=== PATIENT | female | born 1990 | race Caucasian/White ===

== ENCOUNTER 2022-09-22 13:06 | Outpatient (OUT) | payer BC, SELFPAY ==
--- NOTE | 2022-09-22 13:11 | US_ITS ---
[address] [address] Patient Name: EDISON DEWITT MRN: [id number] date: 1990 Sex: F Assigned Patient Location: US Current Patient Location: US Accession/Order Number: [id number] Exam Date: 09/22/2022 13:11 Report Date: 09/22/2022 16:04 At the request of: RENU LUCAS Procedure: US OB transvaginal EXAMINATION: US OB transvaginal HISTORY: MISSED MENSES COMPARISON: No relevant comparison available. FINDINGS: GESTATIONAL SAC: Present and normal appearing. YOLK SAC: Present and normal appearing. POLE: Present and normal appearing. CARDIAC: Present. UTERUS: Normal size and appearance. OVARIES: Right: Not seen. Left: Not seen. CERVIX: 5.2 cm in length and closed. CUL-DE-SAC: Normal. OTHER: None. AGE BY LMP: 10 weeks 5 days [facility] BY LMP: 04/15/2023 AGE BY US CRL: 8 weeks 3 days [facility] BY US CRL: 05/01/2023 US/US OB transvaginal IMPRESSION: 1. Single live intrauterine . Electronically authenticated by: RAVI BURRELL Date: 09/22/2022 16:04
== END 2022-09-22 13:07 | disposition home or self-care (01) ==
LOC: US 13:08
PROVIDERS: Visit Provider Obstetrics & Gynecology
DX: Z34.91 Encounter for supervision of normal pregnancy, unspecified, first trimester (principal)
CPT/HCPCS: 76817

== ENCOUNTER 2022-12-15 08:36 | Outpatient (OUT) | payer BC, SELFPAY ==
--- NOTE | 2022-12-15 08:38 | US_ITS ---
[address] [address] Patient Name: EDISON DEWITT MRN: [id number] date: 1990 Sex: F Assigned Patient Location: US Current Patient Location: US Accession/Order Number: [id number] Exam Date: 12/15/2022 08:39 Report Date: 12/15/2022 17:40 At the request of: RENU LUCAS Procedure: US OB anatomy EXAMINATION: US OB anatomy, US OB cervical length HISTORY: ANATOMY COMPARISON: No relevant comparison available. TECHNIQUE: Transabdominal sonographic examination was performed for obstetrical and evaluation. FINDINGS: Number: 1 Heart Rate: 142.0 bpm H.B. /min Amniotic Fluid Volume: Subjectively normal position: Cephalic presentation, longitudinal lie Placental Location: Anterior, placental edge 7.2 cm from the internal os Cervix Length: 3.8 cm , closed Normal anatomy: Lateral ventricles, cerebellum, posterior fossa, nose, lips, orbits, four-chamber heart, RVOT, LVOT, diaphragm, stomach, kidneys, abdominal cord insertion, bladder, umbilical arteries, three-vessel cord, spine, extremities BIOMETRY: BPD: 5.1 cm 21 weeks 3 days , 85% HC: 18.4 cm 20 weeks 5 days, 57% AC: 16.8 cm 21 weeks 6 days, 85% FL: 3.4 cm 20 weeks 6 days , 56% EFW:413.8 grams; 15 ounces, 89% FL/AC: 20.5 FL/BPD: 67.7 HC/AC: 1.1 GESTATIONAL AGE: Age by EDC: 20 weeks 3 days Age by current US: 21 weeks 2 days [facility] by current US: 04/25/2023 [facility] by EDC: 05/01/2023 US/US OB anatomy IMPRESSION: Normal anatomy scan *Reference: [facility] Practice Guideline for the performance of Obstetric Ultrasound Examinations, November 13, 2006. Electronically authenticated by: LUCIANA MENDOZA Date: 12/15/2022 17:40
--- NOTE | 2022-12-15 08:38 | US_ITS ---
[address] [address] Patient Name: EDISON DEWITT MRN: [id number] date: 1990 Sex: F Assigned Patient Location: US Current Patient Location: Accession/Order Number: [id number] Exam Date: 12/15/2022 08:39 Report Date: 12/15/2022 17:40 At the request of: RENU LUCAS Procedure: US OB cervical length EXAMINATION: US OB anatomy, US OB cervical length HISTORY: ANATOMY COMPARISON: No relevant comparison available. TECHNIQUE: Transabdominal sonographic examination was performed for obstetrical and evaluation. FINDINGS: Number: 1 Heart Rate: 142.0 bpm H.B. /min Amniotic Fluid Volume: Subjectively normal position: Cephalic presentation, longitudinal lie Placental Location: Anterior, placental edge 7.2 cm from the internal os Cervix Length: 3.8 cm , closed Normal anatomy: Lateral ventricles, cerebellum, posterior fossa, nose, lips, orbits, four-chamber heart, RVOT, LVOT, diaphragm, stomach, kidneys, abdominal cord insertion, bladder, umbilical arteries, three-vessel cord, spine, extremities BIOMETRY: BPD: 5.1 cm 21 weeks 3 days , 85% HC: 18.4 cm 20 weeks 5 days, 57% AC: 16.8 cm 21 weeks 6 days, 85% FL: 3.4 cm 20 weeks 6 days , 56% EFW:413.8 grams; 15 ounces, 89% FL/AC: 20.5 FL/BPD: 67.7 HC/AC: 1.1 GESTATIONAL AGE: Age by EDC: 20 weeks 3 days Age by current US: 21 weeks 2 days [facility] by current US: 04/25/2023 [facility] by EDC: 05/01/2023 US/US OB cervical length IMPRESSION: Normal anatomy scan *Reference: [facility] Practice Guideline for the performance of Obstetric Ultrasound Examinations, November 13, 2006. Electronically authenticated by: LUCIANA MENDOZA Date: 12/15/2022 17:40
== END 2022-12-15 08:37 | disposition home or self-care (01) ==
LOC: US 08:36
PROVIDERS: Visit Provider Obstetrics & Gynecology
DX: Z36.89 Encounter for other specified antenatal screening (principal); Z3A.20 20 weeks gestation of pregnancy
CPT/HCPCS: 76805; 76817

== ENCOUNTER 2023-02-08 08:43 | Outpatient (OUT) | payer BC, SELFPAY ==
[2023-02-08 09:57] LABS: Basophils Percent Auto 0.3 % (0.2-2.0); Eosinophils Absolute Auto 0.1 10^3/uL (0.0-0.7); Eosinophils Percent Auto 1.5 % (0.9-7.0); Hematocrit 34.8 % (36.0-48.0); Hemoglobin 11.5 g/dL (12.0-16.0); Immature Granulocytes Abs Auto 0.03 10^3/uL (0.00-0.03); Immature Granulocytes Pct Auto 0.4 % (0.0-0.5); Lymphocytes Absolute Auto 1.2 10^3/uL (1.2-3.8); Lymphocytes Percent Auto 16.2 % (20.5-60.0); Mean Corpuscular Volume 93.8 fL (81.0-99.0); Mean Platelet Volume 9.3 fL (9.5-13.5); Monocytes Absolute Auto 0.5 10^3/uL (0.3-0.8); Monocytes Percent Auto 6.6 % (1.7-12.0); Neutrophils Absolute Auto 5.7 10^3/uL (1.4-6.5); Platelet Count 226 10^3/uL (150-450); Red Blood Count 3.71 10^6/uL (4.20-5.40); Red Cell Distribution Width 13.5 % (11.0-15.0); White Blood Count 7.6 10^3/uL (4.0-11.0)
[2023-02-08 10:06] LABS: Glucose 1 Hour 111 mg/dL
== END 2023-02-08 08:44 | disposition home or self-care (01) ==
LOC: LAB 08:43
PROVIDERS: Visit Provider Obstetrics & Gynecology
DX: Z13.1 Encounter for screening for diabetes mellitus (principal)
CPT/HCPCS: 36415; 82950; 85025

== ENCOUNTER 2023-03-29 14:59 | Observation (INO) | payer BC, SELFPAY ==
--- OUTSIDE RECORDS SUMMARY | 2023-03-29 12:41 | XMS_ITS | CCD ---
Author Name Unknown Address [address] [place] [address] Organization [facility] Care Team Providers Care Individualized Education Plan Aide Name Role Phone Rosette Mendoza Primary Care Provider REQUEST, DR EB LISTED Primary Care Unavaila chase MENDOZA, DR LUCIANA Pedro Consulting Unavailable SHAYY ., DR SEARS Attending Unavailable SHAYY ., DR SEARS Admitting Unavailable SHAYY ., DR SEARS Consulting Unavailable Rosalind Jeter Unavailable RINA CURRY Attending Unavailable RENU LUCAS Attending Unavailable RENU LUCAS Attending Unavailable RENU LUCAS Attending Unavailable Rosette Mendoza Primary Care Provider PEMA REBOLLEDO Admitting Unavailable PEMA REBOLLEDO Attending Unavailable ROSETTE MENDOZA Primary Care Unavailable ROSETTE MENDOZA Primary Care Unavailable ROSETTE MENDOZA Primary Care Unavailable BRITTANI VALENCIA Referring Unavailab le Medications Current Medications Medication Drug Class(es) Dates Sig (Normalized) Sig (Original) aluminum hydroxide 40 mg/ml / magnesium hydroxide 40 mg/ml / simethicone 4 mg/ml oral suspension (1 source) Start: 03-26-2023 aluminum & magnesium hydroxide-simethi cone (MAALOX) 200-200-20 MG/5ML suspension 30 mL amoxicillin 500 mg oral capsule (1 source) Penicillin-class Antibacterial Start: 02-15-2023 take 1 capsule by mouth every eight hours Amoxicillin 500 MG 1 capsule Orally three times a day for 10 day(s) Feb, Active famotidine (PEPCID) 20 mg in sodium chloride (PF) 0.9 % 10 mL injection (1 source) Start: 03-26-2023 famotidine (PEPCID) 20 mg in sodium chloride (PF) 0.9 % 10 mL injection magnesium oxide 400 mg oral tablet (2 sources) Start: 12-15-2022 magnesium oxide (MAG-OX) 400 (240 Mg) MG tablet Magnesium Oxide -Mg Supplement 400 (240 Mg) MG Oral for 30 Days Not-Taking/PRN ondansetron (ZOFRAN-ODT) disintegrating tablet 4 mg (1 source) Start: 03-26-2023 ondansetron (ZOFRAN-ODT) disintegrating tablet 4 mg microencapsulated potassium chloride 20 meq extended release oral tablet (2 sources) Start: 03-27-2023 End: 03-30-2023 take 1 tablet by mouth once daily potassium chloride (KLOR-CON M) 20 MEQ extended release tablet Take 1 tablet by mouth daily for 3 days 3 tablet 0 03/27/2023 03/30/2023 Active Start: 03-27-2023 potassium chlo ride (KLOR-CON M) extended release tablet 40 mEq potassium chloride 40 mEq in sodium chloride 0.9 % 1,000 mL infusion (1 source) Start: 03-27-2023 potassium chlo ride 40 mEq in sodium chloride 0.9 % 1,000 mL infusion Vit-Fe Fumarate-FA ( VITAMINS) 28-0.8 MG TABS (2 sources) Start: 03-30-2022 take 1 tablet by mouth once daily Vit-Fe Fumarate-FA ( VITAMINS) 28-0.8 MG TABS Indications: Well woman exam Take 1 tablet by mouth daily 30 tablet 12 03/30/2022 Active Vitamins 28-0.8 MG (1 source) take 1 tablet by mouth in the morning Vitamins 28-0.8 MG TAKE 1 TABLET BY MOUTH IN THE MORNING Oral for 30 Days Active Completed/Discontinued Medications Medication Drug Class(es) Dates Sig (Normalized) Sig (Original) acetaminophen 500 mg oral tablet (1 source) Start: 03-26-2023 1,000 mg, Oral, EVERY 8 HOURS SCHEDULED (3 times per day), First dose on 03/26/23 at 1400, Until Discontinued Maximum dose of acetaminophen is 4000mg from all sources in 24 hours. Alternate ibuprofen and acetaminophen every 4 hours. calcium chloride 0.0014 meq/ml / potassium chloride 0.004 meq/ml / sodium chloride 0.103 meq/ml / sodium lactate 0.028 meq/ml injectable solution (1 source) Start: 03-26-2023 End: 03-26-2023 lactated ringers bolus bolus 1,000 mL fluconazole 150 mg oral tablet (1 source) Azole Antifungal Fluconazole 150 MG TAKE 1 TABLET BY MOUTH 1 TIME FOR 1 DAY Oral for 1 Days Not-Taking/PRN letrozole 2.5 mg oral tablet (1 source) Aromatase Inhibitor Letrozole 2. 5 MG Oral for 5 Days Not-Taking/PRN 50 ml magnesium sulfate 40 mg/ml injection (2 sources) Start: 03-26-2023 End: 03-27-2023 magnesium sulfate 2000 mg in 50 mL IVPB premix 24 hr metFORMIN hydrochloride 500 mg extended release oral tablet (1 source) Biguanide take 1 tablet by mouth once daily metFORMIN HCl ER 500 MG TAKE 1 TABLET BY MOUTH EVERY DAY WITH THE EVENING MEAL Oral for 30 Days Not-Taking/PRN metroNIDAZOLE 500 mg oral tablet (1 source) Nitroimidazole Antimicrobial metroNIDAZOLE 500 MG TAKE 1 TABLET BY MOUTH TWICE DAILY FOR 7 DAYS Oral for 7 Days Not-Taking/PRN 1000 ml sodium chloride 9 mg/ml injection (1 source) Start: 03-26-2023 End: 03-27-2023 0.9 % sodium chloride infusion sulfamethoxazole 800 mg / trimethoprim 160 mg oral tablet (1 source) Dihydrofolate Reductase Inhibitor Antibacterial, Sulfonamide Antimicrobial Sulfamethoxazole-T rimethoprim 800-160 MG TAKE 1 TABLET BY MOUTH TWICE DAILY FOR 10 DAYS Oral for 10 Days Not-Taking/PRN Problems Active Problems Problem Classification Problem Date Documented Date Episodic/Chronic Abdominal pain (4 sources) Pelvic and perineal pain; Translations: [PELVIC AND PERINEAL PAIN] Onset: 04-11-2022 Episodic Fluid and electrolyte disorders (4 sources) Hypokalemia; Translations: [Hypokalemia] Onset: 03-27-2023 03-27-2023 Episodic Noninfectious gastroenteritis (2 sources) Acute gastroenteritis; Translations: [Noninfective gastroenteritis and colitis, unspecified] Onset: 03-27-2023 03-27-2023 Episodic Other female genital disorders (1 source) Vaginal discharge; Translations: [Other specified noninflammatory disorders of vagina] Episodic Other nutritional; endocrine; and metabolic disorders (2 sources) Hypomagnesemia; Translations: [Hypomagnesemia] Onset: 03-27-2023 03-27-2023 Chronic Otitis media and related conditions (1 source) Otitis media, unspecified, right ear Episodic Residual codes; unclassified (2 sources) Gestation period, 34 weeks; Translations: [34 weeks gestation of ] Onset: 03-26-2023 03-26-2023 Episodic Unclassified (1 source) vomiting, dehydrated, 8 momths preg Onset: 03-26-2023 Past or Other Problems Problem Classification Problem Date Documented Date Episodic/Chronic Genitourinary symptoms and ill-defined conditions (2 sources) Malodorous urine; Translations: [Unspecified abnormal findings in urine] Onset: 03-30-2022 Episodic Other female genital disorders (1 source) Other specified noninflammatory disorders of vagina; Translations: [Other specified noninflammatory disorders of vagina] Onset: 03-30-2022 Episodic Results Test Name Value Interpretation Reference Range Facility BLOOD GAS, VENOUSon 03-27-19 Carboxyhemoglobin (Bld) [Mass fraction] 1.0 % 0 - 5 % [facility] Comment on above: Reference Range: Non-Smokers 0-2% Average Smoker 2-4% Heavy Smoker <10% HCO3 (Bld) [Moles/Vol] 24.8 mmol/L 24 - 30 mmol /L [facility] Interpretation and review of laboratory results Abnormal [facility] Negative Base Excess, Pieter 0.3 mmol/L 0.0 - 2.0 mmol/L [facility] Oxygen saturation in Blood 35.8 % Low 60.0 - 85.0 % [facility] Oxygen/Inspired gas Respiratory system --on ventilator INFORMATION NOT PROVIDED [facility] pCO2, Pieetr 45.1 [facility] pH, Pieter 7.359 7.320 - 7.420 [facility] pO2, Pieter 26.4 Low [facility] Comp Metabolic Profon 2023 Potassium [Moles/Vol] 2.9 mmol/L Critically low 3.7-5.3 [facility] Comment on above: Performed By: #### O IKM MG, CP #### [facility] [place] [id number] [employer]: Jurgen Hernandez MD Albumin [Mass/Vol] 2.9 g/dL Low 3.5-5.2 [facility] Comment on above: Performed By: #### O SMO, MG, CP #### [address] [address] [employer]: Jurgen Hernandez MD Albumin/Glob Ratio 1.1 Normal 1.0-2.5 [facility] Comment on above: Performed By: #### O SMO, MG, CP #### [facility] [address] [place] [address] [employer]: Jurgen Hernandez MD Alkaline Phos 73 U/L Normal 35-104 [facility] Comment on above: Performed By: #### O SMO, MG, CP #### [facility] [address] [place] [address] [employer]: Jurgen Hernandez MD ALT [Catalytic activity/Vol] 7 U/L Normal 5-33 [facility] Comment on above: Performed By: #### O SMO, MG, CP #### [address] [address] [employer]: Jurgen Hernandez MD Anion gap [Moles/Vol] 9 mmol/L Normal 9-17 [facility] Comment on above: Performed By: #### O SMO, MG, CP #### [address] [address] [employer]: Jurgen Hernandez MD AST [Catalytic activity/Vol] 26 U/L Normal <32 [facility] Comment on above: Performed By: #### O SMO, MG, CP #### [address] [address] [employer]: Jurgen Hernandez MD Bilirubin [Mass/Vol] 1.3 mg/dL High 0.3-1.2 [facility] Comment on above: Performed By: #### O SMO, MG, CP #### [employer] [address] [place] [address] [employer]: Jurgen Hernandez MD Calcium [Mass/Vol] 7.8 mg/dL Low 8.6-10.4 [facility] Comment on above: Performed By: #### O SMO, MG, CP #### [facility] [address] [place] [address] [employer]: Jurgen Hernandez MD Chloride [Moles/Vol] 104 mmol/L Normal 98-107 [facility] Comment on above: Performed By: #### O SMO, MG, CP #### [facility] [address] [place] [address] [employer]: Jurgen Hernandez MD CO2 [Moles/Vol] 21 mmol/L Normal 20-31 [facility] Comment on above: Performed By: #### O SMO, MG, CP #### [facility] [address] [place] [address] [employer]: Jurgen Hernandez MD Creatinine [Mass/Vol] 0.4 mg/dL Low 0.5-0.9 [facility] Comment on above: Performed By: #### O SMO, MG, CP #### [facility] [address] [place] [address] [employer]: Jurgen Hernandez MD GFR/1.73 sq M.predicted among non-blacks MDRD (S/P/Bld) [Vol rate/Area] mL/min/{1.73_m2} Normal >60 [facility] Comment on above: Result Comment: These results are not intended for use in patients <18 years of age. eGFR results are calculated without a race factor using the 2020 CKD-EPI equation. Careful clinical correlation is recommended, particularly when comparing to results calculated using previous equations. The CKD-EPI equation is less accurate in patients with extremes of muscle mass, extra-renal metabolism of creatine, excessive creatine ingestion, or following therapy that affects renal tubular secretion. Performed By: #### O SMO, MG, CP #### [facility] [place] [address] [employer]: Jurgen Hernandez MD Glucose [Mass/Vol] 108 mg/dL High 70-99 [facility] Comment on above: Performed By: #### O SMO, MG, CP #### [facility] [place] [address] [employer]: Jurgen Hernandez MD Protein [Mass/Vol] 5.6 g/dL Low 6.4-8.3 [facility] Comment on above: Performed By: #### O SMO, MG, CP #### [facility] [address] [place] [address] [employer]: Jurgen Hernandez MD Sodium [Moles/Vol] 134 mmol/L Low 135-144 [facility] Comment on above: Performed By: #### O SMO MG, CP #### [facility] [address] [place] [address] [employer]: Jurgen Hernandez MD Urea nitrogen [Mass/Vol] 2 mg/dL Low 6-20 [facility] Comment on above: Performed By: #### O SMO, MG, CP #### [facility] [address] [place] [address] [employer]: Jurgen Hernandez MD Comprehensive Metabolic Pane [facility] 03-27-2023 Albumin [Mass/Vol] 2.9 g/dL Low 3.5 - 5.2 g/dL [facility] Albumin/Globulin [Mass ratio] 1.1 {ratio} 1.0 - 2.5 [facility] ALP [Catalytic activity/Vol] 73 U/L 35 - 104 U/L [facility] ALT [Catalytic activity/Vol] 7 U/L 5 - 33 U/L [facility] Anion gap [Moles/Vol] 9 mmol/L 9 - 17 mmol/L [facility] AST [Catalytic activity/Vol] 26 U/L NINF - 32 U/L [facility] Bilirubin [Mass/Vol] 1.3 mg/dL High 0.3 - 1 .2 mg/dL [facility] Calcium [Mass/Vol] 7.8 mg/dL Low 8.6 - 10. 4 mg/dL [facility] Chloride [Moles/Vol] 104 mmol/L 98 - 10 7 mmol/L [facility] CO2 [Moles/Vol] 21 mmol/L 20 - 31 mmol/L [facility] Creatinine [Mass/Vol] 0.4 mg/dL Low 0.5 - 0.9 mg/dL [facility] GFR/1.73 sq M.predicted MDRD (S/P/Bld) [Vol rate/Area] - PINF [facility] Comment on above: These results are not intended for use in patients <18 years of age. eGFR results are calculated without a race factor using the 2020 CKD-EPI equation. Careful clinical correlation is recommended, particularly when comparing to results calculated using previous equations. The CKD-EPI equation is less accurate in patients with extremes of muscle mass, extra-renal metabolism of creatine, excessive creatine ingestion, or following therapy that affects renal tubular secretion. Glucose [Mass/Vol] 108 mg/dL High 70 - 99 mg/dL [facility] Interpretation and review of laboratory results Abnormal [facility] Potassium [Moles/Vol] 2.9 mmol/L Critically low 3.7 - 5.3 mmol/L [facility] Protein [Mass/Vol] 5.6 g/dL Low 6.4 - 8.3 g/dL [facility] Sodium [Moles/Vol] 134 mmol/L Low 135 - 144 mmol/L [facility] Urea nitrogen [Mass/Vol] 2 mg/dL Low 6 - 20 mg/dL [facility] EKG 12 LeadOrdered By: Lillian Pruitt on 03-27-2023 Atrial Rate 101 BPM [facility] [employer] Work Phone: P [place] 54 degrees [facility] [employer] Work Phone: P-R Interval 178 ms [facility] [employer] Work Phone: Q-T Interval 364 ms [facility] Work Phone: QRS Duration 102 ms [facility] Work Phone: QTc Calculation (Bazett) 471 ms [facility] Work Phone: R [place] 35 degrees [facility] Work Phone: T [place] 38 degrees [facility] Work Phone: Ventricular Rate 101 BPM [facility] Work Phone: [facility] Work Phone: EKG 12 Leadon 03-27-2023 Sinus tachycardia Incomplete right bundle branch block Septal infarct , age undetermined Abnormal ECG No previous ECGs available [facility] STLillian Truong MD - 03/27/2023 Sinus tachycardia Incomplete right bundle branch block Septal infarct , age undetermined Abnormal ECG No previous ECGs available [facility] Atrial Rate 101 BPM [facility] P [place] 56 degrees [facility] P-R Interval 170 ms [facility] Q-T Interval 364 ms [facility] QRS Duration 96 ms [facility] QTc Calculation (Bazett) 471 ms [facility] R [place] 31 degrees [facility] T Melrose 37 degrees [facility] Ventricular Rate 101 BPM [facility] Sinus tachycardia Nonspecific ST and T wave abnormality Abnormal ECG When compared with ECG of 26-MAR-2023 11:35, Incomplete right bundle branch block is no longer Present [facility] STLillian Truong MD - 03/27/[address] and T wave abnormality Abnormal ECG When compared with ECG of 26-MAR-2023 11:35, Incomplete right bundle branch block is no longer Present [facility] Electrolyte Panelon 03-27-19 24 Anion gap [Moles/Vol] 9 mmol/L 9 - 17 mmol/L [facility] Chloride [Moles/Vol] 103 mmol/L 98 - 10 7 mmol/L [facility] CO2 [Moles/Vol] 23 mmol/L 20 - 31 mmol/L [facility] Interpretation and review of laboratory results Abnormal [facility] Potassium [Moles/Vol] 3.1 mmol/L Low 3.7 - 5.3 mmol/L [facility] Sodium [Moles/Vol] 135 mmol/L 135 - 144 mmol/L [facility] Electrolyteson 03-27-2023 Anion gap [Moles/Vol] 9 mmol/L Normal 9-17 [facility] Comment on above: Performed By: #### U RC #### [employer] [address] [place] [address] [employer]: Jurgen Hernandez MD Chloride [Moles/Vol] 103 mmol/L Normal 98-107 [facility] Comment on above: Performed By: #### U RC #### [facility] [address] [place] [address] [employer]: Jurgen Hernandez MD CO2 [Moles/Vol] 23 mmol/L Normal 20-31 [facility] Comment on above: Performed By: #### U RC #### [employer] [address] [place] [address] [employer]: Jurgen Hernandez MD Potassium [Moles/Vol] 3.1 mmol/L Low 3.7-5.3 [facility] Comment on above: Performed By: #### U RC #### [employer] [address] [place] [address] [employer]: Jurgen Hernandez MD Sodium [Moles/Vol] 135 mmol/L Normal 135-144 [facility] Comment on above: Performed By: #### U RC #### [facility] [address] [place] [address] [employer]: Jurgen Hernandez MD K (Potassium)on 03-27-2023 Potassium [Moles/Vol] 2.7 mmol/L Critically low 3.7-5.3 [facility] Comment on above: Performed By: #### K #### [facility] [address] [place] [address] [employer]: Jurgen Hernandez MD Potassium [Moles/Vol] 2.5 mmol/L Critically low 3.7-5.3 [facility] Comment on above: Performed By: #### K #### [facility] [address] [place] [address] [employer]: Jurgen Hernandez MD Magnesiumon 03-27-2023 Magnesium [Mass/Vol] 1.9 mg/dL Normal 1.6-2.6 [facility] Comment on above: Performed By: #### O KIM MG, CP #### [facility] [address] [place] [address] [employer]: Jurgen Hernandez MD Magnesium [Mass/Vol] 1.9 mg/dL 1.6 - 2 .6 mg/dL [facility] OSMOLALITY, URINEon 03-27-19 24 Osmolality (U) [Osmolality] 365 mosm/kg [facility] Osmolalityon 03-27-2023 Osmolality [Osmolality] 285 mosm/kg Normal 275-295 [facility] Comment on above: Performed By: #### O KIM MG, CP #### [facility] [address] [place] [address] [employer]: Jurgen Hernandez MD Osmolality [Osmolality] 285 mosm/kg [facility] Osmolality, Urineon 03-27-19 24 Osmolality - Urine 365 mOsm/kg Normal 80-1300 [facility] Comment on above: Performed By: #### U RC #### [facility] [address] [place] [address] [employer]: Jurgen Hernandez MD POTASSIUM, URINE, RANDOMon 0 03-27-2023 Potassium, Ur 29.1 mmol/L [facility] Comment on above: No normal range esta blished. [facility] Potassiumon 03-27-2023 Interpretation and review of laboratory results Abnormal [facility] Potassium [Moles/Vol] 2.7 mmol/L Critically low 3.7 - 5.3 mmol/L [facility] Potassium,Random Uron 2023 Potassium [Moles/Vol] 29.1 mmol/L Normal [facility] Comment on above: Result Comment: No n ormal range established. Performed By: #### U RC #### [address] [address] [employer]: Jurgen Hernandez MD Venous Blood Gaseson 024 Body Temp. 37.0 Normal [facility] Comment on above: Performed By: #### U RC #### [address] [address] [employer]: Jurgen Hernandez MD Carboxy Hgb 1.0 % Normal 0-5 [facility] Comment on above: Result Comment: Reference Range: Non-Smokers 0-2% Average Smoker 2-4% Heavy Smoker <10% Performed By: #### U RC #### [address] [address] [employer]: Jurgen Hernandez MD FIO2 INFORMATION NOT PROVIDED Normal [facility] Comment on above: Performed By: #### U RC #### [address] [address] [employer]: Jurgen Hernandez MD HCO3 (Bld) [Moles/Vol] 24.8 mmol/L Normal 24-30 [facility] Comment on above: Performed By: #### U RC #### [address] [address] [employer]: Jurgen Hernandez MD Negative Base Excess 0.3 mmol/L Normal 0.0-2.0 [facility] Comment on above: Performed By: #### U RC #### [address] [address] [employer]: Jurgen Hernandez MD Oxygen saturation in Blood 35.8 % Low 60.0-85.0 [facility] Comment on above: Performed By: #### U RC #### [address] [address] [employer]: Jurgen Hernandez MD pCO2 45.1 mm Hg Normal 39-55 [facility] Comment on above: Performed By: #### U RC #### [address] [address] [employer]: Jurgen Hernandez MD pH (Bld) 7.359 [pH] Normal 7.320-7.420 [facility] Comment on above: Performed By: #### U RC #### [address] [address] [employer]: Jurgen Hernandez MD pO2 26.4 mm Hg Low 30-50 [facility] Comment on above: Performed By: #### U RC #### [address] [address] [employer]: Jurgen Hernandez MD Beta Hydroxybutyrateon 03-26 Beta Hydroxybutyrate 1.24 mmol/L High 0.02-0.27 [facility] Comment on above: Performed By: #### C P, CDP, MG, BH #### [address] [address] [employer]: Jurgen Heranndez MD Beta-Hydroxybutyrateon 03-26 Beta hydroxybutyrate [Mass/Vol] 1.24 mmol/L High 0.02 - 0.27 mmol/L [facility] Interpretation and review of laboratory results Abnormal [facility] CBC with Auto Differentialon 03-26-2023 Basophils (Bld) [#/Vol] 0.00 10*3/uL [facility] Basophils/100 WBC (Bld) 0 % 0 - 2 % B ON [facility] Eosinophils (Bld) [#/Vol] 0.00 10*3/uL [facility] Eosinophils/100 WBC (Bld) 0 % Low 1 - 4 % [facility] Erythrocyte distribution width (RBC) [Ratio] 14.5 % High 11.8 - 14.4 % [facility] Hematocrit (Bld) [Volume fraction] 35.7 % Low 36.3 - 47.1 % [facility] Hemoglobin (Bld) [Mass/Vol] 12.1 g/dL 11.9 - 15.1 g/dL [facility] Immature granulocytes (Bld) [#/Vol] 0.00 10*3/uL [facility] Immature granulocytes/100 WBC (Bld) 0 % 0 [facility] Interpretation and review of laboratory results Abnormal [facility] Lymphocytes/100 WBC (Bld) 5 % Low 24 - 44 % [facility] Lymphocytes/100 WBC (Bld) 0.48 % Low [facility] MCH (RBC) [Entitic mass] 30.0 pg 25.2 - 33.5 pg [facility] MCHC (RBC) [Mass/Vol] 33.9 g/dL 28.4 - 34.8 g/dL [facility] MCV (RBC) [Entitic vol] 88.4 fL 82.6 - 102.9 fL [facility] Monocytes/100 WBC (Bld) 4 % 1 - 7 % B ON [facility] Monocytes/100 WBC (Bld) 0.38 % B ON [facility] Morphology Moises (Bld) [Interp] ANISOCYTOSIS PRESENT [facility] Neutrophils/100 WBC (Bld) 91 % High 36 - 66 % [facility] Nucleated RBC/100 WBC (Bld) [Ratio] 0.0 % 0.0 per 100 WBC [facility] Platelet mean volume (Bld) [Entitic vol] 9.4 fL 8.1 - 13.5 fL [facility] Platelets (Bld) [#/Vol] 231 10*3/uL [facility] RBC (Bld) [#/Vol] 4.04 10*6/uL 3.95 - 5.1 1 m/uL [facility] Segmented neutrophils/100 WBC (Bld) 8.64 % High [facility] WBC other (Bld) [#/Vol] 9.5 B ON [facility] CBC with Diffon 03-26-2023 Abs. Basophil 0.00 k/uL Normal 0.0-0.2 [facility] Comment on above: Performed By: #### C P, CDP, MG, #### [employer] [address] [place] [address] [employer]: Jurgen Hernandez MD Abs.Imm.Granulocyte 0.00 k/uL Normal 0.00-0.30 [facility] Comment on above: Performed By: #### C P, CDP, MG, #### [employer] [address] [place] [address] [employer]: Jurgen Hernandez MD Abs.Neutrophil (Seg) 8.64 k/uL High 1.8-7.7 [facility] Comment on above: Performed By: #### C P, CDP, MG, #### [employer] [address] [place] [address] [employer]: Jurgen Hernandez MD Basophils/100 WBC (Bld) 0 % Normal 0-2 [facility] Comment on above: Performed By: #### C P, CDP, MG, #### [employer] [address] [place] [address] [employer]: Jurgen Hernandez MD Eosinophils (Bld) [#/Vol] 0.00 10*3/uL Normal 0.0-0.4 [facility] Comment on above: Performed By: #### C P, CDP, MG, #### [address] [address] [employer]: Jurgen Hernandez MD Eosinophils/100 WBC (Bld) 0 % Low 1-4 [facility] Comment on above: Performed By: #### C P, CDP, MG, #### [address] [address] [employer]: Jurgen Hernandez MD Immature granulocytes/100 WBC (Bld) 0 % Normal 0 [facility] Comment on above: Performed By: #### C P, CDP, MG, #### [address] [address] [employer]: Jurgen Hernandez MD Lymphocytes (Bld) [#/Vol] 0.48 10*3/uL Low 1.0-4.8 [facility] Comment on above: Performed By: #### C P, CDP, MG, #### [address] [address] [employer]: Jurgen Hernandez MD Lymphocytes/100 WBC (Bld) 5 % Low 24-44 [facility] Comment on above: Performed By: #### C P, CDP, MG, #### [address] [address] [employer]: Jurgen Hernandez MD Monocytes (Bld) [#/Vol] 0.38 10*3/uL Normal 0.1-0.8 [facility] Comment on above: Performed By: #### C P, CDP, MG, #### [address] [address] [employer]: Jurgen Hernandez MD Monocytes/100 WBC (Bld) 4 % Normal 1-7 [facility] Comment on above: Performed By: #### C P, CDP, MG, #### [address] [address] [employer]: Jurgen Hernandez MD Morphology Moises (Bld) [Interp] ANISOCYTOSIS PRESENT Normal [facility] Comment on above: Performed By: #### C P, CDP, MG, #### [facility] [address] [place] [address] [employer]: Jurgen Hernandez MD Neutrophil (Seg) 91 % High 36-[address] [facility] Comment on above: Performed By: #### C P, CDP, MG, #### [address] [address] [employer]: Jurgen Hernandez MD Erythrocyte distribution width (RBC) [Ratio] 14.5 % High 11.8-14.4 [facility] Comment on above: Performed By: #### C P, CDP, MG, #### [address] [address] [employer]: Jurgen Hernandez MD Hematocrit (Bld) [Volume fraction] 35.7 % Low 36.3-47.1 [facility] Comment on above: Performed By: #### C P, CDP, MG, #### [address] [address] [employer]: Jurgen Hernandez MD Hemoglobin (Bld) [Mass/Vol] 12.1 g/dL Normal 11.9-15.1 [facility] Comment on above: Performed By: #### C P, CDP, MG, #### [facility] [address] [place] [address] [employer]: Jurgen Hernandez MD MCH (RBC) [Entitic mass] 30.0 pg Normal 25.2-33.5 [facility] Comment on above: Performed By: #### C P, CDP, MG, #### [facility] [address] [place] [address] [employer]: Jurgen Hernandez MD MCHC (RBC) [Mass/Vol] 33.9 g/dL Normal 28.4-34.8 [facility] Comment on above: Performed By: #### C P, CDP, MG, #### [address] [address] [employer]: uJrgen Hernandez MD MCV (RBC) [Entitic vol] 88.4 fL Normal 82.6-102.9 [facility] Comment on above: Performed By: #### C P, CDP, MG, #### [address] [address] [employer]: Jurgen Hernandez MD NRBC Automated 0.0 per 100 WBC Normal 0.0 [facility] Comment on above: Performed By: #### C P, CDP, MG, #### [address] [address] [employer]: Jurgen Hernandez MD Platelet mean volume (Bld) [Entitic vol] 9.4 fL Normal 8.1-13.5 [facility] Comment on above: Performed By: #### C P, CDP, MG, #### [address] [address] [employer]: Jurgen Hernandez MD Platelets (Bld) [#/Vol] 231 10*3/uL Normal 138-453 [facility] Comment on above: Performed By: #### C P, CDP, MG, #### [address] [address] [employer]: Jurgen Hernandez MD RBC (Bld) [#/Vol] 4.04 10*6/uL Normal 3.95-5.11 [facility] Comment on above: Performed By: #### C P, CDP, MG, #### [address] [address] [employer]: Jurgen Hernandez MD WBC (Bld) [#/Vol] 9.5 10*3/uL Normal 3.5-11.3 [facility] Comment on above: Performed By: #### C P, CDP, MG, BH #### [address] [address] [employer]: Jurgen Hernandez MD Comp Metabolic Profon 2023 Potassium [Moles/Vol] 2.7 mmol/L Critically low 3.7-5.3 [facility] Comment on above: Performed By: #### U RC #### [address] [address] [employer]: Jurgen Hernandez MD Albumin [Mass/Vol] 2.9 g/dL Low 3.5-5.2 [facility] Comment on above: Performed By: #### U RC #### [address] [address] [employer]: Jurgen Hernandez MD Albumin/Glob Ratio 1.1 Normal 1.0-2.5 [facility] Comment on above: Performed By: #### U RC #### [address] [address] [employer]: Jurgen Hernandez MD Alkaline Phos 73 U/L Normal 35-104 [facility] Comment on above: Performed By: #### U RC #### [address] [address] [employer]: Jurgen Hernandez MD ALT [Catalytic activity/Vol] 8 U/L Normal 5-33 [facility] Comment on above: Performed By: #### U RC #### [address] [address] [employer]: Jurgen Hernandez MD Anion gap [Moles/Vol] 12 mmol/L Normal 9-17 [facility] Comment on above: Performed By: #### U RC #### [address] [address] [employer]: Jurgen Hernandez MD AST [Catalytic activity/Vol] 14 U/L Normal <32 [facility] Comment on above: Performed By: #### U RC #### [address] [address] [employer]: Jurgen Hernandez MD Bilirubin [Mass/Vol] 1.3 mg/dL High 0.3-1.2 [facility] Comment on above: Performed By: #### U RC #### [address] [address] [employer]: Jurgen Hernandez MD Calcium [Mass/Vol] 7.9 mg/dL Low 8.6-10.4 [facility] Comment on above: Performed By: #### U RC #### [address] [address] [employer]: Jurgen Hernandez MD Chloride [Moles/Vol] 105 mmol/L Normal 98-107 [facility] Comment on above: Performed By: #### U RC #### [address] [address] [employer]: Jurgen Hernandez MD CO2 [Moles/Vol] 21 mmol/L Normal 20-31 [facility] Comment on above: Performed By: #### U RC #### [address] [address] [employer]: Jurgen Hernandez MD Creatinine [Mass/Vol] 0.4 mg/dL Low 0.5-0.9 [facility] Comment on above: Performed By: #### U RC #### [address] [address] [employer]: Jurgen Hernandez MD GFR/1.73 sq M.predicted among non-blacks MDRD (S/P/Bld) [Vol rate/Area] mL/min/{1.73_m2} Normal >60 [facility] Comment on above: Result Comment: These results are not intended for use in patients <18 years of age. eGFR results are calculated without a race factor using the 2020 CKD-EPI equation. Careful clinical correlation is recommended, particularly when comparing to results calculated using previous equations. The CKD-EPI equation is less accurate in patients with extremes of muscle mass, extra-renal metabolism of creatine, excessive creatine ingestion, or following therapy that affects renal tubular secretion. Performed By: #### U RC #### [address] [address] [employer]: Jurgen Hernandez MD Glucose [Mass/Vol] 115 mg/dL High 70-99 [facility] Comment on above: Performed By: #### U RC #### [address] [address] [employer]: Jurgen Hernandez MD Protein [Mass/Vol] 5.5 g/dL Low 6.4-8.3 [facility] Comment on above: Performed By: #### U RC #### [address] [address] [employer]: Jurgen Hernandez MD Sodium [Moles/Vol] 138 mmol/L Normal 135-144 [facility] Comment on above: Performed By: #### U RC #### [facility] [address] [place] [address] [employer]: Jurgen Hernandez MD Urea nitrogen [Mass/Vol] 3 mg/dL Low 6-20 [facility] Comment on above: Performed By: #### U RC #### [address] [address] [employer]: Jurgen Hernandez MD Potassium [Moles/Vol] 2.6 mmol/L Critically low 3.7-5.3 [facility] Comment on above: Performed By: #### C P, CDP, MG, #### [address] [address] [employer]: Jurgen Hernandez MD Albumin [Mass/Vol] 3.4 g/dL Low 3.5-5.2 [facility] Comment on above: Performed By: #### C P, CDP, MG, #### [address] [address] [employer]: Jurgen Hernandez MD Albumin/Glob Ratio 1.0 Normal 1.0-2.5 [facility] Comment on above: Performed By: #### C P, CDP, MG, #### [address] [address] [employer]: Jurgen Hernandez MD Alkaline Phos 80 U/L Normal 35-104 [facility] Comment on above: Performed By: #### C P, CDP, MG, #### [address] [address] [employer]: Jurgen Hernandez MD ALT [Catalytic activity/Vol] 9 U/L Normal 5-33 [facility] Comment on above: Performed By: #### C P, CDP, MG, #### [address] [address] [employer]: Jurgen Hernandez MD Anion gap [Moles/Vol] 15 mmol/L Normal 9-17 [facility] Comment on above: Performed By: #### C P, CDP, MG, #### [facility] [address] [place] [address] [employer]: Jurgen Hernandez MD AST [Catalytic activity/Vol] 20 U/L Normal <32 [facility] Comment on above: Performed By: #### C P, CDP, MG, #### [facility] [place] [address] [employer]: Jurgen Hernandez MD Bilirubin [Mass/Vol] 1.6 mg/dL High 0.3-1.2 [facility] Comment on above: Performed By: #### C P, CDP, MG, #### [facility] [address] [place] [address] [employer]: Jurgen Hernandez MD Calcium [Mass/Vol] 8.2 mg/dL Low 8.6-10.4 [facility] Comment on above: Performed By: #### C P, CDP, MG, #### [facility] [address] [place] [address] [employer]: Jurgen Hernandez MD Chloride [Moles/Vol] 108 mmol/L High 98-107 [facility] Comment on above: Performed By: #### C P, CDP, MG, #### [facility] [address] [place] [address] [employer]: Jurgen Hernandez MD CO2 [Moles/Vol] 19 mmol/L Low 20-31 [facility] Comment on above: Performed By: #### C P, CDP, MG, #### [facility] [address] [place] [address] [employer]: Jurgen Hernandez MD Creatinine [Mass/Vol] 0.4 mg/dL Low 0.5-0.9 [facility] Comment on above: Performed By: #### C P, CDP, MG, #### [facility] [address] [place] [address] [employer]: Jurgen Hernandez MD GFR/1.73 sq M.predicted among non-blacks MDRD (S/P/Bld) [Vol rate/Area] mL/min/{1.73_m2} Normal >60 [facility] Comment on above: Result Comment: These results are not intended for use in patients <18 years of age. eGFR results are calculated without a race factor using the 2020 CKD-EPI equation. Careful clinical correlation is recommended, particularly when comparing to results calculated using previous equations. The CKD-EPI equation is less accurate in patients with extremes of muscle mass, extra-renal metabolism of creatine, excessive creatine ingestion, or following therapy that affects renal tubular secretion. Performed By: #### C P, CDP, MG, BH #### [facility] [address] [place] [address] [employer]: Jurgen Hernandez MD Glucose [Mass/Vol] 122 mg/dL High 70-99 [facility] Comment on above: Performed By: #### C P, CDP, MG, BH #### [facility] [address] [place] [address] [employer]: Jurgen Hernandez MD Protein [Mass/Vol] 6.7 g/dL Normal 6.4-8.3 [facility] Comment on above: Performed By: #### C P, CDP, MG, #### [employer] [address] [place] [address] [employer]: Jurgen Hernandez MD Sodium [Moles/Vol] 142 mmol/L Normal 135-144 [facility] Comment on above: Performed By: #### C P, CDP, MG, #### [facility] [address] [place] [address] [employer]: Jurgen Hernandez MD Urea nitrogen [Mass/Vol] 6 mg/dL Normal 6-20 [facility] Comment on above: Performed By: #### C P, CDP, MG, #### [facility] [address] [place] [address] [employer]: Jurgen Hernandez MD Comprehensive Metabolic Pane [facility] 03-26-2023 Albumin [Mass/Vol] 2.9 g/dL Low 3.5 - 5.2 g/dL [facility] Albumin/Globulin [Mass ratio] 1.1 {ratio} 1.0 - 2.5 [facility] ALP [Catalytic activity/Vol] 73 U/L 35 - 104 U/L [facility] ALT [Catalytic activity/Vol] 8 U/L 5 - 33 U/L [facility] Anion gap [Moles/Vol] 12 mmol/L 9 - 17 mmol/L [facility] AST [Catalytic activity/Vol] 14 U/L NINF - 32 U/L [facility] Bilirubin [Mass/Vol] 1.3 mg/dL High 0.3 - 1 .2 mg/dL [facility] Calcium [Mass/Vol] 7.9 mg/dL Low 8.6 - 10. 4 mg/dL [facility] Chloride [Moles/Vol] 105 mmol/L 98 - 10 7 mmol/L [facility] CO2 [Moles/Vol] 21 mmol/L 20 - 31 mmol/L [facility] Creatinine [Mass/Vol] 0.4 mg/dL Low 0.5 - 0.9 mg/dL [facility] GFR/1.73 sq M.predicted MDRD (S/P/Bld) [Vol rate/Area] - PINF [facility] Comment on above: These results are not intended for use in patients <18 years of age. eGFR results are calculated without a race factor using the 2020 CKD-EPI equation. Careful clinical correlation is recommended, particularly when comparing to results calculated using previous equations. The CKD-EPI equation is less accurate in patients with extremes of muscle mass, extra-renal metabolism of creatine, excessive creatine ingestion, or following therapy that affects renal tubular secretion. Glucose [Mass/Vol] 115 mg/dL High 70 - 99 mg/dL [facility] Interpretation and review of laboratory results Abnormal [facility] Potassium [Moles/Vol] 2.7 mmol/L Critically low 3.7 - 5.3 mmol/L [facility] Protein [Mass/Vol] 5.5 g/dL Low 6.4 - 8.3 g/dL [facility] Sodium [Moles/Vol] 138 mmol/L 135 - 144 mmol/L [facility] Urea nitrogen [Mass/Vol] 3 mg/dL Low 6 - 20 mg/dL [facility] Albumin [Mass/Vol] 3.4 g/dL Low 3.5 - 5.2 g/dL [facility] Albumin/Globulin [Mass ratio] 1.0 {ratio} 1.0 - 2.5 [facility] ALP [Catalytic activity/Vol] 80 U/L 35 - 104 U/L [facility] ALT [Catalytic activity/Vol] 9 U/L 5 - 33 U/L [facility] Anion gap [Moles/Vol] 15 mmol/L 9 - 17 mmol/L [facility] AST [Catalytic activity/Vol] 20 U/L NINF - 32 U/L [facility] Bilirubin [Mass/Vol] 1.6 mg/dL High 0.3 - 1 .2 mg/dL [facility] Calcium [Mass/Vol] 8.2 mg/dL Low 8.6 - 10. 4 mg/dL [facility] Chloride [Moles/Vol] 108 mmol/L High 98 - 10 7 mmol/L [facility] CO2 [Moles/Vol] 19 mmol/L Low 20 - 31 mmol/L [facility] Creatinine [Mass/Vol] 0.4 mg/dL Low 0.5 - 0.9 mg/dL [facility] GFR/1.73 sq M.predicted MDRD (S/P/Bld) [Vol rate/Area] - PINF [facility] Comment on above: These results are not intended for use in patients <18 years of age. eGFR results are calculated without a race factor using the 2020 CKD-EPI equation. Careful clinical correlation is recommended, particularly when comparing to results calculated using previous equations. The CKD-EPI equation is less accurate in patients with extremes of muscle mass, extra-renal metabolism of creatine, excessive creatine ingestion, or following therapy that affects renal tubular secretion. Glucose [Mass/Vol] 122 mg/dL High 70 - 99 mg/dL [facility] Interpretation and review of laboratory results Abnormal [facility] Potassium [Moles/Vol] 2.6 mmol/L Critically low 3.7 - 5.3 mmol/L [facility] Protein [Mass/Vol] 6.7 g/dL 6.4 - 8.3 g/dL [facility] Sodium [Moles/Vol] 142 mmol/L 135 - 144 mmol/L [facility] Urea nitrogen [Mass/Vol] 6 mg/dL 6 - 20 mg/dL [facility] Magnesiumon 03-26-2023 Magnesium [Mass/Vol] 1.6 mg/dL Normal 1.6-2.6 [facility] Comment on above: Performed By: #### C P, CDP, MG, #### [employer] [address] [place] [id number] [employer]: Jurgen Hernandez MD Magnesium [Mass/Vol] 1.6 mg/dL 1.6 - 2 .6 mg/dL [facility] Potassiumon 03-26-2023 Interpretation and review of laboratory results Abnormal [facility] Potassium [Moles/Vol] 2.5 mmol/L Critically low 3.7 - 5.3 mmol/L [facility] Protein / Creatinine Ratio, Urineon 03-26-2023 Creatinine (U) [Mass/Vol] 185.0 mg/dL 28.0 - 217.0 mg/dL [facility] Protein (U) [Mass/Vol] 44 mg/dL [facility] Comment on above: No normal range esta blished. Urine Total Protein Creatinine Ratio 0.24 [facility] Protein,Tot,[place] 2023 Creatinine [Mass/Vol] 185.0 mg/dL Normal 28.0-217.0 [facility] Comment on above: Performed By: #### U RC #### [employer] [address] [place] [id number] [employer]: Jurgen Hernandez MD Tot Prot. Conc. 44 mg/dL Normal [facility] Comment on above: Result Comment: No n ormal range established. Performed By: #### U RC #### [employer] [address] [place] [id number] [employer]: Jurgen Hernandez MD TP/Cre Ratio 0.24 Normal [facility] Comment on above: Performed By: #### U RC #### [facility] [address] [place], [place] [id number] [employer]: Jurgen Hernandez MD US PELVIS TRANSVAGon 023 US PELVIS TRANSVAG EXAMINATION: US PELVIS TRANSVAG HISTORY: Pelvic and perineal pain COMPARISON: No relevant comparison available. FINDINGS: The uterus is normal in size, contour and echotexture measuring 8.5 x 5.2 x 4.8 cm. No focal myometrial mass. The endometrium measures 6.6 mm, normal. The right ovary is normal in appearance measuring 3.9 x 2.7 x 1.8 cm. Normal color and Doppler flow. Normal follicles The left ovary is normal in appearance measuring 2.6 x 2.8 x 2.3 cm. Normal color and Doppler flow. Normal follicles No free fluid IMPRESSION: No acute abnormality Electronically authenticated by: LUCIANA MENDOZA Date: 2022-04-12 16:28 Normal [facility] Chlamydia/GC DNA, TPon 04-01 Chlamydia Probe, TP Negative Normal NEG [facility] Comment on above: Result Comment: CHLA MYDIA TRACHOMATIS DNA not detected by nucleic acid amplification. This test is intended for medical purposes only and is not valid for the evaluation of suspected sexual abuse or for other forensic purposes. In certain contexts, culture may be required to meet applicable laws and regulations for diagnosis of C. trachomatis and N. gonorrhoeae infections. Per 2014 CDC recommendations, this test does not include confirmation of positive results by an alternative nucleic acid target. Performed By: #### U RC #### [facility] [address] [place], [place] [id number] [employer]: Jurgen Hernandez MD Gonorrhea Probe, TP Negative Normal NEG [facility] Comment on above: Result Comment: NEIS SERIA GONORRHOEAE DNA not detected by nucleic acid amplification. This test is intended for medical purposes only and is not valid for the evaluation of suspected sexual abuse or for other forensic purposes. In certain contexts, culture may be required to meet applicable laws and regulations for diagnosis of C. trachomatis and N. gonorrhoeae infections. Per 2014 CDC recommendations, this test does not include confirmation of positive results by an alternative nucleic acid target. Performed By: #### U #### [facility] [address] [place] [phone] [employer]: Jurgen Hernandez MD Cult,Urineon 04-01-2022 Cult,Urine Specimen Description .CLEAN CATCH URINE Culture ESCHERICHIA COLI >[id number] CFU/ML Report Status FINAL 04/01/2022 SUSCEPTIBILITY Organism ESCHERICHIA COLI Method CHETAN Ampicillin <=2 SUSCEPTIBLE Cefazolin <=4 SUSCEPTIBLE Cefazolin sensitivity results can be used to predict the effectiveness of oral cephalosporins (eg. Cephalexin) in uncomplicated Urinary Tract Infections due to E. coli, K. pneumoniae, and P. mirabilis Ceftriaxone <=0.25 SUSCEPTIBLE ESBL NEGATIVE Gentamicin <=1 SUSCEPTIBLE Levofloxacin <=0.12 SUSCEPTIBLE Nitrofurantoin <=16 SUSCEPTIBLE Piperacillin/Tazobac alvares <=4 SUSCEPTIBLE Tobramycin <=1 SUSCEPTIBLE Trimethoprim/Sulfa <=20 SUSCEPTIBLE Susceptible [facility] Comment on above: Performed By: #### U RC #### [address] [address] [employer]: Jurgen Hernandez MD HPV DNA High Riskon 04-01-19 23 HPV Interp Normal [facility] Comment on above: Result Comment: This test amplifies and detects DNA of 14 high-risk HPV types associated with cervical cancer and its precursor lesions (HPV types 16,18, 31, 33, 35, 39, 45, 51, 52, 56, 58, 59, 66, and 68). Sensitivity may be affected by specimen collection methods, stage of infection, and the presence of interfering substances. Results should be interpreted in conjunction with other available laboratory and clinical data. A negative high-risk HPV result does not exclude the possibility of future cytologic HSIL or underlying CIN2-3 or cancer. This test is intended for medical purposes only and is not valid for the evaluation of suspected sexual abuse or for other forensic purposes. Performed By: #### U RC #### [facility] [address] [id number] Assembler Corncob Pipes: Jurgen Hernandez MD HPV Type 16 Not detected Normal [facility] Comment on above: Performed By: #### U RC #### [address] [address] Assembler Corncob Pipes: Jurgen Hernandez MD HPV Type 18 Not detected Normal [facility] Comment on above: Performed By: #### U RC #### [address] [address] Assembler Corncob Pipes: Jurgen Hernandez MD Other High Risk HPV Not detected Normal [facility] Comment on above: Performed By: #### U RC #### [address] [address] Assembler Corncob Pipes: Jurgen Hernandez MD HPV DNA High Riskon 03-31-19 HPV Sample .THIN PREP Normal [facility] Comment on above: Performed By: #### U RC #### [address] [address] Assembler Corncob Pipes: Jurgen Hernandez MD Source CERVICAL MATERIAL Normal [facility] Comment on above: Performed By: #### U RC #### [address] [address] Assembler Corncob Pipes: Jurgen Hernandez MD Vaginitis DNA Probeon 2022 Hiral Negative Normal NEG [facility] Comment on above: Result Comment: for Hiral sp. Method of testing is a DNA probe intended for detection and identification of Hiral species, Gardnerella vaginalis, and Trichomonas vaginalis nucleic acid in vaginal fluid specimens from patients with symptoms of vaginitis/vaginosis. Performed By: #### U RC #### [address] [address] Assembler Corncob Pipes: Jurgen Hernandez MD Gardnerella Positive Abnormal NEG [facility] Comment on above: Result Comment: for Gardnerella vaginalis Performed By: #### U RC #### [facility] [address] [place] [address] Assembler Corncob Pipes: Jurgen Hernandez MD Trichomonas Negative Normal NEG [facility] Comment on above: Result Comment: for Trichomonas Vaginalis Performed By: #### U RC #### [facility] [address] [place], [place] [id number] Assembler Corncob Pipes: Jurgen Hernandez MD Cytologyon 03-30-2022 Cytology (NOTE) INTERPRETATION Cervical material, (ThinPrep vial, Imaging-assisted review): Specimen Adequacy: Satisfactory for evaluation. -Endocervical/transf ormation zone component is absent. Descriptive Diagnosis: Negative for intraepithelial lesion or malignancy. Boat Driver: MIKE PUGH(ASCP) Electronically Signed Out ey/04/11/2022 Procedure/Addendum HPV Procedure Report Date Ordered: 03/31/2022 Status: Signed Out Date Complete: 04/01/2022 By: System Interface Date Reported: 04/01/2022 Sample: HPV Type 16 Result: Not Detected Ref Range: (Not Detected) Sample: HPV Type 18 Result: Not Detected Ref Range: (Not Detected) Sample: Other High Risk HPV Result: Not Detected Ref Range: (Not Detected) Sample: HPV Interp Result: Ref Range: (Not Detected) This test amplifies and detects DNA of 14 high-risk HPV types associated with cervical cancer and its precursor lesions (HPV types 16,18, 31, 33, 35, 39, 45, 51, 52, 56, 58, 59, 66, and 68). Sensitivity may be affected by specimen collection methods, stage of infection, and the presence of interfering substances. Results should be interpreted in conjunction with other available laboratory and clinical data. A negative high-risk HPV result does not exclude the possibility of future cytologic HSIL or underlying CIN2-3 or cancer. This test is intended for medical purposes only and is not valid for the evaluation of suspected sexual abuse or for other forensic purposes. Source: A: Cervical material, (ThinPrep vial, Imaging-assisted review) Clinical History Z01.419 Routine rn licensed practical exam without abnormal findings Co-Test: ThinPrep Pap with high risk HPV testing GYNECOLOGIC CYTOLOGY REPORT Patient Name: NIESHA FISHER [facility] Rec: [id number] Path Number: [id number] [facility] PATHOLOG[facility] [address] [place] [id number] [facility] Comment on above: Performed By: #### U #### [employer] [address] [place] [address] [phone] Assembler Corncob Pipes: Jurgen Hernandez MD Vaginitis DNA Probeon 2022 Hiral Species, DNA Probe Negative NEGATIVE [facility] Comment on above: for Hiral sp. Method of testing is a DNA probe intended for detection and identification of Hiral species, Gardnerella vaginalis, and Trichomonas vaginalis nucleic acid in vaginal fluid specimens from patients with symptoms of vaginitis/vaginosis. Gardnerella Vaginalis, DNA Probe Positive Abnormal NEGATIVE [facility] Comment on above: for Gardnerella vagi nalis Interpretation and review of laboratory results Abnormal [facility] Source .VAGINAL SWAB [facility] Trichomonas Vaginalis DNA Negative NEGATIVE [facility] Comment on above: for Trichomonas Vagi nalis [facility] Source .VAGINAL SWAB Normal [facility] Comment on above: Performed By: #### U RC #### [employer] [address] [place] [address] [id number] Assembler Corncob Pipes: Jurgen Hernandez MD Vital Signs Date Time Vital Sign Value Performing Clinician Facility 03-27-2023 14:27-0500 Body temperature 37.0 Pema Rebolledo DO Work Phone: [facility] [place] 03-27-2023 11:51-0500 Body temperature 98.2 [degF] Pema Rebolledo DO Work Phone: [facility] 03-27-2023 11:51-0500 Diastolic blood pressure 78 mm[Hg] Pema Rebolledo DO Work Phone: [employer] 03-27-2023 11:51-0500 Heart rate 91 /min Pema Rebolledo DO Work Phone: [employer] 03-27-2023 11:51-0500 Respiratory rate 16 /min Pema Rebolledo DO Work Phone: [employer] 03-27-2023 11:51-0500 SaO2% (BldA) [Mass fraction] 97 % Pema Rebolledo DO Work Phone: [employer] 03-27-2023 11:51-0500 Systolic blood pressure 123 mm[Hg] Pema Rebolledo DO Work Phone: [employer] 02-15-2023 17:00-0500 Body height 157.48 cm Rosalind Steffany Other [email or web address] Other 02-15-2023 17:00-0500 Body mass index (BMI) [Ratio] 37.45 kg/m2 Rosalind Steffany Other [email or web address] Other 02-15-2023 17:00-0500 Body temperature 98 [degF] Rosalind Steffany Other [email or web address] Other 02-15-2023 17:00-0500 Body weight 92.9 kg Rosalind Steffany Other [email or web address] Other 02-15-2023 17:00-0500 Diastolic blood pressure 71 mm[Hg] Rosalind Steffany Other [email or web address] Other 02-15-2023 17:00-0500 Respiratory rate 18 /min Rosalind Steffany Other [email or web address] Other 02-15-2023 17:00-0500 SaO2% (BldA) [Mass fraction] 99 % Rosalindpaula Jeter Other [email or web address] Other 02-15-2023 17:00-0500 Systolic blood pressure 111 mm[Hg] Rosalind Steffany Other [email or web address] Other Encounters Encounter Date Encounter Type Care Provider Facility Start: 03-26-2023 End: 03-27-2023 ambulatory PEMA REBOLLEDO [facility] Start: 03-26-2023 End: 03-26-2023 Emergency department patient visit ROSETTE MENDOZA [facility] Start: 03-26-2023 End: 03-27-2023 Subsequent hospital visit by physician Pema Rebolledo DO Work Phone: [facility] Comment on above: Hypokalemia (Primary Dx) Start: 2023 End: 2023 ambulatory RENU SHAYY Not Available Start: 02-22-2023 End: 02-22-2023 ambulatory RENU SHAYY Not Available Start: 02-15-2023 End: 02-15-2023 ambulatory Rosalind Jeter Other [email or web address] Other Start: 02-15-2023 Office outpatient ne w 10 minutes Rosalind Jeter [facility] Start: 02-08-2023 End: 02-08-2023 ambulatory RINA CURRY Not Available Start: 01-16-2023 End: 01-16-2023 ambulatory RENU SHAYY Not Available Start: 04-11-2022 End: 04-12-[address] NONE LISTED REQUEST Facility: Start: 03-30-2022 End: 03-31-2022 ambulatory ROSETTE MENDOZA [facility] Start: 03-30-2022 Encounter for gynecological examination (general) (routine) without abnormal findings PEMA REBOLLEDO [facility] Start: 03-30-2022 End: 03-30-2022 Patient encounter procedure Rosette Mendoza Other Phone: [facility] Start: 03-30-2022 End: 03-30-2022 Subsequent hospital visit by physician Rosette Mendoza Other Phone: [facility] Comment on above: Vaginal discharge; Malodorous urine; Well woman exam Procedures Date Procedure Procedure Detail Performing Clinician Start: 03-27-2023 Blood gases any comb ination ph pco2 po2 co2 hco3 Elham Ge MD Work Phone: Start: 03-27-2023 End: 03-27-2023 Electrolyte panel Elham Ge MD Work Phone: Start: 03-27-2023 Comprehensive metabo lic panel Neena Khan Juan Manuel DO Work Phone: Start: 03-27-2023 Potassium serum plasma/whole blood Joanna N Gervas DO Work Phone: Start: 03-26-2023 Potassium serum plasma/whole blood Joanna N Gervas DO Work Phone: Start: 03-26-2023 Ecg routine ecg w/le ast 12 lds w/i&r Joanna N Juventinofrancia DO Work Phone: Start: 03-26-2023 Comprehensive metabo lic panel Amalia Ruffin MD Work Phone: Start: 03-26-2023 Ecg routine ecg w/le ast 12 lds w/i&r Vashti Cruz DO Work Phone: Start: 03-26-2023 End: 03-26-2023 Comprehensive metabolic panel Vashti Cruz DO Work Phone: Start: 03-30-2022 Iadna hiral specie s direct probe Brittani Valencia A CLASS LINEMAN - CNM Work Phone: Start: 03-30-2022 Microscopic observat ion [Identifier] in Cervix by Cyto stain Pema Rebolledo DO Work Phone: Plan of Treatment Date Care Activity Detail Author Start: 03-30-2027 Screening for malign ant neoplasm of cervix [facility] Start: 03-30-2025 Screening for malign ant neoplasm of cervix Pap smear [facility] Start: 04-11-2023 End: 04-11-2023 Patient encounter procedure 04/11/2023 10:30 AM EST Routine [facility] [address] [facility] [address] [place] [address] Return in about 6 weeks (around 04/11/2023) for Repeat Anatomy, Growth/BPP. [facility] Comment on above: Return in about 6 we eks (around 04/11/2023) for Repeat Anatomy, Growth/BPP. Start: 03-31-2023 End: 03-27-2024 Potassium [Moles/volume] in Serum or Plasma Potassium Lab Routine Hypokalemia Expected: 03/31/2023, Expires: 03/27/2024 [facility] Comment on above: Expected: 03/31/2023 , Expires: 03/27/2024 Start: 03-30-2023 Depression Screen Depression Screen [facility] Start: 2023 Diabetes screen Diabetes screen [facility] Start: 09-13-2022 Influenza vaccination Flu vaccine (# 1) [facility] Start: 09-13-2021 Influenza vaccination Flu vaccine (# 1) [facility] Start: 2018 Screening for malign ant neoplasm of cervix [facility] Start: 2009 Screening for malign ant neoplasm of cervix Pap smear [facility] Start: 2007 DTaP/Tdap/Td vaccine (1 - Tdap) DTaP/Tdap/Td vaccine (1 - Tdap) [facility] Start: 2006 Hepatitis C screening Hepatitis C sc reen [facility] Start: 2003 HIV screening HIV screen [facility] Start: 1989 Varicella vaccine (1 of 2 - 2-dose childhood series) Varicella vaccine (1 of 2 - 2-dose childhood series) [facility] Start: 1988 COVID-19 Vaccine (#1) COVID-19 Vacci ne (#1) [facility] Start: 1988 Hepatitis B vaccine (1 of 3 - 3-dose series) Hepatitis B vaccine (1 of 3 - 3-dose series) [facility] End: 03-30-2022 C.trachomatis N.gonorrhoeae DNA, Thin Prep [facility] Work Phone: Comment on above: 1 Occurrences starti ng 03/30/2022 until 03/30/2022 End: 03-27-2023 Culture, Strep B Screen, Vaginal/Rectal [employer] Work Phone: Comment on above: One Time for 1 Occur rences starting 03/27/2023 until 03/27/2023 End: 03-30-2022 Culture, Urine [facility] Work Phone: Comment on above: 1 Occurrences starti ng 03/30/2022 until 03/30/2022 End: 03-27-2023 Electrolyte Panel w/ Reflex to MG Electrolyte Panel w/ Reflex to MG Lab Routine One Time for 1 Occurrences starting 03/27/2023 until 03/27/2023 [employer] Work Phone: Comment on above: One Time for 1 Occur rences starting 03/27/2023 until 03/27/2023 Nonrebreather mask oxygen Nonrebreather mask oxygen Respiratory Care Routine As Needed until discontinued starting 03/26/2023 [employer] Comment on above: As Needed until disc ontinued starting 03/26/2023 Payers Date Payer Category Payer Unknown [id number] [id number] [id number] 1990 Unknown [id number] [id number] [id number] 1990 Unknown [id number] 2.16.84 [id number] 1990 Unknown [id number] 1988 Unknown [id number] 1988 Unknown [id number] 2.16. [id number] 1988 Unknown [id number] 2.16. [id number] 1990 Unknown [id number] 2.16. [id number] 1959 Unknown [id number]. [id number] Social History Date Type Detail Facility Start: 03-30-2022 Tobacco smoking status NHIS Never smoked tobacco [facility] Start: 03-30-2022 Tobacco use and exposure Smokeless tobacco non-user [facility]: Start: 03-30-2022 Alcohol intake Lifetime non-drinker (finding) [facility]: Start: 1990 Sex Assigned At Not on file [facility] Start: 03-30-2022 End: 03-26-2023 Sex Assigned At [email or web address] Other Start: 03-26-2023 Alcohol intake Ex-drinker (finding) [facility] Start: 03-30-2022 End: 03-26-2023 History of Social function [facility] Patient Health Questionnaire 9 item (PHQ-9) total score [Reported] 0 [facility] Start: 08-08-2022 [facility] Discharge instructions 03-27-2023 Discharge Instructions Note Date & Type Note Facility 03-27-2023 Hospital Discharg e instructions Lou George RN - 03/27/2023 5:49 PM EST Notify physician if you experience: Dizziness or severe headache Spots before eyes or blurred vision Chills and or fever Vaginal pressure Epigastric pain Uterine contractions are regular and 5 minutes apart if 1st baby or 10 minutes apart if not 1st baby Bag or eisenberg leaking or gush of fluid from vagina Any vaginal bleeding that is heavier than a menstrual period Intermittent low backache Vomiting or diarrhea for several hours Decrease or absence of baby movement movement card instructions given Right sided abdominal pain Increase or change in vaginal discharge Abdominal or menstrual like cramping that is constant or heavier, comes and goes Swelling of face, hands, legs or feet not decreased with rest on left side. documented in this encounter [facility] History of Present illness Narrative 03-27-2023 Keiko Sullivan - 03/27/2023 5:17 PM Shayla Lyn MD - 03/27/2023 6:31 AM Joanna Hurd DO - 03/26/2023 8:12 PM EST Note Date & Type Note Facility 03-27-2023 History of Present illness Narrative CLINICAL PHARMACY NOTE: MEDS TO BEDS Total # of Prescriptions Filled: 1 The following medications were delivered to the patient: POTASSIUM ER 20MG Additional Documentation: CONDITIONING COACH PROGRESS NOTE Niesha Fisher is a 33 y.o. female at 34w6d, Hospital Day: 2 Subjective: Patient has been seen and examined. Patient is resting comfortably, complaining of nothing at this time. Denies further nausea, vomiting or diarhea. Patient denies any vaginal discharge and any urinary complaints. The patient reports movement is present, denies contractions, denies loss of fluid, denies vaginal bleeding. Patient denies headache, vision changes, nausea, vomiting, fever, chills, shortness of breath, chest pain, RUQ pain, abdominal pain, diarrhea, change in color/amount/odor of vaginal discharge, dysuria or, hematuria. Objective: Vitals: Vitals: 03/26/23 0912 03/26/23 1318 03/26/23 1553 03/26/232019 BP: (!) 146/83 131/87 136/79 Pulse: (!) 110 98 (!) 107 (!) 110 Resp: 18 16 Temp: 98.4 F (36.9 C) 98.1 F (36.7 C) 98.7 F (37.1 C) TempSrc: Oral Oral SpO2: 99% 98% FHT: 140, moderate variability, accelerations present, decelerations absent Contractions: none Physical Exam: General appearance: no apparent distress, alert, and cooperative HEENT: head atraumatic, normocephalic, moist mucous membranes, trachea midline Neurologic: alert, oriented, normal speech, no focal findings or movement disorder noted Lungs: No increased work of breathing, good air exchange, clear to auscultation bilaterally, no crackles or wheezing Heart: regular rate and rhythm and no murmur Abdomen: soft and gravid Extremities: no calf tenderness, non edematous Musculoskeletal: Gross strength equal and intact throughout, no gross abnormalities, range of motion normal in hips, knees, shoulders and spine, CVA tenderness: none Psychiatric: Mood appropriate, normal affect Rectal Exam: not indicated Pelvic Exam: Deferred; no complaints DATA: Labs: All lab results for the last 24 hours reviewed. BMP/CMP: Recent Labs 03/26/23 0935 03/26/23 1841 03/26/23 2327 03/27/23 0211 NA 142 138 -- -- K 2.6* 2.7* 2.5* 2.7* CL 108* 105 -- -- CO2 19* 21 -- -- BUN 6 3* -- -- MG 1.6 -- -- -- BILITOT 1.6* 1.3* -- -- ALKPHOS 80 73 -- -- AGRATIO 1.0 1.1 -- -- AST 20 14 -- -- ALT 9 8 -- -- Assessment/Plan: Niesha Fisher is a 33 y.o. female at 34w6d IUP - Rh +/ Rubella immune/ GBS unknown - no indication for GBS prophylaxis at this time - Rhogam: not indicated - Influenza vaccination: declined - Continue PNV, SCDs daily - VSS - Cat 1 FHT, TOCO none; patient declined further monitoring overnigh Hypokalemia - 2.6 on admission > 2.7 - repeat K this am pending - Will need to continue K replacement until level stable - s/p magnesium bolus as well - EKG with sinus tachy and currently asymptomatic N/V/D - Zofran/reglan/pepcid - Maalox PRN - Patient able to tolerate PO for dinner yesterday evening and now resolving Patient Active Problem List Diagnosis Date Noted 34 weeks gestation of 03/26/[address] Gonzalez. Joanna Pablo DO Business System Consultant Resident 03/27/2023, 6:31 AM Attending Physician Statement I have personally seen, evaluated and discussed the care of Niesha Fisher, including pertinent history and exam findings with the resident. I have reviewed and edited their note in the electronic medical record. The last elements of all parts of the encounter have been performed/reviewed by me. I agree with the assessment, plan and orders as documented by the resident. The level of care submitted represents to the best of my ability the care documented in the medical record today. GC Modifier. This service has been performed in part by a resident under the direction of a teaching physician. Attending's Name: Shayla Gonzalez MD Date: 03/27/2023 Time: 11:48 AM CONDITIONING COACH RESIDENT INTERVAL NOTE Repeat CMP reviewed K increased only 2.7. Will re-order potassium replacement and she received 60 mEq previously. Will repeat K level after next dose of potassium. Patient is asymptomatic at this time. Vitals: 03/26/23 0912 03/26/23 1318 03/26/23 1553 BP: (!) 146/83 131/87 Pulse: (!) 110 98 (!) 107 Resp: 18 Temp: 98.4 F (36.9 C) 98.1 F (36.7 C) 98.7 F (37.1 C) TempSrc: Oral Oral SpO2: 99% 98% Recent Results (from the past 12 hour(s)) CBC with Auto Differential Collection Time: 03/26/23 9:35 AM Result Value Ref Range WBC 9.5 3.5 - 11.3 k/uL RBC 4.04 3.95 - 5.11 m/uL Hemoglobin 12.1 11.9 - 15.1 g/dL Hematocrit 35.7 (L) 36.3 - 47.1 % MCV 88.4 82.6 - 102.9 fL MCH 30.0 25.2 - 33.5 pg MCHC 33.9 28.4 - 34.8 g/dL RDW 14.5 (H) 11.8 - 14.4 % Platelets 231 138 - 453 k/uL MPV 9.4 8.1 - 13.5 fL NRBC Automated 0.0 0.0 per 100 WBC Immature Granulocytes 0 0 % Neutrophils % 91 (H) 36 - 66 % Lymphocytes % 5 (L) 24 - 44 % Monocytes % 4 1 - 7 % Eosinophils % 0 (L) 1 - 4 % Basophils % 0 0 - 2 % Absolute Immature Granulocyte 0.00 0.00 - 0.30 k/uL Neutrophils Absolute 8.64 (H) 1.8 - 7.7 k/uL Lymphocytes Absolute 0.48 (L) 1.0 - 4.8 k/uL Monocytes Absolute 0.38 0.1 - 0.8 k/uL Eosinophils Absolute 0.00 0.0 - 0.4 k/uL Basophils Absolute 0.00 0.0 - 0.2 k/uL Morphology ANISOCYTOSIS PRESENT Comprehensive Metabolic Panel Collection Time: 03/26/23 9:35 AM Result Value Ref Range Sodium 142 135 - 144 mmol/L Potassium 2.6 (LL) 3.7 - 5.3 mmol/L Chloride 108 (H) 98 - 107 mmol/L CO2 19 (L) 20 - 31 mmol/L Anion Gap 15 9 - 17 mmol/L Glucose 122 (H) 70 - 99 mg/dL BUN 6 6 - 20 mg/dL Creatinine 0.4 (L) 0.5 - 0.9 mg/dL Est, Glom Filt Rate >60 >60 mL/min/1.73m2 Calcium 8.2 (L) 8.6 - 10.4 mg/dL Total Protein 6.7 6.4 - 8.3 g/dL Albumin 3.4 (L) 3.5 - 5.2 g/dL Albumin/Globulin Ratio 1.0 1.0 - 2.5 Total Bilirubin 1.6 (H) 0.3 - 1.2 mg/dL Alkaline Phosphatase 80 35 - 104 U/L ALT 9 5 - 33 U/L AST 20 <32 U/L Beta-Hydroxybutyrate Collection Time: 03/26/23 9:35 AM Result Value Ref Range Beta-Hydroxybutyrate 1.24 (H) 0.02 - 0.27 mmol/L Magnesium Collection Time: 03/26/23 9:35 AM Result Value Ref Range Magnesium 1.6 1.6 - 2.6 mg/dL Protein / Creatinine Ratio, Urine Collection Time: 03/26/23 9:36 AM Result Value Ref Range Total Protein, Urine 44 mg/dL Creatinine, Ur 185.0 28.0 - 217.0 mg/dL Urine Total Protein Creatinine Ratio 0.24 EKG 12 Lead Collection Time: 03/26/23 11:33 AM Result Value Ref Range Ventricular Rate 101 BPM Atrial Rate 101 BPM P-R Interval 178 ms QRS Duration 102 ms Q-T Interval 364 ms QTc Calculation (Bazett) 471 ms P Melrose 54 degrees R Melrose 35 degrees T Melrose 38 degrees Comprehensive Metabolic Panel Collection Time: 03/26/23 6:41 PM Result Value Ref Range Sodium 138 135 - 144 mmol/L Potassium 2.7 (LL) 3.7 - 5.3 mmol/L Chloride 105 98 - 107 mmol/L CO2 21 20 - 31 mmol/L Anion Gap 12 9 - 17 mmol/L Glucose 115 (H) 70 - 99 mg/dL BUN 3 (L) 6 - 20 mg/dL Creatinine 0.4 (L) 0.5 - 0.9 mg/dL Est, Glom Filt Rate >60 >60 mL/min/1.73m2 Calcium 7.9 (L) 8.6 - 10.4 mg/dL Total Protein 5.5 (L) 6.4 - 8.3 g/dL Albumin 2.9 (L) 3.5 - 5.2 g/dL Albumin/Globulin Ratio 1.1 1.0 - 2.5 Total Bilirubin 1.3 (H) 0.3 - 1.2 mg/dL Alkaline Phosphatase 73 35 - 104 U/L ALT 8 5 - 33 U/L AST 14 <32 U/L Joanna Pablo DO CONDITIONING COACH Resident [facility] 03/26/2023 8:12 PM documented in this encounter [facility] Hospital course Narrative 03-27-2023 Sun Gillis MD - 03/27/2023 3:37 PM EST Note Date & Type Note Facility 03-27-2023 Hospital course Narrative Obstetric Discharge Summary [facility] Patient Name: Niesha Fisher Patient : 1990 Primary Care Physician: Rosette Mendoza Admit Date: 03/26/2023 Principal Diagnosis: IUP at 34w6d, admitted for Nausea, vomiting and hypokalemia Her has been complicated by: Patient Active Problem List Diagnosis 34 weeks gestation of Acute gastroenteritis Hypokalemia Hypomagnesemia Infection Present?: No Hospital Acquired: No Consultations: Internal medicine Pertinent Findings & Procedures: Niesha Fisher is a 33 y.o. female at 34w6d admitted for Nausea, vomiting, and diarrhea; received IV fluids, zofran, pepcid, and maalox. On admission she was noted to have hypokalemia with a K of 2.6. She received IV replacement and follow up K was 2.7. More potassium replacement ordered. Course of patient: HD#1: Patient had an elevated blood pressure, PreE labs wnl, P/C 0.24. EKG showed sinus tachy with RBBB. HD#2: repeat K 2.9; repeat EKG showed normal sinus tachycardia. Given patient's continued critical potassium level despite multiple attempts at replacement, decision made to consult internal medicine. Afternoon labs, K 3.1. Patient feels comfortable being d/c home with oral K+ supplement. Discharge to: Home Readmission planned: no Recommendations on Discharge: Medications: Medication List START taking these medications potassium chloride 20 MEQ extended release tablet Commonly known as: KLOR-CON M Take 1 tablet by mouth daily for 3 days CONTINUE taking these medications Vitamins 28-0.8 MG Tabs Take 1 tablet by mouth daily ASK your doctor about these medications magnesium oxide 400 (240 Mg) MG tablet Commonly known as: MAG-OX Where to Get Your Medications These medications were sent to [facility], [place] - [address] [place] [address] - P [phone] - F [phone] [facility] [address] potassium chloride 20 MEQ extended release tablet Diet: regular Follow up: With primary Ob provider on 03/29/23 Condition on discharge: good Discharge date: 03/27/23 Sun Gillis MD Business System Consultant Resident documented in this encounter [facility] Evaluation note 02-15-2023 Note Date & Type Note Facility 02-15-2023 Evaluation note Encounter Date Diagnosis Assessment Notes Feb, Right otitis media, unspecified otitis media type (ICD-10 - H66.91) Drink plenty fluids, get plenty of rest. Take the amoxicillin as prescribed until gone. Take Tylenol as needed for pain or fevers. Follow-up with your family physician or CONDITIONING COACH if no improvement in 2 to 3 days. [email or web address] Other Evaluation note Note Date & Type Note Facility Evaluation note Diagnosis Vaginal discharge Leukorrhea, not specified as infective Malodorous urine Other nonspecific finding on examination of urine Well woman exam Routine general medical examination at a health care facility documented in this encounter [facility] [place] Work Phone: Evaluation note Note Date & Type Note Facility Evaluation note Diagnosis 34 weeks gestation of - Primary state, incidental Hypokalemia Hypopotassemia Acute gastroenteritis Other and unspecified noninfectious gastroenteritis and colitis Hypokalemia Hypopotassemia Hypomagnesemia Disorders of magnesium metabolism documented in this encounter [facility] History general Narrative - Reported Note Date & Type Note Facility History general Narrative - Reported Type Surgical History C section 2020 [email or web address] Other Summary Purpose Family History No Family History Records FoundNo Family History Records FoundNo Family History Records Found Advance Directives No Advanced Directives Records FoundLatest Code Status on File Code Status Date Activated Date Inactivated Comments Full Code 03/26/2023 9:19 AM Additional Source Comments Care Teams (unrecognized sec tion and content) Individualized Education Plan Aide Relationship Specialty Start Date End Date Rosette Mendoza [address] [phone] PCP - General Internal Medicine 03/30/22 Individualized Education Plan Aide Relationship Specialty Start Date End Date Rosette Mendoza [address] [phone] PCP - General Internal Medicine 03/30/22 INFORMATION SOURCE (unrecogn ized section and content) DATE CREATED AUTHOR 04/17/2022 [facility] DATE CREATED AUTHOR AUTHOR'S ORGANIZ ATION 03/10/2023 [facility] EPIC DATE CREATED AUTHOR AUTHOR'S ORGANIZ ATION 03/28/2023 [facility] REASON FOR VISIT (unrecogniz ed section and content) Reason Comments Nausea & Vomiting Diarrhea Specialty Diagnoses / Procedures Referred By Angela forte Referred To Contact Diagnoses 34 weeks gestation of Pema Rebolledo DO [address] [place] [address] [facility] [address] [place] [address] Referral ID Status Reason Start Date Expiration Date Visits Re quested Visits Authorized [id number] 1 1 Ordered Prescriptions (unrec ognized section and content) Prescription Sig Dispensed Refills Start Date End Da te potassium chloride (KLOR-CON M) 20 MEQ extended release tablet Take 1 tablet by mouth daily for 3 days 3 tablet 0 03/27/2023 03/30/2023 Scheduled Active and Recently Administ ered Medications (unrecognized section and content) Medication Order 03/25/2023 03/26/2023 03/27/2023 acetaminophen (TYLENOL) tablet 1,000 mg 1,000 mg, Oral, EVERY 8 HOURS SCHEDULED (3 times per day), First dose on 03/26/23 at 1400, Until Discontinued, Maximum dose of acetaminophen is 4000mg from all sources in 24 hours. Alternate ibuprofen and acetaminophen every 4 hours. 1621 (Not Given - Provider: Jess Lee RN - Reason: Contraindicated)2053 (Held - Provider: Sanjana Raines RN - Reason: Patient/family refused) 0600 (Due)1400 (Not Given - Provider: Lou George RN - Reason: Patient/family refused)2200 (Due) famotidine (PEPCID) 20 mg in sodium chloride (PF) 0.9 % 10 mL injection 20 mg, IntraVENous, 2 TIMES DAILY, First dose on 03/26/23 at 0945, Until Discontinued, IV Push over minimum of 2 minutes - Dilute with 10 mL NS 0936 (Held - Provider: Suellen Beavers RN - Reason: Patient/family refused)2053 (Not Given - Provider: Sanjana Raines RN - Reason: Patient/family refused) 0851 (Not Given - Provider: Lou George RN - Reason: Patient/family refused - Comment: patient refused, states that she does not need or want)2100 (Due) lactated ringers bolus bolus 1,000 mL (COMPLETED) 1,000 mL, IntraVENous, at 495.9 mL/hr, Administer over 121 Minutes, ONCE, On Mon03/26/23 at 0945, For 1 dose 0931 (New Bag - Provider: Suellen Beavers RN)1028 (Rate/Dose Change - Provider: Jess Lee RN)1028 (Rate/Dose Change - Provider: Jess Lee RN)1030 (Rate/Dose Change - Provider: Jess Lee RN)1030 (Rate/Dose Change - Provider: Jess Lee RN)1040 (Rate/Dose Change - Provider: Jess Lee RN)1040 (Rate/Dose Change - Provider: Jess Lee RN)1045 (Rate/Dose Change - Provider: Jess Lee RN)1046 (Rate/Dose Change - Provider: Jess Lee RN)1050 (Paused - Provider: Jess Lee RN)1051 (Paused - Provider: Jess Lee RN)1113 (Rate/Dose Change - Provider: Jess Lee RN)1113 (Rate/Dose Change - Provider: Jess Lee RN)1115 (Rate/Dose Change - Provider: Jess Lee RN)1132 (Stopped - Provider: Suellen Beavers RN) magnesium sulfate 2000 mg in 50 mL IVPB premix (COMPLETED) 2,000 mg, IntraVENous, at 25 mL/hr, Administer over 2 Hours, ONCE, On Mon03/26/23 at 2030, For 1 dose 2053 (New Bag - Provider: Sanjana Raines RN)230 (Stopped - Provider: Sanjana Raines RN) magnesium sulfate 2000 mg in 50 mL IVPB premix (COMPLETED) 2,000 mg, IntraVENous, at 25 mL/hr, Administer over 2 Hours, ONCE, On Mon03/27/23 at 0945, For 1 dose, Recommended infusion rate not to exceed 1,000 mg (milligrams) per hour. 1057 (New Bag - Provider: Lou George RN)1300 (Stopped - Provider: Lou George RN) Continuous Medication Order 03/25/2023 03/26/2023 03/27/2023 0.9 % sodium chloride infusion (CANCELED) IntraVENous, at 125 mL/hr, CONTINUOUS, Starting on 03/26/23 at 1630 1716 (New Bag - Provider: Jess Lee RN) 0906 (Stopped - Provider: Lou George RN) potassium chloride 40 mEq in sodium chloride 0.9 % 1,000 mL infusion IntraVENous, at 125 mL/hr, CONTINUOUS, Starting on 03/27/23 at 0930 1011 (New Bag - Provider: Lou George RN)1752 (Stopped - Provider: Lou George RN) PRN Medication Order 03/25/2023 03/26/2023 03/27/2023 aluminum & magnesium hydroxide-simethicone (MAALOX) 200-200-20 MG/5ML suspension 30 mL 30 mL, Oral, EVERY 6 HOURS PRN, Starting on 03/26/23 at 0928, Until Discontinued, Indigestion ondansetron (ZOFRAN) injection 4 mg(Linked Group 1) 4 mg, IntraVENous, EVERY 6 HOURS PRN, Starting on 03/26/23 at 0918, Until Discontinued, Nausea, Vomiting, Administer if oral route cannot be used. 0935 (Given - Provider: Suellen Beavers RN) ondansetron (ZOFRAN-ODT) disintegrating tablet 4 mg(Linked Group 1) 4 mg, Oral, EVERY 8 HOURS PRN, Starting on 03/26/23 at 0918, Until Discontinued, Nausea, Vomiting 0935 (See Alternative - Provider: Suellen Beavers RN) potassium bicarb-citric acid (EFFER-K) effervescent tablet 40 mEq(Linked Group 2) 40 mEq, Oral, PRN, Starting on 03/27/23 at 0003, Until Discontinued, Per Potassium Replacement Protocol, Administer as alternative if patient unable to tolerate oral tablet. K Lab Replacement Action 3.1 to 3.5 40 mEq ORAL x 1 Under 3.1 Refer to IV replacement protocol Recheck K level in AM. Protocol not for use in patients with CrCl less than 30 mL/min. Do not chew or crush. Dissolve flavored tablets completely in 3 to 4 ounces of cold water; unflavored tablets may be dissolved in 3 to 4 ounces of cold juice. Patient to sip slowly over a 5 to 10 minute period. May further dilute if GI adverse effects occur. 0043 (See Alternativ e - Provider: Sanjana Raines RN)0341 (See Alternative - Provider: Sanjana Raines RN) potassium chloride (KLOR-CON M) extended release tablet 40 mEq(Linked Group 2) 40 mEq, Oral, PRN, Starting on 03/27/23 at 0003, Until Discontinued, Per Potassium Replacement Protocol, May give alternative linked oral order (ordered as effervescent, packet, or liquid solution) if patient unable to tolerate tablet. K Lab Replacement Action 3.1 to 3.5 40 mEq ORAL x 1 Under 3.1 Refer to IV replacement protocol Recheck K level in AM. Protocol not for use in patients with CrCl less than 30 mL/min. Do not crush, chew, or suck on tablet. Tablet may also be broken in half and each half swallowed separately. 0043 (Given - Provid er: Sanjana Raines RN)0341 (Given - Provider: Sanjana Raines RN) potassium chloride 10 mEq/100 mL IVPB (Peripheral Line) (CANCELED)(Linked Group 3) 10 mEq, IntraVENous, PRN, Starting on 03/26/23 at 1024, Until 03/26/23 at 2006, at 100 mL/hr, Per Potassium Replacement Protocol, K Lab Replacement Action 2.7 to 3.0 10 mEq IVPB x 6 doses (60 mEq Total) Under 2.7 CALL PROVIDER and administer 10 mEq IVPB x 6 doses (60 mEq Total) Infuse at 10 mEq/hr. Repeat Potassium lab 1 hour after final administration. Protocol not for use in patients with CrCl less than 30 mL/min. 1048 (New Bag - Provider: Suellen Beavers RN)1051 (Rate/Dose Change - Provider: Jess Lee RN)1051 (Rate/Dose Change - Provider: Jess Lee RN)1108 (Rate/Dose Verify - Provider: Jess Lee RN)1108 (Stopped - Provider: Jess Lee RN)1113 (Stopped - Provider: Jess Lee RN)1158 (New Bag - Provider: Suellen eBavers RN)1258 (Rate/Dose Change - Provider: Jess Lee RN)1303 (Paused - Provider: Jess Lee RN)1303 (Paused - Provider: Jess Lee RN)1316 (Rate/Dose Change - Provider: Jess Lee RN)1317 (New Bag - Provider: Suellen Beavers RN)1417 (Rate/Dose Change - Provider: Jess Lee RN)1421 (Stopped - Provider: Jess Lee RN)1424 (New Bag - Provider: Suellen Beavers RN)1524 (Rate/Dose Change - Provider: Jess Lee RN)1541 (Stopped - Provider: Jess Lee RN)1548 (Stopped - Provider: Jess Lee RN)1548 (New Bag - Provider: Jess Lee RN)1552 (Rate/Dose Change - Provider: Jess Lee RN)1716 (Rate/Dose Verify - Provider: Jess Lee RN)1745 (Rate/Dose Change - Provider: Jess Lee RN)1811 (Rate/Dose Change - Provider: Jess Lee RN)1812 (Stopped - Provider: Jess Lee RN)1812 (New Bag - Provider: Jess Lee RN)1813 (Rate/Dose Change - Provider: Jess Lee RN)1837 (Stopped - Provider: Jess Lee RN) potassium chloride 10 mEq/100 mL IVPB (Peripheral Line)(Linked Group 2) 10 mEq, IntraVENous, PRN, Starting on Mon03/27/23 at 0003, Until Discontinued, at 100 mL/hr, Per Potassium Replacement Protocol, K Lab Replacement Action 2.7 to 3.0 10 mEq IVPB x 6 doses (60 mEq Total) Under 2.7 CALL PROVIDER and administer 10 mEq IVPB x 6 doses (60 mEq Total) Infuse at 10 mEq/hr. Repeat Potassium lab 1 hour after final administration. Protocol not for use in patients with CrCl less than 30 mL/min. 0043 (See Alternativ e - Provider: Sanjana Raines, MACARENA)0341 (See Alternative - Provider: Sanjana Raines, MACARENA) Linked Groups Order Group 1: ondansetron (ZOFRAN-ODT) disintegrating tablet 4 mgJump to med 4 mg, Oral, EVERY 8 HOURS PRN, Starting on 03/26/23 at 0918, Until Discontinued, Nausea, Vomiting Or ondansetron (ZOFRAN) injection 4 mgJump to med 4 mg, IntraVENous, EVERY 6 HOURS PRN, Starting on 03/26/23 at 0918, Until Discontinued, Nausea, Vomiting
Administer if oral route cannot be used.
Group 2: potassium chloride (KLOR-CON M) extended release tablet 40 mEqJump to med 40 mEq, Oral, PRN, Starting on 03/27/23 at 0003, Until Discontinued, Per Potassium Replacement Protocol
May give alternative linked oral order (ordered as effervescent, packet, or liquid solution) if patient unable to tolerate tablet. K Lab Repla cemen t Action 3.1 to 3.5 40 mEq ORAL x 1 Under 3.1 Refer to IV replacement protocol Recheck K level in AM. Protocol not for use in patients with CrCl less than 30 mL/min. Do not crush, chew, or suck on tablet. Tablet may also be broken in half and each half swallowed separately.
Or potassium bicarb-citric acid (EFFER-K) effervescent tablet 40 mEqJump to med 40 mEq, Oral, PRN, Starting on 03/27/23 at 0003, Until Discontinued, Per Potassium Replacement Protocol
Administer as alternative if patient unable to tolerate oral tablet. K Lab Repla cemen t Action 3.1 to 3.5 40 mEq ORAL x 1 Under 3.1 Refer to IV replacement protocol Recheck K level in AM. Protocol not for use in patients with CrCl less than 30 mL/min. Do not chew or crush. Dissolve flavored tablets completely in 3 to 4 ounces of cold water; unflavored tablets may be dissolved in 3 to 4 ounces of cold juice. Patient to sip slowly over a 5 to 10 minute period. May further dilute if GI adverse effects occur.
Or potassium chloride 10 mEq/100 mL IVPB (Peripheral Line)Jump to med 10 mEq, IntraVENous, PRN, Starting on Mon03/27/23 at 0003, Until Discontinued, at 100 mL/hr, Per Potassium Replacement Protocol
K Lab Replacement Action 2.7 to 3.0 10 mEq IVPB x 6 doses (60 mEq Total) Under 2.7 CALL PROVIDER and administer 10 mEq IVPB x 6 doses (60 mEq Total) Infuse at 10 mEq/hr. Repeat Potassium lab 1 hour after final administration. Protocol not for use in patients with CrCl less than 30 mL/min.
Group 3: potassium chloride (KLOR-CON M) extended release tablet 40 mEq (CANCELED) 40 mEq, Oral, PRN, Starting on 03/26/23 at 1024, Until 03/26/23 at 2005, Per Potassium Replacement Protocol
May give alternative linked oral order (ordered as effervescent, packet, or liquid solution) if patient unable to tolerate tablet. K Lab Repla cemen t Action 3.1 to 3.5 40 mEq ORAL x 1 Under 3.1 Refer to IV replacement protocol Recheck K level in AM. Protocol not for use in patients with CrCl less than 30 mL/min. Do not crush, chew, or suck on tablet. Tablet may also be broken in half and each half swallowed separately.
Or potassium bicarb-citric acid (EFFER-K) effervescent tablet 40 mEq (CANCELED) 40 mEq, Oral, PRN, Starting on 03/26/23 at 1024, Until 03/26/23 at 2005, Per Potassium Replacement Protocol
Administer as alternative if patient unable to tolerate oral tablet. K Lab Repla cemen t Action 3.1 to 3.5 40 mEq ORAL x 1 Under 3.1 Refer to IV replacement protocol Recheck K level in AM. Protocol not for use in patients with CrCl less than 30 mL/min. Do not chew or crush. Dissolve flavored tablets completely in 3 to 4 ounces of cold water; unflavored tablets may be dissolved in 3 to 4 ounces of cold juice. Patient to sip slowly over a 5 to 10 minute period. May further dilute if GI adverse effects occur.
Or potassium chloride 10 mEq/100 mL IVPB (Peripheral Line) (CANCELED)Jump to med 10 mEq, IntraVENous, PRN, Starting on 03/26/23 at 1024, Until 03/26/23 at 2006, at 100 mL/hr, Per Potassium Replacement Protocol
K Lab Replacement Action 2.7 to 3.0 10 mEq IVPB x 6 doses (60 mEq Total) Under 2.7 CALL PROVIDER and administer 10 mEq IVPB x 6 doses (60 mEq Total) Infuse at 10 mEq/hr. Repeat Potassium lab 1 hour after final administration. Protocol not for use in patients with CrCl less than 30 mL/min.
FOR RECORDS PERTAINING TO PATIENTS WHO ARE OR HAVE BEEN ENROLLED IN A CHEMICAL DEPENDENCY/SUBSTANCEABUSE PROGRAM, SOME INFORMATION MAY BE OMITTED. This clinical summary was aggregated from multiple sources. Caution should be exercised in using it in the provision of clinical care. This summary normalizes information from multiple sources, and as a consequence, information in this document may materially change the coding, format and clinical context of patient data. In addition, data may be omitted in some cases. CLINICAL DECISIONS SHOULD BE BASED ON THE PRIMARY CLINICAL RECORDS. [facility] provides no warranty or guarantee of the accuracy or completeness of information in this document.
[2023-03-29 12:49] VITALS: BP 126/72; PULSE 80
--- NOTE | 2023-03-29 12:54 | US_ITS ---
[address] [address] Patient Name: EDISON DEWITT MRN: [id number] date: 1990 Sex: F Assigned Patient Location: [facility] Current Patient Location: [facility] Accession/Order Number: [id number] Exam Date: 03/29/2023 13:30 Report Date: 03/29/2023 13:59 At the request of: RENU LUCAS Procedure: US OB BPP w non-stress EXAMINATION: US OB BPP w non-stress HISTORY: hypokalemia COMPARISON: Ultrasound OB anatomy 12/15/2022 TECHNIQUE: Ultrasound biophysical profile was performed in the radiology department. BREATHING MOVEMENTS: 2.0 GROSS BODY MOVEMENTS: 2.0 TONE: 2.0 QUALITATIVE AMNIOTIC FLUID VOLUME: 2.0 PRESENTATION: CEPHALIC HEART RATE: 149.2 bpm bpm. AMNIOTIC FLUID VOLUME: 13.4 cm GESTATIONAL AGE: 35 weeks 2 days CONCLUSION: 1. Total biophysical profile score 8.0. 2. Possible nuchal cord. Follow-up recommended. Electronically authenticated by: RAVI BURRELL Date: 03/29/2023 13:59
[2023-03-29 14:01] LABS: Alanine Aminotransferase 16 U/L (14-59); Albumin Globulin Ratio 0.6; Albumin Level 2.2 g/dL (3.4-5.0); Alkaline Phosphatase 72 U/L (46-116); Anion Gap 11.4; Aspartate Amino Transferase 19 U/L (15-37); BUN Creatinine Ratio 7.5; Bilirubin Total 0.8 mg/dL (0.2-1.0); Calcium 8.1 mg/dL (8.5-10.1); Carbon Dioxide 26.5 mmol/L (21.0-32.0); Chloride 109 mmol/L (98-107); Estimated GFR (African America >60 (>=60); Estimated GFR (Non-African Ame >60 (>=60); Globulin 3.9 g/dL; Glucose 72 mg/dL (74-106); Magnesium 1.5 mg/dL (1.8-2.4); Sodium 144 mmol/L (136-145); Total Protein 6.1 g/dL (6.4-8.2)
[2023-03-29 14:05] LABS: Potassium 2.9 mmol/L (3.5-5.1)
[2023-03-29 15:52] LABS: Anion Gap 14.9; BUN Creatinine Ratio 8.2; Calcium 8.3 mg/dL (8.5-10.1); Carbon Dioxide 23.9 mmol/L (21.0-32.0); Chloride 105 mmol/L (98-107); Estimated GFR (African America >60 (>=60); Estimated GFR (Non-African Ame >60 (>=60); Glucose 78 mg/dL (74-106); Sodium 141 mmol/L (136-145)
[2023-03-29 15:54] LABS: Potassium 2.8 mmol/L (3.5-5.1)
[2023-03-29] MEDS: POTASSIUM CHLORIDE 10 MEQ ER TABLET 20 MEQ PO (16:22)
[2023-03-29] MEDS: POTASSIUM CHLORIDE 40 MEQ in 0.9 % SODIUM CHLORIDE 250 ML 67.5 MEQ IV ×2 (16:23→21:41)
[2023-03-29] MEDS: LACTATED RINGER'S SOLUTION 1,000 ML 100 ML IV (16:59)
--- NOTE | 2023-03-29 17:54 | PM.PN ---
Progress Note: Subjective Subjective Interval history: Asked to see patient for hypokalemia. She was seen in outside facility last week after having some pretty severe diarrhea after eating fast food, was hypokalemic there. Sounds like I did at least some workup. No other etiology besides the diarrhea was found. She is not having any further diarrhea but her potassium is still low today. Lower than previous. Will give potassium boluses check labs and if improved tomorrow possible discharge. 7 the labs will be send out testing may not come back until next week. Exam Constitutional Vital Signs, click to edit/add: Last Vital Signs Pulse 80 03/29/23 12:49 BP 126/72 03/29/23 12:49 Documenting provider has reviewed patient's vital signs: yes Common normals: no apparent distress Respiratory Common normals: normal respiratory effort Cardio Common normals: no JVD, regular rate and regular rhythm Progress Note: Objective Labs Labs: [facility] 03/29/23 03/29/23 13:20 15:15 Sodium 144 141 Potassium 2.9 L* 2.8 L* Chloride 109 H 105 Carbon Dioxide 26.5 23.9 BUN 4.0 L 4.0 L Creatinine 0.53 L 0.49 L Glucose 72 L 78 Calcium 8.1 L 8.3 L Liver Function 03/29/23 Range/Units 13:20 Total Bilirubin 0.8 (0.2-1.0) mg/dL AST 19 (15-37) U/L ALT 16 (14-59) U/L Alkaline Phosphatase 72 (46-116) U/L Albumin 2.2 L (3.4-5.0) g/dL Progress Note: A&P Assessment and Plan (1) Hypokalemia: Assessment and Plan: [facility] patient for hypokalemia. Possibly related to dehydration and is still not caught up enough from outside treatment at an outside facility. Will give potassium bolus this evening, check labs every 6 hours, can repeat bolus every 6 hours, check aldosterone renin ratio, folic acid, no other source of loss, she denies diuretics, no further diarrhea, no hyperemesis, also likely sent home tomorrow with increase oral dose
[2023-03-29 20:00] VITALS: BP 126/79; PULSE 89
[2023-03-29 21:12] LABS: Anion Gap 9.4; Calcium 8.5 mg/dL (8.5-10.1); Carbon Dioxide 27.7 mmol/L (21.0-32.0); Chloride 110 mmol/L (98-107); Estimated GFR (African America >60 (>=60); Estimated GFR (Non-African Ame >60 (>=60); Glucose 88 mg/dL (74-106); Potassium 3.1 mmol/L (3.5-5.1); Sodium 144 mmol/L (136-145)
[2023-03-30 00:11] VITALS: BP 118/69; PULSE 82
[2023-03-30 03:13] LABS: Anion Gap 12.7; BUN Creatinine Ratio 10.6; Carbon Dioxide 23.9 mmol/L (21.0-32.0); Chloride 110 mmol/L (98-107); Estimated GFR (African America >60 (>=60); Estimated GFR (Non-African Ame >60 (>=60); Glucose 87 mg/dL (74-106); Potassium 3.6 mmol/L (3.5-5.1); Sodium 143 mmol/L (136-145)
[2023-03-30 04:49] VITALS: BP 124/77; PULSE 84
--- NOTE | 2023-03-30 08:17 | PM.PN ---
Progress Note: Subjective Subjective Interval history: No complaints overnight, no diarrhea, no emesis Exam Constitutional Vital Signs, click to edit/add: Last Vital Signs Pulse 84 03/30/23 04:49 BP 124/77 03/30/23 04:49 Documenting provider has reviewed patient's vital signs: yes Common normals: no apparent distress Respiratory Common normals: normal respiratory effort Cardio Common normals: no JVD, regular rate and regular rhythm Progress Note: Objective Labs Labs: BMP 03/29/23 03/29/23 03/29/23 13:20 15:15 20:58 Sodium 144 141 144 Potassium 2.9 L* 2.8 L* 3.1 L Chloride 109 H 105 110 H Carbon Dioxide 26.5 23.9 27.7 BUN 4.0 L 4.0 L 4.0 L Creatinine 0.53 L 0.49 L 0.57 Glucose 72 L 78 88 Calcium 8.1 L 8.3 L 8.5 03/30/23 02:57 Sodium 143 Potassium 3.6 Chloride 110 H Carbon Dioxide 23.9 BUN 5.0 L Creatinine 0.47 L Glucose 87 Calcium 8.0 L Liver Function 03/29/23 Range/Units 13:20 Total Bilirubin 0.8 (0.2-1.0) mg/dL AST 19 (15-37) U/L ALT 16 (14-59) U/L Alkaline Phosphatase 72 (46-116) U/L Albumin 2.2 L (3.4-5.0) g/dL Progress Note: A&P Assessment and Plan (1) Hypokalemia: Assessment and Plan: Hypokalemia-testing is still pending. Likely send out. Potassium is improved today up to 3.6. Will repeat a level at 9:00, 3.6 or higher than she can be discharged home on 20 mill equivalents twice daily of potassium, if it is low I will repeat the bolus 1 more time
[2023-03-30 08:18] VITALS: BP 129/79; PULSE 84; RESP 16; TEMP 36.1
[2023-03-30 09:04] LABS: Anion Gap 11.9; BUN Creatinine Ratio 9.6; Calcium 8.1 mg/dL (8.5-10.1); Carbon Dioxide 25.4 mmol/L (21.0-32.0); Chloride 107 mmol/L (98-107); Estimated GFR (African America >60 (>=60); Estimated GFR (Non-African Ame >60 (>=60); Glucose 85 mg/dL (74-106); Potassium 3.3 mmol/L (3.5-5.1); Sodium 141 mmol/L (136-145)
[2023-03-30] MEDS: POTASSIUM CHLORIDE 10 MEQ ER TABLET 20 MEQ PO (09:23)
[2023-03-30] MEDS: LACTATED RINGER'S SOLUTION 1,000 ML 75 ML IV (10:17)
[2023-03-30] MEDS: POTASSIUM CHLORIDE 40 MEQ in 0.9 % SODIUM CHLORIDE 250 ML 67.5 MEQ IV (10:18)
[2023-03-30 15:41] LABS: Anion Gap 13.9; Calcium 8.7 mg/dL (8.5-10.1); Carbon Dioxide 22.8 mmol/L (21.0-32.0); Chloride 107 mmol/L (98-107); Estimated GFR (African America >60 (>=60); Estimated GFR (Non-African Ame >60 (>=60); Glucose 98 mg/dL (74-106); Potassium 3.7 mmol/L (3.5-5.1); Sodium 140 mmol/L (136-145)
== END 2023-03-30 16:30 | disposition home or self-care (01) ==
LOC: FBCO 03-30 10:06 → FBC 03-30 10:06
PROVIDERS: Admitting Provider Family Medicine; Visit Provider Obstetrics & Gynecology
DX: O99.283 Endocrine, nutritional and metabolic diseases complicating pregnancy, third trimester (principal); E87.6 Hypokalemia; Z3A.35 35 weeks gestation of pregnancy
CPT/HCPCS: 36415; 76818; 80048; 80053; 82088; 82746; 83735; 84244; 96365; 96366; G0378; G0379; J3480

== ENCOUNTER 2023-04-03 07:45 | Outpatient (OUT) | payer BC, SELFPAY ==
--- OUTSIDE RECORDS SUMMARY | 2023-04-03 07:49 | XMS_ITS | CCD ---
Author Name Unknown Address [address] [place] [address] Organization [facility] Care Team Providers Care Vp Compliance Name Role Phone Rosette Mendoza Primary Care Provider REQUEST, DR EB LISTED Primary Care Unavaila chase MENDOZA, DR LUCIANA Pedro Consulting Unavailable SUSIE ., DR SEARS Attending Unavailable SUSIE ., DR SEARS Admitting Unavailable SUSIE ., DR SEARS Consulting Unavailable Rosalind Jeter Unavailable Rosette Mendoza Primary Care Provider RINA CURRY Attending Unavailable SUSIE, RENU Attending Unavailable SUSIE, RENU Attending Unavailable RENU RICHARDS Attending Unavailable SUSIE, RENU Attending Unavailable Unavailable Primary Care Provider UnavailPEMA Plunkett Admitting Unavailable PEMA REBOLLEDO Attending Unavailable ROSETTE MENDOZA Primary Care Unavailable ROSETTE MENDOZA Primary Care Unavailable Medications Current Medications Medication Drug Class(es) Dates [...] chloride 20 meq extended release oral tablet (6 sources) Start: 03-27-2023 End: 04-28-2023 take 1 tablet by mouth in the morning potassium chloride CR (Klor-Con M20) 20 MEQ ER tablet Indications: Hypokalemia Take 1 tablet (20 mEq) by mouth in the morning. 30 tablet 0 03/29/2023 04/28/2023 Active Start: 03-27-2023 potassium chlo ride (KLOR-CON M) extended release tablet 40 mEq potassium chloride 40 mEq in sodium chloride 0.9 % 1,000 mL infusion (1 source) Start: 03-27-2023 potassium chlo ride 40 mEq in sodium chloride 0.9 % 1,000 mL infusion MV-Min-Fe Fum-FA-DHA ( 1 PO) (2 sources) MV-Min- Fe Fum-FA-DHA ( 1 PO) Take by mouth 0 Active Vit-Fe Fumarate-FA ( VITAMINS) 28-0.8 MG TABS [...] DAYS Oral for 10 Days Not-Taking/PRN Problems Problem Classification Problem Date Documented Date Episodic/Chronic Abdominal pain (4 sources) Pelvic and perineal pain; Translations: [PELVIC AND PERINEAL PAIN] Onset: 04-11-2022 Episodic Fluid and electrolyte disorders (6 sources) Hypokalemia; Translations: [Hypokalemia] Onset: 03-27-2023 03-27-2023 Episodic Genitourinary symptoms and ill-defined conditions (1 source) Malodorous urine; Translations: [Unspecified abnormal findings in urine] Episodic Menstrual disorders (2 sources) Disorder of menstruation; Translations: [Irregular menstruation, unspecified] Onset: 09-19-2022 09-19-2022 Chronic Noninfectious gastroenteritis (2 sources) Acute gastroenteritis; Translations: [Noninfective gastroenteritis and colitis, unspecified] Onset: 03-27-2023 03-27-2023 Episodic Other female genital disorders (1 source) Vaginal discharge; Translations: [Other specified noninflammatory disorders of vagina] Episodic Other nutritional; endocrine; and metabolic disorders (2 sources) Hypomagnesemia; Translations: [Hypomagnesemia] Onset: 03-27-2023 03-27-2023 Chronic Other and delivery including normal (2 sources) Third trimester ; Translations: [Encounter for supervision of normal , unspecified, third trimester] 03-24-2023 Episodic Otitis media and related conditions (1 source) Otitis media, unspecified, right ear Episodic Residual codes; unclassified (2 sources) Gestation period, 34 weeks; Translations: [34 weeks gestation of ] Onset: 03-26-2023 03-26-2023 Episodic Unclassified (1 source) vomiting, dehydrated, 8 momths preg Onset: 03-26-2023 Results Test Name Value Interpretation Reference Range Facility Rule Out Grp.B Strepon 03-31 Rule Out Grp.B Strep Specimen Description .VAGINA Culture NEGATIVE FOR GROUP B STREPTOCOCCI Report Status FINAL 03/31/2023 Normal [facility] Comment on above: Performed By: #### R OGBS #### [place] [address] [employer] Software Engineer: Jurgen Hernandez MD Urinalysis macro (dipstick) panel (U)on 03-29-2023 Bilirubin, UA Negative Negative - 4(70) +++ mg/dL [facility] Blood, UA Negative Negative - 50 Dwight/mcL [facility] Clarity, UA Clear [facility] Color, UA Yellow [facility] Glucose, UA Negative Negative - 1999(110) ++++ mg/dL [facility] Interpretation and review of laboratory results Normal [facility] Ketones, UA Negative Negative - 160(16) ++++ mg/dL [facility] Leukocytes, UA Negative Negative - 500+++ Karlene/mcL [facility] Nitrite, UA Negative Negative - Positive [facility] pH, UA 7.0 5 - 9 [facility] Protein, UA Negative Negative - 1999(20) ++++ mg/dL [facility] Spec Grav, UA 1.025 1 - 1.03 [facility] Urobilinogen, UA 0.2 0.2 - 12 mg/dL [facility] BLOOD GAS, VENOUSon 03-27-19 Carboxyhemoglobin (Bld) [Mass fraction] 1.0 % 0 - 5 % [facility] Comment on above: Reference Range: Non-Smokers 0-2% Average Smoker 2-4% Heavy Smoker <10% HCO3 (Bld) [Moles/Vol] 24.8 mmol/L 24 - 30 mmol /L [facility] Interpretation and review of laboratory results Abnormal [facility] Negative Base Excess, Pieter 0.3 mmol/L 0.0 - 2.0 mmol/L [facility] Oxygen saturation in Blood 35.8 % Low 60.0 - 85.0 % [facility] Oxygen/Inspired gas Respiratory system --on ventilator INFORMATION NOT PROVIDED [facility] pCO2, Pieter 45.1 [facility] pH, Pieter 7.359 7.320 - 7.420 [facility] pO2, Pieter 26.4 Low [facility] Comp Metabolic Profon 2023 Potassium [Moles/Vol] 2.9 mmol/L Critically low 3.7-5.3 [facility] Comment on above: Performed By: #### C P, OSMO, MG #### [email or web address] [facility] [place], [place] [id number] [employer] Software Engineer: Jurgen Hernandez MD Albumin [Mass/Vol] 2.9 g/dL Low 3.5-5.2 [facility] Comment on above: Performed By: #### C P, OSMO, MG #### [email or web address] [address] [place] [address] Core Java Software Engineer: Jrugen Hernandez MD Albumin/Glob Ratio 1.1 Normal 1.0-2.5 [facility] Comment on above: Performed By: #### C P, OSMO, MG #### [address] [address] [employer] Software Engineer: Jurgen Hernandez MD Alkaline Phos 73 U/L Normal 35-104 [facility] Comment on above: Performed By: #### C P, OSMO, MG #### [facility] [address] [place] [id number] [employer] Software Engineer: Jurgen Hernandez MD ALT [Catalytic activity/Vol] 7 U/L Normal 5-33 [facility] Comment on above: Performed By: #### C P, OSMO, MG #### [address] [address] [employer] Software Engineer: Jurgen Hernandez MD Anion gap [Moles/Vol] 9 mmol/L Normal 9-17 [facility] Comment on above: Performed By: #### C P, OSMO, MG #### [address] [address] [employer] Software Engineer: Jurgen Hernandez MD AST [Catalytic activity/Vol] 26 U/L Normal <32 [facility] Comment on above: Performed By: #### C P, OSMO, MG #### [facility] [employer] [address] [place] [phone] [employer] Software Engineer: Jurgen Hernandez MD Bilirubin [Mass/Vol] 1.3 mg/dL High 0.3-1.2 [facility] Comment on above: Performed By: #### C P, OSMO, MG #### [facility] [employer] [address] [place] [address] [employer] Software Engineer: Jurgen Hernandez MD Calcium [Mass/Vol] 7.8 mg/dL Low 8.6-10.4 [facility] Comment on above: Performed By: #### C P, OSMO, MG #### [facility] [employer] [address] [place] [address] [employer] Software Engineer: Jurgen Hernandez MD Chloride [Moles/Vol] 104 mmol/L Normal 98-107 [facility] Comment on above: Performed By: #### C P, OSMO, MG #### [facility] [place] [address] Core Java Software Engineer: Jurgen Hernandez MD CO2 [Moles/Vol] 21 mmol/L Normal 20-31 [facility] Comment on above: Performed By: #### C P, OSMO, MG #### [facility] [address] [place] [id number] [employer] Software Engineer: Jurgen Hernandez MD Creatinine [Mass/Vol] 0.4 mg/dL Low 0.5-0.9 [facility] Comment on above: Performed By: #### C P, OSMO, MG #### [address] [address] [employer] Software Engineer: Jurgen Hernandez MD GFR/1.73 sq M.predicted among non-blacks MDRD (S/P/Bld) [Vol rate/Area] mL/min/{1.73_m2} Normal >60 [facility] Comment on above: Result Comment: These results [...] tubular secretion. Performed By: #### C P, OSMO, MG #### [facility] [address] [place] [address] [employer] Software Engineer: Jurgen Hernandez MD Glucose [Mass/Vol] 108 mg/dL High 70-99 [facility] Comment on above: Performed By: #### C P, OSMO, MG #### [facility] [employer] [address] [place] [address] [employer] Software Engineer: Jurgen Hernandez MD Protein [Mass/Vol] 5.6 g/dL Low 6.4-8.3 [facility] Comment on above: Performed By: #### C P, OSMO, MG #### [facility] [address] [place] [address] Core Java Software Engineer: Jurgen Hernandez MD Sodium [Moles/Vol] 134 mmol/L Low 135-144 [facility] Comment on above: Performed By: #### C P, OSMO, MG #### [facility] [address] [place], [place] [phone] [employer] Software Engineer: Jurgen Hernandez MD Urea nitrogen [Mass/Vol] 2 mg/dL Low 6-20 [facility] Comment on above: Performed By: #### C P, OSMO, MG #### [facility] [address] [place], [place] [phone] [employer] Java Software Engineer: Jurgen Hernandez MD Comprehensive Metabolic Pane [facility] 03-27-2023 Albumin [Mass/Vol] 2.9 g/dL Low 3.5 - 5.2 g/dL [facility] Albumin/Globulin [Mass ratio] 1.1 {ratio} 1.0 - 2.5 [facility] ALP [Catalytic activity/Vol] 73 U/L 35 - 104 U/L [facility] ALT [Catalytic activity/Vol] 7 U/L 5 - 33 U/L [facility] Anion gap [Moles/Vol] 9 mmol/L 9 - 17 mmol/L [facility] AST [Catalytic activity/Vol] 26 U/L NINF - 32 U/L [facility] Bilirubin [Mass/Vol] 1.3 mg/dL High 0.3 - 1 .2 mg/dL [facility] Calcium [Mass/Vol] 7.8 mg/dL Low 8.6 - 10. 4 mg/dL [facility] Chloride [Moles/Vol] 104 mmol/L 98 - 10 7 mmol/L [facility] CO2 [Moles/Vol] 21 mmol/L 20 - 31 mmol/L [facility] [employer] Creatinine [Mass/Vol] 0.4 mg/dL Low 0.5 - 0.9 mg/dL [facility] [employer] GFR/1.73 sq M.predicted MDRD (S/P/Bld) [Vol rate/Area] - [facility] Comment on above: These results are not [...] 108 mg/dL High 70 - 99 mg/dL [facility] [employer] Interpretation and review of laboratory results Abnormal [facility] [employer] Potassium [Moles/Vol] 2.9 mmol/L Critically low 3.7 - 5.3 mmol/L [facility] [employer] Protein [Mass/Vol] 5.6 g/dL Low 6.4 - 8.3 g/dL [facility] [employer] Sodium [Moles/Vol] 134 mmol/L Low 135 - 144 mmol/L [facility] [employer] Urea nitrogen [Mass/Vol] 2 mg/dL Low 6 - 20 mg/dL [facility] [employer] [facility] [employer] EKG 12 LeadOrdered By: Lillian Pruitt on 03-27-2023 Atrial Rate 101 BPM [facility] [employer] Work Phone: P [place] 54 degrees [employer] Work Phone: P-R Interval 178 ms [employer] Work Phone: Q-T Interval 364 ms [employer] Work Phone: QRS Duration 102 ms [employer] Work Phone: QTc Calculation (Bazett) 471 ms [employer] Work Phone: R [place] 35 degrees [employer] Work Phone: T [place] 38 degrees [employer] Work Phone: Ventricular Rate 101 BPM [facility] [employer] [facility] Work Phone: [facility] Work Phone: EKG 12 Leadon 03-27-2023 Sinus tachycardia Incomplete right bundle branch block Septal infarct , age undetermined Abnormal ECG No previous ECGs available [facility] STLillian Truong MD - 03/27/2023 Sinus tachycardia Incomplete right bundle branch block Septal infarct , age undetermined Abnormal ECG No previous ECGs available [facility] [employer] [facility] Atrial Rate 101 BPM [facility] P [place] 56 degrees [facility] P-R Interval 170 ms [facility] Q-T Interval 364 ms [facility] [employer] QRS Duration 96 ms [facility] [employer] QTc Calculation (Bazett) 471 ms [facility] R [place] 31 degrees [facility] T [place] 37 degrees [facility] Ventricular Rate 101 BPM [facility] SECO URS [facility] [employer] Sinus tachycardia Nonspecific ST and T wave abnormality Abnormal ECG When compared with ECG of 26-MAR-2023 11:35, Incomplete right bundle branch block is no longer Present [facility] STLillian Truong MD - 03/27/[address] and T wave abnormality Abnormal ECG When compared with ECG of 26-MAR-2023 11:35, Incomplete right bundle branch block is no longer Present [facility] [employer] Panelon 03-27-19 24 Anion gap [Moles/Vol] 9 mmol/L 9 - 17 mmol/L [facility] Chloride [Moles/Vol] 103 mmol/L 98 - 10 7 mmol/L [facility] CO2 [Moles/Vol] 23 mmol/L 20 - 31 mmol/L [facility] Interpretation and review of laboratory results Abnormal [facility] Potassium [Moles/Vol] 3.1 mmol/L Low 3.7 - 5.3 mmol/L [facility] Sodium [Moles/Vol] 135 mmol/L 135 - 144 mmol/L [facility] Electrolyteson 03-27-2023 Anion gap [Moles/Vol] 9 mmol/L Normal 9-17 [facility] Comment on above: Performed By: #### K #### [facility] [employer] [address] [place] [phone] [employer] Java Software Engineer: Jurgen Hernandez MD Chloride [Moles/Vol] 103 mmol/L Normal 98-107 [facility] Comment on above: Performed By: #### K #### [facility] [employer] [address] [place] [phone] [employer] Software Engineer: Jurgen Hernandez MD CO2 [Moles/Vol] 23 mmol/L Normal 20-31 [facility] Comment on above: Performed By: #### K #### [address] [address] Core Java Software Engineer: Jurgen Hernandez MD Potassium [Moles/Vol] 3.1 mmol/L Low 3.7-5.3 [facility] Comment on above: Performed By: #### K #### [facility] [employer] [address] [place] [phone] Core Java Software Engineer: Jurgen Hernandez MD Sodium [Moles/Vol] 135 mmol/L Normal 135-144 [facility] Comment on above: Performed By: #### K #### [facility] [employer] [address] [place] [phone] Core Java Software Engineer: Jurgen Hernandez MD K (Potassium)on 03-27-2023 Potassium [Moles/Vol] 2.7 mmol/L Critically low 3.7-5.3 [facility] Comment on above: Performed By: #### K #### [facility] [employer] [address] [place] [phone] Core Java Software Engineer: Jurgen Hernandez MD Potassium [Moles/Vol] 2.5 mmol/L Critically low 3.7-5.3 [facility] Comment on above: Performed By: #### K #### [employer] [address] [place] [phone] Core Java Software Engineer: Jurgen Hernandez MD Magnesiumon 03-27-2023 Magnesium [Mass/Vol] 1.9 mg/dL Normal 1.6-2.6 [facility] Comment on above: Performed By: #### C P, OSMO, MG #### [facility] [employer] [address] [place] [phone] Core Java Software Engineer: Jurgen Hernandez MD Magnesium [Mass/Vol] 1.9 mg/dL 1.6 - 2 .6 mg/dL [facility] OSMOLALITY, URINEon 03-27-19 24 Osmolality (U) [Osmolality] 365 mosm/kg [facility] Osmolalityon 03-27-2023 Osmolality [Osmolality] 285 mosm/kg Normal 275-295 [facility] Comment on above: Performed By: #### C P, OSMO, MG #### [facility] [employer] [address] [place] [phone] [employer] Java Software Engineer: Jurgen Hernandez MD Osmolality [Osmolality] 285 mosm/kg [facility] Osmolality, Urineon 03-27-19 24 Osmolality - Urine 365 mOsm/kg Normal 80-1300 [facility] Comment on above: Performed By: #### K #### [facility] [address] [place] [phone] Core Java Software Engineer: Jurgen Hernandez MD POTASSIUM, URINE, RANDOMon 0 03-27-2023 Potassium, Ur 29.1 mmol/L [facility] Comment on above: No normal range esta blished. [facility] Potassiumon 03-27-2023 Interpretation and review of laboratory results Abnormal [facility] Potassium [Moles/Vol] 2.7 mmol/L Critically low 3.7 - 5.3 mmol/L [facility] Potassium,Random Uron 2023 Potassium [Moles/Vol] 29.1 mmol/L Normal [facility] Comment on above: Result Comment: No n ormal range established. Performed By: #### K #### [address] [address] [employer] Java Software Engineer: Jurgen Hernandez MD Venous Blood Gaseson 03-27-2 024 Body Temp. 37.0 Normal [facility] Comment on above: Performed By: #### K #### [address] [address] [employer] Java Software Engineer: Jurgen Hernandez MD Carboxy Hgb 1.0 % Normal 0-5 [facility] Comment on above: Result Comment: Reference Range: Non-Smokers 0-2% Average Smoker 2-4% Heavy Smoker <10% Performed By: #### K #### [address] [address] [employer] Java Software Engineer: Jurgen Hernandez MD FIO2 INFORMATION NOT PROVIDED Normal [facility] Comment on above: Performed By: #### K #### [address] [address] [employer] Java Software Engineer: Jurgen Hernandez MD HCO3 (Bld) [Moles/Vol] 24.8 mmol/L Normal 24-30 M [facility] Comment on above: Performed By: #### K #### [address] [address] [employer] Software Engineer: Jurgen Hernandez MD Negative Base Excess 0.3 mmol/L Normal 0.0-2.0 [facility] Comment on above: Performed By: #### K #### [address] [address] [employer] Software Engineer: Jurgen Hernandez MD Oxygen saturation in Blood 35.8 % Low 60.0-85.0 [facility] Comment on above: Performed By: #### K #### [address] [address] [employer] Java Software Engineer: Jurgen Hernandez MD pCO2 45.1 mm Hg Normal 39-55 [facility] Comment on above: Performed By: #### K #### [facility] [address] [place] [phone] Core Java Software Engineer: Jurgen Hernandez MD pH (Bld) 7.359 [pH] Normal 7.320-7.420 [facility] Comment on above: Performed By: #### K #### [facility] [address] [place] [phone] Core Java Software Engineer: Jurgen Hernandez MD pO2 26.4 mm Hg Low 30-50 [facility] Comment on above: Performed By: #### K #### [facility] [employer] [address] [place] [phone] [employer] Java Software Engineer: Jurgen Hernandez MD Beta Hydroxybutyrateon 03-26 Beta Hydroxybutyrate 1.24 mmol/L High 0.02-0.27 [facility] Comment on above: Performed By: #### C P, CDP, MG, BH #### [facility] [employer] [address] [place] [phone] Core Java Software Engineer: Jurgen Hernandez MD Beta-Hydroxybutyrateon 03-26 Beta hydroxybutyrate [Mass/Vol] 1.24 mmol/L High 0.02 - 0.27 mmol/L [facility] Interpretation and review of laboratory results Abnormal [facility] CBC with Auto Differentialon 03-26-2023 Basophils (Bld) [#/Vol] 0.00 10*3/uL [facility] Basophils/100 WBC (Bld) 0 % 0 - 2 % [facility] Eosinophils (Bld) [#/Vol] 0.00 10*3/uL [facility] Eosinophils/100 WBC (Bld) 0 % Low 1 - 4 % [facility] Erythrocyte distribution width (RBC) [Ratio] 14.5 % High 11.8 - 14.4 % [facility] Hematocrit (Bld) [Volume fraction] 35.7 % Low 36.3 - 47.1 % [facility] Hemoglobin (Bld) [Mass/Vol] 12.1 g/dL 11.9 - 15.1 g/dL [facility] Immature granulocytes (Bld) [#/Vol] 0.00 10*3/uL [facility] Immature granulocytes/100 WBC (Bld) 0 % 0 [facility] Interpretation and review of laboratory results Abnormal [facility] Lymphocytes/100 WBC (Bld) 5 % Low 24 - 44 % [facility] Lymphocytes/100 WBC (Bld) 0.48 % Low [facility] MCH (RBC) [Entitic mass] 30.0 pg 25.2 - 33.5 pg [facility] MCHC (RBC) [Mass/Vol] 33.9 g/dL 28.4 - 34.8 g/dL [facility] MCV (RBC) [Entitic vol] 88.4 fL 82.6 - 102.9 fL [facility] Monocytes/100 WBC (Bld) 4 % 1 - 7 % [facility] Monocytes/100 WBC (Bld) 0.38 % [facility] Morphology Moises (Bld) [Interp] ANISOCYTOSIS PRESENT [facility] Neutrophils/100 WBC (Bld) 91 % High 36 - 66 % [facility] Nucleated RBC/100 WBC (Bld) [Ratio] 0.0 % 0.0 per 100 WBC [facility] Platelet mean volume (Bld) [Entitic vol] 9.4 fL 8.1 - 13.5 fL [facility] Platelets (Bld) [#/Vol] 231 10*3/uL [facility] RBC (Bld) [#/Vol] 4.04 10*6/uL 3.95 - 5.1 1 m/uL [facility] Segmented neutrophils/100 WBC (Bld) 8.64 % High [facility] WBC other (Bld) [#/Vol] 9.5 [facility] CBC with Diffon 03-26-2023 Abs. Basophil 0.00 k/uL Normal 0.0-0.2 [facility] Comment on above: Performed By: #### C P, CDP, MG, #### [facility] [employer] [address] [place] [phone] Core Java Software Engineer: Jurgen Hernandez MD Abs.Imm.Granulocyte 0.00 k/uL Normal 0.00-0.30 [facility] Comment on above: Performed By: #### C P, CDP, MG, #### [facility] [employer] [address] [place] [phone] [employer] Java Software Engineer: Jurgen Hernandez MD Abs.Neutrophil (Seg) 8.64 k/uL High 1.8-7.7 [facility] Comment on above: Performed By: #### C P, CDP, MG, #### [address] [address] [employer] Software Engineer: Jurgen Hernandez MD Basophils/100 WBC (Bld) 0 % Normal 0-2 [facility] Comment on above: Performed By: #### C P, CDP, MG, #### [address] [address] [employer] Software Engineer: Jurgen Hernandez MD Eosinophils (Bld) [#/Vol] 0.00 10*3/uL Normal 0.0-0.4 [facility] Comment on above: Performed By: #### C P, CDP, MG, #### [facility] [employer] [address] [place] [phone] [employer] Software Engineer: Jurgen Hernandez MD Eosinophils/100 WBC (Bld) 0 % Low 1-4 [facility] Comment on above: Performed By: #### C P, CDP, MG, #### [facility] [employer] [address] [place] [phone] [employer] Software Engineer: Jurgen Hernandez MD Immature granulocytes/100 WBC (Bld) 0 % Normal 0 [facility] Comment on above: Performed By: #### C P, CDP, MG, #### [address] [address] [employer] Java Software Engineer: Jurgen Hernandez MD Lymphocytes (Bld) [#/Vol] 0.48 10*3/uL Low 1.0-4.8 [facility] Comment on above: Performed By: #### C P, CDP, MG, #### [address] [address] [employer] Software Engineer: Jurgen Hernandez MD Lymphocytes/100 WBC (Bld) 5 % Low 24-44 [facility] Comment on above: Performed By: #### C P, CDP, MG, #### [address] [address] [employer] Engineer: Jurgen Hernandez MD Monocytes (Bld) [#/Vol] 0.38 10*3/uL Normal 0.1-0.8 [facility] Comment on above: Performed By: #### C P, CDP, MG, #### [address] [address] [employer] Engineer: Jurgen Hernandez MD Monocytes/100 WBC (Bld) 4 % Normal 1-7 [facility] Comment on above: Performed By: #### C P, CDP, MG, #### [address] [address] [employer] Software Engineer: Jurgen Hernandez MD Morphology Moises (Bld) [Interp] ANISOCYTOSIS PRESENT Normal [facility] Comment on above: Performed By: #### C P, CDP, MG, #### [address] [address] [employer] Software Engineer: Jurgen Hernandez MD Neutrophil (Seg) 91 % High 36-66 [facility] Comment on above: Performed By: #### C P, CDP, MG, #### [address] [address] [employer] Software Engineer: Jurgen Hernandez MD Erythrocyte distribution width (RBC) [Ratio] 14.5 % High 11.8-14.4 [facility] Comment on above: Performed By: #### C P, CDP, MG, #### [place] [address] [employer] Software Engineer: Jurgen Hernandez MD Hematocrit (Bld) [Volume fraction] 35.7 % Low 36.3-47.1 [facility] Comment on above: Performed By: #### C P, CDP, MG, #### [place] [address] [employer] Engineer: Jurgen Hernandez MD Hemoglobin (Bld) [Mass/Vol] 12.1 g/dL Normal 11.9-15.1 [facility] Comment on above: Performed By: #### C P, CDP, MG, #### [place] [address] [employer] Engineer: Jurgen Hernandez MD MCH (RBC) [Entitic mass] 30.0 pg Normal 25.2-33.5 [facility] Comment on above: Performed By: #### C P, CDP, MG, #### [place] [address] [employer] Engineer: Jurgen Hernandez MD MCHC (RBC) [Mass/Vol] 33.9 g/dL Normal 28.4-34.8 [facility] Comment on above: Performed By: #### C P, CDP, MG, #### [address] [address] [employer] Software Engineer: Jurgen Hernandez MD MCV (RBC) [Entitic vol] 88.4 fL Normal 82.6-102.9 [facility] Comment on above: Performed By: #### C P, CDP, MG, #### [address] [address] [employer] Software Engineer: Jurgen Hernandez MD NRBC Automated 0.0 per 100 WBC Normal 0.0 [facility] Comment on above: Performed By: #### C P, CDP, MG, #### [address] [address] [employer] Software Engineer: Jurgen Hernandez MD Platelet mean volume (Bld) [Entitic vol] 9.4 fL Normal 8.1-13.5 [facility] Comment on above: Performed By: #### C P, CDP, MG, #### [address] [address] [employer] Software Engineer: Jurgen Hernandez MD Platelets (Bld) [#/Vol] 231 10*3/uL Normal 138-453 [facility] Comment on above: Performed By: #### C P, CDP, MG, #### [address] [address] [employer] Software Engineer: Jurgen Hernandez MD RBC (Bld) [#/Vol] 4.04 10*6/uL Normal 3.95-5.11 [facility] Comment on above: Performed By: #### C P, CDP, MG, #### [address] [address] [employer] Software Engineer: Jurgen Hernandez MD WBC (Bld) [#/Vol] 9.5 10*3/uL Normal 3.5-11.3 [facility] Comment on above: Performed By: #### C P, CDP, MG, #### [address] [address] [employer] Software Engineer: Jurgen Hernandez MD Comp Metabolic Profon 2023 Potassium [Moles/Vol] 2.7 mmol/L Critically low 3.7-5.3 [facility] Comment on above: Performed By: #### C P #### [address] [address] [employer] Software Engineer: Jurgen Hernandez MD Albumin [Mass/Vol] 2.9 g/dL Low 3.5-5.2 [facility] Comment on above: Performed By: #### C P #### [address] [address] [employer] Software Engineer: Jurgen Hernandez MD Albumin/Glob Ratio 1.1 Normal 1.0-2.5 [facility] Comment on above: Performed By: #### C P #### [address] [address] [employer] Software Engineer: Jurgen Hernandez MD Alkaline Phos 73 U/L Normal 35-104 [facility] Comment on above: Performed By: #### C P #### [address] [address] [employer] Software Engineer: Jurgen Hernandez MD ALT [Catalytic activity/Vol] 8 U/L Normal 5-33 [facility] Comment on above: Performed By: #### C P #### [address] [address] [employer] Software Engineer: Jurgen Hernandez MD Anion gap [Moles/Vol] 12 mmol/L Normal 9-17 [facility] Comment on above: Performed By: #### C P #### [address] [address] [employer] Java Software Engineer: Jurgen Hernandez MD AST [Catalytic activity/Vol] 14 U/L Normal <32 [facility] Comment on above: Performed By: #### C P #### [address] [address] [employer] Software Engineer: Jurgen Hernandez MD Bilirubin [Mass/Vol] 1.3 mg/dL High 0.3-1.2 [facility] Comment on above: Performed By: #### C P #### [address] [address] [employer] Software Engineer: Jurgen Hernandez MD Calcium [Mass/Vol] 7.9 mg/dL Low 8.6-10.4 [facility] Comment on above: Performed By: #### C P #### [address] [address] [employer] Software Engineer: Jurgen Hernandez MD Chloride [Moles/Vol] 105 mmol/L Normal 98-107 [facility] Comment on above: Performed By: #### C P #### [address] [address] [employer] Software Engineer: Jurgen Hernandez MD CO2 [Moles/Vol] 21 mmol/L Normal 20-31 [facility] Comment on above: Performed By: #### C P #### [address] [address] [employer] Software Engineer: Jurgen Hernandez MD Creatinine [Mass/Vol] 0.4 mg/dL Low 0.5-0.9 [facility] Comment on above: Performed By: #### C P #### [address] [address] [employer] Software Engineer: Jurgen Hernandez MD GFR/1.73 sq M.predicted among non-blacks MDRD (S/P/Bld) [Vol rate/Area] mL/min/{1.73_m2} Normal >60 [facility] Comment on above: Result Comment: These results [...] renal tubular secretion. Performed By: #### C P #### [address] [address] [employer] Java Software Engineer: Jurgen Hernandez MD Glucose [Mass/Vol] 115 mg/dL High 70-99 [facility] Comment on above: Performed By: #### C P #### [address] [address] [employer] Software Engineer: Jurgen Hernandez MD Protein [Mass/Vol] 5.5 g/dL Low 6.4-8.3 [facility] Comment on above: Performed By: #### C P #### [address] [address] [employer] Software Engineer: Jurgen Hernandez MD Sodium [Moles/Vol] 138 mmol/L Normal 135-144 [facility] Comment on above: Performed By: #### C P #### [address] [address] [employer] Java Software Engineer: Jurgen Hernandez MD Urea nitrogen [Mass/Vol] 3 mg/dL Low 6-20 [facility] Comment on above: Performed By: #### C P #### [address] [address] [employer] Software Engineer: Jurgen Hernandez MD Potassium [Moles/Vol] 2.6 mmol/L Critically low 3.7-5.3 [facility] Comment on above: Performed By: #### C P, CDP, MG, BH #### [address] [address] [employer] Software Engineer: Jurgen Hernandez MD Albumin [Mass/Vol] 3.4 g/dL Low 3.5-5.2 [facility] Comment on above: Performed By: #### C P, CDP, MG, BH #### [address] [address] Core Java Software Engineer: Jurgen Hernandez MD Albumin/Glob Ratio 1.0 Normal 1.0-2.5 [facility] Comment on above: Performed By: #### C P, CDP, MG, #### [address] [address] [employer] Java Software Engineer: Jurgen Hernandez MD Alkaline Phos 80 U/L Normal 35-104 [facility] Comment on above: Performed By: #### C P, CDP, MG, #### [address] [address] [employer] Java Software Engineer: Jurgen Hernandez MD ALT [Catalytic activity/Vol] 9 U/L Normal 5-33 [facility] Comment on above: Performed By: #### C P, CDP, MG, #### [address] [address] [employer] Software Engineer: Jurgen Hernandez MD Anion gap [Moles/Vol] 15 mmol/L Normal 9-17 [facility] Comment on above: Performed By: #### C P, CDP, MG, #### [address] [address] [employer] Java Software Engineer: Jurgen Hernandez MD AST [Catalytic activity/Vol] 20 U/L Normal <32 [facility] Comment on above: Performed By: #### C P, CDP, MG, #### [address] [address] [employer] Software Engineer: Jurgen Hernandez MD Bilirubin [Mass/Vol] 1.6 mg/dL High 0.3-1.2 [facility] Comment on above: Performed By: #### C P, CDP, MG, #### [address] [address] [employer] Java Software Engineer: Jurgen Hernandez MD Calcium [Mass/Vol] 8.2 mg/dL Low 8.6-10.4 [facility] Comment on above: Performed By: #### C P, CDP, MG, #### [address] [address] [employer] Java Software Engineer: Jurgen Hernandez MD Chloride [Moles/Vol] 108 mmol/L High 98-107 [facility] Comment on above: Performed By: #### C P, CDP, MG, #### [address] [address] [employer] Java Software Engineer: Jurgen Hernandez MD CO2 [Moles/Vol] 19 mmol/L Low 20-31 [facility] Comment on above: Performed By: #### C P, CDP, MG, #### [address] [address] [employer] Java Software Engineer: Jurgen Hernandez MD Creatinine [Mass/Vol] 0.4 mg/dL Low 0.5-0.9 [facility] Comment on above: Performed By: #### C P, CDP, MG, #### [address] [address] [employer] Java Software Engineer: Jurgen Hernandez MD GFR/1.73 sq M.predicted among non-blacks MDRD (S/P/Bld) [Vol rate/Area] mL/min/{1.73_m2} Normal >60 [facility] Comment on above: Result Comment: These results [...] By: #### C P, CDP, MG, #### [address] [address] [employer] Java Software Engineer: Jurgen Hernandez MD Glucose [Mass/Vol] 122 mg/dL High 70-99 [facility] Comment on above: Performed By: #### C P, CDP, MG, BH #### [facility] [place] [address] Core Java Software Engineer: Jurgen Hernandez MD Protein [Mass/Vol] 6.7 g/dL Normal 6.4-8.3 [facility] Comment on above: Performed By: #### C P, CDP, MG, BH #### [facility] [place] [address] [employer] Software Engineer: Jurgen Hernandez MD Sodium [Moles/Vol] 142 mmol/L Normal 135-144 [facility] Comment on above: Performed By: #### C P, CDP, MG, #### [facility] [address] [place] [address] Core Java Software Engineer: Jurgen Hernandez MD Urea nitrogen [Mass/Vol] 6 mg/dL Normal 6-20 [facility] Comment on above: Performed By: #### C P, CDP, MG, #### [facility] [place] [address] [employer] Java Software Engineer: Jurgen Hernandez MD Comprehensive Metabolic Pane [facility] 03-26-2023 Albumin [Mass/Vol] 2.9 g/dL Low 3.5 - 5.2 g/dL [facility] Albumin/Globulin [Mass ratio] 1.1 {ratio} 1.0 - 2.5 [facility] ALP [Catalytic activity/Vol] 73 U/L 35 - 104 U/L [facility] ALT [Catalytic activity/Vol] 8 U/L 5 - 33 U/L [facility] Anion gap [Moles/Vol] 12 mmol/L 9 - 17 mmol/L [facility] AST [Catalytic activity/Vol] 14 U/L NINF - 32 U/L [facility] Bilirubin [Mass/Vol] 1.3 mg/dL High 0.3 - 1 .2 mg/dL [facility] Calcium [Mass/Vol] 7.9 mg/dL Low 8.6 - 10. 4 mg/dL [facility] Chloride [Moles/Vol] 105 mmol/L 98 - 10 7 mmol/L [facility] CO2 [Moles/Vol] 21 mmol/L 20 - 31 mmol/L [facility] Creatinine [Mass/Vol] 0.4 mg/dL Low 0.5 - 0.9 mg/dL [facility] GFR/1.73 sq M.predicted MDRD (S/P/Bld) [Vol rate/Area] - PINF [facility] Comment on above: These results are not [...] 115 mg/dL High 70 - 99 mg/dL [facility] Interpretation and review of laboratory results Abnormal [facility] Potassium [Moles/Vol] 2.7 mmol/L Critically low 3.7 - 5.3 mmol/L [facility] Protein [Mass/Vol] 5.5 g/dL Low 6.4 - 8.3 g/dL [facility] Sodium [Moles/Vol] 138 mmol/L 135 - 144 mmol/L [facility] Urea nitrogen [Mass/Vol] 3 mg/dL Low 6 - 20 mg/dL [facility] Albumin [Mass/Vol] 3.4 g/dL Low 3.5 - 5.2 g/dL [facility] Albumin/Globulin [Mass ratio] 1.0 {ratio} 1.0 - 2.5 [facility] ALP [Catalytic activity/Vol] 80 U/L 35 - 104 U/L [facility] ALT [Catalytic activity/Vol] 9 U/L 5 - 33 U/L [facility] Anion gap [Moles/Vol] 15 mmol/L 9 - 17 mmol/L [facility] AST [Catalytic activity/Vol] 20 U/L NINF - 32 U/L [facility] Bilirubin [Mass/Vol] 1.6 mg/dL High 0.3 - 1 .2 mg/dL [facility] Calcium [Mass/Vol] 8.2 mg/dL Low 8.6 - 10. 4 mg/dL [facility] Chloride [Moles/Vol] 108 mmol/L High 98 - 10 7 mmol/L [facility] CO2 [Moles/Vol] 19 mmol/L Low 20 - 31 mmol/L [facility] Creatinine [Mass/Vol] 0.4 mg/dL Low 0.5 - 0.9 mg/dL [facility] GFR/1.73 sq M.predicted MDRD (S/P/Bld) [Vol rate/Area] - PINF [facility] Comment on above: These results are not [...] 122 mg/dL High 70 - 99 mg/dL [facility] Interpretation and review of laboratory results Abnormal [facility] Potassium [Moles/Vol] 2.6 mmol/L Critically low 3.7 - 5.3 mmol/L [facility] Protein [Mass/Vol] 6.7 g/dL 6.4 - 8.3 g/dL [facility] Sodium [Moles/Vol] 142 mmol/L 135 - 144 mmol/L [facility] Urea nitrogen [Mass/Vol] 6 mg/dL 6 - 20 mg/dL [facility] Magnesiumon 03-26-2023 Magnesium [Mass/Vol] 1.6 mg/dL Normal 1.6-2.6 [facility] Comment on above: Performed By: #### C P, CDP, MG, BH #### [facility] [place], [place] [id number] Core Java Software Engineer: Jurgen Hernandez MD Magnesium [Mass/Vol] 1.6 mg/dL 1.6 - 2 .6 mg/dL [facility] Potassiumon 03-26-2023 Interpretation and review of laboratory results Abnormal [facility] Potassium [Moles/Vol] 2.5 mmol/L Critically low 3.7 - 5.3 mmol/L [facility] Protein / Creatinine Ratio, Urineon 03-26-2023 Creatinine (U) [Mass/Vol] 185.0 mg/dL 28.0 - 217.0 mg/dL [facility] Protein (U) [Mass/Vol] 44 mg/dL [facility] Comment on above: No normal range esta blished. Urine Total Protein Creatinine Ratio 0.24 [facility] Protein,Tot,[place] Uron 2023 Creatinine [Mass/Vol] 185.0 mg/dL Normal 28.0-217.0 [facility] Comment on above: Performed By: #### K #### [facility] [address] [place] [id number] [employer] Java Software Engineer: Jurgen Hernandez MD Tot Prot. Conc. 44 mg/dL [facility] Comment on above: Result Comment: No n ormal range established. Performed By: #### K #### [facility] [address] [place] [id number] [employer] Java Software Engineer: Jurgen Hernandez MD TP/Cre Ratio 0.24 Normal [facility] Comment on above: Performed By: #### K #### [facility] [address] [place] [phone] [employer] Java Software Engineer: Jurgen Hernandez MD US PELVIS TRANSVAGon 023 [...] by: LUCIANA MENDOZA Date: 2022-04-12 16:28 Normal [facility] Vaginitis DNA Probeon 2022 Hiral Species, DNA Probe Negative NEGATIVE [facility] [employer] [facility] Comment on above: for Hiral sp. Method of testing is a DNA probe intended for detection and identification of Hiral species, Gardnerella vaginalis, and Trichomonas vaginalis nucleic acid in vaginal fluid specimens from patients with symptoms of vaginitis/vaginosis. Gardnerella Vaginalis, DNA Probe Positive Abnormal NEGATIVE [facility] [employer] [facility] Comment on above: for Gardnerella vagi nalis Interpretation and review of laboratory results Abnormal [facility] Source .VAGINAL SWAB [facility] [employer] [facility] Trichomonas Vaginalis DNA Negative NEGATIVE [facility] Comment on above: for Trichomonas Vagi nalis [facility] Vital Signs Date Time Vital Sign Value Performing Clinician Facility 03-29-2023 11:45-0500 Body mass index (BMI) [Ratio] 38.07 kg/m2 Zero Locus DO Work Phone: [facility] 03-29-2023 11:45-0500 Body weight 94.4 kg Renu Susie DO Work Phone: [facility] 03-29-2023 11:45-0500 Diastolic blood pressure 70 mm[Hg] Renu Susie DO Work Phone: [facility] 03-29-2023 11:45-0500 Systolic blood pressure 122 mm[Hg] Renu Susie DO Work Phone: [facility] 03-27-2023 14:27-0500 Body temperature 37.0 Pema [place] DO Work Phone: [facility] 03-27-2023 11:51-0500 Body temperature 98.2 [degF] Pema Amaury DO Work Phone: [facility] 03-27-2023 11:51-0500 Diastolic blood pressure 78 mm[Hg] Pema Rebolledo DO Work Phone: [facility] 03-27-2023 11:51-0500 Heart rate 91 /min Pema Amaury DO Work Phone: [facility] 03-27-2023 11:51-0500 Respiratory rate 16 /min Pema Rebolledo DO Work Phone: [facility] 03-27-2023 11:51-0500 SaO2% (BldA) [Mass fraction] 97 % Pema Rebolledo DO Work Phone: [facility] 03-27-2023 11:51-0500 Systolic blood pressure 123 mm[Hg] Pema Amaury DO Work Phone: [facility] 02-15-2023 17:00-0500 Body height 157.48 cm Rosalind Jeter Other [employer] Other 02-15-2023 17:00-0500 Body mass index (BMI) [Ratio] 37.45 kg/m2 Rosalind Jeter Other [employer] Other 02-15-2023 17:00-0500 Body temperature 98 [degF] Rosalind Jeter Other [employer] Other 02-15-2023 17:00-0500 Body weight 92.9 kg Rosalind Jeter Other [employer] Other 02-15-2023 17:00-0500 Diastolic blood pressure 71 mm[Hg] Rosalind Jeter Other [employer] Other 02-15-2023 17:00-0500 Respiratory rate 18 /min Rosalind Riveramond Other [employer] Other 02-15-2023 17:00-0500 SaO2% (BldA) [Mass fraction] 99 % Rosalind Jeter Other [employer] Other 02-15-2023 17:00-0500 Systolic blood pressure 111 mm[Hg] Rosalind Riveramond Other [employer] Other Encounters Encounter Date Encounter Type Care Provider Facility Start: 03-29-2023 End: 03-29-2023 ambulatory RENU SUSIE Not Available Start: 03-29-2023 End: 03-29-2023 flow sheet Renu Susie DO Work Phone: [facility] Comment on above: Third trimester preg mitchel; Hypokalemia Start: 03-26-2023 End: 03-27-2023 ambulatory PEMA REBOLLEDO [facility] Start: 03-26-2023 End: 03-26-2023 Emergency department patient visit ROSETTE MENDOZA [facility] Start: 03-26-2023 End: 03-27-2023 Subsequent hospital visit by physician Pema Rebolledo DO Work Phone: [id number] Comment on above: Hypokalemia (Primary Dx) Start: 2023 End: 2023 ambulatory RENU SUSIE Not Available Start: 02-22-2023 End: 02-22-2023 ambulatory RENU SUSIE Not Available Start: 02-15-2023 End: 02-15-2023 ambulatory Rosalind Jeter Other [employer] Other Start: 02-15-2023 Office outpatient ne w 10 minutes Rosalind Jeter [facility] Start: 02-08-2023 End: 02-08-2023 ambulatory RINA CURRY Not Available Start: 01-16-2023 End: 01-16-2023 ambulatory RENU SUSIE Not Available Start: 04-11-2022 End: 04-12-[address] NONE LISTED REQUEST Facility: Start: 03-30-2022 End: 03-30-2022 Patient encounter procedure Rosette Mendoza Other Phone: [employer] [place] [facility] Start: 03-30-2022 End: 03-30-2022 Subsequent hospital visit by physician Rosette Mendoza Other Phone: [employer] [place] [facility] Comment on above: Vaginal discharge; Malodorous urine; Well woman exam Procedures Date Procedure Procedure Detail Performing Clinician Start: 03-29-2023 Urnls dip stick/tabl et rgnt non-auto w/o micrscp Renu Susie DO Work Phone: Start: 03-27-2023 Blood gases any comb ination ph pco2 po2 co2 hco3 Elham Ge MD Work Phone: Start: 03-27-2023 End: 03-27-2023 Electrolyte panel Elham Ge MD Work Phone: Start: 03-27-2023 Comprehensive metabo lic panel Neena Zambrano DO Work Phone: Start: 03-27-2023 Potassium serum plasma/whole blood Joanna N Gervas DO Work Phone: Start: 03-26-2023 Potassium serum plasma/whole blood Joanna N Gervas DO Work Phone: Start: 03-26-2023 Ecg routine ecg w/le ast 12 lds w/i&r Joanna N Gervas DO Work Phone: Start: 03-26-2023 Comprehensive metabo lic panel Amalia Ruffin MD Work Phone: Start: 03-26-2023 Ecg routine ecg w/le ast 12 lds w/i&r Vashti Cruz DO Work Phone: Start: 03-26-2023 End: 03-26-2023 Comprehensive metabolic panel Vashti Margob DO Work Phone: Start: 03-30-2022 Iadna hiral specie s direct probe tq Brittani Aguilar [employer] - CNM Work Phone: Start: 03-30-2022 Microscopic observat ion [Identifier] in Cervix by Cyto stain Pema Amaury DO Work Phone: Plan of Treatment Date Care Activity Detail Author Start: 03-30-2027 Screening for malign ant neoplasm of cervix [facility] Start: 03-30-2025 Screening for malign ant neoplasm of cervix Pap smear [facility] Start: 04-11-2023 End: 04-11-2023 Patient encounter procedure 04/11/2023 10:30 AM EST Routine [facility] [address] [facility] [address] [place] [id number] Return in about 6 weeks (around 04/11/2023) for Repeat Anatomy, Growth/BPP. [facility] Comment on above: Return in about 6 we eks (around 04/11/2023) for Repeat Anatomy, Growth/BPP. Start: 04-05-2023 End: 04-05-2023 Patient encounter procedure 04/05/2023 11:30 AM EST Routine [facility] [address] [place] [id number] Renu Richards DO [address] [place] [address] [facility] Start: 03-31-2023 End: 03-27-2024 Potassium [Moles/volume] in Serum or Plasma Potassium Lab Routine Hypokalemia Expected: 03/31/2023, Expires: 03/27/2024 [facility] Comment on above: Expected: 03/31/2023 , Expires: 03/27/2024 Start: 03-30-2023 Depression Screen Depression Screen [facility] Start: 03-29-2023 End: 03-29-2024 US biophysical profile w non stress test US biophysical profile w non stress test Imaging Routine Hypokalemia Expected: 03/29/2023 (Approximate), Expires: 03/29/2024 [facility] Work Phone: Comment on above: Expected: 03/29/2023 (Approximate), Expires: 03/29/2024 Start: 2023 Diabetes screen Diabetes screen [facility] Start: 09-13-2022 Influenza vaccination Flu vaccine (# 1) [facility] Start: 09-13-2021 Influenza vaccination Flu vaccine (# 1) [facility] Start: 2018 Screening for malign ant neoplasm of cervix [facility] Start: 2009 Screening for malign ant neoplasm of cervix Pap smear [facility] Start: 2007 DTaP/Tdap/Td vaccine (1 - Tdap) DTaP/Tdap/Td vaccine (1 - Tdap) [facility] Start: 2006 Hepatitis C screening Hepatitis C sc reen [facility] [facility] Start: 2003 HIV screening HIV screen [facility] Start: 1989 Varicella vaccine (1 of 2 - 2-dose childhood series) Varicella vaccine (1 of 2 - 2-dose childhood series) [facility] Start: 1988 COVID-19 Vaccine (#1) COVID-19 Vacci ne (#1) [facility] Start: 1988 Hepatitis B vaccine (1 of 3 - 3-dose series) Hepatitis B vaccine (1 of 3 - 3-dose series) [facility] End: 03-30-2022 C.trachomatis N.gonorrhoeae DNA, Thin Prep [facility] Phone: Comment on above: 1 Occurrences starti ng 03/30/2022 until 03/30/2022 End: 03-27-2023 Culture, Strep B Screen, Vaginal/Rectal [facility] [employer] Phone: Comment on above: One Time for 1 Occur rences starting 03/27/2023 until 03/27/2023 End: 03-30-2022 Culture, Urine [facility] [employer] Phone: Comment on above: 1 Occurrences starti ng 03/30/2022 until 03/30/2022 End: 03-27-2023 Electrolyte Panel w/ Reflex to MG Electrolyte Panel w/ Reflex to MG Lab Routine One Time for 1 Occurrences starting 03/27/2023 until 03/27/2023 [employer] Work Phone: Comment on above: One Time for 1 Occur rences starting 03/27/2023 until 03/27/2023 Nonrebreather mask oxygen Nonrebreather mask oxygen Respiratory Care Routine As Needed until discontinued starting 03/26/2023 [employer] Comment on above: As Needed until disc ontinued starting 03/26/2023 Payers Date Payer Category Payer Unknown BCBS BCBS [id number] [id number] 2022-Present [phone] [address] [place] [address] [id number] 1988 Unknown [id number] 1988 Unknown [id number] 1988 Unknown [id number] 1988 Unknown [id number] 1988 Unknown [id number] 1988 Unknown [id number] 1988 Unknown [id number] 1988 Unknown [id number] 1959 Unknown [id number] Social History Date Type Detail Facility Start: 03-30-2022 End: 10-10-2022 Tobacco smoking status NHIS Never smoked tobacco [employer] Phone: Start: 03-30-2022 End: 10-10-2022 Tobacco use and exposure Smokeless tobacco non-user [employer] Phone: Start: 03-30-2022 Alcohol intake Lifetime non-drinker (finding) [employer] Phone: Start: 1990 Sex Assigned At Not on file [employer] Phone: Start: 11-21-2022 End: 03-26-2023 Sex Assigned At [employer] Other Start: 03-26-2023 End: 03-29-2023 Alcohol intake Ex-drinker (finding) [facility] Start: 11-21-2022 End: 03-26-2023 History of Social function [facility] Patient Health Questionnaire 9 item (PHQ-9) total score [Reported] 0 [facility] Start: 08-08-2022 [facility] Start: 1990 Sex Assigned At Female [facility] Start: 09-21-2022 Gender identity Identifies as female gender (finding) [facility] History of Present illness Narrative 03-29-2023 Mimi Skelton LPN - 03/29/2023 11:30 AM EST Note Date & Type Note Facility 03-29-2023 History of Presen t illness Narrative Reason for Appointment: Patient ID: Niesha Fisher is a 33 y.o. female who presents for Routine Visit Patient presents today for Return OB appointment. Current Medications: has a current medication list which includes the following prescription(s): potassium chloride cr and mv-min-fe fum-fa-dha. Medical History: Active Ambulatory Problems Diagnosis Date Noted Menstrual disorder 09/19/2022 Resolved Ambulatory Problems Diagnosis Date Noted No Resolved Ambulatory Problems Past Medical History: Diagnosis Date Abnormal Pap smear of cervix Bacterial vaginosis Migraine (CMS/HCC) Urinary tract infection Family History Problem Relation Name Age of Onset Hypertension Mother Oliva Thyroid disease Mother Oliva Cancer Maternal Grandfather Silas Cancer Maternal Grandmother Brooklynn Ovarian cancer Maternal Grandmother Brooklynn Diabetes Mother's Sister Aubrie Thyroid disease Sister Yovana Social History Tobacco Use Smoking status: Never Smokeless tobacco: Never Vaping Use Vaping Use: Never used Substance Use Topics Alcohol use: Not Currently Drug use: Never Past Surgical History: Procedure Laterality Date SECTION, LOW TRANSVERSE 03/13/20 PAP SMEAR 10/01/2019 WNL No Known Allergies Review of Systems: Review of Systems Constitutional: Negative. HENT: Negative. Eyes: Negative. Respiratory: Negative. Cardiovascular: Negative. Gastrointestinal: Negative. Genitourinary: Negative. Musculoskeletal: Negative. Skin: Negative. Neurological: Negative. All other systems reviewed and are negative. Hematological: Negative. Endocrine: Negative. Allergic/Immunologic: Negative. Objective Physical Exam Constitutional: Appearance: Normal appearance. She is well-developed. Cardiovascular: Rate and Rhythm: Normal rate and regular rhythm. Pulmonary: Effort: Pulmonary effort is normal. Breath sounds: Normal breath sounds. Abdominal: General: Bowel sounds are normal. There is no distension. Palpations: Abdomen is soft. Tenderness: There is no abdominal tenderness. There is no guarding or rebound. Musculoskeletal: General: No swelling. Normal range of motion. Right lower leg: No edema. Left lower leg: No edema. Neurological: Mental Status: She is alert and oriented to person, place, and time. Skin: General: Skin is warm and dry. Psychiatric: Mood and Affect: Mood normal. Behavior: Behavior normal. Vitals and nursing note reviewed. Exam conducted with a shop estimator present. Vitals: Estimated body mass index is 38.07 kg/m as calculated from the following: Height as of 05/10/22: 5' 2 . Weight as of this encounter: 208 lb 1.9 oz. BP: 122/70 Patient's last menstrual period was 07/09/2022. Assessment/Plan Encounter Diagnosis Name Primary? Third trimester Patient presents today for a routine obstetrics appointment. Patient is currently 35w2d . Patient states she is doing well but has complaints of being tired due to current . Patient has verbalizes frequent movement. labor precautions was discussed/given and patient was instructed to perform kick counts three times a day. Pt has hypokalemia- received 7.5 bags of potassium in recent hospital stay- being sent to [facility] for [facility]/bpp and labs. Pt given order for NST/BPP - rx for potassium faxed to pharmacy Follow Up: Patient is to return to office in 1 week for routine OB appointment. Documented by Mimi Skelton LPN on behalf of: Renu Richards DO documented in this encounter [facility] Discharge instructions 03-27-2023 Discharge Instructions Note Date [...] on left side. documented in this encounter [facility] History of Present illness Narrative 03-27-2023 Keiko [...] the patient: POTASSIUM ER 20MG Additional Documentation: RESERVATIONS AGENT PROGRESS NOTE Niesha Fisher is a 33 [...] Will update Dr. Gonzalez. Joanna Pablo DO Tower Hoist Operator Resident 03/27/2023, 6:31 AM Attending Physician Statement [...] Gonzalez MD Date: 03/27/2023 Time: 11:48 AM RESERVATIONS AGENT RESIDENT INTERVAL NOTE Repeat CMP reviewed K [...] ms QTc Calculation (Bazett) 471 ms P [place] 54 degrees R [place] 35 degrees T [place] 38 degrees Comprehensive Metabolic Panel Collection Time: [...] AST 14 <32 U/L Joanna Pablo DO RESERVATIONS AGENT Resident [facility] 03/26/2023 8:12 PM documented in this encounter [facility] course Narrative 03-27-2023 Sun Gillis MD - 03/27/2023 3:37 PM EST Note Date & Type Note Facility 03-27-2023 Hospital course Narrative Obstetric Discharge Summary [facility] Patient Name: Niesha Fisher Patient : 1990 [...] Your Medications These medications were sent to [address] - [phone] - F [phone] [address] [facility] [address] potassium chloride 20 MEQ extended release tablet Diet: regular Follow up: With primary Ob provider on 03/29/23 Condition on discharge: good Discharge date: 03/27/23 Sun Gillis MD Tower Hoist Operator Resident documented in this encounter [facility] note 02-15-2023 Note Date & Type Note Facility 02-15-2023 Evaluation note Encounter Date Diagnosis Assessment Notes Feb, Right otitis media, unspecified otitis media type (ICD-10 - H66.91) Drink plenty fluids, get plenty of rest. Take the amoxicillin as prescribed until gone. Take Tylenol as needed for pain or fevers. Follow-up with your family physician or RESERVATIONS AGENT if no improvement in 2 to 3 days. [employer] Other Evaluation note Note Date & Type Note Facility Evaluation note Diagnosis Vaginal discharge Leukorrhea, not specified as infective Malodorous urine Other nonspecific finding on examination of urine Well woman exam Routine general medical examination at a health care facility documented in this encounter [facility] [employer] [facility] Work Phone: Evaluation note Note Date & Type Note Facility Evaluation note Diagnosis 34 weeks gestation of - Primary state, incidental Hypokalemia Hypopotassemia Acute gastroenteritis Other and unspecified noninfectious gastroenteritis and colitis Hypokalemia Hypopotassemia Hypomagnesemia Disorders of magnesium metabolism documented in this encounter [facility] Evaluation note Note Date & Type Note Facility Evaluation note Diagnosis Third trimester state, incidental Hypokalemia Hypopotassemia documented in this encounter [facility] History general Narrative - Reported Note Date & Type Note Facility History general Narrative - Reported Type Surgical History C section 2020 [employer] Other Summary Purpose Family History No Family History Records FoundNo Family History Records FoundNo Family History Records Found Advance Directives No Advanced Directives Records FoundLatest Code Status on File Code Status Date Activated Date Inactivated Comments Full Code 03/26/2023 9:19 AM Additional Source Comments Care Teams (unrecognized sec tion and content) Vp Compliance Relationship Specialty Start Date End Date Rosette Mendoza [address] [facility] [address] [place] [address] PCP - General Internal Medicine 03/30/22 Vp Compliance Relationship Specialty Start Date End Date Rosette Mendoza [address] [phone] PCP - General Internal Medicine 03/30/22 INFORMATION SOURCE (unrecogn ized section and content) DATE CREATED AUTHOR 04/17/2022 [facility] DATE CREATED AUTHOR AUTHOR'S ORGANIZ ATION 03/31/2023 [facility] EPIC DATE CREATED AUTHOR AUTHOR'S ORGANIZ ATION 04/02/2023 [facility] REASON FOR VISIT (unrecogniz ed section and content) Reason Comments Nausea & Vomiting Diarrhea Specialty Diagnoses / Procedures Referred By Angela t Referred To Contact Diagnoses 34 weeks gestation of Pema Rebolledo DO [address] [place] [address] [facility] [address] [place] [address] Referral ID Status Reason Start Date Expiration Date Visits Re quested Visits Authorized [id number] 1 1 Reason Comments Routine Visit Ordered Prescriptions (unrec ognized section and content) [...] mL/hr, Administer over 121 Minutes, ONCE, On 03/26/23 at 0945, For 1 dose 0931 (New [...] On Mon03/26/23 at 2030, For 1 dose 2054 (New Bag - Provider: Sanjana Raines RN)2307 (Stopped - Provider: Sanjana Raines RN) magnesium [...] IntraVENous, at 125 mL/hr, CONTINUOUS, Starting on Mon03/26/23 at 1630 1716 (New Bag - Provider: Jess Lee RN) 0906 (Stopped - Provider: Lou George RN) potassium chloride 40 mEq in sodium chloride 0.9 % 1,000 mL infusion IntraVENous, at 125 mL/hr, CONTINUOUS, Starting on Mon03/27/23 at 0930 1011 (New Bag - Provider: Lou George, [employer])1752 (Stopped - Provider: Lou George RN) PRN [...] (See Alternative - Provider: Sanjana Raines, [employer]) potassium chloride (KLOR-CON M) extended release tablet [...] Sanjana Raines RN)0341 (Given - Provider: Sanjana Raines, [employer]) potassium chloride 10 mEq/100 mL IVPB (Peripheral [...] Lee RN)1158 (New Bag - Provider: Suellen Beavers RN)1258 (Rate/Dose Change - Provider: Jess Lee [...] (See Alternative - Provider: Sanjana Raines RN) Linked Groups Order Group 1: ondansetron ([id number]) [...] med 40 mEq, Oral, PRN, Starting on Mon03/27/23 at 0003, Until Discontinued, Per Potassium Replacement [...] med 40 mEq, Oral, PRN, Starting on Mon03/27/23 at 0003, Until Discontinued, Per Potassium Replacement [...] med 10 mEq, IntraVENous, PRN, Starting on 03/27/23 at 0003, Until Discontinued, at 100 mL/hr, [...] 03/26/23 at 1024, Until 03/26/23 at 2006, Per Potassium Replacement Protocol
May give alternative [...] 03/26/23 at 1024, Until 03/26/23 at 2006, Per Potassium Replacement Protocol
Administer as alternative [...] BE BASED ON THE PRIMARY CLINICAL RECORDS. [employer] provides no warranty or guarantee of the accuracy or completeness of information in this document.
[2023-04-03 19:27] VITALS: BP 120/73; PULSE 110
[2023-04-03 19:48] LABS: Potassium 4.1 mmol/L (3.5-5.1)
== END 2023-04-03 20:10 | disposition home or self-care (01) ==
LOC: FBCO 19:04 → FBC 19:12
PROVIDERS: Visit Provider Obstetrics & Gynecology
DX: O26.893 Other specified pregnancy related conditions, third trimester (principal); Z3A.00 Weeks of gestation of pregnancy not specified
CPT/HCPCS: 36415; 59025; 84132

== ENCOUNTER 2023-04-05 07:41 | Outpatient (OUT) | payer BC, SELFPAY ==
--- OUTSIDE RECORDS SUMMARY | 2023-04-05 07:44 | XMS_ITS | CCD ---
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 Name Role Phone Rosette Mendoza Primary Care Provider [phone] REQUEST, DR EB LISTED Primary Care Unavaila chase MENDOZA, DR LUCIANA Pedro Consulting Unavailable SUSIE ., DR SEARS Attending Unavailable SUSIE ., DR SEARS Admitting Unavailable SUSIE ., DR SEARS Consulting Unavailable Rosalind Jeter Unavailable Rosette Mendoza Primary Care Provider [phone] RINA CURRY Attending Unavailable SUSIE, RENU Attending [...] B STREPTOCOCCI Report Status FINAL 03/31/2023 Normal [facility] Comment on above: Performed By: #### R OGBS #### [place] [address] Pool Hand: Jurgen Hernandez MD Urinalysis macro (dipstick) panel (U)on 03-29-2023 Bilirubin, UA Negative Negative - 4(70) +++ mg/dL [facility] Blood, UA Negative Negative - 50 Dwight/mcL [facility] Clarity, UA Clear [facility] Color, UA Yellow [facility] Glucose, UA Negative Negative - 1999(110) ++++ mg/dL [facility] Interpretation and review of laboratory results Normal [facility] Ketones, UA Negative Negative - 160(16) ++++ mg/dL [facility] Leukocytes, UA Negative Negative - 500+++ Karlene/mcL [facility] Nitrite, UA Negative Negative - Positive [facility] pH, UA 7.0 5 - 9 [facility] Protein, UA Negative Negative - 1999(20) ++++ mg/dL [facility] Spec Grav, UA 1.025 1 - 1.03 [facility] Urobilinogen, UA 0.2 0.2 - 12 mg/dL [facility] Health[facility] e BLOOD GAS, VENOUSon 03-27-19 Carboxyhemoglobin (Bld) [Mass fraction] 1.0 % 0 - 5 % [facility] Comment on above: Reference Range: Non-Smokers 0-2% Average Smoker 2-4% Heavy Smoker <10% HCO3 (Bld) [Moles/Vol] 24.8 mmol/L 24 - 30 mmol /L [facility] Interpretation and review of laboratory results Abnormal [facility] Negative Base Excess, Pieter 0.3 mmol/L 0.0 - 2.0 mmol/L [facility] Oxygen saturation in Blood 35.8 % Low 60.0 - 85.0 % [facility] Oxygen/Inspired gas Respiratory system --on ventilator INFORMATION NOT PROVIDED [facility] pCO2, Pieter 45.[address] [facility] pH, Pieter 7.359 7.320 - 7.[address] [facility] pO2, Pieter 26.[address] [facility] Comp Metabolic Profon 2023 Potassium [Moles/Vol] 2.9 mmol/L Critically low 3.7-5.3 [facility] Comment on above: Performed By: #### C P, OSMO, MG #### [employer] [facility] [place], [place] [phone] Pool Hand: Jurgen Hernandez MD Albumin [Mass/Vol] 2.9 g/dL Low 3.5-5.2 [facility] Comment on above: Performed By: #### C P, OSMO, MG #### [employer] [address] [place] [address] Pool Hand: Jurgen Hernandez MD Albumin/Glob Ratio 1.1 Normal 1.0-2.5 [facility] Comment on above: Performed By: #### C P, OSMO, MG #### [address] [address] Pool Hand: Jurgen Hernandez MD Alkaline Phos 73 U/L Normal 35-104 [facility] Comment on above: Performed By: #### C P, OSMO, MG #### [facility] [address] [place] [address] Pool Hand: Jurgen Hernandez MD ALT [Catalytic activity/Vol] 7 U/L Normal 5-33 [facility] Comment on above: Performed By: #### C P, OSMO, MG #### [address] [address] Pool Hand: Jurgen Hernandez MD Anion gap [Moles/Vol] 9 mmol/L Normal 9-17 [facility] Comment on above: Performed By: #### C P, OSMO, MG #### [address] [address] Pool Hand: Jurgen Hernandez MD AST [Catalytic activity/Vol] 26 U/L Normal <32 [facility] Comment on above: Performed By: #### C P, OSMO, MG #### [facility] [employer] [address] [place] [address] Pool Hand: Jurgen Hernandez MD Bilirubin [Mass/Vol] 1.3 mg/dL High 0.3-1.2 [facility] Comment on above: Performed By: #### C P, OSMO, MG #### [facility] [employer] [address] [place] [address] Pool Hand: Jurgen Hernandez MD Calcium [Mass/Vol] 7.8 mg/dL Low 8.6-10.4 [facility] Comment on above: Performed By: #### C P, OSMO, MG #### [facility] [employer] [address] [place] [phone] Pool Hand: Jurgen Hernandez MD Chloride [Moles/Vol] 104 mmol/L Normal 98-107 [facility] Comment on above: Performed By: #### C P, OSMO, MG #### [facility] [place] [address] Pool Hand: Jurgen Hernandez MD CO2 [Moles/Vol] 21 mmol/L Normal 20-31 [facility] Comment on above: Performed By: #### C P, OSMO, MG #### [facility] [address] [place] [address] Pool Hand: Jurgen Hernandez MD Creatinine [Mass/Vol] 0.4 mg/dL Low 0.5-0.9 [facility] Comment on above: Performed By: #### C P, OSMO, MG #### [address] [address] Pool Hand: Jurgen Hernandez MD GFR/1.73 sq M.predicted among non-blacks MDRD (S/P/Bld) [Vol rate/Area] mL/min/{1.73_m2} Normal >60 [facility] Comment on above: Result Comment: These results [...] By: #### C P, OSMO, MG #### [facility] [address] [place] [address] Pool Hand: Jurgen Hernandez MD Glucose [Mass/Vol] 108 mg/dL High 70-99 [facility] Comment on above: Performed By: #### C P, OSMO, MG #### [facility] [employer] [address] [place] [address] Pool Hand: Jurgen Hernandez MD Protein [Mass/Vol] 5.6 g/dL Low 6.4-8.3 [facility] Comment on above: Performed By: #### C P, OSMO, MG #### [facility] [address] [place] [address] Pool Hand: Jurgen Hernandez MD Sodium [Moles/Vol] 134 mmol/L Low 135-144 [facility] Comment on above: Performed By: #### C P, OSMO, MG #### [facility] [address] [place], [place] [phone] Pool Hand: Jurgen Hernandez MD Urea nitrogen [Mass/Vol] 2 mg/dL Low 6-20 [facility] Comment on above: Performed By: #### C P, OSMO, MG #### [facility] [address] [place], [place] [phone] Pool Hand: Jurgen Hernandez MD Comprehensive Metabolic Pane [facility] 03-27-2023 Albumin [Mass/Vol] 2.9 g/dL Low 3.5 - 5.2 g/dL [facility] Albumin/Globulin [Mass ratio] 1.1 {ratio} 1.0 - 2.[address] [facility] ALP [Catalytic activity/Vol] 73 U/L 35 - 104 U/L [facility] ALT [Catalytic activity/Vol] 7 U/L 5 - 33 U/L [facility] Anion gap [Moles/Vol] 9 mmol/L 9 - 17 mmol/L [facility] AST [Catalytic activity/Vol] 26 U/L NINF - 32 U/L [facility] Bilirubin [Mass/Vol] 1.3 mg/dL High 0.3 - 1 .2 mg/dL [facility] Calcium [Mass/Vol] 7.8 mg/dL Low 8.6 - 10. 4 mg/dL [facility] Chloride [Moles/Vol] 104 mmol/L 98 - 10 7 mmol/L [facility] CO2 [Moles/Vol] 21 mmol/L 20 - 31 mmol/L [facility] [employer] Creatinine [Mass/Vol] 0.4 mg/dL Low 0.5 - 0.9 mg/dL [facility] [employer] GFR/1.73 sq M.predicted MDRD (S/P/Bld) [Vol rate/Area] - PINF [facility] Comment on above: These results are [...] 108 mg/dL High 70 - 99 mg/dL [facility] [employer] Interpretation and review of laboratory results Abnormal [facility] [employer] Potassium [Moles/Vol] 2.9 mmol/L Critically low 3.7 - 5.3 mmol/L [facility] [employer] Protein [Mass/Vol] 5.6 g/dL Low 6.4 - 8.3 g/dL [facility] [employer] Sodium [Moles/Vol] 134 mmol/L Low 135 - 144 mmol/L [facility] [employer] Urea nitrogen [Mass/Vol] 2 mg/dL Low 6 - 20 mg/dL [facility] [employer] [facility] [employer] EKG 12 LeadOrdered By: Lillian Pruitt on 03-27-2023 Atrial Rate 101 BPM [facility] [employer] Work Phone: P [place] 54 degrees [employer] Work Phone: P-R Interval 178 ms [employer] Work Phone: Q-T Interval 364 ms [employer] Work Phone: QRS Duration 102 ms [employer] Work Phone: QTc Calculation (Bazett) 471 ms [employer] Work Phone: R [place] 35 degrees [employer] Work Phone: T [place] 38 degrees [employer] Work Phone: Ventricular Rate 101 BPM [facility] [employer] [facility] Work Phone: [facility] Work Phone: EKG 12 Leadon 03-27-2023 Sinus tachycardia Incomplete right bundle branch block Septal infarct , age undetermined Abnormal ECG No previous ECGs available [facility] STLillian Truong MD - 03/27/2023 Sinus tachycardia Incomplete right bundle branch block Septal infarct , age undetermined Abnormal ECG No previous ECGs available [facility] [employer] [facility] Atrial Rate [address] [facility] P [place] 56 degrees [facility] P-R Interval 170 ms [facility] Q-T Interval 364 ms [facility] [employer] QRS Duration [address] [facility] [employer] QTc Calculation (Bazett) 471 ms [facility] R [place] 31 degrees [facility] T [place] 37 degrees [facility] Ventricular Rate 101 BPM [facility] [employer] Sinus tachycardia Nonspecific ST and T wave abnormality Abnormal ECG When compared with ECG of 26-MAR-2023 11:35, Incomplete right bundle branch block is no longer Present [facility] STLillian Truong MD - 03/27/[address] and T wave abnormality Abnormal ECG When compared with ECG of 26-MAR-2023 11:35, Incomplete right bundle branch block is no longer Present [facility] [employer] Panelon 03-27-19 24 Anion gap [Moles/Vol] 9 mmol/L 9 - 17 mmol/L [facility] Chloride [Moles/Vol] 103 mmol/L 98 - 10 7 mmol/L [facility] CO2 [Moles/Vol] 23 mmol/L 20 - 31 mmol/L [facility] Interpretation and review of laboratory results Abnormal [facility] Potassium [Moles/Vol] 3.1 mmol/L Low 3.7 - 5.3 mmol/L [facility] Sodium [Moles/Vol] 135 mmol/L 135 - 144 mmol/L [facility] Electrolyteson 03-27-2023 Anion gap [Moles/Vol] 9 mmol/L Normal 9-17 [facility] Comment on above: Performed By: #### K #### [facility] [employer] [address] [place] [phone] Pool Hand: Jurgen Hernandez MD Chloride [Moles/Vol] 103 mmol/L Normal 98-107 [facility] Comment on above: Performed By: #### K #### [facility] [employer] [address] [place] [phone] Pool Hand: Jurgen Hernandez MD CO2 [Moles/Vol] 23 mmol/L Normal 20-31 [facility] Comment on above: Performed By: #### K #### [address] [address] Pool Hand: Jurgen Hernandez MD Potassium [Moles/Vol] 3.1 mmol/L Low 3.7-5.3 [facility] Comment on above: Performed By: #### K #### [facility] [employer] [address] [place] [address] Pool Hand: Jurgen Hernandez MD Sodium [Moles/Vol] 135 mmol/L Normal 135-144 [facility] Comment on above: Performed By: #### K #### [facility] [employer] [address] [place] [address] Pool Hand: Jurgen Hernandez MD K (Potassium)on 03-27-2023 Potassium [Moles/Vol] 2.7 mmol/L Critically low 3.7-5.3 [facility] Comment on above: Performed By: #### K #### [facility] [employer] [address] [place] [address] Pool Hand: Jurgen Hernandez MD Potassium [Moles/Vol] 2.5 mmol/L Critically low 3.7-5.3 [facility] Comment on above: Performed By: #### K #### [employer] [address] [place] [phone] Pool Hand: Jurgen Hernandez MD Magnesiumon 03-27-2023 Magnesium [Mass/Vol] 1.9 mg/dL Normal 1.6-2.6 [facility] Comment on above: Performed By: #### C P, OSMO, MG #### [facility] [employer] [address] [place] [phone] Pool Hand: Jurgen Hernandez MD Magnesium [Mass/Vol] 1.9 mg/dL 1.6 - 2 .6 mg/dL [facility] OSMOLALITY, URINEon 03-27-19 24 Osmolality (U) [Osmolality] 365 mosm/kg [facility] Osmolalityon 03-27-2023 Osmolality [Osmolality] 285 mosm/kg Normal 275-295 [facility] Comment on above: Performed By: #### C P, OSMO, MG #### [facility] [employer] [address] [place] [address] [phone] Pool Hand: Jurgen Hernandez MD Osmolality [Osmolality] 285 mosm/kg [facility] Osmolality, Urineon 03-27-19 24 Osmolality - Urine 365 mOsm/kg Normal 80-1300 [facility] Comment on above: Performed By: #### K #### [facility] [address] [place] [phone] Pool Hand: Jurgen Hernandez MD POTASSIUM, URINE, RANDOMon 0 03-27-2023 Potassium, Ur 29.1 mmol/L [facility] Comment on above: No normal range esta blished. [facility] Potassiumon 03-27-2023 Interpretation and review of laboratory results Abnormal [facility] Potassium [Moles/Vol] 2.7 mmol/L Critically low 3.7 - 5.3 mmol/L [facility] Potassium,Random Uron 2023 Potassium [Moles/Vol] 29.1 mmol/L Normal [facility] Comment on above: Result Comment: No n ormal range established. Performed By: #### K #### [address] [address] Pool Hand: Jurgen Hernandez MD Venous Blood Gaseson 03-27-2 024 Body Temp. 37.0 Normal [facility] Comment on above: Performed By: #### K #### [address] [address] Pool Hand: Jurgen Hernandez MD Carboxy Hgb 1.0 % Normal 0-5 [facility] Comment on above: Result Comment: Reference Range: Non-Smokers 0-2% Average Smoker 2-4% Heavy Smoker <10% Performed By: #### K #### [address] [address] Pool Hand: Jurgen Hernandez MD FIO2 INFORMATION NOT PROVIDED Normal [facility] Comment on above: Performed By: #### K #### [address] [address] Pool Hand: Jurgen Hernandez MD HCO3 (Bld) [Moles/Vol] 24.8 mmol/L Normal 24-30 [facility] Comment on above: Performed By: #### K #### [address] [address] Pool Hand: Jurgen Hernandez MD Negative Base Excess 0.3 mmol/L Normal 0.0-2.0 [facility] Comment on above: Performed By: #### K #### [address] [address] Pool Hand: Jurgen Hernandez MD Oxygen saturation in Blood 35.8 % Low 60.0-85.0 [facility] Comment on above: Performed By: #### K #### [address] [address] Pool Hand: Jurgen Hernandez MD pCO2 45.1 mm Hg Normal 39-55 [facility] Comment on above: Performed By: #### K #### [facility] [address] [place] [address] Pool Hand: Jurgen Hernandez MD pH (Bld) 7.359 [pH] Normal 7.320-7.420 [facility] Comment on above: Performed By: #### K #### [facility] [address] [place] [phone] Pool Hand: Jurgen Hernandez MD pO2 26.4 mm Hg Low 30-50 [facility] Comment on above: Performed By: #### K #### [facility] [employer] [address] [place] [address] Pool Hand: Jurgen Hernandez MD Beta Hydroxybutyrateon 03-26 Beta Hydroxybutyrate 1.24 mmol/L High 0.02-0.27 [facility] Comment on above: Performed By: #### C P, CDP, MG, BH #### [facility] [employer] [address] [place] [address] Pool Hand: Jurgen Hernandez MD Beta-Hydroxybutyrateon 03-26 Beta hydroxybutyrate [Mass/Vol] 1.24 mmol/L High 0.02 - 0.27 mmol/L [facility] Interpretation and review of laboratory results Abnormal [facility] CBC with Auto Differentialon 03-26-2023 Basophils (Bld) [#/Vol] 0.00 10*3/uL [facility] Basophils/100 WBC (Bld) 0 % 0 - 2 % [facility] Eosinophils (Bld) [#/Vol] 0.00 10*3/uL [facility] Eosinophils/100 WBC (Bld) 0 % Low 1 - 4 % [facility] Erythrocyte distribution width (RBC) [Ratio] 14.5 % High 11.8 - 14.4 % [facility] Hematocrit (Bld) [Volume fraction] 35.7 % Low 36.3 - 47.1 % [facility] Hemoglobin (Bld) [Mass/Vol] 12.1 g/dL 11.9 - 15.1 g/dL [facility] Immature granulocytes (Bld) [#/Vol] 0.00 10*3/uL [facility] Immature granulocytes/100 WBC (Bld) 0 % [address] [facility] Interpretation and review of laboratory results Abnormal [facility] Lymphocytes/100 WBC (Bld) 5 % Low 24 - 44 % [facility] Lymphocytes/100 WBC (Bld) 0.48 % Low [facility] MCH (RBC) [Entitic mass] 30.0 pg 25.2 - 33.[address] [facility] MCHC (RBC) [Mass/Vol] 33.9 g/dL 28.4 - 34.8 g/dL [facility] MCV (RBC) [Entitic vol] 88.4 fL 82.6 - 102.[address] [facility] Monocytes/100 WBC (Bld) 4 % 1 - 7 % [facility] Monocytes/100 WBC (Bld) 0.38 % [facility] Morphology Moises (Bld) [Interp] ANISOCYTOSIS PRESENT [facility] Neutrophils/100 WBC (Bld) 91 % High 36 - 66 % [facility] Nucleated RBC/100 WBC (Bld) [Ratio] 0.0 % 0.0 per [address] [facility] Platelet mean volume (Bld) [Entitic vol] 9.4 fL 8.1 - 13.[address] [facility] Platelets (Bld) [#/Vol] 231 10*3/uL [facility] RBC (Bld) [#/Vol] 4.04 10*6/uL 3.95 - 5.1 1 m/uL [facility] Segmented neutrophils/100 WBC (Bld) 8.64 % High [facility] WBC other (Bld) [#/Vol] 9.[address] [facility] CBC with Diffon 03-26-2023 Abs. Basophil 0.00 k/uL Normal 0.0-0.2 [facility] Comment on above: Performed By: #### C P, CDP, MG, #### [facility] [employer] [address] [place] [phone] Pool Hand: Jurgen Hernandez MD Abs.Imm.Granulocyte 0.00 k/uL Normal 0.00-0.30 [facility] Comment on above: Performed By: #### C P, CDP, MG, #### [facility] [employer] [address] [place] [phone] Pool Hand: Jurgen Hernandez MD Abs.Neutrophil (Seg) 8.64 k/uL High 1.8-7.7 [facility] Comment on above: Performed By: #### C P, CDP, MG, #### [address] [address] Pool Hand: Jurgen Hernandez MD Basophils/100 WBC (Bld) 0 % Normal 0-2 [facility] Comment on above: Performed By: #### C P, CDP, MG, #### [address] [address] Pool Hand: Jurgen Hernandez MD Eosinophils (Bld) [#/Vol] 0.00 10*3/uL Normal 0.0-0.4 [facility] Comment on above: Performed By: #### C P, CDP, MG, #### [facility] [employer] [address] [place] [address] Pool Hand: Jurgen Hernandez MD Eosinophils/100 WBC (Bld) 0 % Low 1-4 [facility] Comment on above: Performed By: #### C P, CDP, MG, #### [facility] [employer] [address] [place] [address] Pool Hand: Jurgen Hernandez MD Immature granulocytes/100 WBC (Bld) 0 % Normal 0 [facility] Comment on above: Performed By: #### C P, CDP, MG, #### [address] [address] Pool Hand: Jurgen Hernandez MD Lymphocytes (Bld) [#/Vol] 0.48 10*3/uL Low 1.0-4.8 [facility] Comment on above: Performed By: #### C P, CDP, MG, #### [address] [address] Pool Hand: Jurgen Hernandez MD Lymphocytes/100 WBC (Bld) 5 % Low 24-44 [facility] Comment on above: Performed By: #### C P, CDP, MG, #### [address] [address] Pool Hand: Jurgen Hernandez MD Monocytes (Bld) [#/Vol] 0.38 10*3/uL Normal 0.1-0.8 [facility] Comment on above: Performed By: #### C P, CDP, MG, #### [address] [address] Pool Hand: Jurgen Hernandez MD Monocytes/100 WBC (Bld) 4 % Normal 1-7 [facility] Comment on above: Performed By: #### C P, CDP, MG, #### [address] [address] Pool Hand: Jurgen Hernandez MD Morphology Moises (Bld) [Interp] ANISOCYTOSIS PRESENT Normal [facility] Comment on above: Performed By: #### C P, CDP, MG, #### [address] [address] Pool Hand: Jurgen Hernandez MD Neutrophil (Seg) 91 % High 36-66 [facility] Comment on above: Performed By: #### C P, CDP, MG, #### [address] [address] Pool Hand: Jurgen Hernandez MD Erythrocyte distribution width (RBC) [Ratio] 14.5 % High 11.8-14.4 [facility] Comment on above: Performed By: #### C P, CDP, MG, #### [place] [address] Pool Hand: Jurgen Hernandez MD Hematocrit (Bld) [Volume fraction] 35.7 % Low 36.3-47.1 [facility] Comment on above: Performed By: #### C P, CDP, MG, #### [place] [address] Pool Hand: Jurgen Hernandez MD Hemoglobin (Bld) [Mass/Vol] 12.1 g/dL Normal 11.9-15.1 [facility] Comment on above: Performed By: #### C P, CDP, MG, #### [place] [address] Pool Hand: Jurgen Hernandez MD MCH (RBC) [Entitic mass] 30.0 pg Normal 25.2-33.5 [facility] Comment on above: Performed By: #### C P, CDP, MG, #### [place] [address] Pool Hand: Jurgen Hernandez MD MCHC (RBC) [Mass/Vol] 33.9 g/dL Normal 28.4-34.8 [facility] Comment on above: Performed By: #### C P, CDP, MG, #### [address] [address] Pool Hand: Jurgen Hernandez MD MCV (RBC) [Entitic vol] 88.4 fL Normal 82.6-102.9 [facility] Comment on above: Performed By: #### C P, CDP, MG, #### [address] [address] Pool Hand: Jurgen Hernandez MD NRBC Automated 0.0 per 100 WBC Normal 0.0 [facility] Comment on above: Performed By: #### C P, CDP, MG, #### [address] [address] Pool Hand: Jurgen Hernandez MD Platelet mean volume (Bld) [Entitic vol] 9.4 fL Normal 8.1-13.5 [facility] Comment on above: Performed By: #### C P, CDP, MG, #### [address] [address] Pool Hand: Jurgen Hernandez MD Platelets (Bld) [#/Vol] 231 10*3/uL Normal 138-453 [facility] Comment on above: Performed By: #### C P, CDP, MG, #### [address] [address] Pool Hand: Jurgen Hernandez MD RBC (Bld) [#/Vol] 4.04 10*6/uL Normal 3.95-5.11 [facility] Comment on above: Performed By: #### C P, CDP, MG, #### [address] [address] Pool Hand: Jurgen Hernandez MD WBC (Bld) [#/Vol] 9.5 10*3/uL Normal 3.5-11.3 [facility] Comment on above: Performed By: #### C P, CDP, MG, #### [address] [address] Pool Hand: Jurgen Hernandez MD Comp Metabolic Profon 2023 Potassium [Moles/Vol] 2.7 mmol/L Critically low 3.7-5.3 [facility] Comment on above: Performed By: #### C P #### [address] [address] Pool Hand: Jurgen Hernandez MD Albumin [Mass/Vol] 2.9 g/dL Low 3.5-5.2 [facility] Comment on above: Performed By: #### C P #### [address] [address] Pool Hand: Jurgen Hernandez MD Albumin/Glob Ratio 1.1 Normal 1.0-2.5 [facility] Comment on above: Performed By: #### C P #### [address] [address] Pool Hand: Jurgen Hernandez MD Alkaline Phos 73 U/L Normal 35-104 [facility] Comment on above: Performed By: #### C P #### [address] [address] Pool Hand: Jurgen Hernandez MD ALT [Catalytic activity/Vol] 8 U/L Normal 5-33 [facility] Comment on above: Performed By: #### C P #### [address] [address] Pool Hand: Jurgen Hernandez MD Anion gap [Moles/Vol] 12 mmol/L Normal 9-17 [facility] Comment on above: Performed By: #### C P #### [address] [address] Pool Hand: Jurgen Hernandez MD AST [Catalytic activity/Vol] 14 U/L Normal <32 [facility] Comment on above: Performed By: #### C P #### [address] [address] Pool Hand: Jurgen Hernandez MD Bilirubin [Mass/Vol] 1.3 mg/dL High 0.3-1.2 [facility] Comment on above: Performed By: #### C P #### [address] [address] Pool Hand: Jurgen Hernandez MD Calcium [Mass/Vol] 7.9 mg/dL Low 8.6-10.4 [facility] Comment on above: Performed By: #### C P #### [address] [address] Pool Hand: Jurgen Hernandez MD Chloride [Moles/Vol] 105 mmol/L Normal 98-107 [facility] Comment on above: Performed By: #### C P #### [address] [address] Pool Hand: Jurgen Hernandez MD CO2 [Moles/Vol] 21 mmol/L Normal 20-31 [facility] Comment on above: Performed By: #### C P #### [address] [address] Pool Hand: Jurgen Hernandez MD Creatinine [Mass/Vol] 0.4 mg/dL Low 0.5-0.9 [facility] Comment on above: Performed By: #### C P #### [address] [address] Pool Hand: Jurgen Hernandez MD GFR/1.73 sq M.predicted among non-blacks MDRD (S/P/Bld) [Vol rate/Area] mL/min/{1.73_m2} Normal >60 [facility] Comment on above: Result Comment: These results [...] secretion. Performed By: #### C P #### [address] [address] Pool Hand: Jurgen Hernandez MD Glucose [Mass/Vol] 115 mg/dL High 70-99 [facility] Comment on above: Performed By: #### C P #### [address] [address] Pool Hand: Jurgen Hernandez MD Protein [Mass/Vol] 5.5 g/dL Low 6.4-8.3 [facility] Comment on above: Performed By: #### C P #### [address] [address] Pool Hand: Jurgen Hernandez MD Sodium [Moles/Vol] 138 mmol/L Normal 135-144 [facility] Comment on above: Performed By: #### C P #### [address] [address] Pool Hand: Jurgen Hernandez MD Urea nitrogen [Mass/Vol] 3 mg/dL Low 6-20 [facility] Comment on above: Performed By: #### C P #### [address] [address] Pool Hand: Jurgen Hernandez MD Potassium [Moles/Vol] 2.6 mmol/L Critically low 3.7-5.3 [facility] Comment on above: Performed By: #### C P, CDP, MG, BH #### [address] [address] Pool Hand: Jurgen Hernandez MD Albumin [Mass/Vol] 3.4 g/dL Low 3.5-5.2 [facility] Comment on above: Performed By: #### C P, CDP, MG, BH #### [address] [address] Pool Hand: Jurgen Hernandez MD Albumin/Glob Ratio 1.0 Normal 1.0-2.5 [facility] Comment on above: Performed By: #### C P, CDP, MG, #### [address] [address] Pool Hand: Jurgen Hernandez MD Alkaline Phos 80 U/L Normal 35-104 [facility] Comment on above: Performed By: #### C P, CDP, MG, #### [address] [address] Pool Hand: Jurgen Hernandez MD ALT [Catalytic activity/Vol] 9 U/L Normal 5-33 [facility] Comment on above: Performed By: #### C P, CDP, MG, #### [address] [address] Pool Hand: Jurgen Hernandez MD Anion gap [Moles/Vol] 15 mmol/L Normal 9-17 [facility] Comment on above: Performed By: #### C P, CDP, MG, #### [address] [address] Pool Hand: Jurgen Hernandez MD AST [Catalytic activity/Vol] 20 U/L Normal <32 [facility] Comment on above: Performed By: #### C P, CDP, MG, #### [address] [address] Pool Hand: Jurgen Hernandez MD Bilirubin [Mass/Vol] 1.6 mg/dL High 0.3-1.2 [facility] Comment on above: Performed By: #### C P, CDP, MG, #### [address] [address] Pool Hand: Jurgen Hernandez MD Calcium [Mass/Vol] 8.2 mg/dL Low 8.6-10.4 [facility] Comment on above: Performed By: #### C P, CDP, MG, #### [address] [address] Pool Hand: Jurgen Hernandez MD Chloride [Moles/Vol] 108 mmol/L High 98-107 [facility] Comment on above: Performed By: #### C P, CDP, MG, #### [address] [address] Pool Hand: Jurgen Hernandez MD CO2 [Moles/Vol] 19 mmol/L Low 20-31 [facility] Comment on above: Performed By: #### C P, CDP, MG, #### [address] [address] Pool Hand: Jurgen Hernandez MD Creatinine [Mass/Vol] 0.4 mg/dL Low 0.5-0.9 [facility] Comment on above: Performed By: #### C P, CDP, MG, #### [address] [address] Pool Hand: Jurgen Hernandez MD GFR/1.73 sq M.predicted among non-blacks MDRD (S/P/Bld) [Vol rate/Area] mL/min/{1.73_m2} Normal >60 [facility] Comment on above: Result Comment: These results [...] By: #### C P, CDP, MG, #### [address] [address] Pool Hand: Jurgen Hernandez MD Glucose [Mass/Vol] 122 mg/dL High 70-99 [facility] Comment on above: Performed By: #### C P, CDP, MG, BH #### [facility] [place] [address] Pool Hand: Jurgen Hernandez MD Protein [Mass/Vol] 6.7 g/dL Normal 6.4-8.3 [facility] Comment on above: Performed By: #### C P, CDP, MG, BH #### [facility] [place] [address] Pool Hand: Jurgen Hernandez MD Sodium [Moles/Vol] 142 mmol/L Normal 135-144 [facility] Comment on above: Performed By: #### C P, CDP, MG, #### [facility] [address] [place] [address] Pool Hand: Jurgen Hernandez MD Urea nitrogen [Mass/Vol] 6 mg/dL Normal 6-20 [facility] Comment on above: Performed By: #### C P, CDP, MG, #### [facility] [place] [address] Pool Hand: Jurgen Hernandez MD Comprehensive Metabolic Pane [facility] 03-26-2023 Albumin [Mass/Vol] 2.9 g/dL Low 3.5 - 5.2 g/dL [facility] Albumin/Globulin [Mass ratio] 1.1 {ratio} 1.0 - 2.[address] [facility] ALP [Catalytic activity/Vol] 73 U/L 35 - 104 U/L [facility] ALT [Catalytic activity/Vol] 8 U/L 5 - 33 U/L [facility] Anion gap [Moles/Vol] 12 mmol/L 9 - 17 mmol/L [facility] AST [Catalytic activity/Vol] 14 U/L NINF - 32 U/L [facility] Bilirubin [Mass/Vol] 1.3 mg/dL High 0.3 - 1 .2 mg/dL [facility] Calcium [Mass/Vol] 7.9 mg/dL Low 8.6 - 10. 4 mg/dL [facility] Chloride [Moles/Vol] 105 mmol/L 98 - 10 7 mmol/L [facility] CO2 [Moles/Vol] 21 mmol/L 20 - 31 mmol/L [facility] Creatinine [Mass/Vol] 0.4 mg/dL Low 0.5 - 0.9 mg/dL [facility] GFR/1.73 sq M.predicted MDRD (S/P/Bld) [Vol rate/Area] - PINF [facility] Comment on above: These results are [...] 115 mg/dL High 70 - 99 mg/dL [facility] Interpretation and review of laboratory results Abnormal [facility] Potassium [Moles/Vol] 2.7 mmol/L Critically low 3.7 - 5.3 mmol/L [facility] Protein [Mass/Vol] 5.5 g/dL Low 6.4 - 8.3 g/dL [facility] Sodium [Moles/Vol] 138 mmol/L 135 - 144 mmol/L [facility] Urea nitrogen [Mass/Vol] 3 mg/dL Low 6 - 20 mg/dL [facility] Albumin [Mass/Vol] 3.4 g/dL Low 3.5 - 5.2 g/dL [facility] Albumin/Globulin [Mass ratio] 1.0 {ratio} 1.0 - 2.[address] [facility] ALP [Catalytic activity/Vol] 80 U/L 35 - 104 U/L [facility] ALT [Catalytic activity/Vol] 9 U/L 5 - 33 U/L [facility] Anion gap [Moles/Vol] 15 mmol/L 9 - 17 mmol/L [facility] AST [Catalytic activity/Vol] 20 U/L NINF - 32 U/L [facility] Bilirubin [Mass/Vol] 1.6 mg/dL High 0.3 - 1 .2 mg/dL [facility] Calcium [Mass/Vol] 8.2 mg/dL Low 8.6 - 10. 4 mg/dL [facility] Chloride [Moles/Vol] 108 mmol/L High 98 - 10 7 mmol/L [facility] CO2 [Moles/Vol] 19 mmol/L Low 20 - 31 mmol/L [facility] Creatinine [Mass/Vol] 0.4 mg/dL Low 0.5 - 0.9 mg/dL [facility] GFR/1.73 sq M.predicted MDRD (S/P/Bld) [Vol rate/Area] - PINF [facility] Comment on above: These results are [...] 122 mg/dL High 70 - 99 mg/dL [facility] Interpretation and review of laboratory results Abnormal [facility] Potassium [Moles/Vol] 2.6 mmol/L Critically low 3.7 - 5.3 mmol/L [facility] Protein [Mass/Vol] 6.7 g/dL 6.4 - 8.3 g/dL [facility] Sodium [Moles/Vol] 142 mmol/L 135 - 144 mmol/L [facility] Urea nitrogen [Mass/Vol] 6 mg/dL 6 - 20 mg/dL [facility] [employer] 03-26-2023 Magnesium [Mass/Vol] 1.6 mg/dL Normal 1.6-2.6 [facility] Comment on above: Performed By: #### C P, CDP, MG, BH #### [facility] [place], [place] [phone] Pool Hand: Jurgen Hernandez MD Magnesium [Mass/Vol] 1.6 mg/dL 1.6 - 2 .6 mg/dL [facility] Potassiumon 03-26-2023 Interpretation and review of laboratory results Abnormal [facility] Potassium [Moles/Vol] 2.5 mmol/L Critically low 3.7 - 5.3 mmol/L [facility] Protein / Creatinine Ratio, Urineon 03-26-2023 Creatinine (U) [Mass/Vol] 185.0 mg/dL 28.0 - 217.0 mg/dL [facility] Protein (U) [Mass/Vol] 44 mg/dL [facility] Comment on above: No normal range esta blished. Urine Total Protein Creatinine Ratio 0.[address] [facility] Protein,Tot,[place] 2023 Creatinine [Mass/Vol] 185.0 mg/dL Normal 28.0-217.0 [facility] Comment on above: Performed By: #### K #### [facility] [address] [place] [phone] Pool Hand: Jurgen Hernandez MD Tot Prot. Conc. 44 mg/dL [facility] Comment on above: Result Comment: No n ormal range established. Performed By: #### K #### [facility] [address] [place] [phone] Pool Hand: Jurgen Hernandez MD TP/Cre Ratio 0.24 Normal [facility] Comment on above: Performed By: #### K #### [facility] [address] [place] [phone] Pool Hand: Jurgen Hernandez MD US PELVIS TRANSVAGon 023 [...] LUCIANA MENDOZA Date: 2022-04-12 16:28 Normal [facility] Vaginitis DNA Probeon 2022 Hiral Species, DNA Probe Negative NEGATIVE [facility] [employer] [facility] Comment on above: for Hiral sp. Method of testing is a DNA probe intended for detection and identification of Hiral species, Gardnerella vaginalis, and Trichomonas vaginalis nucleic acid in vaginal fluid specimens from patients with symptoms of vaginitis/vaginosis. Gardnerella Vaginalis, DNA Probe Positive Abnormal NEGATIVE [facility] [employer] [facility] Comment on above: for Gardnerella vagi nalis Interpretation and review of laboratory results Abnormal [facility] Source .VAGINAL SWAB [facility] [employer] [facility] Trichomonas Vaginalis DNA Negative NEGATIVE [facility] [employer] [facility] Comment on above: for Trichomonas Vagi nalis [facility] Vital Signs Date Time Vital Sign Value Performing Clinician Facility 03-29-2023 11:45-0500 Body mass index (BMI) [Ratio] 38.07 kg/m2 Gallery AlSharq DO Work Phone: [facility] 03-29-2023 11:45-0500 Body weight 94.4 kg Renu Susie DO Work Phone: [facility] 03-29-2023 11:45-0500 Diastolic blood pressure 70 mm[Hg] Renu Susie DO Work Phone: [facility] 03-29-2023 11:45-0500 Systolic blood pressure 122 mm[Hg] Renu Susie DO Work Phone: [facility] 03-27-2023 14:27-0500 Body temperature 37.0 Pema Imler DO Work Phone: [facility] 03-27-2023 11:51-0500 Body temperature 98.2 [degF] Pema Amaury DO Work Phone: [facility] 03-27-2023 11:51-0500 Diastolic blood pressure 78 mm[Hg] Pema Rebolledo DO Work Phone: [facility] 03-27-2023 11:51-0500 Heart rate 91 /min Pema Amaury DO Work Phone: [facility] 03-27-2023 11:51-0500 Respiratory rate 16 /min Pema Rebolledo DO Work Phone: [facility] 03-27-2023 11:51-0500 SaO2% (BldA) [Mass fraction] 97 % Pema Rebolledo DO Work Phone: [facility] 03-27-2023 11:51-0500 Systolic blood pressure 123 mm[Hg] Pema Amaury DO Work Phone: [facility] 02-15-2023 17:00-0500 Body height 157.48 cm Rosalind Jeter Other [employer] Other 02-15-2023 17:00-0500 Body mass index (BMI) [Ratio] 37.45 kg/m2 Rosalind Jeter Other [employer] Other 02-15-2023 17:00-0500 Body temperature 98 [degF] Rosalind Jeter Other [employer] Other 02-15-2023 17:00-0500 Body weight 92.9 kg Rosalind Jeter Other [employer] Other 02-15-2023 17:00-0500 Diastolic blood pressure 71 mm[Hg] Rosalind Jeter Other [employer] Other 02-15-2023 17:00-0500 Respiratory rate 18 /min Rosalind Riveramond Other [employer] Other 02-15-2023 17:00-0500 SaO2% (BldA) [Mass fraction] 99 % Rosalind Jeter Other [employer] Other 02-15-2023 17:00-0500 Systolic blood pressure 111 mm[Hg] Rosalind Riveramond Other [employer] Other Encounters Encounter Date Encounter Type Care Provider Facility Start: 03-29-2023 End: 03-29-2023 ambulatory RENU SUSIE Not Available Start: 03-29-2023 End: 03-29-2023 flow sheet Renu Susie DO Work Phone: [facility] Comment on above: Third trimester preg mitchel; Hypokalemia Start: 03-26-2023 End: 03-27-2023 ambulatory PEMA REBOLLEDO [facility] Start: 03-26-2023 End: 03-26-2023 Emergency department patient visit ROSETTE MENDOZA [facility] Start: 03-26-2023 End: 03-27-2023 Subsequent hospital visit by physician Pema Rebolledo DO Work Phone: [id number] Comment on above: Hypokalemia (Primary Dx) Start: 2023 End: 2023 ambulatory RENU SUSIE Not Available Start: 02-22-2023 End: 02-22-2023 ambulatory RENU SUSIE Not Available Start: 02-15-2023 End: 02-15-2023 ambulatory Rosalind Jeter Other [employer] Other Start: 02-15-2023 Office outpatient ne w 10 minutes Rosalind Jeter [facility] Start: 02-08-2023 End: 02-08-2023 ambulatory RINA CURRY Not Available Start: 01-16-2023 End: 01-16-2023 ambulatory RENU SUSIE Not Available Start: 04-11-2022 End: 04-12-[address] NONE LISTED REQUEST Facility: Start: 03-30-2022 End: 03-30-2022 Patient encounter procedure Rosette Mendoza Other Phone: [facility] [place] [facility] Start: 03-30-2022 End: 03-30-2022 Subsequent hospital visit by physician Rosette Mendoza Other Phone: [facility] [place] [facility] Comment on above: Vaginal discharge; [...] specie s direct probe tq Brittani Aguilar [employer] - CNM Work Phone: Start: 03-30-2022 Microscopic observat ion [Identifier] in Cervix by Cyto stain Pema Amaury DO Work Phone: Plan of Treatment Date Care Activity Detail Author Start: 03-30-2027 Screening for malign ant neoplasm of cervix [facility] [employer] [facility] Start: 03-30-2025 Screening for malign ant neoplasm of cervix Pap smear [facility] Start: 04-11-2023 End: 04-11-2023 Patient encounter procedure 04/11/2023 10:30 AM EST Routine [facility] [address] [place] [id number] Return in about 6 weeks (around 04/11/2023) for Repeat Anatomy, Growth/BPP. [facility] Comment on above: Return in about 6 we eks (around 04/11/2023) for Repeat Anatomy, Growth/BPP. Start: 04-05-2023 End: 04-05-2023 Patient encounter procedure 04/05/2023 11:30 AM EST Routine [facility] [address] [id number] Renu Richards DO [address] [place] [address] [facility] Start: 03-31-2023 End: 03-27-2024 Potassium [Moles/volume] in Serum or Plasma Potassium Lab Routine Hypokalemia Expected: 03/31/2023, Expires: 03/27/2024 [facility] [employer] [facility] Comment on above: Expected: 03/31/2023 , Expires: 03/27/2024 Start: 03-30-2023 Depression Screen Depression Screen [facility] [employer] [facility] Start: 03-29-2023 End: 03-29-2024 US biophysical profile w non stress test US biophysical profile w non stress test Imaging Routine Hypokalemia Expected: 03/29/2023 (Approximate), Expires: 03/29/2024 [facility] Work Phone: Comment on above: Expected: 03/29/2023 (Approximate), Expires: 03/29/2024 Start: 2023 Diabetes screen Diabetes screen [facility] [employer] Start: 09-13-2022 Influenza vaccination Flu vaccine (# 1) [facility] [employer] Start: 09-13-2021 Influenza vaccination Flu vaccine (# 1) [facility] [employer] Start: 2018 Screening for malign ant neoplasm of cervix [facility] [employer] Start: 2009 Screening for malign ant neoplasm of cervix Pap smear [facility] Start: 2007 DTaP/Tdap/Td vaccine (1 - Tdap) DTaP/Tdap/Td vaccine (1 - Tdap) [facility] [employer] Start: 2006 Hepatitis C screening Hepatitis C sc reen [facility] [employer] Start: 2003 HIV screening HIV screen [facility] [employer] Start: 1989 Varicella vaccine (1 of 2 - 2-dose childhood series) Varicella vaccine (1 of 2 - 2-dose childhood series) [facility] Start: 1988 COVID-19 Vaccine (#1) COVID-19 Vacci ne (#1) [facility] Start: 1988 Hepatitis B vaccine (1 of 3 - 3-dose series) Hepatitis B vaccine (1 of 3 - 3-dose series) [facility] End: 03-30-2022 C.trachomatis N.gonorrhoeae DNA, Thin Prep [facility] [employer] Phone: Comment on above: 1 Occurrences starti ng 03/30/2022 until 03/30/2022 End: 03-27-2023 Culture, Strep B Screen, Vaginal/Rectal [facility] Phone: Comment on above: One Time for 1 Occur rences starting 03/27/2023 until 03/27/2023 End: 03-30-2022 Culture, Urine [facility] Phone: Comment on above: 1 Occurrences starti ng 03/30/2022 until 03/30/2022 End: 03-27-2023 Electrolyte Panel w/ Reflex to MG Electrolyte Panel w/ Reflex to MG Lab Routine One Time for 1 Occurrences starting 03/27/2023 until 03/27/2023 [facility] Work Phone: Comment on above: One Time for 1 Occur rences starting 03/27/2023 until 03/27/2023 Nonrebreather mask oxygen Nonrebreather mask oxygen Respiratory Care Routine As Needed until discontinued starting 03/26/2023 [facility] [facility] Comment on above: As Needed until disc ontinued starting 03/26/2023 Payers Date Payer Category Payer Unknown BCBS BCBS xxxxxx [id number] 2022-Present [phone] [address] [place] [address] [id number] 1988 Unknown [id number] 1988 Unknown [id number] 1988 Unknown [id number] 1988 Unknown [id number] 1988 Unknown [id number] 1988 Unknown [id number] 1988 Unknown [id number] 1988 Unknown [id number] 1959 Unknown [id number] Social History Date Type Detail Facility Start: 03-30-2022 End: 10-10-2022 Tobacco smoking status NHIS Never smoked tobacco [employer] Phone: Start: 03-30-2022 End: 10-10-2022 Tobacco use and exposure Smokeless tobacco non-user [employer] Phone: Start: 03-30-2022 Alcohol intake Lifetime non-drinker (finding) [facility] Phone: Start: 1990 Sex Assigned At Not on file [employer] Phone: Start: 11-21-2022 End: 03-26-2023 Sex Assigned At [employer] Other Start: 03-26-2023 End: 03-29-2023 Alcohol intake Ex-drinker (finding) [facility] Start: 11-21-2022 End: 03-26-2023 History of Social function [facility] Patient Health Questionnaire 9 item (PHQ-9) total score [Reported] 0 [facility] Start: 08-08-2022 [facility] Start: 1990 Sex Assigned At Female [facility] Start: 09-21-2022 Gender identity Identifies as female gender (finding) [facility] History of Present illness Narrative 03-29-2023 Mimi [...] nursing note reviewed. Exam conducted with a auto service station attendant present. Vitals: Estimated body mass index is [...] Renu Richards DO documented in this encounter [facility] Hospital Discharge instructions 03-27-2023 Discharge Instructions Note [...] on left side. documented in this encounter [facility] History of Present illness Narrative 03-27-2023 [...] the patient: POTASSIUM ER 20MG Additional Documentation: HOME DESIGNER PROGRESS NOTE Niesha Fisher is a 33 [...] Will update Dr. Gonzalez. Joanna Pablo DO Hydramatic Mechanic Resident 03/27/2023, 6:31 AM Attending Physician Statement [...] Gonzalez MD Date: 03/27/2023 Time: 11:48 AM HOME DESIGNER RESIDENT INTERVAL NOTE Repeat CMP reviewed K [...] ms QTc Calculation (Bazett) 471 ms P [place] 54 degrees R [place] 35 degrees T [place] 38 degrees Comprehensive Metabolic Panel Collection Time: [...] AST 14 <32 U/L Joanna Pablo DO HOME DESIGNER Resident [facility] 03/26/2023 8:12 PM documented in this encounter [facility] course Narrative 03-27-2023 Sun Gillis MD - 03/27/2023 3:37 PM EST Note Date & Type Note Facility 03-27-2023 Hospital course Narrative Obstetric Discharge Summary [facility] Patient Name: Niesha Fisher Patient : 1990 [...] Your Medications These medications were sent to [address] - [phone] - F [phone] [address] [facility] [address] potassium chloride 20 MEQ extended release tablet Diet: regular Follow up: With primary Ob provider on 03/29/23 Condition on discharge: good Discharge date: 03/27/23 Sun Gillis MD Hydramatic Mechanic Resident documented in this encounter [facility] Evaluation note 02-15-2023 Note Date & Type Note Facility 02-15-2023 Evaluation note Encounter Date Diagnosis Assessment Notes Feb, Right otitis media, unspecified otitis media type (ICD-10 - H66.91) Drink plenty fluids, get plenty of rest. Take the amoxicillin as prescribed until gone. Take Tylenol as needed for pain or fevers. Follow-up with your family physician or HOME DESIGNER if no improvement in 2 to 3 days. [employer] Other Evaluation note Note Date & Type Note Facility Evaluation note Diagnosis Vaginal discharge Leukorrhea, not specified as infective Malodorous urine Other nonspecific finding on examination of urine Well woman exam Routine general medical examination at a health care facility documented in this encounter [facility] [employer] Work Phone: Evaluation note Note Date & Type Note Facility Evaluation note Diagnosis 34 weeks gestation of - Primary state, incidental Hypokalemia Hypopotassemia Acute gastroenteritis Other and unspecified noninfectious gastroenteritis and colitis Hypokalemia Hypopotassemia Hypomagnesemia Disorders of magnesium metabolism documented in this encounter [facility] Evaluation note Note Date & Type Note Facility Evaluation note Diagnosis Third trimester state, incidental Hypokalemia Hypopotassemia documented in this encounter [facility] History general Narrative - Reported Note Date & Type Note Facility History general Narrative - Reported Type Surgical History C section 2020 [facility] Other Summary Purpose Family History No Family History Records FoundNo Family History Records FoundNo Family History Records Found Advance Directives No Advanced Directives Records FoundLatest Code Status on File Code Status Date Activated Date Inactivated Comments Full Code 03/26/2023 9:19 AM Additional Source Comments Care Teams (unrecognized sec tion and content) Engine Maintenance Mechanic Relationship Specialty Start Date End Date Rosette Mendoza [address] [facility] [place] [address] PCP - General Internal Medicine 03/30/22 Engine Maintenance Mechanic Relationship Specialty Start Date End Date Rosette Mendoza [address] [phone] PCP - General Internal Medicine 03/30/22 INFORMATION SOURCE (unrecogn ized section and content) DATE CREATED AUTHOR 04/17/2022 [facility] DATE CREATED AUTHOR AUTHOR'S ORGANIZ ATION 03/31/2023 [facility] EPIC DATE CREATED AUTHOR AUTHOR'S ORGANIZ ATION 04/02/2023 [facility] REASON FOR VISIT (unrecogniz ed section and content) Reason Comments Nausea & Vomiting Diarrhea Specialty Diagnoses / Procedures Referred By Angela t Referred To Contact Diagnoses 34 weeks gestation of Pema Rebolledo DO [address] [place] [address] [facility] [address] [place] [address] Referral ID Status Reason Start Date Expiration Date Visits Re quested Visits Authorized [id number] 1 Reason Comments Routine Visit Ordered [...] BE BASED ON THE PRIMARY CLINICAL RECORDS. [employer] provides no warranty or guarantee of the accuracy or completeness of information in this document.
--- NOTE | 2023-04-05 10:24 | US_ITS ---
[address] [address] Patient Name: EDISON DEWITT MRN: [id number] date: 1990 Sex: F Assigned Patient Location: US Current Patient Location: Accession/Order Number: [id number] Exam Date: 04/05/2023 10:28 Report Date: 04/05/2023 11:29 At the request of: RENU LUCAS Procedure: US OB BPP w non-stress EXAMINATION: US OB BPP w non-stress HISTORY: HYPOKALEMIA E87.6 COMPARISON: Ultrasound OB biophysical 03/29/2023 TECHNIQUE: Ultrasound biophysical profile was performed in the radiology department. BREATHING MOVEMENTS: 2.0 GROSS BODY MOVEMENTS: 2.0 TONE: 2.0 QUALITATIVE AMNIOTIC FLUID VOLUME: 2.0 PRESENTATION: CEPHALIC HEART RATE: 126.8 bpm bpm. AMNIOTIC FLUID VOLUME: 15.1 cm GESTATIONAL AGE: 37 weeks 5 days CONCLUSION: 1. Total biophysical profile score 8.0. 2. No evidence of nuchal cord on today's study. Electronically authenticated by: RAVI BURRELL Date: 04/05/2023 11:29
[2023-04-05 10:47] VITALS: BP 113/69; PULSE 105; TEMP 36.2
== END 2023-04-05 11:12 | disposition home or self-care (01) ==
LOC: US 07:41 → FBC 10:45
PROVIDERS: Visit Provider Obstetrics & Gynecology
DX: E87.6 Hypokalemia (principal); Z3A.37 37 weeks gestation of pregnancy
CPT/HCPCS: 59025; 76818

== ENCOUNTER 2023-04-08 10:09 | Outpatient (OUT) | payer BC, SELFPAY ==
--- OUTSIDE RECORDS SUMMARY | 2023-04-08 10:13 | XMS_ITS | CCD ---
Author Name Unknown Address [address] [place] [address] Organization [facility] Care Team Providers Care Wire Splicer Name Role Phone Rosette Mendoza Primary Care Provider [phone] REQUEST, DR EB LISTED Primary Care Unavaila chase MENDOZA, DR LUCIANA Pedro Consulting Unavailable SUSIE ., DR SEARS Attending Unavailable SUSIE ., DR SEARS Admitting Unavailable SUSIE ., DR SEARS Consulting Unavailable Rosalind Jeter Unavailable Rosette Mendoza Primary Care Provider RINA CURRY Attending Unavailable RENU RICHARDS Attending Unavailable RENU RICHARDS Attending Unavailable RENU RICHARDS Attending Unavailable RENU RICHARDS Attending Unavailable Unavailable Primary Care Provider UnavailPEMA [...] B STREPTOCOCCI Report Status FINAL 03/31/[address] [facility] Comment on above: Performed By: #### R OGBS #### [facility] [employer] [address] [phone] [employer] Set Up Operator: Jurgen Hernandez MD Urinalysis macro (dipstick) panel (U)on 03-29-2023 Bilirubin, UA Negative Negative - 4(70) +++ mg/dL [facility] Blood, UA Negative Negative - 50 Dwight/mcL [facility] Clarity, UA Clear [facility] Color, UA Yellow [facility] Glucose, UA Negative Negative - 1999(110) ++++ mg/dL [facility] Interpretation and review of laboratory results Normal [facility] Ketones, UA Negative Negative - 160(16) ++++ mg/dL [facility] Leukocytes, UA Negative Negative - 500+++ Karlene/mcL [facility] Nitrite, UA Negative Negative - Positive [facility] pH, UA 7.0 5 - 9 [facility] Protein, UA Negative Negative - 1999(20) ++++ mg/dL [facility] Spec Grav, UA 1.025 1 - 1.03 [facility] Urobilinogen, UA 0.2 0.2 - 12 mg/dL [facility] BLOOD GAS, VENOUSon 03-27-19 Carboxyhemoglobin (Bld) [Mass fraction] 1.0 % 0 - 5 % [facility] Comment on above: Reference Range: Non-Smokers 0-2% Average Smoker 2-4% Heavy Smoker <10% HCO3 (Bld) [Moles/Vol] 24.8 mmol/L 24 - 30 mmol /L [facility] Interpretation and review of laboratory results Abnormal [facility] Negative Base Excess, Pieter 0.3 mmol/L 0.0 - 2.0 mmol/L [facility] Oxygen saturation in Blood 35.8 % Low 60.0 - 85.0 % [facility] Oxygen/Inspired gas Respiratory system --on ventilator INFORMATION NOT PROVIDED [facility] pCO2, Pieter 45.1 [facility] pH, Pieter 7.359 7.320 - 7.420 [facility] pO2, Pieter 26.4 Low [facility] Comp Metabolic Profon 2023 Potassium [Moles/Vol] 2.9 mmol/L Critically low 3.7-5.[address] [facility] Comment on above: Performed By: #### C P, OSMO, MG #### [employer] [address] [place] [address] [phone] [employer] Set Up Operator: Jurgen Hernandez MD Albumin [Mass/Vol] 2.9 g/dL Low 3.5-5.[address] [facility] Comment on above: Performed By: #### C P, OSMO, MG #### [employer] [facility] [place] [address] [employer] Set Up Operator: Jurgen Hernandez MD Albumin/Glob Ratio 1.1 Normal 1.0-2.[address] [facility] Comment on above: Performed By: #### C P, OSMO, MG #### [employer] [address] [place] [phone] [employer] Set Up Operator: Jurgen Hernandez MD Alkaline Phos 73 U/L Normal 35-[address] [facility] Comment on above: Performed By: #### C P, OSMO, MG #### [facility] [address] [place] [phone] [employer] Set Up Operator: Jurgen Hernandez MD ALT [Catalytic activity/Vol] 7 U/L Normal 5-[address] [facility] Comment on above: Performed By: #### C P, OSMO, MG #### [facility] [address] [place] [phone] [employer] Set Up Operator: Jurgen Hernandez MD Anion gap [Moles/Vol] 9 mmol/L Normal 9-17 [facility] Comment on above: Performed By: #### C P, OSMO, MG #### [address] [address] [employer] Set Up Operator: Jurgen Hernandez MD AST [Catalytic activity/Vol] 26 U/L Normal <[address] [facility] Comment on above: Performed By: #### C P, OSMO, MG #### [facility] [employer] [address] [place] [phone] [employer] Set Up Operator: Jurgen Hernandez MD Bilirubin [Mass/Vol] 1.3 mg/dL High 0.3-1.2 [facility] Comment on above: Performed By: #### C P, OSMO, MG #### [facility] [address] [place] [phone] [employer] Set Up Operator: Jurgen Hernandez MD Calcium [Mass/Vol] 7.8 mg/dL Low 8.6-10.[address] [facility] Comment on above: Performed By: #### C P, OSMO, MG #### [facility] [address] [place] [phone] [employer] Set Up Operator: Jurgen Hernandez MD Chloride [Moles/Vol] 104 mmol/L Normal 98-107 [facility] Comment on above: Performed By: #### C P, OSMO, MG #### [facility] [address] [place] [phone] [employer] Set Up Operator: Jurgen Hernandez MD CO2 [Moles/Vol] 21 mmol/L Normal 20-[address] [facility] Comment on above: Performed By: #### C P, OSMO, MG #### [facility] [address] [place] [phone] [employer] Set Up Operator: Jurgen Hernandez MD Creatinine [Mass/Vol] 0.4 mg/dL Low 0.5-0.9 [facility] Comment on above: Performed By: #### C P, OSMO, MG #### [address] [address] [employer] Set Up Operator: Jurgne Hernandez MD GFR/1.73 sq M.predicted among non-blacks MDRD (S/P/Bld) [Vol rate/Area] mL/min/{1.73_m2} Normal >[address] [facility] Comment on above: Result Comment: These results [...] By: #### C P, OSMO, MG #### [address] [address] [employer] Set Up Operator: Jurgen Hernandez MD Glucose [Mass/Vol] 108 mg/dL High 70-[address] [facility] Comment on above: Performed By: #### C P, OSMO, MG #### [facility] [address] [place] [phone] [employer] Set Up Operator: Jurgen Hernandez MD Protein [Mass/Vol] 5.6 g/dL Low 6.4-8.[address] [facility] Comment on above: Performed By: #### C P, OSMO, MG #### [facility] [address] [place], [place] [phone] [employer] Set Up Operator: Jurgen Hernandez MD Sodium [Moles/Vol] 134 mmol/L Low 135-[address] [facility] Comment on above: Performed By: #### C P, OSMO, MG #### [facility] [address] [place], [place] [phone] [employer] Set Up Operator: Jurgen Hernandez MD Urea nitrogen [Mass/Vol] 2 mg/dL Low 6-[address] [facility] Comment on above: Performed By: #### C P, OSMO, MG #### [facility] [place], [place] [phone] [employer] Set Up Operator: Jurgen Hernandez MD Comprehensive Metabolic Pane [facility] 03-27-2023 Albumin [Mass/Vol] 2.9 g/dL Low 3.5 - 5.2 g/dL [facility] Albumin/Globulin [Mass ratio] 1.1 {ratio} 1.0 - 2.5 [facility] ALP [Catalytic activity/Vol] 73 U/L 35 - 104 U/L [facility] ALT [Catalytic activity/Vol] 7 U/L 5 - 33 U/L [facility] Anion gap [Moles/Vol] 9 mmol/L 9 - 17 mmol/L [facility] AST [Catalytic activity/Vol] 26 U/L NINF - 32 U/L [facility] Bilirubin [Mass/Vol] 1.3 mg/dL High 0.3 - 1 .2 mg/dL [facility] Calcium [Mass/Vol] 7.8 mg/dL Low 8.6 - 10. 4 mg/dL [facility] Chloride [Moles/Vol] 104 mmol/L 98 - 10 7 mmol/L [facility] CO2 [Moles/Vol] 21 mmol/L 20 - 31 mmol/L [facility] Creatinine [Mass/Vol] 0.4 mg/dL Low 0.5 - 0.9 mg/dL [facility] GFR/1.73 sq M.predicted MDRD (S/P/Bld) [Vol rate/Area] - PINF [facility] Comment on above: These results are not [...] 108 mg/dL High 70 - 99 mg/dL [facility] [email or web address] Interpretation and review of laboratory results Abnormal [facility] [employer] Potassium [Moles/Vol] 2.9 mmol/L Critically low 3.7 - 5.3 mmol/L [facility] Protein [Mass/Vol] 5.6 g/dL Low 6.4 - 8.3 g/dL [facility] [email or web address] Sodium [Moles/Vol] 134 mmol/L Low 135 - 144 mmol/L [facility] Urea nitrogen [Mass/Vol] 2 mg/dL Low 6 - 20 mg/dL [facility] [email or web address] [facility] [employer] EKG 12 LeadOrdered By: Lillian Pruitt on 03-27-2023 Atrial Rate 101 BPM [employer] Work Phone: P Lyford 54 degrees [employer] Work Phone: P-R Interval 178 ms [employer] Work Phone: Q-T Interval 364 ms [employer] Work Phone: QRS Duration 102 ms [employer] Work Phone: QTc Calculation (Bazett) 471 ms [employer] Work Phone: R Lyford 35 degrees [employer] Work Phone: T Lyford 38 degrees [employer] Work Phone: Ventricular Rate 101 BPM [facility] [employer] Work Phone: [facility] Work Phone: EKG 12 Leadon 03-27-2023 Sinus tachycardia Incomplete right bundle branch block Septal infarct , age undetermined Abnormal ECG No previous ECGs available [facility] Lillian Stark MD - 03/27/2023 Sinus tachycardia Incomplete right bundle branch block Septal infarct , age undetermined Abnormal ECG No previous ECGs available [facility] [email or web address] Atrial Rate 101 BPM [facility] [email or web address] P Lyford 56 degrees [facility] P-R Interval 170 ms [facility] Q-T Interval 364 ms [facility] [email or web address] QRS Duration 96 ms [facility] QTc Calculation (Bazett) 471 ms [facility] R Lyford 31 degrees [facility] T Lyford 37 degrees [facility] Ventricular Rate 101 BPM [facility] Sinus tachycardia Nonspecific ST and T wave abnormality Abnormal ECG When compared with ECG of 26-MAR-2023 11:35, Incomplete right bundle branch block is no longer Present [facility] Tru[facility] MD - 03/27/[address] and T wave abnormality Abnormal ECG When compared with ECG of 26-MAR-2023 11:35, Incomplete right bundle branch block is no longer Present [facility] Electrolyte Panelon 03-27-19 Anion gap [Moles/Vol] 9 mmol/L 9 - 17 mmol/L [facility] Chloride [Moles/Vol] 103 mmol/L 98 - 10 7 mmol/L [facility] CO2 [Moles/Vol] 23 mmol/L 20 - 31 mmol/L [facility] Interpretation and review of laboratory results Abnormal [facility] Potassium [Moles/Vol] 3.1 mmol/L Low 3.7 - 5.3 mmol/L [facility] Sodium [Moles/Vol] 135 mmol/L 135 - 144 mmol/L [facility] Electrolyteson 03-27-2023 Anion gap [Moles/Vol] 9 mmol/L Normal 9-17 [facility] Comment on above: Performed By: #### K #### [address] [address] [employer] Set Up Operator: Jurgen Hernandez MD Chloride [Moles/Vol] 103 mmol/L Normal 98-107 [facility] Comment on above: Performed By: #### K #### [address] [address] [employer] Set Up Operator: Jurgen Hernandez MD CO2 [Moles/Vol] 23 mmol/L Normal 20-[address] [facility] Comment on above: Performed By: #### K #### [address] [address] [employer] Set Up Operator: Jurgen Hernandez MD Potassium [Moles/Vol] 3.1 mmol/L Low 3.7-5.3 [facility] Comment on above: Performed By: #### K #### [address] [address] [employer] Set Up Operator: Jurgen Hernandez MD Sodium [Moles/Vol] 135 mmol/L Normal 135-[address] [facility] Comment on above: Performed By: #### K #### [address] [address] [employer] Set Up Operator: Jurgen Hernandez MD K (Potassium)on 03-27-2023 Potassium [Moles/Vol] 2.7 mmol/L Critically low 3.7-5.[address] [facility] Comment on above: Performed By: #### K #### [address] [address] [employer] Set Up Operator: Jurgen Hernandez MD Potassium [Moles/Vol] 2.5 mmol/L Critically low 3.7-5.[address] [facility] Comment on above: Performed By: #### K #### [address] [place] [phone] [employer] Set Up Operator: Jurgen Hernandez MD Magnesiumon 03-27-2023 Magnesium [Mass/Vol] 1.9 mg/dL Normal 1.6-2.6 [facility] Comment on above: Performed By: #### C P, OSMO, MG #### [facility] [address] [place] [address] [phone] [employer] Set Up Operator: Jurgen Hernandez MD Magnesium [Mass/Vol] 1.9 mg/dL 1.6 - 2 .6 mg/dL [facility] OSMOLALITY, URINEon 03-27-19 24 Osmolality (U) [Osmolality] 365 mosm/kg [facility] Osmolalityon 03-27-2023 Osmolality [Osmolality] 285 mosm/kg Normal 275-[address] [facility] Comment on above: Performed By: #### C P, OSMO, MG #### [facility] [address] [place] [address] [phone] [employer] Set Up Operator: Jurgen Hernandez MD Osmolality [Osmolality] 285 mosm/kg [facility] Osmolality, Urineon 03-27-19 24 Osmolality - Urine 365 mOsm/kg Normal 80-[address] [facility] Comment on above: Performed By: #### K #### [facility] [address] [place] [address] [phone] [employer] Set Up Operator: Jurgen Hernandez MD POTASSIUM, URINE, RANDOMon 0 03-27-2023 Potassium, Ur 29.1 mmol/L [facility] Comment on above: No normal range esta blished. [facility] Potassiumon 03-27-2023 Interpretation and review of laboratory results Abnormal [facility] Potassium [Moles/Vol] 2.7 mmol/L Critically low 3.7 - 5.3 mmol/L [facility] Potassium,Random Uron 2023 Potassium [Moles/Vol] 29.1 mmol/L Normal [facility] Comment on above: Result Comment: No n ormal range established. Performed By: #### K #### [address] [address] [employer] Up Operator: Jurgen Hernandez MD Venous Blood Gaseson 024 Body Temp. 37.[address] [facility] Comment on above: Performed By: #### K #### [address] [address] [employer] Set Up Operator: Jurgen Hernandez MD Carboxy Hgb 1.0 % Normal 0-[address] [facility] Comment on above: Result Comment: Reference Range: Non-Smokers 0-2% Average Smoker 2-4% Heavy Smoker <10% Performed By: #### K #### [address] [address] [employer] Set Up Operator: Jurgen Hernandez MD FIO2 INFORMATION NOT PROVIDED Normal [facility] Comment on above: Performed By: #### K #### [address] [address] [employer] Set Up Operator: Jurgen Hernandez MD HCO3 (Bld) [Moles/Vol] 24.8 mmol/L Normal 24-30 [facility] Comment on above: Performed By: #### K #### [address] [address] [employer] Set Up Operator: Jurgen Hernandez MD Negative Base Excess 0.3 mmol/L Normal 0.0-2.0 [facility] Comment on above: Performed By: #### K #### [address] [address] [employer] Set Up Operator: Jurgen Hernandez MD Oxygen saturation in Blood 35.8 % Low 60.0-85.[address] [facility] Comment on above: Performed By: #### K #### [address] [address] [employer] Set Up Operator: Jurgen Hernandez MD pCO2 45.1 mm Hg Normal 39-[address] [facility] Comment on above: Performed By: #### K #### [address] [address] [employer] Set Up Operator: Jurgen Hernandez MD pH (Bld) 7.359 [pH] Normal 7.320-7.[address] [facility] Comment on above: Performed By: #### K #### [address] [address] [employer] Up Operator: Jurgen Hernandez MD pO2 26.4 mm Hg Low 30-[address] [facility] Comment on above: Performed By: #### K #### [address] [address] [employer] Set Up Operator: Jurgen Hernandez MD Beta Hydroxybutyrateon 03-26 Beta Hydroxybutyrate 1.24 mmol/L High 0.02-0.27 [facility] Comment on above: Performed By: #### C P, CDP, MG, BH #### [address] [address] [employer] Set Up Operator: Jurgen Hernandez MD Beta-Hydroxybutyrateon 03-26 Beta hydroxybutyrate [Mass/Vol] 1.24 mmol/L High 0.02 - 0.27 mmol/L [facility] Interpretation and review of laboratory results Abnormal [facility] CBC with Auto Differentialon 03-26-2023 Basophils (Bld) [#/Vol] 0.00 10*3/uL [facility] Basophils/100 WBC (Bld) 0 % 0 - 2 % [facility] Eosinophils (Bld) [#/Vol] 0.00 10*3/uL [facility] Eosinophils/100 WBC (Bld) 0 % Low 1 - 4 % [facility] Erythrocyte distribution width (RBC) [Ratio] 14.5 % High 11.8 - 14.4 % [facility] Hematocrit (Bld) [Volume fraction] 35.7 % Low 36.3 - 47.1 % [facility] Hemoglobin (Bld) [Mass/Vol] 12.1 g/dL 11.9 - 15.1 g/dL [facility] Immature granulocytes (Bld) [#/Vol] 0.00 10*3/uL [facility] Immature granulocytes/100 WBC (Bld) 0 % 0 [facility] Interpretation and review of laboratory results Abnormal [facility] Lymphocytes/100 WBC (Bld) 5 % Low 24 - 44 % [facility] Lymphocytes/100 WBC (Bld) 0.48 % Low [facility] MCH (RBC) [Entitic mass] 30.0 pg 25.2 - 33.5 pg [facility] MCHC (RBC) [Mass/Vol] 33.9 g/dL 28.4 - 34.8 g/dL [facility] MCV (RBC) [Entitic vol] 88.4 fL 82.6 - 102.9 fL [facility] Monocytes/100 WBC (Bld) 4 % 1 - 7 % [facility] Monocytes/100 WBC (Bld) 0.38 % [facility] Morphology Moises (Bld) [Interp] ANISOCYTOSIS PRESENT [facility] Neutrophils/100 WBC (Bld) 91 % High 36 - 66 % [facility] Nucleated RBC/100 WBC (Bld) [Ratio] 0.0 % 0.0 per 100 WBC [facility] Platelet mean volume (Bld) [Entitic vol] 9.4 fL 8.1 - 13.5 fL [facility] Platelets (Bld) [#/Vol] 231 10*3/uL [facility] RBC (Bld) [#/Vol] 4.04 10*6/uL 3.95 - 5.1 1 m/uL [facility] Segmented neutrophils/100 WBC (Bld) 8.64 % High [facility] WBC other (Bld) [#/Vol] 9.5 [facility] CBC with Diffon 03-26-2023 Abs. Basophil 0.00 k/uL Normal 0.0-0.[address] [facility] Comment on above: Performed By: #### C P, CDP, MG, #### [address] [address] [employer] Up Operator: Jurgen Hernandez MD Abs.Imm.Granulocyte 0.00 k/uL Normal 0.00-0.[address] [facility] Comment on above: Performed By: #### C P, CDP, MG, #### [place] [address] [employer] Up Operator: Jurgen Hernandez MD Abs.Neutrophil (Seg) 8.64 k/uL High 1.8-7.7 [facility] Comment on above: Performed By: #### C P, CDP, MG, #### [address] [address] [employer] Up Operator: Jurgen Hernandez MD Basophils/100 WBC (Bld) 0 % Normal 0-[address] [facility] Comment on above: Performed By: #### C P, CDP, MG, #### [address] [address] [employer] Up Operator: Jurgen Hernandez MD Eosinophils (Bld) [#/Vol] 0.00 10*3/uL Normal 0.0-0.[address] [facility] Comment on above: Performed By: #### C P, CDP, MG, #### [address] [address] [employer] Up Operator: Jurgen Hernandez MD Eosinophils/100 WBC (Bld) 0 % Low 1-[address] [facility] Comment on above: Performed By: #### C P, CDP, MG, #### [facility] [employer] [address] [place] [address] [employer] Up Operator: Jurgen Hernandez MD Immature granulocytes/100 WBC (Bld) 0 % Normal [address] [facility] Comment on above: Performed By: #### C P, CDP, MG, #### [address] [address] [employer] Up Operator: Jurgen Hernandez MD Lymphocytes (Bld) [#/Vol] 0.48 10*3/uL Low 1.0-4.[address] [facility] Comment on above: Performed By: #### C P, CDP, MG, #### [address] [address] [employer] Up Operator: Jurgen Hernandez MD Lymphocytes/100 WBC (Bld) 5 % Low 24-[address] [facility] Comment on above: Performed By: #### C P, CDP, MG, #### [address] [address] [employer] Up Operator: Jurgen Hernandez MD Monocytes (Bld) [#/Vol] 0.38 10*3/uL Normal 0.1-0.[address] [facility] Comment on above: Performed By: #### C P, CDP, MG, #### [place] [address] [employer] Up Operator: Jurgen Hernandez MD Monocytes/100 WBC (Bld) 4 % Normal 1-[address] [facility] Comment on above: Performed By: #### C P, CDP, MG, #### [address] [address] [employer] Up Operator: Jurgen Hernandez MD Morphology Moises (Bld) [Interp] ANISOCYTOSIS PRESENT Normal [facility] Comment on above: Performed By: #### C P, CDP, MG, #### [address] [address] [employer] Up Operator: Jurgen Hernandez MD Neutrophil (Seg) 91 % High 36-66 [facility] Comment on above: Performed By: #### C P, CDP, MG, #### [address] [address] [employer] Up Operator: Jurgen Hernandez MD Erythrocyte distribution width (RBC) [Ratio] 14.5 % High 11.8-14.[address] [facility] Comment on above: Performed By: #### C P, CDP, MG, #### [address] [address] [employer] Up Operator: Jurgen Hernandez MD Hematocrit (Bld) [Volume fraction] 35.7 % Low 36.3-47.[address] [facility] Comment on above: Performed By: #### C P, CDP, MG, #### [place] [address] [employer] Up Operator: Jurgen Hernandez MD Hemoglobin (Bld) [Mass/Vol] 12.1 g/dL Normal 11.9-15.[address] [facility] Comment on above: Performed By: #### C P, CDP, MG, #### [place] [address] [employer] Up Operator: Jurgen Hernandez MD MCH (RBC) [Entitic mass] 30.0 pg Normal 25.2-33.[address] [facility] Comment on above: Performed By: #### C P, CDP, MG, #### [place] [address] [employer] Up Operator: Jurgen Hernandez MD MCHC (RBC) [Mass/Vol] 33.9 g/dL Normal 28.4-34.8 [facility] Comment on above: Performed By: #### C P, CDP, MG, #### [address] [address] [employer] Up Operator: Jurgen Hernandez MD MCV (RBC) [Entitic vol] 88.4 fL Normal 82.6-102.[address] [facility] Comment on above: Performed By: #### C P, CDP, MG, #### [address] [address] [employer] Up Operator: Jurgen Hernandez MD NRBC Automated 0.0 per 100 WBC Normal 0.[address] [facility] Comment on above: Performed By: #### C P, CDP, MG, #### [address] [address] [employer] Up Operator: Jurgen Hernandez MD Platelet mean volume (Bld) [Entitic vol] 9.4 fL Normal 8.1-13.[address] [facility] Comment on above: Performed By: #### C P, CDP, MG, #### [address] [address] [employer] Up Operator: Jurgen Hernandez MD Platelets (Bld) [#/Vol] 231 10*3/uL Normal 138-[address] [facility] Comment on above: Performed By: #### C P, CDP, MG, #### [address] [address] [employer] Up Operator: Jurgen Hernandez MD RBC (Bld) [#/Vol] 4.04 10*6/uL Normal 3.95-5.[address] [facility] Comment on above: Performed By: #### C P, CDP, MG, #### [address] [address] [employer] Set Up Operator: Jurgen Hernandez MD WBC (Bld) [#/Vol] 9.5 10*3/uL Normal 3.5-11.[address] [facility] Comment on above: Performed By: #### C P, CDP, MG, #### [address] [address] [employer] Operator: Jurgen Hernandez MD Comp Metabolic Profon 2023 Potassium [Moles/Vol] 2.7 mmol/L Critically low 3.7-5.[address] [facility] Comment on above: Performed By: #### C P #### [address] [address] [employer] Up Operator: Jurgen Hernandez MD Albumin [Mass/Vol] 2.9 g/dL Low 3.5-5.[address] [facility] Comment on above: Performed By: #### C P #### [address] [address] [employer] Up Operator: Jurgen Hernandez MD Albumin/Glob Ratio 1.1 Normal 1.0-2.[address] [facility] Comment on above: Performed By: #### C P #### [address] [address] [employer] Up Operator: Jurgen Hernandez MD Alkaline Phos 73 U/L Normal 35-[address] [facility] Comment on above: Performed By: #### C P #### [address] [address] [employer] Set Up Operator: Jurgen Hernandez MD ALT [Catalytic activity/Vol] 8 U/L Normal 5-[address] [facility] Comment on above: Performed By: #### C P #### [address] [address] [employer] Up Operator: Jurgen Hernandez MD Anion gap [Moles/Vol] 12 mmol/L Normal 9-17 [facility] Comment on above: Performed By: #### C P #### [address] [address] [employer] Up Operator: Jurgen Hernandez MD AST [Catalytic activity/Vol] 14 U/L Normal <[address] [facility] Comment on above: Performed By: #### C P #### [address] [address] [employer] Up Operator: Jurgen Hernandez MD Bilirubin [Mass/Vol] 1.3 mg/dL High 0.3-1.2 [facility] Comment on above: Performed By: #### C P #### [address] [address] [employer] Up Operator: Jurgen Hernandez MD Calcium [Mass/Vol] 7.9 mg/dL Low 8.6-10.[address] [facility] Comment on above: Performed By: #### C P #### [address] [address] [employer] Up Operator: Jurgen Hernandez MD Chloride [Moles/Vol] 105 mmol/L Normal 98-107 [facility] Comment on above: Performed By: #### C P #### [address] [address] [employer] Up Operator: Jurgen Hernandez MD CO2 [Moles/Vol] 21 mmol/L Normal 20-[address] [facility] Comment on above: Performed By: #### C P #### [address] [address] [employer] Up Operator: Jurgen Hernandez MD Creatinine [Mass/Vol] 0.4 mg/dL Low 0.5-0.9 [facility] Comment on above: Performed By: #### C P #### [address] [address] [employer] Operator: Jurgen Hernandez MD GFR/1.73 sq M.predicted among non-blacks MDRD (S/P/Bld) [Vol rate/Area] mL/min/{1.73_m2} Normal >[address] [facility] Comment on above: Result Comment: These results [...] secretion. Performed By: #### C P #### [address] [address] [employer] Up Operator: Jurgen Hernandez MD Glucose [Mass/Vol] 115 mg/dL High 70-[address] [facility] Comment on above: Performed By: #### C P #### [address] [address] [employer] Up Operator: Jurgen Hernandez MD Protein [Mass/Vol] 5.5 g/dL Low 6.4-8.[address] [facility] Comment on above: Performed By: #### C P #### [address] [address] [employer] Up Operator: Jurgen Hernandez MD Sodium [Moles/Vol] 138 mmol/L Normal 135-[address] [facility] Comment on above: Performed By: #### C P #### [address] [address] [employer] Operator: Jurgen Hernandez MD Urea nitrogen [Mass/Vol] 3 mg/dL Low 6-[address] [facility] Comment on above: Performed By: #### C P #### [address] [address] [employer] Up Operator: Jurgen Hernandez MD Potassium [Moles/Vol] 2.6 mmol/L Critically low 3.7-5.[address] [facility] Comment on above: Performed By: #### C P, CDP, MG, BH #### [facility] [employer] [address] [place] [address] [employer] Up Operator: Jurgen Hernandez MD Albumin [Mass/Vol] 3.4 g/dL Low 3.5-5.[address] [facility] Comment on above: Performed By: #### C P, CDP, MG, BH #### [facility] [employer] [address] [place] [address] [employer] Up Operator: Jurgen Hernandez MD Albumin/Glob Ratio 1.0 Normal 1.0-2.[address] [facility] Comment on above: Performed By: #### C P, CDP, MG, #### [address] [address] [employer] Up Operator: Jurgen Hernandez MD Alkaline Phos 80 U/L Normal 35-[address] [facility] Comment on above: Performed By: #### C P, CDP, MG, #### [address] [address] [employer] Operator: Jurgen Hernandez MD ALT [Catalytic activity/Vol] 9 U/L Normal 5-[address] [facility] Comment on above: Performed By: #### C P, CDP, MG, #### [address] [address] [employer] Up Operator: Jurgen Hernandez MD Anion gap [Moles/Vol] 15 mmol/L Normal 9-17 [facility] Comment on above: Performed By: #### C P, CDP, MG, #### [address] [address] [employer] Up Operator: Jurgen Hernandez MD AST [Catalytic activity/Vol] 20 U/L Normal <[address] [facility] Comment on above: Performed By: #### C P, CDP, MG, #### [address] [address] [employer] Operator: Jurgen Hernandez MD Bilirubin [Mass/Vol] 1.6 mg/dL High 0.3-1.2 [facility] Comment on above: Performed By: #### C P, CDP, MG, #### [address] [address] [employer] Operator: Jurgen Hernandez MD Calcium [Mass/Vol] 8.2 mg/dL Low 8.6-10.[address] [facility] Comment on above: Performed By: #### C P, CDP, MG, #### [address] [address] [employer] Up Operator: Jurgen Hernandez MD Chloride [Moles/Vol] 108 mmol/L High 98-107 [facility] Comment on above: Performed By: #### C P, CDP, MG, #### [address] [address] [employer] Up Operator: Jurgen Hernandez MD CO2 [Moles/Vol] 19 mmol/L Low 20-[address] [facility] Comment on above: Performed By: #### C P, CDP, MG, #### [address] [address] [employer] Up Operator: Jurgen Hernandez MD Creatinine [Mass/Vol] 0.4 mg/dL Low 0.5-0.9 [facility] Comment on above: Performed By: #### C P, CDP, MG, #### [address] [address] [employer] Operator: Jurgen Hernandez MD GFR/1.73 sq M.predicted among non-blacks MDRD (S/P/Bld) [Vol rate/Area] mL/min/{1.73_m2} Normal >[address] [facility] Comment on above: Result Comment: These results [...] #### C P, CDP, MG, BH #### [address] [address] [employer] Up Operator: Jurgen Hernandez MD Glucose [Mass/Vol] 122 mg/dL High 70-[address] [facility] Comment on above: Performed By: #### C P, CDP, MG, #### [employer] [facility] [place] [address] [employer] Up Operator: Jurgen Hernandez MD Protein [Mass/Vol] 6.7 g/dL Normal 6.4-8.[address] [facility] Comment on above: Performed By: #### C P, CDP, MG, #### [employer] [facility] [address] [place] [address] [phone] [employer] Up Operator: Jurgen Hernandez MD Sodium [Moles/Vol] 142 mmol/L Normal 135-[address] [facility] Comment on above: Performed By: #### C P, CDP, MG, #### [facility] [address] [place] [address] [phone] [employer] Up Operator: Jurgen Hernandez MD Urea nitrogen [Mass/Vol] 6 mg/dL Normal 6-[address] [facility] Comment on above: Performed By: #### C P, CDP, MG, #### [facility] [address] [place] [address] [employer] Up Operator: Jurgen Hernandez MD Comprehensive Metabolic Pane [facility] 03-26-2023 Albumin [Mass/Vol] 2.9 g/dL Low 3.5 - 5.2 g/dL [facility] Albumin/Globulin [Mass ratio] 1.1 {ratio} 1.0 - 2.5 [facility] ALP [Catalytic activity/Vol] 73 U/L 35 - 104 U/L [facility] ALT [Catalytic activity/Vol] 8 U/L 5 - 33 U/L [facility] Anion gap [Moles/Vol] 12 mmol/L 9 - 17 mmol/L [facility] AST [Catalytic activity/Vol] 14 U/L NINF - 32 U/L [facility] Bilirubin [Mass/Vol] 1.3 mg/dL High 0.3 - 1 .2 mg/dL [facility] Calcium [Mass/Vol] 7.9 mg/dL Low 8.6 - 10. 4 mg/dL [facility] Chloride [Moles/Vol] 105 mmol/L 98 - 10 7 mmol/L [facility] CO2 [Moles/Vol] 21 mmol/L 20 - 31 mmol/L [facility] Creatinine [Mass/Vol] 0.4 mg/dL Low 0.5 - 0.9 mg/dL [facility] GFR/1.73 sq M.predicted MDRD (S/P/Bld) [Vol rate/Area] - PINF [facility] Comment on above: These results are not [...] 115 mg/dL High 70 - 99 mg/dL [facility] Interpretation and review of laboratory results Abnormal [facility] Potassium [Moles/Vol] 2.7 mmol/L Critically low 3.7 - 5.3 mmol/L [facility] Protein [Mass/Vol] 5.5 g/dL Low 6.4 - 8.3 g/dL [facility] Sodium [Moles/Vol] 138 mmol/L 135 - 144 mmol/L [facility] Urea nitrogen [Mass/Vol] 3 mg/dL Low 6 - 20 mg/dL [facility] Albumin [Mass/Vol] 3.4 g/dL Low 3.5 - 5.2 g/dL [facility] Albumin/Globulin [Mass ratio] 1.0 {ratio} 1.0 - 2.5 [facility] ALP [Catalytic activity/Vol] 80 U/L 35 - 104 U/L [facility] ALT [Catalytic activity/Vol] 9 U/L 5 - 33 U/L [facility] Anion gap [Moles/Vol] 15 mmol/L 9 - 17 mmol/L [facility] AST [Catalytic activity/Vol] 20 U/L NINF - 32 U/L [facility] Bilirubin [Mass/Vol] 1.6 mg/dL High 0.3 - 1 .2 mg/dL [facility] Calcium [Mass/Vol] 8.2 mg/dL Low 8.6 - 10. 4 mg/dL [facility] Chloride [Moles/Vol] 108 mmol/L High 98 - 10 7 mmol/L [facility] CO2 [Moles/Vol] 19 mmol/L Low 20 - 31 mmol/L [facility] Creatinine [Mass/Vol] 0.4 mg/dL Low 0.5 - 0.9 mg/dL [facility] GFR/1.73 sq M.predicted MDRD (S/P/Bld) [Vol rate/Area] - PINF [facility] Comment on above: These results are not [...] 122 mg/dL High 70 - 99 mg/dL [facility] Interpretation and review of laboratory results Abnormal [facility] Potassium [Moles/Vol] 2.6 mmol/L Critically low 3.7 - 5.3 mmol/L [facility] Protein [Mass/Vol] 6.7 g/dL 6.4 - 8.3 g/dL [facility] Sodium [Moles/Vol] 142 mmol/L 135 - 144 mmol/L [facility] Urea nitrogen [Mass/Vol] 6 mg/dL 6 - 20 mg/dL [facility] Magnesiumon 03-26-2023 Magnesium [Mass/Vol] 1.6 mg/dL Normal 1.6-2.6 [facility] Comment on above: Performed By: #### C P, CDP, MG, BH #### [address] [address] [employer] Set Up Operator: Jurgen Hernandez MD Magnesium [Mass/Vol] 1.6 mg/dL 1.6 - 2 .6 mg/dL [facility] Potassiumon 03-26-2023 Interpretation and review of laboratory results Abnormal [facility] Potassium [Moles/Vol] 2.5 mmol/L Critically low 3.7 - 5.3 mmol/L [facility] Protein / Creatinine Ratio, Urineon 03-26-2023 Creatinine (U) [Mass/Vol] 185.0 mg/dL 28.0 - 217.0 mg/dL [facility] Protein (U) [Mass/Vol] 44 mg/dL [facility] Comment on above: No normal range esta blished. Urine Total Protein Creatinine Ratio 0.24 [facility] Protein,Tot,Kechi Uron 2023 Creatinine [Mass/Vol] 185.0 mg/dL Normal 28.0-217.0 [facility] Comment on above: Performed By: #### K #### [address] [address] [employer] Up Operator: Jurgen Hernandez MD Tot Prot. Conc. 44 mg/dL [facility] Comment on above: Result Comment: No n ormal range established. Performed By: #### K #### [facility] [address] [place] [address] [phone] [employer] Up Operator: Jurgen Hernandez MD TP/Cre Ratio 0.[address] [facility] Comment on above: Performed By: #### K #### [facility] [employer] [address] [place] [address] [employer] Set Up Operator: Jurgen Hernandez MD US PELVIS TRANSVAGon 023 [...] LUCIANA MENDOZA Date: 2022-04-12 16:28 Normal [facility] Vaginitis DNA Probeon 2022 Hiral Species, DNA Probe Negative NEGATIVE [facility] Comment on above: for Hiral sp. Method of testing is a DNA probe intended for detection and identification of Hiral species, Gardnerella vaginalis, and Trichomonas vaginalis nucleic acid in vaginal fluid specimens from patients with symptoms of vaginitis/vaginosis. Gardnerella Vaginalis, DNA Probe Positive Abnormal NEGATIVE [facility] Comment on above: for Gardnerella vagi nalis Interpretation and review of laboratory results Abnormal [facility] Source .VAGINAL SWAB [facility] Trichomonas Vaginalis DNA Negative NEGATIVE [facility] Comment on above: for Trichomonas Vagi nalis [facility] Vital Signs Date Time Vital Sign Value Performing Clinician Facility 03-29-2023 11:45-0500 Body mass index (BMI) [Ratio] 38.07 kg/m2 Bibulu DO Work Phone: [facility] 03-29-2023 11:45-0500 Body weight 94.4 kg Renu Susie DO Work Phone: [facility] 03-29-2023 11:45-0500 Diastolic blood pressure 70 mm[Hg] Renu Susie DO Work Phone: [facility] 03-29-2023 11:45-0500 Systolic blood pressure 122 mm[Hg] Renu Susie DO Work Phone: [facility] 03-27-2023 14:27-0500 Body temperature 37.0 [facility] DO Work Phone: [facility] 03-27-2023 11:51-0500 Body temperature 98.2 [degF] Pema Amaury DO Work Phone: [facility] 03-27-2023 11:51-0500 Diastolic blood pressure 78 mm[Hg] Pema Amaury DO Work Phone: [facility] 03-27-2023 11:51-0500 Heart rate 91 /min Pema Amaury DO Work Phone: [facility] 03-27-2023 11:51-0500 Respiratory rate 16 /min Pema Rebolledo DO Work Phone: [facility] 03-27-2023 11:51-0500 SaO2% (BldA) [Mass fraction] 97 % Pema Rebolledo DO Work Phone: [facility] 03-27-2023 11:51-0500 Systolic blood pressure 123 mm[Hg] Pema Amaury DO Work Phone: [facility] 02-15-2023 17:00-0500 Body height 157.48 cm Rosalind Jeter Other [employer] Other 02-15-2023 17:00-0500 Body mass index (BMI) [Ratio] 37.45 kg/m2 Rosalind Jeter Other [employer] Other 02-15-2023 17:00-0500 Body temperature 98 [degF] Rosalind Jeter Other [employer] Other 02-15-2023 17:00-0500 Body weight 92.9 kg Rosalind Jeter Other [employer] Other 02-15-2023 17:00-0500 Diastolic blood pressure 71 mm[Hg] Rosalind Jeter Other [employer] Other 02-15-2023 17:00-0500 Respiratory rate 18 /min Rosalind Jeter Other [employer] Other 02-15-2023 17:00-0500 SaO2% (BldA) [Mass fraction] 99 % Rosalind Riveramond Other [employer] Other 02-15-2023 17:00-0500 Systolic blood pressure 111 mm[Hg] Rosalind Jeter Other [employer] Other Encounters Encounter Date Encounter Type Care Provider Facility Start: 03-29-2023 End: 03-29-2023 ambulatory RENU SUSIE Not Available Start: 03-29-2023 End: 03-29-2023 flow sheet Renu Susie DO Work Phone: [facility] Comment on above: Third trimester preg mitchel; Hypokalemia Start: 03-26-2023 End: 03-27-2023 ambulatory PEMA REBOLLEDO [facility] Start: 03-26-2023 End: 03-26-2023 [facility] Start: 03-26-2023 End: 03-27-2023 Subsequent hospital visit by physician Pema Godoy Phone: [id number] Delivery Comment on above: Hypokalemia (Primary Dx) Start: 2023 End: 2023 ambulatory RENU SUSIE Not Available Start: 02-22-2023 End: 02-22-2023 ambulatory RENU SUSIE Not Available Start: 02-15-2023 End: 02-15-2023 ambulatory Rosalind Jeter Other [employer] Other Start: 02-15-2023 Office outpatient ne w 10 minutes Rosalind Jeter [facility] Start: 02-08-2023 End: 02-08-2023 ambulatory RINA CURRY Not Available Start: 01-16-2023 End: 01-16-2023 ambulatory RENU SUSIE Not Available Start: 04-11-2022 End: 04-12-[address] NONE LISTED REQUEST Facility: Start: 03-30-2022 End: 03-30-2022 Patient encounter procedure Rosette Mendoza Other Phone: [employer] [place] [facility] Start: 03-30-2022 End: 03-30-2022 Subsequent hospital visit by physician Rosette Mendoza Other Phone: [employer] [place] [facility] Comment on above: Vaginal discharge; [...] specie s direct probe tq Brittani Aguilar PIPING DESIGN SPECIALIST - CNM Work Phone: Start: 03-30-2022 Microscopic observat ion [Identifier] in Cervix by Cyto stain Pema Rebolledo DO Work Phone: Plan of Treatment Date Care Activity Detail Author Start: 03-30-2027 Screening for malign ant neoplasm of cervix [facility] [employer] [facility] Start: 03-30-2025 Screening for malign ant neoplasm of cervix Pap smear [facility] [employer] [facility] Start: 04-11-2023 End: 04-11-2023 Patient encounter procedure 04/11/2023 10:30 AM EST Routine [facility] [address] [facility] [address] [place] [address] Return in about 6 weeks (around 04/11/2023) for Repeat Anatomy, Growth/BPP. [facility] Comment on above: Return in about 6 we eks (around 04/11/2023) for Repeat Anatomy, Growth/BPP. Start: 04-05-2023 End: 04-05-2023 Patient encounter procedure 04/05/2023 11:30 AM EST Routine [facility] [address] [address] Renu Richards DO [address] [place] [address] [facility] Start: 03-31-2023 End: 03-27-2024 Potassium [Moles/volume] in Serum or Plasma Potassium Lab Routine Hypokalemia Expected: 03/31/2023, Expires: 03/27/2024 [facility] [employer] [facility] Comment on above: Expected: 03/31/2023 , Expires: 03/27/2024 Start: 03-30-2023 Depression Screen Depression Screen [facility] [employer] [facility] Start: 03-29-2023 End: 03-29-2024 US biophysical profile w non stress test US biophysical profile w non stress test Imaging Routine Hypokalemia Expected: 03/29/2023 (Approximate), Expires: 03/29/2024 [facility] Work Phone: Comment on above: Expected: 03/29/2023 (Approximate), Expires: 03/29/2024 Start: 2023 Diabetes screen Diabetes screen [facility] Start: 09-13-2022 Influenza vaccination Flu vaccine (# 1) [facility] Start: 09-13-2021 Influenza vaccination Flu vaccine (# 1) [facility] Start: 2018 Screening for malign ant neoplasm of cervix [facility] Start: 2009 Screening for malign ant neoplasm of cervix Pap smear [facility] Start: 2007 DTaP/Tdap/Td vaccine (1 - Tdap) DTaP/Tdap/Td vaccine (1 - Tdap) [facility] Start: 2006 Hepatitis C screening Hepatitis C sc reen [facility] Start: 2003 HIV screening HIV screen [facility] [email or web address] Start: 1989 Varicella vaccine (1 of 2 - 2-dose childhood series) Varicella vaccine (1 of 2 - 2-dose childhood series) [facility] Start: 1988 COVID-19 Vaccine (#1) COVID-19 Vacci ne (#1) [facility] Start: 1988 Hepatitis B vaccine (1 of 3 - 3-dose series) Hepatitis B vaccine (1 of 3 - 3-dose series) [facility] End: 03-30-2022 C.trachomatis N.gonorrhoeae DNA, Thin Prep [facility] Work Phone: Comment on above: 1 Occurrences starti ng 03/30/2022 until 03/30/2022 End: 03-27-2023 Culture, Strep B Screen, Vaginal/Rectal [facility] [employer] Phone: Comment on above: One Time for 1 Occur rences starting 03/27/2023 until 03/27/2023 End: 03-30-2022 Culture, Urine [facility] [employer] Phone: Comment on above: 1 Occurrences starti ng 03/30/2022 until 03/30/2022 End: 03-27-2023 Electrolyte Panel w/ Reflex to MG Electrolyte Panel w/ Reflex to MG Lab Routine One Time for 1 Occurrences starting 03/27/2023 until 03/27/2023 [facility] Work Phone: Comment on above: One Time for 1 Occur rences starting 03/27/2023 until 03/27/2023 Nonrebreather mask oxygen Nonrebreather mask oxygen Respiratory Care Routine As Needed until discontinued starting 03/26/2023 [facility] Comment on above: As Needed until disc ontinued starting 03/26/2023 Payers Date Payer Category Payer Unknown BCBS BCBS xxxxxx [id number] 2022-Present [phone] [address] [place] [address] [id number] 1988 Unknown [id number] 1988 Unknown [id number] 1988 Unknown [id number] 1988 Unknown [id number] 1988 Unknown [id number] 1988 Unknown [id number] 1988 Unknown [id number] 1988 Unknown [id number] 1959 Unknown [id number] Social History Date Type Detail Facility Start: 03-30-2022 End: 10-10-2022 Tobacco smoking status NHIS Never smoked tobacco [employer] Phone: Start: 03-30-2022 End: 10-10-2022 Tobacco use and exposure Smokeless tobacco non-user [employer] Phone: Start: 03-30-2022 Alcohol intake Lifetime non-drinker (finding) [employer] Phone: Start: 1990 Sex Assigned At Not on file [employer] Phone: Start: 11-21-2022 End: 03-26-2023 Sex Assigned At [employer] Other Start: 03-26-2023 End: 03-29-2023 Alcohol intake Ex-drinker (finding) [facility] Start: 11-21-2022 End: 03-26-2023 History of Social function [facility] Patient Health Questionnaire 9 item (PHQ-9) total score [Reported] 0 [facility] Start: 08-08-2022 [facility] Start: 1990 Sex Assigned At Female [facility] Start: 09-21-2022 Gender identity Identifies as female gender (finding) [facility] History of Present illness Narrative 03-29-2023 [...] nursing note reviewed. Exam conducted with a case briefer present. Vitals: Estimated body mass index is [...] Renu Richards DO documented in this encounter [facility] Discharge instructions 03-27-2023 Discharge Instructions Note Date [...] on left side. documented in this encounter [facility] History of Present illness Narrative 03-27-2023 Keiko [...] the patient: POTASSIUM ER 20MG Additional Documentation: PARADICHLOROBENZENE TENDER PROGRESS NOTE Niesha Fisher is a 33 [...] Will update Dr. Gonzalez. Joanna Pablo DO Sliver Cutter Resident 03/27/2023, 6:31 AM Attending Physician Statement [...] Gonzalez MD Date: 03/27/2023 Time: 11:48 AM PARADICHLOROBENZENE TENDER RESIDENT INTERVAL NOTE Repeat CMP reviewed K [...] ms QTc Calculation (Bazett) 471 ms P Lyford 54 degrees R Lyford 35 degrees T Lyford 38 degrees Comprehensive Metabolic Panel Collection Time: [...] AST 14 <32 U/L Joanna Pablo DO PARADICHLOROBENZENE TENDER Resident [facility] 03/26/2023 8:12 PM documented in this encounter [facility] course Narrative 03-27-2023 Sun Gillis MD - 03/27/2023 3:37 PM EST Note Date & Type Note Facility 03-27-2023 Hospital course Narrative Obstetric Discharge Summary [facility] Patient Name: Niesha Fisher Patient : 1990 [...] Your Medications These medications were sent to [address] - [phone] - F [phone] [facility] [facility] [address] potassium chloride 20 MEQ extended release tablet Diet: regular Follow up: With primary Ob provider on 03/29/23 Condition on discharge: good Discharge date: 03/27/23 Sun Gillis MD Sliver Cutter Resident documented in this encounter [facility] Evaluation note 02-15-2023 Note Date & Type Note Facility 02-15-2023 Evaluation note Encounter Date Diagnosis Assessment Notes Feb, Right otitis media, unspecified otitis media type (ICD-10 - H66.91) Drink plenty fluids, get plenty of rest. Take the amoxicillin as prescribed until gone. Take Tylenol as needed for pain or fevers. Follow-up with your family physician or [facility] if no improvement in 2 to 3 days. [employer] Other Evaluation note Note Date & Type Note Facility Evaluation note Diagnosis Vaginal discharge Leukorrhea, not specified as infective Malodorous urine Other nonspecific finding on examination of urine Well woman exam Routine general medical examination at a health care facility documented in this encounter [facility] [email or web address] Work Phone: Evaluation note Note Date & Type Note Facility Evaluation note Diagnosis 34 weeks gestation of - Primary state, incidental Hypokalemia Hypopotassemia Acute gastroenteritis Other and unspecified noninfectious gastroenteritis and colitis Hypokalemia Hypopotassemia Hypomagnesemia Disorders of magnesium metabolism documented in this encounter [facility] Evaluation note Note Date & Type Note Facility Evaluation note Diagnosis Third trimester state, incidental Hypokalemia Hypopotassemia documented in this encounter [facility] History general Narrative - Reported Note Date & Type Note Facility History general Narrative - Reported Type Surgical History C section 2020 [employer] Other Summary Purpose Family History No Family History Records FoundNo Family History Records FoundNo Family History Records Found Advance Directives No Advanced Directives Records FoundLatest Code Status on File Code Status Date Activated Date Inactivated Comments Full Code 03/26/2023 9:19 AM Additional Source Comments Care Teams (unrecognized sec tion and content) Wire Splicer Relationship Specialty Start Date End Date Rosette Mendoza [address] [facility] [address] [place] [address] PCP - General Internal Medicine 03/30/22 Wire Splicer Relationship Specialty Start Date End Date Rosette Mendoza [address] [facility] [address] [place] [address] PCP - General Internal Medicine 03/30/22 INFORMATION SOURCE (unrecogn ized section and content) DATE CREATED AUTHOR 04/17/2022 [facility] DATE CREATED AUTHOR AUTHOR'S ORGANIZ ATION 03/31/2023 [facility] EPIC DATE CREATED AUTHOR AUTHOR'S ORGANIZ ATION 04/02/2023 [facility] REASON FOR VISIT (unrecogniz ed section and content) Reason Comments Nausea & Vomiting Diarrhea Specialty Diagnoses / Procedures Referred By Angela t Referred To Contact Diagnoses 34 weeks gestation of Pema Rebolledo DO [address] [place] [address] [facility] [address] [place] [address] Referral ID Status Reason Start Date Expiration Date Visits Re quested Visits Authorized [id number] 1 1 Reason Comments Routine Visit Ordered [...] On Mon03/26/23 at 2030, For 1 dose 205 (New Bag - Provider: Sanjana Raines RN)[id number] [...] BE BASED ON THE PRIMARY CLINICAL RECORDS. [employer] provides no warranty or guarantee of the accuracy or completeness of information in this document.
[2023-04-08 10:20] VITALS: BP 119/75; PULSE 108
== END 2023-04-08 10:58 | disposition home or self-care (01) ==
LOC: FBCO 10:11 → FBC 10:15
PROVIDERS: Visit Provider Obstetrics & Gynecology
DX: E87.6 Hypokalemia (principal)
CPT/HCPCS: 59025

== ENCOUNTER 2023-04-11 17:36 | Inpatient (IN) | payer BC, SELFPAY ==
[2023-04-11] VITALS (23 sets, daily range): BP systolic 100–133; BP diastolic 53–89; PULSE 96–114; RESP 12–34; TEMP 36.5–37; O2SAT 94–96
--- OUTSIDE RECORDS SUMMARY | 2023-04-11 17:49 | XMS_ITS | CCD ---
Author Name Unknown Address [address] [place] [address] Organization [facility] Care Team Providers Care Energy Assistant Name Role Phone Rosette Mendoza Primary Care [...] B STREPTOCOCCI Report Status FINAL 03/31/2023 Normal [facility] Comment on above: Performed By: #### R OGBS #### [facility] [employer] [address] [phone] Strategic Procurement Manager: Jurgen Hernandez MD Urinalysis macro (dipstick) panel (U)on 03-29-2023 Bilirubin, UA Negative Negative - 4(70) +++ mg/dL [facility] Blood, UA Negative Negative - 50 Dwight/mcL [facility] Clarity, UA Clear [facility] Color, UA Yellow [facility] Glucose, UA Negative Negative - 1999(110) ++++ mg/dL [facility] Interpretation and review of laboratory results Normal [facility] Ketones, UA Negative Negative - 160(16) ++++ mg/dL [facility] Leukocytes, UA Negative Negative - 500+++ Karlene/mcL [facility] Nitrite, UA Negative Negative - Positive [facility] pH, UA 7.0 5 - 9 [facility] Protein, UA Negative Negative - 1999(20) ++++ mg/dL [facility] Spec Grav, UA 1.025 1 - 1.03 [facility] Urobilinogen, UA 0.2 0.2 - 12 mg/dL [facility] BLOOD GAS, VENOUSon 03-27-19 Carboxyhemoglobin (Bld) [Mass fraction] 1.0 % 0 - 5 % [facility] Comment on above: Reference Range: Non-Smokers 0-2% Average Smoker 2-4% Heavy Smoker <10% HCO3 (Bld) [Moles/Vol] 24.8 mmol/L 24 - 30 mmol /L [facility] Interpretation and review of laboratory results Abnormal [facility] Negative Base Excess, Pieter 0.3 mmol/L 0.0 - 2.0 mmol/L [facility] Oxygen saturation in Blood 35.8 % Low 60.0 - 85.0 % [facility] Oxygen/Inspired gas Respiratory system --on ventilator INFORMATION NOT PROVIDED [facility] pCO2, Pieter 45.1 [facility] pH, Pieter 7.359 7.320 - 7.420 [facility] pO2, Pieter 26.4 Low [facility] Comp Metabolic Profon 2023 Potassium [Moles/Vol] 2.9 mmol/L Critically low 3.7-5.3 [facility] Comment on above: Performed By: #### C P, OSMO, MG #### [employer] [address] [place] [address] [phone] Strategic Procurement Manager: Jurgen Hernandez MD Albumin [Mass/Vol] 2.9 g/dL Low 3.5-5.2 [facility] Comment on above: Performed By: #### C P, OSMO, MG #### [employer] [facility] [place] [address] Strategic Procurement Manager: Jurgen Hernandez MD Albumin/Glob Ratio 1.1 Normal 1.0-2.5 [facility] Comment on above: Performed By: #### C P, OSMO, MG #### [employer] [address] [place] [phone] Strategic Procurement Manager: Jurgen Hernandez MD Alkaline Phos 73 U/L Normal 35-104 [facility] Comment on above: Performed By: #### C P, OSMO, MG #### [facility] [address] [place] [phone] Strategic Procurement Manager: Jurgen Hernandez MD ALT [Catalytic activity/Vol] 7 U/L Normal 5-33 [facility] Comment on above: Performed By: #### C P, OSMO, MG #### [facility] [address] [place] [id number] Strategic Procurement Manager: Jurgen Hernandez MD Anion gap [Moles/Vol] 9 mmol/L Normal 9-17 [facility] Comment on above: Performed By: #### C P, OSMO, MG #### [address] [address] Strategic Procurement Manager: Jurgen Hernandez MD AST [Catalytic activity/Vol] 26 U/L Normal <32 [facility] Comment on above: Performed By: #### C P, OSMO, MG #### [facility] [employer] [address] [place] [phone] Strategic Procurement Manager: Jurgen Hernandez MD Bilirubin [Mass/Vol] 1.3 mg/dL High 0.3-1.2 [facility] Comment on above: Performed By: #### C P, OSMO, MG #### [facility] [address] [place] [phone] Strategic Procurement Manager: Jurgen Hernandez MD Calcium [Mass/Vol] 7.8 mg/dL Low 8.6-10.4 [facility] Comment on above: Performed By: #### C P, OSMO, MG #### [facility] [address] [place] [phone] Strategic Procurement Manager: Jurgen Hernandez MD Chloride [Moles/Vol] 104 mmol/L Normal 98-107 [facility] Comment on above: Performed By: #### C P, OSMO, MG #### [facility] [address] [place] [phone] Strategic Procurement Manager: Jurgen Hernandez MD CO2 [Moles/Vol] 21 mmol/L Normal 20-31 [facility] Comment on above: Performed By: #### C P, OSMO, MG #### [facility] [address] [place] [phone] Strategic Procurement Manager: Jurgen Hernandez MD Creatinine [Mass/Vol] 0.4 mg/dL Low 0.5-0.9 [facility] Comment on above: Performed By: #### C P, OSMO, MG #### [address] [address] Strategic Procurement Manager: Jurgen Hernandez MD GFR/1.73 sq M.predicted among non-blacks MDRD (S/P/Bld) [Vol rate/Area] mL/min/{1.73_m2} Normal >60 [facility] Comment on above: Result Comment: These [...] By: #### C P, OSMO, MG #### [address] [address] Strategic Procurement Manager: Jurgen Hernandez MD Glucose [Mass/Vol] 108 mg/dL High 70-99 [facility] Comment on above: Performed By: #### C P, OSMO, MG #### [facility] [address] [place] [phone] Strategic Procurement Manager: Jurgen Hernandez MD Protein [Mass/Vol] 5.6 g/dL Low 6.4-8.3 [facility] Comment on above: Performed By: #### C P, OSMO, MG #### [facility] [address] [place], [place] [phone] Strategic Procurement Manager: Jurgen Hernandez MD Sodium [Moles/Vol] 134 mmol/L Low 135-144 [facility] Comment on above: Performed By: #### C P, OSMO, MG #### [facility] [address] [place], [place] [phone] Strategic Procurement Manager: Jurgen Hernandez MD Urea nitrogen [Mass/Vol] 2 mg/dL Low 6-20 [facility] Comment on above: Performed By: #### C P, OSMO, MG #### [facility] [place], [place] [phone] Strategic Procurement Manager: Jurgen Hernandez MD Comprehensive Metabolic Pane [facility] 03-27-2023 Albumin [Mass/Vol] 2.9 g/dL Low 3.5 - 5.2 g/dL [facility] Albumin/Globulin [Mass ratio] 1.1 {ratio} 1.0 - 2.5 [facility] ALP [Catalytic activity/Vol] 73 U/L 35 - 104 U/L [facility] ALT [Catalytic activity/Vol] 7 U/L 5 - 33 U/L [facility] Anion gap [Moles/Vol] 9 mmol/L 9 - 17 mmol/L [facility] AST [Catalytic activity/Vol] 26 U/L NINF - 32 U/L [facility] Bilirubin [Mass/Vol] 1.3 mg/dL High 0.3 - 1 .2 mg/dL [facility] Calcium [Mass/Vol] 7.8 mg/dL Low 8.6 - 10. 4 mg/dL [facility] Chloride [Moles/Vol] 104 mmol/L 98 - 10 7 mmol/L [facility] CO2 [Moles/Vol] 21 mmol/L 20 - 31 mmol/L [facility] Creatinine [Mass/Vol] 0.4 mg/dL Low 0.5 - 0.9 mg/dL [employer] GFR/1.73 sq M.predicted MDRD (S/P/Bld) [Vol rate/Area] - PINF [employer] Comment on above: These results are not [...] 108 mg/dL High 70 - 99 mg/dL [facility] [employer] Interpretation and review of laboratory results Abnormal [facility] Potassium [Moles/Vol] 2.9 mmol/L Critically low 3.7 - 5.3 mmol/L [employer] Protein [Mass/Vol] 5.6 g/dL Low 6.4 - 8.3 g/dL [facility] [employer] Sodium [Moles/Vol] 134 mmol/L Low 135 - 144 mmol/L [employer] Urea nitrogen [Mass/Vol] 2 mg/dL Low 6 - 20 mg/dL [facility] [employer] [facility] EKG 12 LeadOrdered By: Lillian Pruitt on 03-27-2023 Atrial Rate 101 BPM [employer] Work Phone: P [place] 54 degrees [employer] Work Phone: P-R Interval 178 ms [employer] Work Phone: Q-T Interval 364 ms [employer] Work Phone: QRS Duration 102 ms [employer] Work Phone: QTc Calculation (Bazett) 471 ms [employer] Work Phone: R [place] 35 degrees [employer] Work Phone: T [place] 38 degrees [employer] Work Phone: Ventricular Rate 101 BPM [facility] Work Phone: [facility] Work Phone: EKG 12 Leadon 03-27-2023 Sinus tachycardia Incomplete right bundle branch block Septal infarct , age undetermined Abnormal ECG No previous ECGs available [facility] Lillian Stark MD - 03/27/2023 Sinus tachycardia Incomplete right bundle branch block Septal infarct , age undetermined Abnormal ECG No previous ECGs available [facility] NICE Atrial Rate 101 BPM [facility] NICE P [place] 56 degrees [facility] HEALTH P-R Interval 170 ms [facility] Q-T Interval 364 ms [facility] NICE QRS Duration 96 ms [facility] QTc Calculation (Bazett) 471 ms [facility] R [place] 31 degrees [facility] T [place] 37 degrees [facility] Ventricular Rate 101 BPM [facility] Sinus tachycardia Nonspecific ST and T wave abnormality Abnormal ECG When compared with ECG of 26-MAR-2023 11:35, Incomplete right bundle branch block is no longer Present [facility] MD - 03/27/[address] and T wave abnormality Abnormal ECG When compared with ECG of 26-MAR-2023 11:35, Incomplete right bundle branch block is no longer Present [facility] Electrolyte Panelon 03-27-19 Anion gap [Moles/Vol] 9 mmol/L 9 - 17 mmol/L [facility] Chloride [Moles/Vol] 103 mmol/L 98 - 10 7 mmol/L [facility] CO2 [Moles/Vol] 23 mmol/L 20 - 31 mmol/L [facility] Interpretation and review of laboratory results Abnormal [facility] Potassium [Moles/Vol] 3.1 mmol/L Low 3.7 - 5.3 mmol/L [facility] Sodium [Moles/Vol] 135 mmol/L 135 - 144 mmol/L [facility] Electrolyteson 03-27-2023 Anion gap [Moles/Vol] 9 mmol/L Normal 9-17 [facility] Comment on above: Performed By: #### K #### [address] [address] Strategic Procurement Manager: Jurgen Hernandez MD Chloride [Moles/Vol] 103 mmol/L Normal 98-107 [facility] Comment on above: Performed By: #### K #### [address] [address] Strategic Procurement Manager: Jurgen Hernandez MD CO2 [Moles/Vol] 23 mmol/L Normal 20-31 [facility] Comment on above: Performed By: #### K #### [address] [address] Strategic Procurement Manager: Jurgen Hernandez MD Potassium [Moles/Vol] 3.1 mmol/L Low 3.7-5.3 [facility] Comment on above: Performed By: #### K #### [address] [address] Strategic Procurement Manager: Jurgen Hernandez MD Sodium [Moles/Vol] 135 mmol/L Normal 135-144 [facility] Comment on above: Performed By: #### K #### [address] [address] Strategic Procurement Manager: Jurgen Hernandez MD K (Potassium)on 03-27-2023 Potassium [Moles/Vol] 2.7 mmol/L Critically low 3.7-5.3 [facility] Comment on above: Performed By: #### K #### [address] [address] Strategic Procurement Manager: Jurgen Hernandez MD Potassium [Moles/Vol] 2.5 mmol/L Critically low 3.7-5.3 [facility] Comment on above: Performed By: #### K #### [address] [place] [phone] Strategic Procurement Manager: Jurgen Hernandez MD Magnesiumon 03-27-2023 Magnesium [Mass/Vol] 1.9 mg/dL Normal 1.6-2.6 [facility] Comment on above: Performed By: #### C P, OSMO, MG #### [facility] [address] [place] [address] [phone] Strategic Procurement Manager: Jurgen Hernandez MD Magnesium [Mass/Vol] 1.9 mg/dL 1.6 - 2 .6 mg/dL [facility] OSMOLALITY, URINEon 03-27-19 24 Osmolality (U) [Osmolality] 365 mosm/kg [facility] Osmolalityon 03-27-2023 Osmolality [Osmolality] 285 mosm/kg Normal 275-295 [facility] Comment on above: Performed By: #### C P, OSMO, MG #### [facility] [address] [place] [address] [phone] Strategic Procurement Manager: Jurgen Hernandez MD Osmolality [Osmolality] 285 mosm/kg [facility] Osmolality, Urineon 03-27-19 24 Osmolality - Urine 365 mOsm/kg Normal 80-1300 [facility] Comment on above: Performed By: #### K #### [facility] [address] [place] [address] [phone] Strategic Procurement Manager: Jurgen Hernandez MD POTASSIUM, URINE, RANDOMon 0 03-27-2023 Potassium, Ur 29.1 mmol/L [facility] Comment on above: No normal range esta blished. [facility] Potassiumon 03-27-2023 Interpretation and review of laboratory results Abnormal [facility] Potassium [Moles/Vol] 2.7 mmol/L Critically low 3.7 - 5.3 mmol/L [facility] Potassium,Random Uron 2023 Potassium [Moles/Vol] 29.1 mmol/L Normal [facility] Comment on above: Result Comment: No n ormal range established. Performed By: #### K #### [address] [address] Strategic Procurement Manager: Jurgen Hernandez MD Venous Blood Gaseson 024 Body Temp. 37.0 Normal [facility] Comment on above: Performed By: #### K #### [address] [address] Strategic Procurement Manager: Jurgen Hernandez MD Carboxy Hgb 1.0 % Normal 0-5 [facility] Comment on above: Result Comment: Reference Range: Non-Smokers 0-2% Average Smoker 2-4% Heavy Smoker <10% Performed By: #### K #### [address] [address] Strategic Procurement Manager: Jurgen Hernandez MD FIO2 INFORMATION NOT PROVIDED Normal [facility] Comment on above: Performed By: #### K #### [address] [address] Strategic Procurement Manager: Jurgen Hernandez MD HCO3 (Bld) [Moles/Vol] 24.8 mmol/L Normal 24-30 [facility] Comment on above: Performed By: #### K #### [address] [address] Strategic Procurement Manager: Jurgen Hernandez MD Negative Base Excess 0.3 mmol/L Normal 0.0-2.0 [facility] Comment on above: Performed By: #### K #### [address] [address] Strategic Procurement Manager: Jurgen Hernandez MD Oxygen saturation in Blood 35.8 % Low 60.0-85.0 [facility] Comment on above: Performed By: #### K #### [address] [address] Strategic Procurement Manager: Jurgen Hernandez MD pCO2 45.1 mm Hg Normal 39-55 [facility] Comment on above: Performed By: #### K #### [address] [address] Strategic Procurement Manager: Jurgen Hernandez MD pH (Bld) 7.359 [pH] Normal 7.320-7.420 [facility] Comment on above: Performed By: #### K #### [address] [address] Strategic Procurement Manager: Jurgen Hernandez MD pO2 26.4 mm Hg Low 30-50 [facility] Comment on above: Performed By: #### K #### [address] [address] Strategic Procurement Manager: Jurgen Hernandez MD Beta Hydroxybutyrateon 03-26 Beta Hydroxybutyrate 1.24 mmol/L High 0.02-0.27 [facility] Comment on above: Performed By: #### C P, CDP, MG, BH #### [address] [address] Strategic Procurement Manager: Jurgen Hernandez MD Beta-Hydroxybutyrateon 03-26 Beta hydroxybutyrate [Mass/Vol] 1.24 mmol/L High 0.02 - 0.27 mmol/L [facility] Interpretation and review of laboratory results Abnormal [facility] CBC with Auto Differentialon 03-26-2023 Basophils (Bld) [#/Vol] 0.00 10*3/uL [facility] Basophils/100 WBC (Bld) 0 % 0 - 2 % [facility] Eosinophils (Bld) [#/Vol] 0.00 10*3/uL [facility] Eosinophils/100 WBC (Bld) 0 % Low 1 - 4 % [facility] Erythrocyte distribution width (RBC) [Ratio] 14.5 % High 11.8 - 14.4 % [facility] Hematocrit (Bld) [Volume fraction] 35.7 % Low 36.3 - 47.1 % [facility] Hemoglobin (Bld) [Mass/Vol] 12.1 g/dL 11.9 - 15.1 g/dL [facility] Immature granulocytes (Bld) [#/Vol] 0.00 10*3/uL [facility] Immature granulocytes/100 WBC (Bld) 0 % 0 [facility] Interpretation and review of laboratory results Abnormal [facility] Lymphocytes/100 WBC (Bld) 5 % Low 24 - 44 % [facility] Lymphocytes/100 WBC (Bld) 0.48 % Low [facility] MCH (RBC) [Entitic mass] 30.0 pg 25.2 - 33.5 pg [facility] MCHC (RBC) [Mass/Vol] 33.9 g/dL 28.4 - 34.8 g/dL [facility] MCV (RBC) [Entitic vol] 88.4 fL 82.6 - 102.9 fL [facility] Monocytes/100 WBC (Bld) 4 % 1 - 7 % [facility] Monocytes/100 WBC (Bld) 0.38 % [facility] Morphology Moises (Bld) [Interp] ANISOCYTOSIS PRESENT [facility] Neutrophils/100 WBC (Bld) 91 % High 36 - 66 % [facility] Nucleated RBC/100 WBC (Bld) [Ratio] 0.0 % 0.0 per 100 WBC [facility] Platelet mean volume (Bld) [Entitic vol] 9.4 fL 8.1 - 13.5 fL [facility] Platelets (Bld) [#/Vol] 231 10*3/uL [facility] RBC (Bld) [#/Vol] 4.04 10*6/uL 3.95 - 5.1 1 m/uL [facility] Segmented neutrophils/100 WBC (Bld) 8.64 % High [facility] WBC other (Bld) [#/Vol] 9.5 [facility] CBC with Diffon 03-26-2023 Abs. Basophil 0.00 k/uL Normal 0.0-0.2 [facility] Comment on above: Performed By: #### C P, CDP, MG, #### [address] [address] Strategic Procurement Manager: Jurgen Hernandez MD Abs.Imm.Granulocyte 0.00 k/uL Normal 0.00-0.30 [facility] Comment on above: Performed By: #### C P, CDP, MG, #### [place] [address] Strategic Procurement Manager: Jurgen Hernandez MD Abs.Neutrophil (Seg) 8.64 k/uL High 1.8-7.7 [facility] Comment on above: Performed By: #### C P, CDP, MG, #### [address] [address] Strategic Procurement Manager: Jurgen Hernandez MD Basophils/100 WBC (Bld) 0 % Normal 0-2 [facility] Comment on above: Performed By: #### C P, CDP, MG, #### [address] [address] Strategic Procurement Manager: Jurgen Hernandez MD Eosinophils (Bld) [#/Vol] 0.00 10*3/uL Normal 0.0-0.4 [facility] Comment on above: Performed By: #### C P, CDP, MG, #### [address] [address] Strategic Procurement Manager: Jurgen Hernandez MD Eosinophils/100 WBC (Bld) 0 % Low 1-4 [facility] Comment on above: Performed By: #### C P, CDP, MG, #### [facility] [employer] [address] [place] [phone] Strategic Procurement Manager: Jurgen Hernandez MD Immature granulocytes/100 WBC (Bld) 0 % Normal 0 [facility] Comment on above: Performed By: #### C P, CDP, MG, #### [address] [address] Strategic Procurement Manager: Jurgen Hernandez MD Lymphocytes (Bld) [#/Vol] 0.48 10*3/uL Low 1.0-4.8 [facility] Comment on above: Performed By: #### C P, CDP, MG, #### [address] [address] Strategic Procurement Manager: Jurgen Hernandez MD Lymphocytes/100 WBC (Bld) 5 % Low 24-44 [facility] Comment on above: Performed By: #### C P, CDP, MG, #### [address] [address] Strategic Procurement Manager: Jurgen Hernandez MD Monocytes (Bld) [#/Vol] 0.38 10*3/uL Normal 0.1-0.8 [facility] Comment on above: Performed By: #### C P, CDP, MG, #### [place] [address] Strategic Procurement Manager: Jurgen Hernandez MD Monocytes/100 WBC (Bld) 4 % Normal 1-7 [facility] Comment on above: Performed By: #### C P, CDP, MG, #### [address] [address] Strategic Procurement Manager: Jurgen Hernandez MD Morphology Moises (Bld) [Interp] ANISOCYTOSIS PRESENT Normal [facility] Comment on above: Performed By: #### C P, CDP, MG, #### [address] [address] Strategic Procurement Manager: Jurgen Hernandez MD Neutrophil (Seg) 91 % High 36-66 [facility] Comment on above: Performed By: #### C P, CDP, MG, #### [address] [address] Strategic Procurement Manager: Jurgen Hernandez MD Erythrocyte distribution width (RBC) [Ratio] 14.5 % High 11.8-14.4 [facility] Comment on above: Performed By: #### C P, CDP, MG, #### [address] [address] Strategic Procurement Manager: Jurgen Hernandez MD Hematocrit (Bld) [Volume fraction] 35.7 % Low 36.3-47.1 [facility] Comment on above: Performed By: #### C P, CDP, MG, #### [place] [address] Strategic Procurement Manager: Jurgen Hernandez MD Hemoglobin (Bld) [Mass/Vol] 12.1 g/dL Normal 11.9-15.1 [facility] Comment on above: Performed By: #### C P, CDP, MG, #### [place] [address] Strategic Procurement Manager: Jurgen Hernandez MD MCH (RBC) [Entitic mass] 30.0 pg Normal 25.2-33.5 [facility] Comment on above: Performed By: #### C P, CDP, MG, #### [place] [address] Strategic Procurement Manager: Jurgen Hernandez MD MCHC (RBC) [Mass/Vol] 33.9 g/dL Normal 28.4-34.8 [facility] Comment on above: Performed By: #### C P, CDP, MG, #### [address] [address] Strategic Procurement Manager: Jurgen Hernandez MD MCV (RBC) [Entitic vol] 88.4 fL Normal 82.6-102.9 [facility] Comment on above: Performed By: #### C P, CDP, MG, #### [address] [address] Strategic Procurement Manager: Jurgen Hernandez MD NRBC Automated 0.0 per 100 WBC Normal 0.0 [facility] Comment on above: Performed By: #### C P, CDP, MG, #### [address] [address] Strategic Procurement Manager: Jurgen Hernandez MD Platelet mean volume (Bld) [Entitic vol] 9.4 fL Normal 8.1-13.5 [facility] Comment on above: Performed By: #### C P, CDP, MG, #### [address] [address] Strategic Procurement Manager: Jurgen Hernandez MD Platelets (Bld) [#/Vol] 231 10*3/uL Normal 138-453 [facility] Comment on above: Performed By: #### C P, CDP, MG, #### [address] [address] Strategic Procurement Manager: Jurgen Hernandez MD RBC (Bld) [#/Vol] 4.04 10*6/uL Normal 3.95-5.11 [facility] Comment on above: Performed By: #### C P, CDP, MG, #### [address] [address] Strategic Procurement Manager: Jurgen Hernandez MD WBC (Bld) [#/Vol] 9.5 10*3/uL Normal 3.5-11.3 [facility] Comment on above: Performed By: #### C P, CDP, MG, #### [address] [address] Strategic Procurement Manager: Jurgen Henrandez MD Comp Metabolic Profon 2023 Potassium [Moles/Vol] 2.7 mmol/L Critically low 3.7-5.3 [facility] Comment on above: Performed By: #### C P #### [address] [address] Strategic Procurement Manager: Jurgen Hernandez MD Albumin [Mass/Vol] 2.9 g/dL Low 3.5-5.2 [facility] Comment on above: Performed By: #### C P #### [address] [address] Strategic Procurement Manager: Jurgen Hernandez MD Albumin/Glob Ratio 1.1 Normal 1.0-2.5 [facility] Comment on above: Performed By: #### C P #### [address] [address] Strategic Procurement Manager: Jurgen Hernandez MD Alkaline Phos 73 U/L Normal 35-104 [facility] Comment on above: Performed By: #### C P #### [address] [address] Strategic Procurement Manager: Jurgen Hernandez MD ALT [Catalytic activity/Vol] 8 U/L Normal 5-33 [facility] Comment on above: Performed By: #### C P #### [address] [address] Strategic Procurement Manager: Jurgen Hernandez MD Anion gap [Moles/Vol] 12 mmol/L Normal 9-17 [facility] Comment on above: Performed By: #### C P #### [address] [address] Strategic Procurement Manager: Jurgen Hernandez MD AST [Catalytic activity/Vol] 14 U/L Normal <32 [facility] Comment on above: Performed By: #### C P #### [address] [address] [address] Strategic Procurement Manager: Jurgen Hernandez MD Bilirubin [Mass/Vol] 1.3 mg/dL High 0.3-1.2 [facility] Comment on above: Performed By: #### C P #### [address] [address] Strategic Procurement Manager: Jurgen Hernandez MD Calcium [Mass/Vol] 7.9 mg/dL Low 8.6-10.4 [facility] Comment on above: Performed By: #### C P #### [address] [address] Strategic Procurement Manager: Jurgen Hernandez MD Chloride [Moles/Vol] 105 mmol/L Normal 98-107 [facility] Comment on above: Performed By: #### C P #### [address] [address] Strategic Procurement Manager: Jurgen Hernandez MD CO2 [Moles/Vol] 21 mmol/L Normal 20-31 [facility] Comment on above: Performed By: #### C P #### [address] [address] Strategic Procurement Manager: Jurgen Hernandez MD Creatinine [Mass/Vol] 0.4 mg/dL Low 0.5-0.9 [facility] Comment on above: Performed By: #### C P #### [address] [address] Strategic Procurement Manager: Jurgen Hernandez MD GFR/1.73 sq M.predicted among non-blacks MDRD (S/P/Bld) [Vol rate/Area] mL/min/{1.73_m2} Normal >60 [facility] Comment on above: Result Comment: These [...] secretion. Performed By: #### C P #### [address] [address] Strategic Procurement Manager: Jurgen Hernandez MD Glucose [Mass/Vol] 115 mg/dL High 70-99 [facility] Comment on above: Performed By: #### C P #### [address] [address] Strategic Procurement Manager: Jurgen Hernandez MD Protein [Mass/Vol] 5.5 g/dL Low 6.4-8.3 [facility] Comment on above: Performed By: #### C P #### [address] [address] Strategic Procurement Manager: Jurgen Hernandez MD Sodium [Moles/Vol] 138 mmol/L Normal 135-144 [facility] Comment on above: Performed By: #### C P #### [address] [address] Strategic Procurement Manager: Jurgen Hernandez MD Urea nitrogen [Mass/Vol] 3 mg/dL Low 6-20 [facility] Comment on above: Performed By: #### C P #### [address] [address] Strategic Procurement Manager: Jurgen Heranndez MD Potassium [Moles/Vol] 2.6 mmol/L Critically low 3.7-5.3 [facility] Comment on above: Performed By: #### C P, CDP, MG, BH #### [facility] [employer] [address] [place] [address] Strategic Procurement Manager: Jurgen Hernandez MD Albumin [Mass/Vol] 3.4 g/dL Low 3.5-5.2 [facility] Comment on above: Performed By: #### C P, CDP, MG, BH #### [facility] [employer] [address] [place] [id number] Strategic Procurement Manager: Jurgen Hernandez MD Albumin/Glob Ratio 1.0 Normal 1.0-2.5 [facility] Comment on above: Performed By: #### C P, CDP, MG, #### [address] [address] Strategic Procurement Manager: Jurgen Hernandez MD Alkaline Phos 80 U/L Normal 35-104 [facility] Comment on above: Performed By: #### C P, CDP, MG, #### [address] [address] Strategic Procurement Manager: Jurgen Hernandez MD ALT [Catalytic activity/Vol] 9 U/L Normal 5-33 [facility] Comment on above: Performed By: #### C P, CDP, MG, #### [address] [address] Strategic Procurement Manager: Jurgen Hernandez MD Anion gap [Moles/Vol] 15 mmol/L Normal 9-17 [facility] Comment on above: Performed By: #### C P, CDP, MG, #### [address] [address] Strategic Procurement Manager: Jurgen Hernandez MD AST [Catalytic activity/Vol] 20 U/L Normal <32 [facility] Comment on above: Performed By: #### C P, CDP, MG, #### [address] [address] Strategic Procurement Manager: Jurgen Hernandez MD Bilirubin [Mass/Vol] 1.6 mg/dL High 0.3-1.2 [facility] Comment on above: Performed By: #### C P, CDP, MG, #### [address] [address] Strategic Procurement Manager: Jurgen Hernandez MD Calcium [Mass/Vol] 8.2 mg/dL Low 8.6-10.4 [facility] Comment on above: Performed By: #### C P, CDP, MG, #### [address] [address] Strategic Procurement Manager: Jurgen Hernandez MD Chloride [Moles/Vol] 108 mmol/L High 98-107 [facility] Comment on above: Performed By: #### C P, CDP, MG, #### [address] [address] Strategic Procurement Manager: Jurgen Hernandez MD CO2 [Moles/Vol] 19 mmol/L Low 20-31 [facility] Comment on above: Performed By: #### C P, CDP, MG, #### [address] [address] Strategic Procurement Manager: Jurgen Hernandez MD Creatinine [Mass/Vol] 0.4 mg/dL Low 0.5-0.9 [facility] Comment on above: Performed By: #### C P, CDP, MG, #### [address] [address] Strategic Procurement Manager: Jurgen Hernandez MD GFR/1.73 sq M.predicted among non-blacks MDRD (S/P/Bld) [Vol rate/Area] mL/min/{1.73_m2} Normal >60 [facility] Comment on above: Result Comment: These [...] #### C P, CDP, MG, BH #### [address] [address] Strategic Procurement Manager: Jurgen Hernandez MD Glucose [Mass/Vol] 122 mg/dL High 70-99 [facility] Comment on above: Performed By: #### C P, CDP, MG, #### [facility] [place] [address] Strategic Procurement Manager: Jurgen Hernandez MD Protein [Mass/Vol] 6.7 g/dL Normal 6.4-8.3 [facility] Comment on above: Performed By: #### C P, CDP, MG, #### [employer] [facility] [address] [place] [address] [id number] Strategic Procurement Manager: Jurgen Hernandez MD Sodium [Moles/Vol] 142 mmol/L Normal 135-144 [facility] Comment on above: Performed By: #### C P, CDP, MG, #### [facility] [address] [place] [address] [id number] Strategic Procurement Manager: Jurgen Hernandez MD Urea nitrogen [Mass/Vol] 6 mg/dL Normal 6-20 [facility] Comment on above: Performed By: #### C P, CDP, MG, #### [facility] [address] [place] [id number] Strategic Procurement Manager: Jurgen Hernandez MD Comprehensive Metabolic Pane [facility] 03-26-2023 Albumin [Mass/Vol] 2.9 g/dL Low 3.5 - 5.2 g/dL [facility] Albumin/Globulin [Mass ratio] 1.1 {ratio} 1.0 - 2.5 [facility] ALP [Catalytic activity/Vol] 73 U/L 35 - 104 U/L [facility] ALT [Catalytic activity/Vol] 8 U/L 5 - 33 U/L [facility] Anion gap [Moles/Vol] 12 mmol/L 9 - 17 mmol/L [facility] AST [Catalytic activity/Vol] 14 U/L NINF - 32 U/L [facility] Bilirubin [Mass/Vol] 1.3 mg/dL High 0.3 - 1 .2 mg/dL [facility] Calcium [Mass/Vol] 7.9 mg/dL Low 8.6 - 10. 4 mg/dL [facility] Chloride [Moles/Vol] 105 mmol/L 98 - 10 7 mmol/L [facility] CO2 [Moles/Vol] 21 mmol/L 20 - 31 mmol/L [facility] Creatinine [Mass/Vol] 0.4 mg/dL Low 0.5 - 0.9 mg/dL [facility] GFR/1.73 sq M.predicted MDRD (S/P/Bld) [Vol rate/Area] - PINF [facility] Comment on above: These results are [...] 115 mg/dL High 70 - 99 mg/dL [facility] Interpretation and review of laboratory results Abnormal [facility] Potassium [Moles/Vol] 2.7 mmol/L Critically low 3.7 - 5.3 mmol/L [facility] Protein [Mass/Vol] 5.5 g/dL Low 6.4 - 8.3 g/dL [facility] Sodium [Moles/Vol] 138 mmol/L 135 - 144 mmol/L [facility] Urea nitrogen [Mass/Vol] 3 mg/dL Low 6 - 20 mg/dL [facility] Albumin [Mass/Vol] 3.4 g/dL Low 3.5 - 5.2 g/dL [facility] Albumin/Globulin [Mass ratio] 1.0 {ratio} 1.0 - 2.5 [facility] ALP [Catalytic activity/Vol] 80 U/L 35 - 104 U/L [facility] ALT [Catalytic activity/Vol] 9 U/L 5 - 33 U/L [facility] Anion gap [Moles/Vol] 15 mmol/L 9 - 17 mmol/L [facility] AST [Catalytic activity/Vol] 20 U/L NINF - 32 U/L [facility] Bilirubin [Mass/Vol] 1.6 mg/dL High 0.3 - 1 .2 mg/dL [facility] Calcium [Mass/Vol] 8.2 mg/dL Low 8.6 - 10. 4 mg/dL [facility] Chloride [Moles/Vol] 108 mmol/L High 98 - 10 7 mmol/L [facility] CO2 [Moles/Vol] 19 mmol/L Low 20 - 31 mmol/L [facility] Creatinine [Mass/Vol] 0.4 mg/dL Low 0.5 - 0.9 mg/dL [facility] GFR/1.73 sq M.predicted MDRD (S/P/Bld) [Vol rate/Area] - PINF [facility] Comment on above: These results are [...] 122 mg/dL High 70 - 99 mg/dL [facility] Interpretation and review of laboratory results Abnormal [facility] Potassium [Moles/Vol] 2.6 mmol/L Critically low 3.7 - 5.3 mmol/L [facility] Protein [Mass/Vol] 6.7 g/dL 6.4 - 8.3 g/dL [facility] Sodium [Moles/Vol] 142 mmol/L 135 - 144 mmol/L [facility] Urea nitrogen [Mass/Vol] 6 mg/dL 6 - 20 mg/dL [facility] Magnesiumon 03-26-2023 Magnesium [Mass/Vol] 1.6 mg/dL Normal 1.6-2.6 [facility] Comment on above: Performed By: #### C P, CDP, MG, BH #### [address] [address] Strategic Procurement Manager: Jurgen Hernandez MD Magnesium [Mass/Vol] 1.6 mg/dL 1.6 - 2 .6 mg/dL [facility] Potassiumon 03-26-2023 Interpretation and review of laboratory results Abnormal [facility] Potassium [Moles/Vol] 2.5 mmol/L Critically low 3.7 - 5.3 mmol/L [facility] Protein / Creatinine Ratio, Urineon 03-26-2023 Creatinine (U) [Mass/Vol] 185.0 mg/dL 28.0 - 217.0 mg/dL [facility] Protein (U) [Mass/Vol] 44 mg/dL [facility] Comment on above: No normal range esta blished. Urine Total Protein Creatinine Ratio 0.24 [facility] Protein,Tot,Bumpass Uron 2023 Creatinine [Mass/Vol] 185.0 mg/dL Normal 28.0-217.0 [facility] Comment on above: Performed By: #### K #### [address] [address] Strategic Procurement Manager: Jurgen Hernandez MD Tot Prot. Conc. 44 mg/dL [facility] Comment on above: Result Comment: No n ormal range established. Performed By: #### K #### [facility] [address] [place] [address] [id number] Strategic Procurement Manager: Jurgen Hernandez MD TP/Cre Ratio 0.24 Normal [facility] Comment on above: Performed By: #### K #### [facility] [employer] [address] [place] [id number] Strategic Procurement Manager: Jurgen Hernandez MD US PELVIS TRANSVAGon 023 [...] LUCIANA MENDOZA Date: 2022-04-12 16:28 Normal [facility] Vaginitis DNA Probeon 2022 Hiral Species, DNA Probe Negative NEGATIVE [facility] Comment on above: for Hiral sp. Method of testing is a DNA probe intended for detection and identification of Hiral species, Gardnerella vaginalis, and Trichomonas vaginalis nucleic acid in vaginal fluid specimens from patients with symptoms of vaginitis/vaginosis. Gardnerella Vaginalis, DNA Probe Positive Abnormal NEGATIVE [facility] Comment on above: for Gardnerella vagi nalis Interpretation and review of laboratory results Abnormal [facility] Source .VAGINAL SWAB [facility] Trichomonas Vaginalis DNA Negative NEGATIVE [facility] Comment on above: for Trichomonas Vagi nalis [facility] Vital Signs Date Time Vital Sign Value Performing Clinician Facility 03-29-2023 11:45-0500 Body mass index (BMI) [Ratio] 38.07 kg/m2 [employer] DO Work Phone: [facility] 03-29-2023 11:45-0500 Body weight 94.4 kg Renu Susie DO Work Phone: [facility] 03-29-2023 11:45-0500 Diastolic blood pressure 70 mm[Hg] Renu Susie DO Work Phone: [facility] 03-29-2023 11:45-0500 Systolic blood pressure 122 mm[Hg] Ernu Susie DO Work Phone: [facility] 03-27-2023 14:27-0500 Body temperature 37.0 [facility] DO Work Phone: [facility] 03-27-2023 11:51-0500 Body temperature 98.2 [degF] Pema Amaury DO Work Phone: [employer] 03-27-2023 11:51-0500 Diastolic blood pressure 78 mm[Hg] Pema Amaury DO Work Phone: [employer] 03-27-2023 11:51-0500 Heart rate 91 /min Pema Amaury DO Work Phone: [employer] 03-27-2023 11:51-0500 Respiratory rate 16 /min Pema Rebolledo DO Work Phone: [employer] 03-27-2023 11:51-0500 SaO2% (BldA) [Mass fraction] 97 % Pema Rebolledo DO Work Phone: [employer] 03-27-2023 11:51-0500 Systolic blood pressure 123 mm[Hg] Pema Amaury DO Work Phone: [employer] 02-15-2023 17:00-0500 Body height 157.48 cm Rosalind Jeter Other [employer] Other 02-15-2023 17:00-0500 Body mass index (BMI) [Ratio] 37.45 kg/m2 Rosalind Jeter Other [employer] Other 02-15-2023 17:00-0500 Body temperature 98 [degF] Rosalind Jeter Other [employer] Other 02-15-2023 17:00-0500 Body weight 92.9 kg Rosalind Jeter Other [employer] Other 02-15-2023 17:00-0500 Diastolic blood pressure 71 mm[Hg] Rosalind Jeter Other [employer] Other 02-15-2023 17:00-0500 Respiratory rate 18 /min Rosalind Jeter Other [employer] Other 02-15-2023 17:00-0500 SaO2% (BldA) [Mass fraction] 99 % Rosalind Riveramond Other [employer] Other 02-15-2023 17:00-0500 Systolic blood pressure 111 mm[Hg] Rosalind Jeter Other [employer] Other Encounters Encounter Date Encounter Type Care Provider Facility Start: 03-29-2023 End: 03-29-2023 ambulatory RENU SUSIE Not Available Start: 03-29-2023 End: 03-29-2023 flow sheet Rneu Susie DO Work Phone: [facility] Comment on above: Third trimester preg mitchel; Hypokalemia Start: 03-26-2023 End: 03-27-2023 ambulatory PEMA REBOLLEDO [facility] Start: 03-26-2023 End: 03-26-2023 [facility] Start: 03-26-2023 End: 03-27-2023 Subsequent hospital visit by physician Pema Godoy Phone: [id number] Comment on above: Hypokalemia (Primary Dx) Start: 2023 End: 2023 ambulatory RENU SUSIE Not Available Start: 02-22-2023 End: 02-22-2023 ambulatory RENU SUSIE Not Available Start: 02-15-2023 End: 02-15-2023 ambulatory Rosalind Jeter Other [employer] Other Start: 02-15-2023 Office outpatient ne w 10 minutes Rosalind Jeter [facility] Start: 02-08-2023 End: 02-08-2023 ambulatory RINA CURRY Not Available Start: 01-16-2023 End: 01-16-2023 ambulatory RENU SUSIE Not Available Start: 04-11-2022 End: 04-12-[address] NONE LISTED REQUEST Facility: Start: 03-30-2022 End: 03-30-2022 Patient encounter procedure Rosette Mendoza Other Phone: [facility] [place] [facility] Start: 03-30-2022 End: 03-30-2022 Subsequent hospital visit by physician Rosette Mendoza Other Phone: [facility] Comment on above: Vaginal [...] specie s direct probe tq Brittani Aguilar YARDING SUPERVISOR - CNM Work Phone: Start: 03-30-2022 Microscopic observat ion [Identifier] in Cervix by Cyto stain Pema Rebolledo DO Work Phone: Plan of Treatment Date Care Activity Detail Author Start: 03-30-2027 Screening for malign ant neoplasm of cervix [facility] [employer] [facility] Start: 03-30-2025 Screening for malign ant neoplasm of cervix Pap smear [facility] [employer] [facility] Start: 04-11-2023 End: 04-11-2023 Patient encounter procedure 04/11/2023 10:30 AM EST Routine [facility] [address] [facility] [address] [place] [address] Return in about 6 weeks (around 04/11/2023) for Repeat Anatomy, Growth/BPP. [facility] Comment on above: Return in about 6 we eks (around 04/11/2023) for Repeat Anatomy, Growth/BPP. Start: 04-05-2023 End: 04-05-2023 Patient encounter procedure 04/05/2023 11:30 AM EST Routine [facility] [address] [place] [address] Renu Richards DO [address] [place] [address] [facility] Start: 03-31-2023 End: 03-27-2024 Potassium [Moles/volume] in Serum or Plasma Potassium Lab Routine Hypokalemia Expected: 03/31/2023, Expires: 03/27/2024 [facility] [employer] [facility] Comment on above: Expected: 03/31/2023 , Expires: 03/27/2024 Start: 03-30-2023 Depression Screen Depression Screen [facility] [employer] [facility] Start: 03-29-2023 End: 03-29-2024 US biophysical profile w non stress test US biophysical profile w non stress test Imaging Routine Hypokalemia Expected: 03/29/2023 (Approximate), Expires: 03/29/2024 [facility] Work Phone: Comment on above: Expected: 03/29/2023 (Approximate), Expires: 03/29/2024 Start: 2023 Diabetes screen Diabetes screen [facility] Start: 09-13-2022 Influenza vaccination Flu vaccine (# 1) [facility] Start: 09-13-2021 Influenza vaccination Flu vaccine (# 1) [facility] Start: 2018 Screening for malign ant neoplasm of cervix [facility] Start: 2009 Screening for malign ant neoplasm of cervix Pap smear [facility] Start: 2007 DTaP/Tdap/Td vaccine (1 - Tdap) DTaP/Tdap/Td vaccine (1 - Tdap) [facility] Start: 2006 Hepatitis C screening Hepatitis C sc reen [facility] Start: 2003 HIV screening HIV screen [facility] Start: 1989 Varicella vaccine (1 of 2 - 2-dose childhood series) Varicella vaccine (1 of 2 - 2-dose childhood series) [facility] Start: 1988 COVID-19 Vaccine (#1) COVID-19 Vacci ne (#1) [facility] Start: 1988 Hepatitis B vaccine (1 of 3 - 3-dose series) Hepatitis B vaccine (1 of 3 - 3-dose series) [facility] End: 03-30-2022 C.trachomatis N.gonorrhoeae DNA, Thin Prep [facility] Work Phone: Comment on above: 1 Occurrences starti ng 03/30/2022 until 03/30/2022 End: 03-27-2023 Culture, Strep B Screen, Vaginal/Rectal [facility] [employer] Phone: Comment on above: One Time for 1 Occur rences starting 03/27/2023 until 03/27/2023 End: 03-30-2022 Culture, Urine [facility] [employer] Phone: Comment on above: 1 Occurrences starti ng 03/30/2022 until 03/30/2022 End: 03-27-2023 Electrolyte Panel w/ Reflex to MG Electrolyte Panel w/ Reflex to MG Lab Routine One Time for 1 Occurrences starting 03/27/2023 until 03/27/2023 [employer] Work Phone: Comment on above: One Time for 1 Occur rences starting 03/27/2023 until 03/27/2023 Nonrebreather mask oxygen Nonrebreather mask oxygen Respiratory Care Routine As Needed until discontinued starting 03/26/2023 [employer] Comment on above: As Needed until disc ontinued starting 03/26/2023 Payers Date Payer Category Payer Unknown BCBS BCBS [id number] 2022-Present [phone] [address] [place] [address] [id number] 1988 Unknown [id number] 1988 Unknown [id number] 1988 Unknown [id number] 1988 Unknown [id number] 1988 Unknown [id number] 1988 Unknown [id number] 1988 Unknown [id number] 1988 Unknown [id number] 1959 Unknown [id number] Social History Date Type Detail Facility Start: 03-30-2022 End: 10-10-2022 Tobacco smoking status NHIS Never smoked tobacco [employer] Phone: Start: 03-30-2022 End: 10-10-2022 Tobacco use and exposure Smokeless tobacco non-user [employer] Phone: Start: 03-30-2022 Alcohol intake Lifetime non-drinker (finding) [employer] Phone: Start: 1990 Sex Assigned At Not on file [employer] Phone: Start: 11-21-2022 End: 03-26-2023 Sex Assigned At [employer] Other Start: 03-26-2023 End: 03-29-2023 Alcohol intake Ex-drinker (finding) [facility] Start: 11-21-2022 End: 03-26-2023 History of Social function [employer] Patient Health Questionnaire 9 item (PHQ-9) total score [Reported] 0 [employer] Start: 08-08-2022 [employer] Start: 1990 Sex Assigned At Female [facility] Start: 09-21-2022 Gender identity Identifies as female gender (finding) [facility] History of Present illness Narrative 03-29-2023 [...] nursing note reviewed. Exam conducted with a command and control present. Vitals: Estimated body mass index is [...] Renu Richards DO documented in this encounter [facility] Discharge instructions 03-27-2023 Discharge Instructions Note [...] on left side. documented in this encounter [facility] History of Present illness Narrative 03-27-2023 [...] the patient: POTASSIUM ER 20MG Additional Documentation: BUSINESS MANAGEMENT PROFESSOR PROGRESS NOTE Niesha Fisher is a 33 [...] Will update Dr. Gonzalez. Joanna Pablo DO [employer] Driver Resident 03/27/2023, 6:31 AM Attending Physician Statement [...] Gonzalez MD Date: 03/27/2023 Time: 11:48 AM BUSINESS MANAGEMENT PROFESSOR RESIDENT INTERVAL NOTE Repeat CMP reviewed K [...] ms QTc Calculation (Bazett) 471 ms P [place] 54 degrees R [place] 35 degrees T [place] 38 degrees Comprehensive Metabolic Panel Collection Time: [...] AST 14 <32 U/L Joanna Pablo DO BUSINESS MANAGEMENT PROFESSOR Resident [facility] 03/26/2023 8:12 PM documented in this encounter [facility] course Narrative 03-27-2023 Sun Gillis MD - 03/27/2023 3:37 PM EST Note Date & Type Note Facility 03-27-2023 Hospital course Narrative Obstetric Discharge Summary [facility] Patient Name: Niesha Fisher Patient : [...] Your Medications These medications were sent to [address] - [phone] - F [phone] [facility] [address] potassium chloride 20 MEQ extended release tablet Diet: regular Follow up: With primary Ob provider on 03/29/23 Condition on discharge: good Discharge date: 03/27/23 Sun Gillis MD [employer] Driver Resident documented in this [facility] Evaluation note 02-15-2023 Note Date & Type Note Facility 02-15-2023 Evaluation note Encounter Date Diagnosis Assessment Notes Feb, Right otitis media, unspecified otitis media type (ICD-10 - H66.91) Drink plenty fluids, get plenty of rest. Take the amoxicillin as prescribed until gone. Take Tylenol as needed for pain or fevers. Follow-up with your family physician or BUSINESS MANAGEMENT PROFESSOR if no improvement in 2 to 3 days. [employer] Other Evaluation note Note Date & Type Note Facility Evaluation note Diagnosis Vaginal discharge Leukorrhea, not specified as infective Malodorous urine Other nonspecific finding on examination of urine Well woman exam Routine general medical examination at a health care facility documented in this encounter [facility] [employer] Work Phone: Evaluation note Note Date & Type Note Facility Evaluation note Diagnosis 34 weeks gestation of - Primary state, incidental Hypokalemia Hypopotassemia Acute gastroenteritis Other and unspecified noninfectious gastroenteritis and colitis Hypokalemia Hypopotassemia Hypomagnesemia Disorders of magnesium metabolism documented in this encounter [facility] Evaluation note Note Date & Type Note Facility Evaluation note Diagnosis Third trimester state, incidental Hypokalemia Hypopotassemia documented in this encounter [facility] History general Narrative - Reported Note Date & Type Note Facility History general Narrative - Reported Type Surgical History C section 2020 [employer] Other Summary Purpose Family History No Family History Records FoundNo Family History Records FoundNo Family History Records Found Advance Directives No Advanced Directives Records FoundLatest Code Status on File Code Status Date Activated Date Inactivated Comments Full Code 03/26/2023 9:19 AM Additional Source Comments Care Teams (unrecognized sec tion and content) Energy Assistant Relationship Specialty Start Date End Date Rosette Mendoza [address] [facility] [address] [place] [address] PCP - General Internal Medicine 03/30/22 Energy Assistant Relationship Specialty Start Date End Date Rosette Mendoza [address] [facility] [address] [place] [address] PCP - General Internal Medicine 03/30/22 INFORMATION SOURCE (unrecogn ized section and content) DATE CREATED AUTHOR 04/17/2022 [facility] DATE CREATED AUTHOR AUTHOR'S ORGANIZ ATION 03/31/2023 [facility] EPIC DATE CREATED AUTHOR AUTHOR'S ORGANIZ ATION 04/02/2023 [facility] REASON FOR VISIT (unrecogniz ed section and content) Reason Comments Nausea & Vomiting Diarrhea Specialty Diagnoses / Procedures Referred By Angela t Referred To Contact Diagnoses 34 weeks gestation of Peam Rebolledo DO [address] [place] [address] [facility] [id number] [place] [address] Referral ID Status Reason Start Date Expiration Date Visits Re quested Visits Authorized [id number] 1 1 Reason Comments Routine Visit Ordered [...] BE BASED ON THE PRIMARY CLINICAL RECORDS. [employer] provides no warranty or guarantee of the accuracy or completeness of information in this document.
--- OUTSIDE RECORDS SUMMARY | 2023-04-11 19:13 | XMS_ITS | CCD ---
Author Name Unknown Address [address] [place] [address] Organization [facility] Care Team Providers Care Training Instructor Name Role Phone Rosette Mendoza Primary Care [...] B STREPTOCOCCI Report Status FINAL 03/31/2023 Normal [facility] Comment on above: Performed By: #### R OGBS #### [facility] [employer] [address] [phone] [employer]: Jurgen Hernandez MD Urinalysis macro (dipstick) panel (U)on 03-29-2023 Bilirubin, UA Negative Negative - 4(70) +++ mg/dL [facility] Blood, UA Negative Negative - 50 Dwight/mcL [facility] Clarity, UA Clear [facility] Color, UA Yellow [facility] Glucose, UA Negative Negative - 1999(110) ++++ mg/dL [facility] Interpretation and review of laboratory results Normal [facility] Ketones, UA Negative Negative - 160(16) ++++ mg/dL [facility] Leukocytes, UA Negative Negative - 500+++ Karlene/mcL [facility] Nitrite, UA Negative Negative - Positive [facility] pH, UA 7.0 5 - 9 [facility] Protein, UA Negative Negative - 1999(20) ++++ mg/dL [facility] Spec Grav, UA 1.025 1 - 1.03 [facility] Urobilinogen, UA 0.2 0.2 - 12 mg/dL [facility] BLO[facility], VENOUSon 03-27-19 Carboxyhemoglobin (Bld) [Mass fraction] 1.0 % 0 - 5 % [facility] Comment on above: Reference Range: Non-Smokers 0-2% Average Smoker 2-4% Heavy Smoker <10% HCO3 (Bld) [Moles/Vol] 24.8 mmol/L 24 - 30 mmol /L [facility] Interpretation and review of laboratory results Abnormal [facility] Negative Base Excess, Pieter 0.3 mmol/L 0.0 - 2.0 mmol/L [facility] Oxygen saturation in Blood 35.8 % Low 60.0 - 85.0 % [facility] Oxygen/Inspired gas Respiratory system --on ventilator INFORMATION NOT PROVIDED [facility] pCO2, Pieter 45.1 [facility] pH, Pieter 7.359 7.320 - 7.420 [facility] pO2, Pietre 26.4 Low [facility] Comp Metabolic Profon 2023 Potassium [Moles/Vol] 2.9 mmol/L Critically low 3.7-5.3 [facility] Comment on above: Performed By: #### C P, OSMO, MG #### [email or web address] [address] [place] [address] [phone] [employer]: Jurgen Hernandez MD Albumin [Mass/Vol] 2.9 g/dL Low 3.5-5.2 [facility] Comment on above: Performed By: #### C P, OSMO, MG #### [email or web address] [facility] [place] [address] [employer]: Jurgen Hernandez MD Albumin/Glob Ratio 1.1 Normal 1.0-2.5 [facility] Comment on above: Performed By: #### C P, OSMO, MG #### [email or web address] [address] [place] [phone] [employer]: Jurgen Hernandez MD Alkaline Phos 73 U/L Normal 35-104 [facility] Comment on above: Performed By: #### C P, OSMO, MG #### [facility] [address] [place] [phone] [employer]: Jurgen Hernandez MD ALT [Catalytic activity/Vol] 7 U/L Normal 5-33 [facility] Comment on above: Performed By: #### C P, OSMO, MG #### [facility] [address] [place] [phone] [employer]: Jurgen Hernandez MD Anion gap [Moles/Vol] 9 mmol/L Normal 9-17 [facility] Comment on above: Performed By: #### C P, OSMO, MG #### [address] [address] [employer]: Jurgen Hernandez MD AST [Catalytic activity/Vol] 26 U/L Normal <32 [facility] Comment on above: Performed By: #### C P, OSMO, MG #### [facility] [employer] [address] [place] [phone] [employer]: Jurgen Hernandez MD Bilirubin [Mass/Vol] 1.3 mg/dL High 0.3-1.2 [facility] Comment on above: Performed By: #### C P, OSMO, MG #### [facility] [address] [place] [phone] [employer]: Jurgen Hernandez MD Calcium [Mass/Vol] 7.8 mg/dL Low 8.6-10.4 [facility] Comment on above: Performed By: #### C P, OSMO, MG #### [facility] [address] [place] [phone] [employer]: Jurgen Hernandez MD Chloride [Moles/Vol] 104 mmol/L Normal 98-107 [facility] Comment on above: Performed By: #### C P, OSMO, MG #### [facility] [address] [place] [phone] [employer]: Jurgen Hernandez MD CO2 [Moles/Vol] 21 mmol/L Normal 20-31 [facility] Comment on above: Performed By: #### C P, OSMO, MG #### [facility] [address] [place] [phone] [employer]: Jurgen Hernandez MD Creatinine [Mass/Vol] 0.4 mg/dL Low 0.5-0.9 [facility] Comment on above: Performed By: #### C P, OSMO, MG #### [address] [address] [employer]: Jurgen Hernandez MD GFR/1.73 sq M.predicted among non-blacks MDRD (S/P/Bld) [Vol rate/Area] mL/min/{1.73_m2} Normal >60 [facility] Comment on above: Result Comment: These [...] By: #### C P, OSMO, MG #### [address] [address] [employer]: Jurgen Hernandez MD Glucose [Mass/Vol] 108 mg/dL High 70-99 [facility] Comment on above: Performed By: #### C P, OSMO, MG #### [facility] [address] [place] [phone] [employer]: Jurgen Hernandez MD Protein [Mass/Vol] 5.6 g/dL Low 6.4-8.3 [facility] Comment on above: Performed By: #### C P, OSMO, MG #### [facility] [address] [place], [place] [phone] [employer]: Jurgen Hernandez MD Sodium [Moles/Vol] 134 mmol/L Low 135-144 [facility] Comment on above: Performed By: #### C P, OSMO, MG #### [facility] [address] [place], [place] [phone] [employer]: Jurgen Hernandez MD Urea nitrogen [Mass/Vol] 2 mg/dL Low 6-20 [facility] Comment on above: Performed By: #### C P, OSMO, MG #### [facility] [place], [place] [phone] [employer]: Jurgen Hernandez MD Comprehensive Metabolic Pane [facility] 03-27-2023 Albumin [Mass/Vol] 2.9 g/dL Low 3.5 - 5.2 g/dL [facility] Albumin/Globulin [Mass ratio] 1.1 {ratio} 1.0 - 2.5 [facility] ALP [Catalytic activity/Vol] 73 U/L 35 - 104 U/L [facility] ALT [Catalytic activity/Vol] 7 U/L 5 - 33 U/L [facility] Anion gap [Moles/Vol] 9 mmol/L 9 - 17 mmol/L [facility] AST [Catalytic activity/Vol] 26 U/L NINF - 32 U/L [facility] Bilirubin [Mass/Vol] 1.3 mg/dL High 0.3 - 1 .2 mg/dL [facility] Calcium [Mass/Vol] 7.8 mg/dL Low 8.6 - 10. 4 mg/dL [facility] Chloride [Moles/Vol] 104 mmol/L 98 - 10 7 mmol/L [facility] CO2 [Moles/Vol] 21 mmol/L 20 - 31 mmol/L [facility] Creatinine [Mass/Vol] 0.4 mg/dL Low 0.5 - 0.9 mg/dL [facility] GFR/1.73 sq M.predicted MDRD (S/P/Bld) [Vol rate/Area] - PINF [facility] Comment on above: These results are not [...] 108 mg/dL High 70 - 99 mg/dL [facility] [place] Interpretation and review of laboratory results [facility]normal [facility] Potassium [Moles/Vol] 2.9 mmol/L Critically low 3.7 - 5.3 mmol/L [facility] Protein [Mass/Vol] 5.6 g/dL Low 6.4 - 8.3 g/dL [facility] [place] Sodium [Moles/Vol] 134 mmol/L Low 135 - 144 mmol/L [facility] Urea nitrogen [Mass/Vol] 2 mg/dL Low 6 - 20 mg/dL [facility] [place] [facility] EKG 12 LeadOrdered By: Lillian Pruitt on 03-27-2023 Atrial Rate 101 BPM [employer] Work Phone: P [place] 54 degrees [employer] Work Phone: P-R Interval 178 ms [employer] Work Phone: Q-T Interval 364 ms [employer] Work Phone: QRS Duration 102 ms [facility] Work Phone: QTc Calculation (Bazett) 471 ms [employer] Work Phone: R [place] 35 degrees [employer] Work Phone: T [place] 38 degrees [employer] Work Phone: Ventricular Rate 101 BPM [facility] [employer] [employer] Work Phone: [facility] Work Phone: EKG 12 Leadon 03-27-2023 Sinus tachycardia Incomplete right bundle branch block Septal infarct , age undetermined Abnormal ECG No previous ECGs available [facility] Lillian Stark MD - 03/27/2023 Sinus tachycardia Incomplete right bundle branch block Septal infarct , age undetermined Abnormal ECG No previous ECGs available [facility] [employer] Atrial Rate 101 BPM [facility] [employer] P [place] 56 degrees [facility] P-R Interval 170 ms [facility] Q-T Interval 364 ms [facility] [employer] QRS Duration 96 ms [facility] QTc Calculation (Bazett) 471 ms [facility] R [place] 31 degrees [facility] T [place] 37 degrees [facility] Ventricular Rate 101 BPM [facility] Sinus tachycardia Nonspecific ST and T wave abnormality Abnormal ECG When compared with ECG of 26-MAR-2023 11:35, Incomplete right bundle branch block is no longer Present [facility] - 03/27/[address] and T wave abnormality Abnormal ECG When compared with ECG of 26-MAR-2023 11:35, Incomplete right bundle branch block is no longer Present [facility] Electrolyte Panelon 03-27-19 Anion gap [Moles/Vol] 9 mmol/L 9 - 17 mmol/L [facility] Chloride [Moles/Vol] 103 mmol/L 98 - 10 7 mmol/L [facility] CO2 [Moles/Vol] 23 mmol/L 20 - 31 mmol/L [facility] Interpretation and review of laboratory results Abnormal [facility] Potassium [Moles/Vol] 3.1 mmol/L Low 3.7 - 5.3 mmol/L [facility] Sodium [Moles/Vol] 135 mmol/L 135 - 144 mmol/L [facility] Electrolyteson 03-27-2023 Anion gap [Moles/Vol] 9 mmol/L Normal 9-17 [facility] Comment on above: Performed By: #### K #### [address] [address] [employer]: Jurgen Hernandez MD Chloride [Moles/Vol] 103 mmol/L Normal 98-107 [facility] Comment on above: Performed By: #### K #### [address] [address] [employer]: Jurgen Hernandez MD CO2 [Moles/Vol] 23 mmol/L Normal 20-31 [facility] Comment on above: Performed By: #### K #### [address] [address] [employer]: Jurgen Hernandez MD Potassium [Moles/Vol] 3.1 mmol/L Low 3.7-5.3 [facility] Comment on above: Performed By: #### K #### [address] [address] [employer]: Jurgen Hernandez MD Sodium [Moles/Vol] 135 mmol/L Normal 135-144 [facility] Comment on above: Performed By: #### K #### [address] [address] [employer]: Jurgen Hernandez MD K (Potassium)on 03-27-2023 Potassium [Moles/Vol] 2.7 mmol/L Critically low 3.7-5.3 [facility] Comment on above: Performed By: #### K #### [address] [address] [employer]: Jurgen Hernandez MD Potassium [Moles/Vol] 2.5 mmol/L Critically low 3.7-5.3 [facility] Comment on above: Performed By: #### K #### [address] [place] [phone] [employer]: Jurgen Hernandez MD Magnesiumon 03-27-2023 Magnesium [Mass/Vol] 1.9 mg/dL Normal 1.6-2.6 [facility] Comment on above: Performed By: #### C P, OSMO, MG #### [facility] [address] [place] [address] [phone] [employer]: Jurgen Hernandez MD Magnesium [Mass/Vol] 1.9 mg/dL 1.6 - 2 .6 mg/dL [facility] OSMOLALITY, URINEon 03-27-19 24 Osmolality (U) [Osmolality] 365 mosm/kg [facility] Osmolalityon 03-27-2023 Osmolality [Osmolality] 285 mosm/kg Normal 275-295 [facility] Comment on above: Performed By: #### C P, OSMO, MG #### [facility] [address] [place] [address] [phone] [employer]: Jurgen Hernandez MD Osmolality [Osmolality] 285 mosm/kg [facility] Osmolality, Urineon 03-27-19 24 Osmolality - Urine 365 mOsm/kg Normal 80-1300 [facility] Comment on above: Performed By: #### K #### [facility] [address] [place] [address] [phone] [employer]: Jurgen Hernandez MD POTASSIUM, URINE, RANDOMon 0 03-27-2023 Potassium, Ur 29.1 mmol/L [facility] Comment on above: No normal range esta blished. [facility] Potassiumon 03-27-2023 Interpretation and review of laboratory results Abnormal [facility] Potassium [Moles/Vol] 2.7 mmol/L Critically low 3.7 - 5.3 mmol/L [facility] Potassium,Random Uron 2023 Potassium [Moles/Vol] 29.1 mmol/L Normal [facility] Comment on above: Result Comment: No n ormal range established. Performed By: #### K #### [address] [address] [employer]: Jurgen Hernandez MD Venous Blood Gaseson 024 Body Temp. 37.0 Normal [facility] Comment on above: Performed By: #### K #### [address] [address] [employer]: Jurgen Hernandez MD Carboxy Hgb 1.0 % Normal 0-5 [facility] Comment on above: Result Comment: Reference Range: Non-Smokers 0-2% Average Smoker 2-4% Heavy Smoker <10% Performed By: #### K #### [address] [address] [employer]: Jurgen Hernandez MD FIO2 INFORMATION NOT PROVIDED Normal [facility] Comment on above: Performed By: #### K #### [address] [address] [employer]: Jurgen Hernandez MD HCO3 (Bld) [Moles/Vol] 24.8 mmol/L Normal 24-30 [facility] Comment on above: Performed By: #### K #### [address] [address] [employer]: Jurgen Hernandez MD Negative Base Excess 0.3 mmol/L Normal 0.0-2.0 [facility] Comment on above: Performed By: #### K #### [address] [address] [employer]: Jurgen Hernandez MD Oxygen saturation in Blood 35.8 % Low 60.0-85.0 [facility] Comment on above: Performed By: #### K #### [address] [address] [employer]: Jurgen Hernandez MD pCO2 45.1 mm Hg Normal 39-55 [facility] Comment on above: Performed By: #### K #### [address] [address] [employer]: Jurgen Hernandez MD pH (Bld) 7.359 [pH] Normal 7.320-7.420 [facility] Comment on above: Performed By: #### K #### [address] [address] [employer]: Jurgen Hernandez MD pO2 26.4 mm Hg Low 30-50 [facility] Comment on above: Performed By: #### K #### [address] [address] [employer]: Jurgen Hernandez MD Beta Hydroxybutyrateon 03-26 Beta Hydroxybutyrate 1.24 mmol/L High 0.02-0.27 [facility] Comment on above: Performed By: #### C P, CDP, MG, BH #### [address] [address] [employer]: Jurgen Hernandez MD Beta-Hydroxybutyrateon 03-26 Beta hydroxybutyrate [Mass/Vol] 1.24 mmol/L High 0.02 - 0.27 mmol/L [facility] Interpretation and review of laboratory results Abnormal [facility] CBC with Auto Differentialon 03-26-2023 Basophils (Bld) [#/Vol] 0.00 10*3/uL [facility] Basophils/100 WBC (Bld) 0 % 0 - 2 % [facility] Eosinophils (Bld) [#/Vol] 0.00 10*3/uL [facility] Eosinophils/100 WBC (Bld) 0 % Low 1 - 4 % [facility] Erythrocyte distribution width (RBC) [Ratio] 14.5 % High 11.8 - 14.4 % [facility] Hematocrit (Bld) [Volume fraction] 35.7 % Low 36.3 - 47.1 % [facility] Hemoglobin (Bld) [Mass/Vol] 12.1 g/dL 11.9 - 15.1 g/dL [facility] Immature granulocytes (Bld) [#/Vol] 0.00 10*3/uL [facility] Immature granulocytes/100 WBC (Bld) 0 % 0 [facility] Interpretation and review of laboratory results Abnormal [facility] Lymphocytes/100 WBC (Bld) 5 % Low 24 - 44 % [facility] Lymphocytes/100 WBC (Bld) 0.48 % Low [facility] MCH (RBC) [Entitic mass] 30.0 pg 25.2 - 33.5 pg [facility] MCHC (RBC) [Mass/Vol] 33.9 g/dL 28.4 - 34.8 g/dL [facility] MCV (RBC) [Entitic vol] 88.4 fL 82.6 - 102.9 fL [facility] Monocytes/100 WBC (Bld) 4 % 1 - 7 % [facility] Monocytes/100 WBC (Bld) 0.38 % [facility] Morphology Moises (Bld) [Interp] ANISOCYTOSIS PRESENT [facility] Neutrophils/100 WBC (Bld) 91 % High 36 - 66 % [facility] Nucleated RBC/100 WBC (Bld) [Ratio] 0.0 % 0.0 per 100 WBC [facility] Platelet mean volume (Bld) [Entitic vol] 9.4 fL 8.1 - 13.5 fL [facility] Platelets (Bld) [#/Vol] 231 10*3/uL [facility] RBC (Bld) [#/Vol] 4.04 10*6/uL 3.95 - 5.1 1 m/uL [facility] Segmented neutrophils/100 WBC (Bld) 8.64 % High [facility] WBC other (Bld) [#/Vol] 9.5 [facility] CBC with Diffon 03-26-2023 Abs. Basophil 0.00 k/uL Normal 0.0-0.2 [facility] Comment on above: Performed By: #### C P, CDP, MG, #### [address] [address] [employer]: Jurgen Hernandez MD Abs.Imm.Granulocyte 0.00 k/uL Normal 0.00-0.30 [facility] Comment on above: Performed By: #### C P, CDP, MG, #### [place] [address] [employer]: Jurgen Hernandez MD Abs.Neutrophil (Seg) 8.64 k/uL High 1.8-7.7 [facility] Comment on above: Performed By: #### C P, CDP, MG, #### [address] [address] [employer]: Jurgen Hernandez MD Basophils/100 WBC (Bld) 0 % Normal 0-2 [facility] Comment on above: Performed By: #### C P, CDP, MG, #### [address] [address] [employer]: Jurgen Hernandez MD Eosinophils (Bld) [#/Vol] 0.00 10*3/uL Normal 0.0-0.4 [facility] Comment on above: Performed By: #### C P, CDP, MG, #### [address] [address] [employer]: Jurgen Hernandez MD Eosinophils/100 WBC (Bld) 0 % Low 1-4 [facility] Comment on above: Performed By: #### C P, CDP, MG, #### [facility] [employer] [address] [place] [phone] [employer]: Jurgen Hernandez MD Immature granulocytes/100 WBC (Bld) 0 % Normal 0 [facility] Comment on above: Performed By: #### C P, CDP, MG, #### [address] [address] [employer]: Jurgen Hernandez MD Lymphocytes (Bld) [#/Vol] 0.48 10*3/uL Low 1.0-4.8 [facility] Comment on above: Performed By: #### C P, CDP, MG, #### [address] [address] [employer]: Jurgen Hernandez MD Lymphocytes/100 WBC (Bld) 5 % Low 24-44 [facility] Comment on above: Performed By: #### C P, CDP, MG, #### [address] [address] [employer]: Jurgen Hernandez MD Monocytes (Bld) [#/Vol] 0.38 10*3/uL Normal 0.1-0.8 [facility] Comment on above: Performed By: #### C P, CDP, MG, #### [place] [address] [employer]: Jurgen Hernandez MD Monocytes/100 WBC (Bld) 4 % Normal 1-7 [facility] Comment on above: Performed By: #### C P, CDP, MG, #### [address] [address] [employer]: Jurgen Hernandez MD Morphology Moises (Bld) [Interp] ANISOCYTOSIS PRESENT Normal [facility] Comment on above: Performed By: #### C P, CDP, MG, #### [address] [address] [employer]: Jurgen Hernandez MD Neutrophil (Seg) 91 % High 36-66 [facility] Comment on above: Performed By: #### C P, CDP, MG, #### [address] [address] [employer]: Jurgen Hernandez MD Erythrocyte distribution width (RBC) [Ratio] 14.5 % High 11.8-14.4 [facility] Comment on above: Performed By: #### C P, CDP, MG, #### [address] [address] [employer]: Jurgen Hernandez MD Hematocrit (Bld) [Volume fraction] 35.7 % Low 36.3-47.1 [facility] Comment on above: Performed By: #### C P, CDP, MG, #### [place] [address] [employer]: Jurgen Hernandez MD Hemoglobin (Bld) [Mass/Vol] 12.1 g/dL Normal 11.9-15.1 [facility] Comment on above: Performed By: #### C P, CDP, MG, #### [place] [address] [employer]: Jurgen Hernandez MD MCH (RBC) [Entitic mass] 30.0 pg Normal 25.2-33.5 [facility] Comment on above: Performed By: #### C P, CDP, MG, #### [place] [address] [employer]: Jurgen Hernandez MD MCHC (RBC) [Mass/Vol] 33.9 g/dL Normal 28.4-34.8 [facility] Comment on above: Performed By: #### C P, CDP, MG, #### [address] [address] [employer]: Jurgen Hernandez MD MCV (RBC) [Entitic vol] 88.4 fL Normal 82.6-102.9 [facility] Comment on above: Performed By: #### C P, CDP, MG, #### [address] [address] [employer]: Jurgen Hernandez MD NRBC Automated 0.0 per 100 WBC Normal 0.0 [facility] Comment on above: Performed By: #### C P, CDP, MG, #### [address] [address] [employer]: Jurgen Hernandez MD Platelet mean volume (Bld) [Entitic vol] 9.4 fL Normal 8.1-13.5 [facility] Comment on above: Performed By: #### C P, CDP, MG, #### [address] [address] [employer]: Jurgen Hernandez MD Platelets (Bld) [#/Vol] 231 10*3/uL Normal 138-453 [facility] Comment on above: Performed By: #### C P, CDP, MG, #### [address] [address] [employer]: Jurgen Hernandez MD RBC (Bld) [#/Vol] 4.04 10*6/uL Normal 3.95-5.11 [facility] Comment on above: Performed By: #### C P, CDP, MG, #### [address] [address] [employer]: Jurgen Hernandez MD WBC (Bld) [#/Vol] 9.5 10*3/uL Normal 3.5-11.3 [facility] Comment on above: Performed By: #### C P, CDP, MG, #### [address] [address] [employer]: Jurgen Hernandez MD Comp Metabolic Profon 2023 Potassium [Moles/Vol] 2.7 mmol/L Critically low 3.7-5.3 [facility] Comment on above: Performed By: #### C P #### [address] [address] [employer]: Jurgen Hernandez MD Albumin [Mass/Vol] 2.9 g/dL Low 3.5-5.2 [facility] Comment on above: Performed By: #### C P #### [address] [address] [employer]: Jurgen Hernandez MD Albumin/Glob Ratio 1.1 Normal 1.0-2.5 [facility] Comment on above: Performed By: #### C P #### [address] [address] [employer]: Jurgen Hernandez MD Alkaline Phos 73 U/L Normal 35-104 [facility] Comment on above: Performed By: #### C P #### [address] [address] [employer]: Jurgen Hernandez MD ALT [Catalytic activity/Vol] 8 U/L Normal 5-33 [facility] Comment on above: Performed By: #### C P #### [address] [address] [employer]: Jurgen Hernandez MD Anion gap [Moles/Vol] 12 mmol/L Normal 9-17 [facility] Comment on above: Performed By: #### C P #### [address] [address] [employer]: Jurgen Hernandez MD AST [Catalytic activity/Vol] 14 U/L Normal <32 [facility] Comment on above: Performed By: #### C P #### [address] [address] [employer]: Jurgen Hernandez MD Bilirubin [Mass/Vol] 1.3 mg/dL High 0.3-1.2 [facility] Comment on above: Performed By: #### C P #### [address] [address] [employer]: Jurgen Hernandez MD Calcium [Mass/Vol] 7.9 mg/dL Low 8.6-10.4 [facility] Comment on above: Performed By: #### C P #### [address] [address] [employer]: Jurgen Hernandez MD Chloride [Moles/Vol] 105 mmol/L Normal 98-107 [facility] Comment on above: Performed By: #### C P #### [address] [address] [employer]: Jurgen Hernandez MD CO2 [Moles/Vol] 21 mmol/L Normal 20-31 [facility] Comment on above: Performed By: #### C P #### [address] [address] [employer]: Jurgen Hernandez MD Creatinine [Mass/Vol] 0.4 mg/dL Low 0.5-0.9 [facility] Comment on above: Performed By: #### C P #### [address] [address] [employer]: Jurgen Hernandez MD GFR/1.73 sq M.predicted among non-blacks MDRD (S/P/Bld) [Vol rate/Area] mL/min/{1.73_m2} Normal >60 [facility] Comment on above: Result Comment: These [...] secretion. Performed By: #### C P #### [address] [address] [employer]: Jurgen Hernandez MD Glucose [Mass/Vol] 115 mg/dL High 70-99 [facility] Comment on above: Performed By: #### C P #### [address] [address] [employer]: Jurgen Hernandez MD Protein [Mass/Vol] 5.5 g/dL Low 6.4-8.3 [facility] Comment on above: Performed By: #### C P #### [address] [address] [employer]: Jurgen Hernandez MD Sodium [Moles/Vol] 138 mmol/L Normal 135-144 [facility] Comment on above: Performed By: #### C P #### [address] [address] [employer]: Jurgen Hernanedz MD Urea nitrogen [Mass/Vol] 3 mg/dL Low 6-20 [facility] Comment on above: Performed By: #### C P #### [address] [address] [employer]: Jurgen Hernandez MD Potassium [Moles/Vol] 2.6 mmol/L Critically low 3.7-5.3 [facility] Comment on above: Performed By: #### C P, CDP, MG, BH #### [facility] [employer] [address] [place] [phone] [employer]: Jurgen Hernandez MD Albumin [Mass/Vol] 3.4 g/dL Low 3.5-5.2 [facility] Comment on above: Performed By: #### C P, CDP, MG, BH #### [facility] [employer] [address] [place] [phone] [employer]: Jurgen Hernandez MD Albumin/Glob Ratio 1.0 Normal 1.0-2.5 [facility] Comment on above: Performed By: #### C P, CDP, MG, #### [address] [address] [employer]: Jurgen Hernandez MD Alkaline Phos 80 U/L Normal 35-104 [facility] Comment on above: Performed By: #### C P, CDP, MG, #### [address] [address] [employer]: Jurgen Hernandez MD ALT [Catalytic activity/Vol] 9 U/L Normal 5-33 [facility] Comment on above: Performed By: #### C P, CDP, MG, #### [address] [address] [employer]: Jurgen Hernandez MD Anion gap [Moles/Vol] 15 mmol/L Normal 9-17 [facility] Comment on above: Performed By: #### C P, CDP, MG, #### [address] [address] [employer]: Jurgen Hernandez MD AST [Catalytic activity/Vol] 20 U/L Normal <32 [facility] Comment on above: Performed By: #### C P, CDP, MG, #### [address] [address] [employer]: Jurgen Hernandez MD Bilirubin [Mass/Vol] 1.6 mg/dL High 0.3-1.2 [facility] Comment on above: Performed By: #### C P, CDP, MG, #### [address] [address] [employer]: Jurgen Hernadnez MD Calcium [Mass/Vol] 8.2 mg/dL Low 8.6-10.4 [facility] Comment on above: Performed By: #### C P, CDP, MG, #### [address] [address] [employer]: Jurgen Hernandez MD Chloride [Moles/Vol] 108 mmol/L High 98-107 [facility] Comment on above: Performed By: #### C P, CDP, MG, #### [address] [address] [employer]: Jurgen Hernandez MD CO2 [Moles/Vol] 19 mmol/L Low 20-31 [facility] Comment on above: Performed By: #### C P, CDP, MG, #### [address] [address] [employer]: Jurgen Hernandez MD Creatinine [Mass/Vol] 0.4 mg/dL Low 0.5-0.9 [facility] Comment on above: Performed By: #### C P, CDP, MG, #### [address] [address] [employer]: Jurgen Hernandez MD GFR/1.73 sq M.predicted among non-blacks MDRD (S/P/Bld) [Vol rate/Area] mL/min/{1.73_m2} Normal >60 [facility] Comment on above: Result Comment: These [...] #### C P, CDP, MG, BH #### [address] [address] [employer]: Jurgen Hernandez MD Glucose [Mass/Vol] 122 mg/dL High 70-99 [facility] Comment on above: Performed By: #### C P, CDP, MG, #### [email or web address] [facility] [place] [address] [employer]: Jurgen Hernandez MD Protein [Mass/Vol] 6.7 g/dL Normal 6.4-8.3 [facility] Comment on above: Performed By: #### C P, CDP, MG, #### [facility] [address] [place] [address] [phone] [employer]: Jurgen Hernandez MD Sodium [Moles/Vol] 142 mmol/L Normal 135-144 [facility] Comment on above: Performed By: #### C P, CDP, MG, #### [facility] [address] [place] [phone] [employer]: Jurgen Hernandez MD Urea nitrogen [Mass/Vol] 6 mg/dL Normal 6-20 [facility] Comment on above: Performed By: #### C P, CDP, MG, #### [facility] [address] [place] [address] [employer]: Jurgen Hernandez MD Comprehensive Metabolic Pane [facility] 03-26-2023 Albumin [Mass/Vol] 2.9 g/dL Low 3.5 - 5.2 g/dL [facility] Albumin/Globulin [Mass ratio] 1.1 {ratio} 1.0 - 2.5 [facility] ALP [Catalytic activity/Vol] 73 U/L 35 - 104 U/L [facility] ALT [Catalytic activity/Vol] 8 U/L 5 - 33 U/L [facility] Anion gap [Moles/Vol] 12 mmol/L 9 - 17 mmol/L [facility] AST [Catalytic activity/Vol] 14 U/L NINF - 32 U/L [facility] Bilirubin [Mass/Vol] 1.3 mg/dL High 0.3 - 1 .2 mg/dL [facility] Calcium [Mass/Vol] 7.9 mg/dL Low 8.6 - 10. 4 mg/dL [facility] Chloride [Moles/Vol] 105 mmol/L 98 - 10 7 mmol/L [facility] CO2 [Moles/Vol] 21 mmol/L 20 - 31 mmol/L [facility] Creatinine [Mass/Vol] 0.4 mg/dL Low 0.5 - 0.9 mg/dL [facility] GFR/1.73 sq M.predicted MDRD (S/P/Bld) [Vol rate/Area] - PINF [facility] Comment on above: These results are not [...] 115 mg/dL High 70 - 99 mg/dL [facility] Interpretation and review of laboratory results Abnormal [facility] Potassium [Moles/Vol] 2.7 mmol/L Critically low 3.7 - 5.3 mmol/L [facility] Protein [Mass/Vol] 5.5 g/dL Low 6.4 - 8.3 g/dL [facility] Sodium [Moles/Vol] 138 mmol/L 135 - 144 mmol/L [facility] Urea nitrogen [Mass/Vol] 3 mg/dL Low 6 - 20 mg/dL [facility] Albumin [Mass/Vol] 3.4 g/dL Low 3.5 - 5.2 g/dL [facility] Albumin/Globulin [Mass ratio] 1.0 {ratio} 1.0 - 2.5 [facility] ALP [Catalytic activity/Vol] 80 U/L 35 - 104 U/L [facility] ALT [Catalytic activity/Vol] 9 U/L 5 - 33 U/L [facility] Anion gap [Moles/Vol] 15 mmol/L 9 - 17 mmol/L [facility] AST [Catalytic activity/Vol] 20 U/L NINF - 32 U/L [facility] Bilirubin [Mass/Vol] 1.6 mg/dL High 0.3 - 1 .2 mg/dL [facility] Calcium [Mass/Vol] 8.2 mg/dL Low 8.6 - 10. 4 mg/dL [facility] Chloride [Moles/Vol] 108 mmol/L High 98 - 10 7 mmol/L [facility] CO2 [Moles/Vol] 19 mmol/L Low 20 - 31 mmol/L [facility] Creatinine [Mass/Vol] 0.4 mg/dL Low 0.5 - 0.9 mg/dL [facility] GFR/1.73 sq M.predicted MDRD (S/P/Bld) [Vol rate/Area] - PINF [facility] Comment on above: These results are not [...] 122 mg/dL High 70 - 99 mg/dL [facility] Interpretation and review of laboratory results Abnormal [facility] Potassium [Moles/Vol] 2.6 mmol/L Critically low 3.7 - 5.3 mmol/L [facility] Protein [Mass/Vol] 6.7 g/dL 6.4 - 8.3 g/dL [facility] Sodium [Moles/Vol] 142 mmol/L 135 - 144 mmol/L [facility] Urea nitrogen [Mass/Vol] 6 mg/dL 6 - 20 mg/dL [facility] Magnesiumon 03-26-2023 Magnesium [Mass/Vol] 1.6 mg/dL Normal 1.6-2.6 [facility] Comment on above: Performed By: #### C P, CDP, MG, BH #### [address] [address] [employer]: Jurgen Hernandez MD Magnesium [Mass/Vol] 1.6 mg/dL 1.6 - 2 .6 mg/dL [facility] Potassiumon 03-26-2023 Interpretation and review of laboratory results Abnormal [facility] Potassium [Moles/Vol] 2.5 mmol/L Critically low 3.7 - 5.3 mmol/L [facility] Protein / Creatinine Ratio, Urineon 03-26-2023 Creatinine (U) [Mass/Vol] 185.0 mg/dL 28.0 - 217.0 mg/dL [facility] Protein (U) [Mass/Vol] 44 mg/dL [facility] Comment on above: No normal range esta blished. Urine Total Protein Creatinine Ratio 0.24 [facility] Protein,Tot,[place] Uron 2023 Creatinine [Mass/Vol] 185.0 mg/dL Normal 28.0-217.0 [facility] Comment on above: Performed By: #### K #### [address] [address] [employer]: Jurgen Hernandez MD Tot Prot. Conc. 44 mg/dL [facility] Comment on above: Result Comment: No n ormal range established. Performed By: #### K #### [facility] [address] [place] [phone] [employer]: Jurgen Hernandez MD TP/Cre Ratio 0.24 Normal [facility] Comment on above: Performed By: #### K #### [facility] [employer] [address] [place] [phone] [employer]: Jurgen Hernandez MD US PELVIS TRANSVAGon 023 [...] LUCIANA MENDOZA Date: 2022-04-12 16:28 Normal [facility] Vaginitis DNA Probeon 2022 Hiral Species, DNA Probe Negative NEGATIVE [facility] Comment on above: for Hiral sp. Method of testing is a DNA probe intended for detection and identification of Hiral species, Gardnerella vaginalis, and Trichomonas vaginalis nucleic acid in vaginal fluid specimens from patients with symptoms of vaginitis/vaginosis. Gardnerella Vaginalis, DNA Probe Positive Abnormal NEGATIVE [facility] [employer] [facility] Comment on above: for Gardnerella vagi nalis Interpretation and review of laboratory results Abnormal [facility] Source .VAGINAL SWAB [facility] Trichomonas Vaginalis DNA Negative NEGATIVE [facility] Comment on above: for Trichomonas Vagi nalis [facility] Vital Signs Date Time Vital Sign Value Performing Clinician Facility 03-29-2023 11:45-0500 Body mass index (BMI) [Ratio] 38.07 kg/m2 [email or web address] DO Work Phone: [facility] 03-29-2023 11:45-0500 Body weight 94.4 kg Renu Susie DO Work Phone: [facility] 03-29-2023 11:45-0500 Diastolic blood pressure 70 mm[Hg] Renu Susie DO Work Phone: [facility] 03-29-2023 11:45-0500 Systolic blood pressure 122 mm[Hg] Renu Susie DO Work Phone: [facility] 03-27-2023 14:27-[address] [facility] DO Work Phone: [facility] [employer] [facility] 03-27-2023 11:51-0500 Body temperature 98.2 [degF] Pema Amaury DO Work Phone: [facility] 03-27-2023 11:51-0500 Diastolic blood pressure 78 mm[Hg] Pema Amaury DO Work Phone: [facility] 03-27-2023 11:51-0500 Heart rate 91 /min Pema Amaury DO Work Phone: [facility] 03-27-2023 11:51-0500 Respiratory rate 16 /min Pema Rebolledo DO Work Phone: [facility] 03-27-2023 11:51-0500 SaO2% (BldA) [Mass fraction] 97 % Pema Rebolledo DO Work Phone: [facility] 03-27-2023 11:51-0500 Systolic blood pressure 123 mm[Hg] Pema Amaury DO Work Phone: [facility] 02-15-2023 17:00-0500 Body height 157.48 cm Rosalind Jeter Other [facility] Other 02-15-2023 17:00-0500 Body mass index (BMI) [Ratio] 37.45 kg/m2 Rosalind Jeter Other [facility] Other 02-15-2023 17:00-0500 Body temperature 98 [degF] Rosalind Jeter Other [facility] Other 02-15-2023 17:00-0500 Body weight 92.9 kg Rosalind Jeter Other [facility] Other 02-15-2023 17:00-0500 Diastolic blood pressure 71 mm[Hg] Rosalind Jeter Other [facility] Other 02-15-2023 17:00-0500 Respiratory rate 18 /min Rosalind Jeter Other [facility] Other 02-15-2023 17:00-0500 SaO2% (BldA) [Mass fraction] 99 % Rosalind Riveramond Other [facility] Other 02-15-2023 17:00-0500 Systolic blood pressure 111 mm[Hg] Rosalind Jeter Other [facility] Other Encounters Encounter Date Encounter Type Care Provider Facility Start: 03-29-2023 End: 03-29-2023 ambulatory RENU SUSIE Not Available Start: 03-29-2023 End: 03-29-2023 flow sheet Renu Susie DO Work Phone: [facility] Comment on above: Third trimester preg mitchel; Hypokalemia Start: 03-26-2023 End: 03-27-2023 ambulatory PEMA REBOLLEDO [facility] Start: 03-26-2023 End: 03-26-2023 [facility] Start: 03-26-2023 End: 03-27-2023 Subsequent hospital visit by physician Pema Godoy Phone: [id number] Delivery Comment on above: Hypokalemia (Primary Dx) Start: 2023 End: 2023 ambulatory RENU SUSIE Not Available Start: 02-22-2023 End: 02-22-2023 ambulatory RENU SUSIE Not Available Start: 02-15-2023 End: 02-15-2023 ambulatory Rosalind Jeter Other [facility] Other Start: 02-15-2023 Office outpatient ne w 10 minutes Rosalind Jeter [facility] Start: 02-08-2023 End: 02-08-2023 ambulatory RINA CURRY Not Available Start: 01-16-2023 End: 01-16-2023 ambulatory RENU SUSIE Not Available Start: 04-11-2022 End: 04-12-[address] NONE LISTED REQUEST Facility: Start: 03-30-2022 End: 03-30-2022 Patient encounter procedure Rosette Mendoza Other Phone: [facility] [place] [facility] Start: 03-30-2022 End: 03-30-2022 Subsequent hospital visit by physician Rosette Mendoza Other Phone: [facility] [place] [facility] Comment on above: Vaginal discharge; [...] specie s direct probe tq Brittani Aguilar VP SCIENTIFIC - CNM Work Phone: Start: 03-30-2022 Microscopic observat ion [Identifier] in Cervix by Cyto stain Pema Rebolledo DO Work Phone: Plan of Treatment Date Care Activity Detail Author Start: 03-30-2027 Screening for malign ant neoplasm of cervix [facility] [employer] [facility] Start: 03-30-2025 Screening for malign ant neoplasm of cervix Pap smear [facility] [employer] [facility] Start: 04-11-2023 End: 04-11-2023 Patient encounter procedure 04/11/2023 10:30 AM EST Routine [facility] [address] [facility] [address] [place] [address] Return in about 6 weeks (around 04/11/2023) for Repeat Anatomy, Growth/BPP. [facility] Comment on above: Return in about 6 we eks (around 04/11/2023) for Repeat Anatomy, Growth/BPP. Start: 04-05-2023 End: 04-05-2023 Patient encounter procedure 04/05/2023 11:30 AM EST Routine [facility] [address] [place] [address] Renu Richards DO [address] [place] [address] [facility] Start: 03-31-2023 End: 03-27-2024 Potassium [Moles/volume] in Serum or Plasma Potassium Lab Routine Hypokalemia Expected: 03/31/2023, Expires: 03/27/2024 [facility] [employer] [facility] Comment on above: Expected: 03/31/2023 , Expires: 03/27/2024 Start: 03-30-2023 Depression Screen Depression Screen [facility] [employer] [facility] Start: 03-29-2023 End: 03-29-2024 US biophysical profile w non stress test US biophysical profile w non stress test Imaging Routine Hypokalemia Expected: 03/29/2023 (Approximate), Expires: 03/29/2024 [facility] Work Phone: Comment on above: Expected: 03/29/2023 (Approximate), Expires: 03/29/2024 Start: 2023 Diabetes screen Diabetes screen [facility] Start: 09-13-2022 Influenza vaccination Flu vaccine (# 1) [facility] Start: 09-13-2021 Influenza vaccination Flu vaccine (# 1) [facility] Start: 2018 Screening for malign ant neoplasm of cervix [facility] Start: 2009 Screening for malign ant neoplasm of cervix Pap smear [facility] Start: 2007 DTaP/Tdap/Td vaccine (1 - Tdap) DTaP/Tdap/Td vaccine (1 - Tdap) [facility] Start: 2006 Hepatitis C screening Hepatitis C sc reen [facility] Start: 2003 HIV screening HIV screen [facility] [employer] Start: 1989 Varicella vaccine (1 of 2 - 2-dose childhood series) Varicella vaccine (1 of 2 - 2-dose childhood series) [facility] Start: 1988 COVID-19 Vaccine (#1) COVID-19 Vacci ne (#1) [facility] Start: 1988 Hepatitis B vaccine (1 of 3 - 3-dose series) Hepatitis B vaccine (1 of 3 - 3-dose series) [facility] End: 03-30-2022 C.trachomatis N.gonorrhoeae DNA, Thin Prep [facility] Work Phone: Comment on above: 1 Occurrences starti ng 03/30/2022 until 03/30/2022 End: 03-27-2023 Culture, Strep B Screen, Vaginal/Rectal [facility] [employer] Phone: Comment on above: One Time for 1 Occur rences starting 03/27/2023 until 03/27/2023 End: 03-30-2022 Culture, Urine [facility] [employer] Phone: Comment on above: 1 Occurrences starti ng 03/30/2022 until 03/30/2022 End: 03-27-2023 Electrolyte Panel w/ Reflex to MG Electrolyte Panel w/ Reflex to MG Lab Routine One Time for 1 Occurrences starting 03/27/2023 until 03/27/2023 [facility] Work Phone: Comment on above: One Time for 1 Occur rences starting 03/27/2023 until 03/27/2023 Nonrebreather mask oxygen Nonrebreather mask oxygen Respiratory Care Routine As Needed until discontinued starting 03/26/2023 [facility] Comment on above: As Needed until disc ontinued starting 03/26/2023 Payers Date Payer Category Payer Unknown BCBS BCBS [id number] [id number] 2022-Present [phone] [address] [place] [address] [id number] 1988 Unknown [id number] 1988 Unknown [id number] 1988 Unknown [id number] 1988 Unknown [id number] 1988 Unknown [id number] 1988 Unknown [id number] 1988 Unknown [id number] 1988 Unknown [id number] 1959 Unknown [id number] Social History Date Type Detail Facility Start: 03-30-2022 End: 10-10-2022 Tobacco smoking status NHIS Never smoked tobacco [employer] Phone: Start: 03-30-2022 End: 10-10-2022 Tobacco use and exposure Smokeless tobacco non-user [employer] Phone: Start: 03-30-2022 Alcohol intake Lifetime non-drinker (finding) [employer] Phone: Start: 1990 Sex Assigned At Not on file [employer] Phone: Start: 11-21-2022 End: 03-26-2023 Sex Assigned At [facility] Other Start: 03-26-2023 End: 03-29-2023 Alcohol intake Ex-drinker (finding) [facility] Start: 11-21-2022 End: 03-26-2023 History of Social function [facility] Patient Health Questionnaire 9 item (PHQ-9) total score [Reported] 0 [facility] Start: 08-08-2022 [facility] Start: 1990 Sex Assigned At Female [facility] Start: 09-21-2022 Gender identity Identifies as female gender (finding) [facility] History of Present illness Narrative 03-29-2023 [...] nursing note reviewed. Exam conducted with a edge sander present. Vitals: Estimated body mass index is [...] Renu Richards DO documented in this encounter [facility] Discharge instructions 03-27-2023 Discharge Instructions [...] on left side. documented in this encounter [facility] History of Present illness Narrative 03-27-2023 Keiko [...] the patient: POTASSIUM ER 20MG Additional Documentation: CLUTCH OPERATOR PROGRESS NOTE Niesha Fisher is a 33 [...] Will update Dr. Gonzalez. Joanna Pablo DO Hotel Administrative Assistant Resident 03/27/2023, 6:31 AM Attending Physician Statement [...] Gonzalez MD Date: 03/27/2023 Time: 11:48 AM CLUTCH OPERATOR RESIDENT INTERVAL NOTE Repeat CMP reviewed K [...] ms QTc Calculation (Bazett) 471 ms P [place] 54 degrees R [place] 35 degrees T [place] 38 degrees Comprehensive Metabolic Panel Collection Time: [...] AST 14 <32 U/L Joanna Pablo DO CLUTCH OPERATOR Resident [facility] 03/26/2023 8:12 PM documented in this encounter [facility] course Narrative 03-27-2023 Sun Gillis MD - 03/27/2023 3:37 PM EST Note Date & Type Note Facility 03-27-2023 Hospital course Narrative Obstetric Discharge Summary [facility] Patient Name: Niesha Fisher Patient : [...] Your Medications These medications were sent to [address] - [phone] - F [phone] [facility] [address] potassium chloride 20 MEQ extended release tablet Diet: regular Follow up: With primary Ob provider on 03/29/23 Condition on discharge: good Discharge date: 03/27/23 Sun Gillis MD Hotel Administrative Assistant Resident [facility] Evaluation note 02-15-2023 Note Date & Type Note Facility 02-15-2023 Evaluation note Encounter Date Diagnosis Assessment Notes Feb, Right otitis media, unspecified otitis media type (ICD-10 - H66.91) Drink plenty fluids, get plenty of rest. Take the amoxicillin as prescribed until gone. Take Tylenol as needed for pain or fevers. Follow-up with your family physician or CLUTCH OPERATOR if no improvement in 2 to 3 days. [facility] Other Evaluation note Note Date & Type Note Facility Evaluation note Diagnosis Vaginal discharge Leukorrhea, not specified as infective Malodorous urine Other nonspecific finding on examination of urine Well woman exam Routine general medical examination at a health care facility documented in this encounter [facility] [employer] Work Phone: Evaluation note Note Date & Type Note Facility Evaluation note Diagnosis 34 weeks gestation of - Primary state, incidental Hypokalemia Hypopotassemia Acute gastroenteritis Other and unspecified noninfectious gastroenteritis and colitis Hypokalemia Hypopotassemia Hypomagnesemia Disorders of magnesium metabolism documented in this encounter [facility] Evaluation note Note Date & Type Note Facility Evaluation note Diagnosis Third trimester state, incidental Hypokalemia Hypopotassemia documented in this encounter [facility] History general Narrative - Reported Note Date & Type Note Facility History general Narrative - Reported Type Surgical History C section 2020 [facility] Other Summary Purpose Family History No Family History Records FoundNo Family History Records FoundNo Family History Records Found Advance Directives No Advanced Directives Records FoundLatest Code Status on File Code Status Date Activated Date Inactivated Comments Full Code 03/26/2023 9:19 AM Additional Source Comments Care Teams (unrecognized sec tion and content) Training Instructor Relationship Specialty Start Date End Date Rosette Mendoza [address] [facility] [address] [place] [address] PCP - General Internal Medicine 03/30/22 Training Instructor Relationship Specialty Start Date End Date Rosette Mendoza [address] [facility] [address] [place] [address] PCP - General Internal Medicine 03/30/22 INFORMATION SOURCE (unrecogn ized section and content) DATE CREATED AUTHOR 04/17/2022 [facility] p[facility] DATE CREATED AUTHOR AUTHOR'S ORGANIZ ATION 03/31/2023 [facility] EPIC DATE CREATED AUTHOR AUTHOR'S ORGANIZ ATION 04/02/2023 [facility] REASON FOR VISIT (unrecogniz ed section and content) Reason Comments Nausea & Vomiting Diarrhea Specialty Diagnoses / Procedures Referred By Angela t Referred To Contact Diagnoses 34 weeks gestation of Pema Rebolledo DO [address] [place] [address] [facility] [address] [place] [address] Referral ID Status Reason Start Date Expiration Date Visits Re quested Visits Authorized [id number] 1 1 Reason Comments Routine Visit Ordered [...] BE BASED ON THE PRIMARY CLINICAL RECORDS. [employer] provides no warranty or guarantee of the accuracy or completeness of information in this document.
[2023-04-11 19:20] LABS: Amphetamine Screen Urine NEGATIVE (NEGATIVE); Barbiturates Screen Urine NEGATIVE (NEGATIVE); Benzodiazepines Screen Urine NEGATIVE (NEGATIVE); Buprenorphine Screen Urine NEGATIVE (NEGATIVE); Cannabinoid Screen Urine NEGATIVE (NEGATIVE); Cocaine Screen Urine NEGATIVE (NEGATIVE); Methadone Screen Urine NEGATIVE (NEGATIVE); Methamphetamines Screen Urine NEGATIVE (NEGATIVE); Opiate Screen Urine NEGATIVE (NEGATIVE); Oxycodone Screen Urine NEGATIVE (NEGATIVE); Phencyclidine Screen Urine NEGATIVE (NEGATIVE); Tricyclic Antidepressant Urine NEGATIVE (NEGATIVE)
[2023-04-11] MEDS: 0.9 % SODIUM CHLORIDE 1,000 ML 1000 ML IV ×2 (19:35→20:08)
[2023-04-11] MEDS: CITRIC ACID/SODIUM CITRATE 30 ML SOLUTION ORACIT SHOHL'S SOLN PO (20:03)
[2023-04-11] MEDS: FAMOTIDINE/PF 20 MG/2 ML VIAL IV (20:04)
[2023-04-11] MEDS: METOCLOPRAMIDE HCL 10 MG/2 ML VIAL IVP (20:07)
[2023-04-11 20:23] LABS: Basophils Percent Auto 0.2 % (0.2-2.0); Eosinophils Absolute Auto 0.1 10^3/uL (0.0-0.7); Eosinophils Percent Auto 0.7 % (0.9-7.0); Hematocrit 34.4 % (36.0-48.0); Hemoglobin 11.3 g/dL (12.0-16.0); Immature Granulocytes Abs Auto 0.04 10^3/uL (0.00-0.03); Immature Granulocytes Pct Auto 0.4 % (0.0-0.5); Lymphocytes Absolute Auto 2.1 10^3/uL (1.2-3.8); Lymphocytes Percent Auto 20.5 % (20.5-60.0); Mean Corpuscular HGB Conc 32.8 g/dL (29.9-35.2); Mean Corpuscular Hemoglobin 29.1 pg (26.7-34.0); Mean Corpuscular Volume 88.7 fL (81.0-99.0); Mean Platelet Volume 10.2 fL (9.5-13.5); Monocytes Absolute Auto 0.7 10^3/uL (0.3-0.8); Monocytes Percent Auto 6.4 % (1.7-12.0); Neutrophils Absolute Auto 7.3 10^3/uL (1.4-6.5); Neutrophils Percent Auto 71.8 % (43.0-75.0); Platelet Count 242 10^3/uL (150-450); Red Blood Count 3.88 10^6/uL (4.20-5.40); White Blood Count 10.1 10^3/uL (4.0-11.0)
[2023-04-11] MEDS: CEFAZOLIN SODIUM/DEXTROSE,ISO 2 GM/50 ML PIGGYBACK IV (21:08)
[2023-04-11] MEDS: LACTATED RINGER'S SOLUTION 1,000 ML 50 ML IV (21:48)
--- NOTE | 2023-04-11 22:13 | PM.ONB ---
Brief Operative Note Date of procedure: 04/11/23 Pre-op diagnosis: iup at 37wks, gestational htn, previous c/s, ama Post-op diagnosis: same as pre-op Procedure: NAME OF PROCEDURE: [ section ] PROCEDURE: Patient was taken back to the Operating Room where she was given a spinal anesthesia with Duramorph without difficulty. She was prepped and draped in the normal sterile fashion. A Pfannenstiel skin incision was then made 2 cm above the symphysis pubis and carried down to underlying rectus fascia using a Bovie. The fascia was incised in the midline and extended laterally using Chery scissors. Two Patel clamps were placed on the superior aspect of the fascia and dissected off the underlying rectus muscles. The same was performed on the inferior aspect as well. The muscles were then in the midline. Peritoneum was identified and entered bluntly. The peritoneum was then extended superiorly and inferiorly with good visualization of the bladder. The bladder blade was inserted. A low transverse incision was made on the patient's uterus and extended laterally digitally. The infant was then delivered atraumatically after the bladder blade was removed in the cephalic position. The cord was clamped and cut. Cord blood was obtained. The infant was handed off to awaiting team. The patient's placenta was spontaneously delivered. The uterus was then exteriorized. The uterus was cleared of all clots and debris. The bladder blade was reinserted. The patient's uterine incision was closed using #0 Vicryl in a running lock fashion. Excellent hemostasis was assured. The uterus was then returned to the patient's abdomen. The patient's abdomen was copiously irrigated using warm saline. Peritoneal gutters were cleared of all clots and debris. Again excellent hemostasis was assured. The patient's peritoneum was closed using 3-0 Vicryl in a running fashion. The patient's fascia was closed using #0 Vicryl in a running fashion. The patient's skin was closed using 4-0 Vicryl subcuticularly. The patient tolerated the procedure well. Sponge, lap, and needle counts were correct x2. The patient was taken to the Recovery Room in stable condition. Anesthesia: spinal Surgeon: Maged Richards Furrier Apprentice: Dionne Manuel Estimated blood loss (mL): 600 Pathology: none sent Condition: stable Disposition: PACU Urinary Catheter Management Urinary Catheter Management Urethral: Cath placed during this visit: yes Urethral indwelling: No Insertion date: 04/11/23 Insertion time: 19:50
--- NOTE | 2023-04-11 22:14 | P.OBPRC_ITS ---
Procedure Pre-op/Post-op diagnoses: Pre-Op/Post-Op Diagnoses Operation Date: 04/11/23 21:00 <No data on this case meets the specified criteria> Procedure: Procedures Operation Date: 04/11/23 21:00 Actual Procedure Side Surgeon p with delivery of viable baby boy Not Applicable Maged Richards DO Legal Internship: Dionne Manuel Estimated blood loss (mL): 600 Disposition: PACU Anesthesia type: Spinal
[2023-04-11] MEDS: 0.9 % SODIUM CHLORIDE 10 ML VIAL INJ (22:31)
[2023-04-11] MEDS: BUPIVACAINE LIPOSOME/PF 266 MG/13.3 ML VIAL INJ (22:31)
[2023-04-11] MEDS: BUPIVACAINE HCL 0.5% PF 50 MG/10 ML VIAL INJ (22:31)
[2023-04-11] MEDS: OXYTOCIN/0.9 % SODIUM CHLORIDE 20 UNITS/1,000 ML PLAST..BAG 200 UNIT IV (22:49)
[2023-04-12] VITALS (16 sets, daily range): BP systolic 101–119; BP diastolic 59–79; PULSE 80–102; RESP 16–49; TEMP 36.1–36.9; O2SAT 93–96
[2023-04-12] MEDS: KETOROLAC TROMETHAMINE 30 MG/ML VIAL IVP ×3 (03:31→16:14)
[2023-04-12] MEDS: CEFAZOLIN SODIUM/DEXTROSE,ISO 2 GM/50 ML PIGGYBACK IV (03:34)
[2023-04-12 06:09] LABS: Basophils Percent Auto 0.1 % (0.2-2.0); Hematocrit 30.2 % (36.0-48.0); Hemoglobin 9.8 g/dL (12.0-16.0); Immature Granulocytes Abs Auto 0.03 10^3/uL (0.00-0.03); Immature Granulocytes Pct Auto 0.3 % (0.0-0.5); Lymphocytes Absolute Auto 1.2 10^3/uL (1.2-3.8); Lymphocytes Percent Auto 12.1 % (20.5-60.0); Mean Corpuscular HGB Conc 32.5 g/dL (29.9-35.2); Mean Corpuscular Volume 89.3 fL (81.0-99.0); Mean Platelet Volume 9.1 fL (9.5-13.5); Monocytes Absolute Auto 0.5 10^3/uL (0.3-0.8); Monocytes Percent Auto 4.5 % (1.7-12.0); Neutrophils Absolute Auto 8.5 10^3/uL (1.4-6.5); Platelet Count 217 10^3/uL (150-450); Red Blood Count 3.38 10^6/uL (4.20-5.40); Red Cell Distribution Width 13.6 % (11.0-15.0); White Blood Count 10.2 10^3/uL (4.0-11.0)
[2023-04-12 06:18] LABS: Potassium 4.1 mmol/L (3.5-5.1)
[2023-04-12] MEDS: ACETAMINOPHEN 500 MG TABLET 1000 MG PO (06:21)
--- NOTE | 2023-04-12 07:57 | P.OBPN_ITS ---
OB - PN: Subj Subjective Patient comments: no complaints [place] status: doing well Exam Constitutional Vital Signs, click to edit/add: Last Vital Signs Temp 98.4 F 04/12/23 04:06 Pulse 92 H 04/12/23 04:06 Resp 18 04/12/23 04:06 BP 110/67 04/12/23 04:06 Pulse Ox 95 04/12/23 04:06 O2 Del Method Room Air 04/12/23 04:08 Documenting provider has reviewed patient's vital signs: yes Common normals: no apparent distress Respiratory Common normals: normal respiratory effort and clear to auscultation bilaterally Cardio Common normals: regular rate and regular rhythm GI Common normals: Normal to inspection, nondistended, normoactive bowel sounds present Extremity Common normals: no clubbing, cyanosis or edema Results Labs Labs: Short CBC 04/11/23 04/12/23 Range/Units 19:35 06:03 WBC 10.1 10.2 (4.0-11.0) 10^3/uL Hgb 11.3 L 9.8 L (12.0-16.0) g/dL Hct 34.4 L 30.2 L (36.0-48.0) % Plt Count 242 217 (150-450) 10^3/uL BMP 04/12/23 06:03 Potassium 4.1 Urinary Catheter Management Urinary Catheter Management Urethral: Cath placed during this visit: yes Urethral indwelling: No Insertion date: 04/11/23 Insertion time: 19:50 OB - PN: A/P Plan - day: 1 Plan: routine postop care Time Spent with Patient Time: Total time spent is greater than 50% in coordination of care (as documented) at patient's floor/unit and/or counseling patient: Total time spent with greater than 50% in coordination of care (as documented) at patient's floor/unit and/or counseling patient: less than 15 minutes
[2023-04-12] MEDS: DOCUSATE SODIUM 100 MG CAPSULE PO (09:02)
[2023-04-12] MEDS: ENOXAPARIN SODIUM 40 MG/0.4 ML SYRINGE SUBQ (10:31)
[2023-04-12] MEDS: POTASSIUM CHLORIDE 10 MEQ ER TABLET 20 MEQ PO (13:48)
[2023-04-12] MEDS: IBUPROFEN 400 MG TABLET 800 MG PO (23:33)
[2023-04-13] MEDS: ACETAMINOPHEN 500 MG TABLET 1000 MG PO ×2 (01:39→12:31)
--- NOTE | 2023-04-13 07:53 | W.PC.ACHO ---
Registration Status: ADM IN Primary Language: Comoran Preferred Language: Com[place]an Report given to Toribio Garrett RN. Active Medications Generic Name Dose Route Start Last Admin Trade Name Freq PRN Reason Stop Dose Admin Acetaminophen 1,000 mg 04/12/23 03:06 04/13/23 01:39 Acetaminophen 500 Mg Tablet PO 1,000 mg Q8H PRN Administration Pain Al Hydroxide/Mg Hydroxide 2,400 mg 04/11/23 22:15 Magnesium Hydroxide 2,400 Mg/10 Ml Oral.Susp PO Q6H PRN Dyspepsia Docusate Sodium 100 mg 04/12/23 09:00 04/13/23 01:52 Docusate Sodium 100 Mg Capsule PO Not Given BID MICHELLE Enoxaparin Sodium 40 mg 04/12/23 10:00 04/12/23 10:31 Enoxaparin Sodium 40 Mg/0.4 Ml Syringe SUBQ 40 mg Q24H MICHELLE Administration Sodium Chloride 1,000 mls @ 125 mls/hr 04/11/23 22:30 Sodium Chloride 0.9% 1,000 Ml IV .Q8H MICHELLE Promethazine HCl 25 mg/ Sodium 51 mls @ 204 mls/hr 04/11/23 22:15 Chloride IV Q6H PRN Nausea And Vomiting Ibuprofen 800 mg 04/11/23 22:15 04/12/23 23:33 Ibuprofen 400 Mg Tablet PO 800 mg Q8H PRN Administration Pain Ketorolac Tromethamine 30 mg 04/11/23 22:15 04/12/23 16:14 Ketorolac Tromethamine 30 Mg/Ml Vial IVP 04/13/23 22:16 30 mg Q6H PRN Administration Pain Ondansetron HCl 4 mg 04/11/23 22:15 Ondansetron Pf 4 Mg/2 Ml Vial IV Q6H PRN Nausea And Vomiting Ondansetron HCl 4 mg 04/11/23 22:15 Ondansetron 4 Mg Rapdis Tablet PO Q6H PRN Nausea And Vomiting Oxycodone/Acetaminophen 1 tab 04/11/23 22:15 Oxycodone Hcl/Acetaminophen 5mg/325mg PO Q4H PRN Pain Scale 4-6 Oxycodone/Acetaminophen 2 tab 04/11/23 22:15 Oxycodone Hcl/Acetaminophen 5mg/325mg PO Q4H PRN Pain Scale 7-10 Potassium Chloride 20 meq 04/12/23 12:30 04/12/23 13:48 Potassium Chloride 10 Meq Er Tablet PO 20 meq QD MICHELLE Administration Senna 17.2 mg 04/11/23 20:00 Sennosides 8.6 Mg Tablet PO QHS PRN Constipation Simethicone 80 mg 04/11/23 22:15 Simethicone 80 Mg Tab.Chew PO QID PRN Abdominal Distention Respiratory Oxygen Delivery Method Room Air Oxygen Delivery Method Room Air Oxygen Delivery Method Room Air Oxygen Delivery Method Room Air Oxygen Delivery Method Room Air Renal Bladder Pattern Continent Catheter Urinary Catheter Date of 04/11/23 Insertion [Urethral] Urinary Catheter Time of 19:50 Insertion [Urethral] Date Urinary Catheter Removed 04/12/23
[2023-04-13] MEDS: POTASSIUM CHLORIDE 10 MEQ ER TABLET 20 MEQ PO (08:18)
[2023-04-13] MEDS: IBUPROFEN 400 MG TABLET 800 MG PO (08:19)
[2023-04-13] MEDS: DOCUSATE SODIUM 100 MG CAPSULE PO (08:19)
[2023-04-13 08:28] VITALS: BP 126/78; PULSE 82
[2023-04-13 08:38] VITALS: BP 126/78; PULSE 82; RESP 16; TEMP 36.8
--- NOTE | 2023-04-13 08:47 | PM.OBPN ---
OB - PN: Subj Subjective Patient comments: no complaints and incisional pain [place] infant status: doing well feeding status: exclusively Exam Constitutional Vital Signs, click to edit/add: Last Vital Signs Temp 98.2 F 04/13/23 08:38 Pulse 82 04/13/23 08:38 Resp 16 04/13/23 08:38 BP 126/78 04/13/23 08:38 Pulse Ox 95 04/12/23 04:06 O2 Del Method Room Air 04/13/23 08:38 Documenting provider has reviewed patient's vital signs: yes Common normals: no apparent distress General appearance: cooperative Orientation/consciousness: Yes awake, Yes oriented to person, Yes oriented to place and Yes oriented to time HENMT Common normals: normocephalic Eye Common normals: EOMs intact bilaterally General eye: normal appearance of both eyes Neck & C-Spine Common normals: full ROM Lymph Lymphatic: no lymphadenopathy noted Chest Common normals: inspection of chest normal Respiratory Common normals: normal respiratory effort Cardio Common normals: regular rate and regular rhythm Rate: regular rate Rhythm: regular rhythm GI Common normals: Normal to inspection, nondistended, normoactive bowel sounds present Auscultation: normoactive bowel sounds Palpation: soft Common normals: no CVA tenderness Back & Pelvis Common normals: no CVA tenderness Extremity Common normals: normal to inspection and full ROM Neuro [place] Coma Scale: document GCS findings Common normals: oriented x3 Sensorium/orientation: awake, alert, oriented to person, oriented to place and oriented to time Psych Common normals: mental status grossly normal Appearance: grossly normal Attitude: calm Urinary Catheter Management Urinary Catheter Management Urethral: Cath placed during this visit: yes Urethral indwelling: No Insertion date: 04/11/23 Insertion time: 19:50 OB - PN: A/P Plan - day: 2 Plan: discharge home Time Spent with Patient Time: Total time spent is greater than 50% in coordination of care (as documented) at patient's floor/unit and/or counseling patient: Total time spent with greater than 50% in coordination of care (as documented) at patient's floor/unit and/or counseling patient: less than 15 minutes
[2023-04-13] MEDS: ENOXAPARIN SODIUM 40 MG/0.4 ML SYRINGE SUBQ (10:45)
[2023-04-13 16:28] VITALS: BP 128/80; PULSE 74
--- OUTSIDE RECORDS SUMMARY | 2023-04-14 08:06 | XMS_ITS | CCD ---
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 Name Role Phone Rosette Mendoza Primary Care Provider REQUEST, DR NONE LISTED Primary Care Unavaila chase MENDOZA, DR LUCIANA Pedro Consulting Unavailable SUSIE ., DR SEARS Attending Unavailable SUSIE ., DR SEARS Admitting Unavailable SUSIE ., DR SEARS Consulting Unavailable Rosalind Jeter Unavailable Rosette Mendoza Primary Care Provider Unavailable Primary Care Provider UnavailPEMA Plunkett Admitting Unavailable PEMA REBOLLEDO Attending Unavailable ROSETTE MENDOZA Primary Care Unavailable ROSETTE MENDOZA Primary Care Unavailable RINA CURRY Attending Unavailable RENU RICHARDS Attending Unavailable RENU RICHARDS Attending Unavailable RENU RICHARDS Attending Unavailable RENU RICHARDS Attending Unavailable RENU RICHARDS Attending Unavailable Medications Current Medications Medication Drug Class(es) [...] B STREPTOCOCCI Report Status FINAL 03/31/2023 Normal [facility] Comment on above: Performed By: #### R OGBS #### [place] [address] Plant Mechanic: Jurgen Hernandez MD Urinalysis macro (dipstick) panel (U)on 03-29-2023 Bilirubin, UA Negative Negative - 4(70) +++ mg/dL [facility] Blood, UA Negative Negative - 50 Dwight/mcL [facility] Clarity, UA Clear [facility] Color, UA Yellow [facility] Glucose, UA Negative Negative - 1999(110) ++++ mg/dL [facility] Interpretation and review of laboratory results Normal [facility] Ketones, UA Negative Negative - 160(16) ++++ mg/dL [facility] Leukocytes, UA Negative Negative - 500+++ Karlene/mcL [facility] Nitrite, UA Negative Negative - Positive [facility] pH, UA 7.0 5 - 9 [facility] Protein, UA Negative Negative - 1999(20) ++++ mg/dL [facility] Spec Grav, UA 1.025 1 - 1.03 [facility] Urobilinogen, UA 0.2 0.2 - 12 mg/dL [facility] BLOOD GAS, VENOUSon 03-27-19 Carboxyhemoglobin (Bld) [Mass fraction] 1.0 % 0 - 5 % [facility] Comment on above: Reference Range: Non-Smokers 0-2% Average Smoker 2-4% Heavy Smoker <10% HCO3 (Bld) [Moles/Vol] 24.8 mmol/L 24 - 30 mmol /L [facility] Interpretation and review of laboratory results Abnormal [facility] Negative Base Excess, Pieter 0.3 mmol/L 0.0 - 2.0 mmol/L [facility] Oxygen saturation in Blood 35.8 % Low 60.0 - 85.0 % [facility] Oxygen/Inspired gas Respiratory system --on ventilator INFORMATION NOT PROVIDED [facility] pCO2, Pieter 45.1 [facility] pH, Pieter 7.359 7.320 - 7.420 [facility] pO2, Pieter 26.4 Low [facility] Comp Metabolic Profon 2023 Potassium [Moles/Vol] 2.9 mmol/L Critically low 3.7-5.3 [facility] Comment on above: Performed By: #### C P, OSMO, MG #### [employer] [facility] [place], [place] [id number] Plant Mechanic: Jurgen Hernandez MD Albumin [Mass/Vol] 2.9 g/dL Low 3.5-5.2 [facility] Comment on above: Performed By: #### C P, OSMO, MG #### [employer] [address] [place] [address] Plant Mechanic: Jurgen Hernandez MD Albumin/Glob Ratio 1.1 Normal 1.0-2.5 [facility] Comment on above: Performed By: #### C P, OSMO, MG #### [address] [address] Plant Mechanic: Jurgen Hernandez MD Alkaline Phos 73 U/L Normal 35-104 [facility] Comment on above: Performed By: #### C P, OSMO, MG #### [facility] [address] [place] [address] Plant Mechanic: Jurgen Hernandez MD ALT [Catalytic activity/Vol] 7 U/L Normal 5-33 [facility] Comment on above: Performed By: #### C P, OSMO, MG #### [address] [address] Plant Mechanic: Jurgen Hernandez MD Anion gap [Moles/Vol] 9 mmol/L Normal 9-17 [facility] Comment on above: Performed By: #### C P, OSMO, MG #### [address] [address] Plant Mechanic: Jurgen Hernandez MD AST [Catalytic activity/Vol] 26 U/L Normal <32 [facility] Comment on above: Performed By: #### C P, OSMO, MG #### [facility] [employer] [address] [place] [address] Plant Mechanic: Jurgen Hernandez MD Bilirubin [Mass/Vol] 1.3 mg/dL High 0.3-1.2 [facility] Comment on above: Performed By: #### C P, OSMO, MG #### [facility] [employer] [address] [place] [address] Plant Mechanic: Jurgen Hernandez MD Calcium [Mass/Vol] 7.8 mg/dL Low 8.6-10.4 [facility] Comment on above: Performed By: #### C P, OSMO, MG #### [facility] [employer] [address] [place] [address] Plant Mechanic: Jurgen Hernandez MD Chloride [Moles/Vol] 104 mmol/L Normal 98-107 [facility] Comment on above: Performed By: #### C P, OSMO, MG #### [facility] [place] [address] Plant Mechanic: Jurgen Hernandez MD CO2 [Moles/Vol] 21 mmol/L Normal 20-31 [facility] Comment on above: Performed By: #### C P, OSMO, MG #### [facility] [address] [place] [address] Plant Mechanic: Jurgen Hernandez MD Creatinine [Mass/Vol] 0.4 mg/dL Low 0.5-0.9 [facility] Comment on above: Performed By: #### C P, OSMO, MG #### [address] [address] Plant Mechanic: Jurgen Hernandez MD GFR/1.73 sq M.predicted among non-blacks MDRD (S/P/Bld) [Vol rate/Area] mL/min/{1.73_m2} Normal >60 [facility] Comment on above: Result Comment: These [...] By: #### C P, OSMO, MG #### [facility] [address] [place] [address] Plant Mechanic: Jurgen Hernandez MD Glucose [Mass/Vol] 108 mg/dL High 70-99 [facility] Comment on above: Performed By: #### C P, OSMO, MG #### [facility] [employer] [address] [place] [address] Plant Mechanic: Jurgen Hernandez MD Protein [Mass/Vol] 5.6 g/dL Low 6.4-8.3 [facility] Comment on above: Performed By: #### C P, OSMO, MG #### [facility] [address] [place] [address] Plant Mechanic: Jurgen Hernandez MD Sodium [Moles/Vol] 134 mmol/L Low 135-144 [facility] Comment on above: Performed By: #### C P, OSMO, MG #### [facility] [address] [place], [place] [phone] Plant Mechanic: Jurgen Hernandez MD Urea nitrogen [Mass/Vol] 2 mg/dL Low 6-20 [facility] Comment on above: Performed By: #### C P, OSMO, MG #### [facility] [address] [place], [place] [phone] Plant Mechanic: Jurgen Hernandez MD Comprehensive Metabolic Pane [facility] 03-27-2023 Albumin [Mass/Vol] 2.9 g/dL Low 3.5 - 5.2 g/dL [facility] Albumin/Globulin [Mass ratio] 1.1 {ratio} 1.0 - 2.5 [facility] ALP [Catalytic activity/Vol] 73 U/L 35 - 104 U/L [facility] ALT [Catalytic activity/Vol] 7 U/L 5 - 33 U/L [facility] Anion gap [Moles/Vol] 9 mmol/L 9 - 17 mmol/L [facility] AST [Catalytic activity/Vol] 26 U/L NINF - 32 U/L [facility] Bilirubin [Mass/Vol] 1.3 mg/dL High 0.3 - 1 .2 mg/dL [facility] Calcium [Mass/Vol] 7.8 mg/dL Low 8.6 - 10. 4 mg/dL [facility] Chloride [Moles/Vol] 104 mmol/L 98 - 10 7 mmol/L [facility] CO2 [Moles/Vol] 21 mmol/L 20 - 31 mmol/L [facility] [employer] Creatinine [Mass/Vol] 0.4 mg/dL Low 0.5 - 0.9 mg/dL [facility] [employer] GFR/1.73 sq M.predicted MDRD (S/P/Bld) [Vol rate/Area] - [facility] Comment on above: These results are [...] 108 mg/dL High 70 - 99 mg/dL [facility] Interpretation and review of laboratory results Abnormal [facility] [employer] Potassium [Moles/Vol] 2.9 mmol/L Critically low 3.7 - 5.3 mmol/L [facility] [employer] Protein [Mass/Vol] 5.6 g/dL Low 6.4 - 8.3 g/dL [facility] [employer] Sodium [Moles/Vol] 134 mmol/L Low 135 - 144 mmol/L [facility] [employer] Urea nitrogen [Mass/Vol] 2 mg/dL Low 6 - 20 mg/dL [facility] [employer] [facility] EKG 12 LeadOrdered By: Lillian Pruitt on 03-27-2023 Atrial Rate 101 BPM [facility] [employer] Work Phone: P [place] 54 degrees [employer] Work Phone: P-R Interval 178 ms [employer] Work Phone: Q-T Interval 364 ms [employer] Work Phone: QRS Duration 102 ms [employer] Work Phone: QTc Calculation (Bazett) 471 ms [employer] Work Phone: R [place] 35 degrees [employer] Work Phone: T [place] 38 degrees [employer] Work Phone: Ventricular Rate 101 BPM [facility] [employer] [facility] Work Phone: [facility] Work Phone: EKG 12 Leadon 03-27-2023 Sinus tachycardia Incomplete right bundle branch block Septal infarct , age undetermined Abnormal ECG No previous ECGs available [facility] MD - 03/27/2023 Sinus tachycardia Incomplete right bundle branch block Septal infarct , age undetermined Abnormal ECG No previous ECGs available [facility] [employer] [facility] Atrial Rate 101 BPM [facility] P [place] 56 degrees [facility] P-R Interval 170 ms [facility] Q-T Interval 364 ms [facility] [employer] QRS Duration 96 ms [facility] [employer] QTc Calculation (Bazett) 471 ms [facility] R [place] 31 degrees [facility] T [place] 37 degrees [facility] Ventricular Rate 101 BPM [facility] [employer] Sinus tachycardia Nonspecific ST and T wave abnormality Abnormal ECG When compared with ECG of 26-MAR-2023 11:35, Incomplete right bundle branch block is no longer Present [facility] - 03/27/[address] and T wave abnormality Abnormal ECG When compared with ECG of 26-MAR-2023 11:35, Incomplete right bundle branch block is no longer Present [facility] [employer] Panelon 03-27-19 24 Anion gap [Moles/Vol] 9 mmol/L 9 - 17 mmol/L [facility] Chloride [Moles/Vol] 103 mmol/L 98 - 10 7 mmol/L [facility] CO2 [Moles/Vol] 23 mmol/L 20 - 31 mmol/L [facility] Interpretation and review of laboratory results Abnormal [facility] Potassium [Moles/Vol] 3.1 mmol/L Low 3.7 - 5.3 mmol/L [facility] Sodium [Moles/Vol] 135 mmol/L 135 - 144 mmol/L [facility] Electrolyteson 03-27-2023 Anion gap [Moles/Vol] 9 mmol/L Normal 9-17 [facility] Comment on above: Performed By: #### K #### [facility] [employer] [address] [place] [address] Plant Mechanic: Jurgen Hernandez MD Chloride [Moles/Vol] 103 mmol/L Normal 98-107 [facility] Comment on above: Performed By: #### K #### [facility] [employer] [address] [place] [address] Plant Mechanic: Jurgen Hernandez MD CO2 [Moles/Vol] 23 mmol/L Normal 20-31 [facility] Comment on above: Performed By: #### K #### [address] [address] Plant Mechanic: Jurgen Hernandez MD Potassium [Moles/Vol] 3.1 mmol/L Low 3.7-5.3 [facility] Comment on above: Performed By: #### K #### [facility] [employer] [address] [place] [address] Plant Mechanic: Jurgen Hernandez MD Sodium [Moles/Vol] 135 mmol/L Normal 135-144 [facility] Comment on above: Performed By: #### K #### [facility] [employer] [address] [place] [address] Plant Mechanic: Jurgen Hernandez MD K (Potassium)on 03-27-2023 Potassium [Moles/Vol] 2.7 mmol/L Critically low 3.7-5.3 [facility] Comment on above: Performed By: #### K #### [facility] [employer] [address] [place] [address] Plant Mechanic: Jurgen Hernandez MD Potassium [Moles/Vol] 2.5 mmol/L Critically low 3.7-5.3 [facility] Comment on above: Performed By: #### K #### [employer] [address] [place] [address] [phone] Plant Mechanic: Jurgen Hernandez MD Magnesiumon 03-27-2023 Magnesium [Mass/Vol] 1.9 mg/dL Normal 1.6-2.6 [facility] Comment on above: Performed By: #### C P, OSMO, MG #### [facility] [employer] [address] [place] [address] [phone] Plant Mechanic: Jurgen Hernandez MD Magnesium [Mass/Vol] 1.9 mg/dL 1.6 - 2 .6 mg/dL [facility] OSMOLALITY, URINEon 03-27-19 24 Osmolality (U) [Osmolality] 365 mosm/kg [facility] Osmolalityon 03-27-2023 Osmolality [Osmolality] 285 mosm/kg Normal 275-295 [facility] Comment on above: Performed By: #### C P, OSMO, MG #### [facility] [address] [place] [address] [phone] Plant Mechanic: Jurgen Hernandez MD Osmolality [Osmolality] 285 mosm/kg [facility] Osmolality, Urineon 03-27-19 24 Osmolality - Urine 365 mOsm/kg Normal 80-1300 [facility] Comment on above: Performed By: #### K #### [facility] [address] [place] [phone] Plant Mechanic: Jurgen Hernandez MD POTASSIUM, URINE, RANDOMon 0 03-27-2023 Potassium, Ur 29.1 mmol/L [facility] Comment on above: No normal range esta blished. [facility] Potassiumon 03-27-2023 Interpretation and review of laboratory results Abnormal [facility] Potassium [Moles/Vol] 2.7 mmol/L Critically low 3.7 - 5.3 mmol/L [facility] Potassium,Random Uron 2023 Potassium [Moles/Vol] 29.1 mmol/L Normal [facility] Comment on above: Result Comment: No n ormal range established. Performed By: #### K #### [address] [address] Plant Mechanic: Jurgen Hernandez MD Venous Blood Gaseson 03-27-2 024 Body Temp. 37.0 Normal [facility] Comment on above: Performed By: #### K #### [address] [address] Plant Mechanic: Jurgen Hernandez MD Carboxy Hgb 1.0 % Normal 0-5 [facility] Comment on above: Result Comment: Reference Range: Non-Smokers 0-2% Average Smoker 2-4% Heavy Smoker <10% Performed By: #### K #### [address] [address] Plant Mechanic: Jurgen Hernandez MD FIO2 INFORMATION NOT PROVIDED Normal [facility] Comment on above: Performed By: #### K #### [address] [address] Plant Mechanic: Jurgen Hernandez MD HCO3 (Bld) [Moles/Vol] 24.8 mmol/L Normal 24-30 [facility] Comment on above: Performed By: #### K #### [address] [address] Plant Mechanic: Jurgen Hernandez MD Negative Base Excess 0.3 mmol/L Normal 0.0-2.0 [facility] Comment on above: Performed By: #### K #### [address] [address] Plant Mechanic: Jurgen Hernandez MD Oxygen saturation in Blood 35.8 % Low 60.0-85.0 [facility] Comment on above: Performed By: #### K #### [address] [address] Plant Mechanic: Jurgen Hernandez MD pCO2 45.1 mm Hg Normal 39-55 [facility] Comment on above: Performed By: #### K #### [facility] [address] [place] [phone] Plant Mechanic: Jurgen Hernandez MD pH (Bld) 7.359 [pH] Normal 7.320-7.420 [facility] Comment on above: Performed By: #### K #### [facility] [address] [place] [address] Plant Mechanic: Jurgen Hernandez MD pO2 26.4 mm Hg Low 30-50 [facility] Comment on above: Performed By: #### K #### [facility] [employer] [address] [place] [address] Plant Mechanic: Jurgen Hernandez MD Beta Hydroxybutyrateon 03-26 Beta Hydroxybutyrate 1.24 mmol/L High 0.02-0.27 [facility] Comment on above: Performed By: #### C P, CDP, MG, BH #### [facility] [employer] [address] [place] [address] Plant Mechanic: Jurgen Hernandez MD Beta-Hydroxybutyrateon 03-26 Beta hydroxybutyrate [Mass/Vol] 1.24 mmol/L High 0.02 - 0.27 mmol/L [facility] Interpretation and review of laboratory results Abnormal [facility] CBC with Auto Differentialon 03-26-2023 Basophils (Bld) [#/Vol] 0.00 10*3/uL [facility] Basophils/100 WBC (Bld) 0 % 0 - 2 % [facility] Eosinophils (Bld) [#/Vol] 0.00 10*3/uL [facility] Eosinophils/100 WBC (Bld) 0 % Low 1 - 4 % [facility] Erythrocyte distribution width (RBC) [Ratio] 14.5 % High 11.8 - 14.4 % [facility] Hematocrit (Bld) [Volume fraction] 35.7 % Low 36.3 - 47.1 % [facility] Hemoglobin (Bld) [Mass/Vol] 12.1 g/dL 11.9 - 15.1 g/dL [facility] Immature granulocytes (Bld) [#/Vol] 0.00 10*3/uL [facility] Immature granulocytes/100 WBC (Bld) 0 % 0 [facility] Interpretation and review of laboratory results Abnormal [facility] Lymphocytes/100 WBC (Bld) 5 % Low 24 - 44 % [facility] Lymphocytes/100 WBC (Bld) 0.48 % Low [facility] MCH (RBC) [Entitic mass] 30.0 pg 25.2 - 33.5 pg [facility] MCHC (RBC) [Mass/Vol] 33.9 g/dL 28.4 - 34.8 g/dL [facility] MCV (RBC) [Entitic vol] 88.4 fL 82.6 - 102.9 fL [facility] Monocytes/100 WBC (Bld) 4 % 1 - 7 % [facility] Monocytes/100 WBC (Bld) 0.38 % [facility] Morphology Moises (Bld) [Interp] ANISOCYTOSIS PRESENT [facility] Neutrophils/100 WBC (Bld) 91 % High 36 - 66 % [facility] Nucleated RBC/100 WBC (Bld) [Ratio] 0.0 % 0.0 per 100 WBC [facility] Platelet mean volume (Bld) [Entitic vol] 9.4 fL 8.1 - 13.5 fL [facility] Platelets (Bld) [#/Vol] 231 10*3/uL [facility] RBC (Bld) [#/Vol] 4.04 10*6/uL 3.95 - 5.1 1 m/uL [facility] Segmented neutrophils/100 WBC (Bld) 8.64 % High [facility] WBC other (Bld) [#/Vol] 9.5 [facility] CBC with Diffon 03-26-2023 Abs. Basophil 0.00 k/uL Normal 0.0-0.2 [facility] Comment on above: Performed By: #### C P, CDP, MG, #### [facility] [employer] [address] [place] [phone] Plant Mechanic: Jurgen Hernandez MD Abs.Imm.Granulocyte 0.00 k/uL Normal 0.00-0.30 [facility] Comment on above: Performed By: #### C P, CDP, MG, #### [facility] [employer] [address] [place] [phone] Plant Mechanic: Jurgen Hernandez MD Abs.Neutrophil (Seg) 8.64 k/uL High 1.8-7.7 [facility] Comment on above: Performed By: #### C P, CDP, MG, #### [address] [address] Plant Mechanic: Jurgen Hernandez MD Basophils/100 WBC (Bld) 0 % Normal 0-2 [facility] Comment on above: Performed By: #### C P, CDP, MG, #### [address] [address] Plant Mechanic: Jurgen Hernandez MD Eosinophils (Bld) [#/Vol] 0.00 10*3/uL Normal 0.0-0.4 [facility] Comment on above: Performed By: #### C P, CDP, MG, #### [facility] [employer] [address] [place] [address] Plant Mechanic: Jurgen Hernandez MD Eosinophils/100 WBC (Bld) 0 % Low 1-4 [facility] Comment on above: Performed By: #### C P, CDP, MG, #### [facility] [employer] [address] [place] [address] Plant Mechanic: Jurgen Hernandez MD Immature granulocytes/100 WBC (Bld) 0 % Normal 0 [facility] Comment on above: Performed By: #### C P, CDP, MG, #### [address] [address] Plant Mechanic: Jurgen Hernandez MD Lymphocytes (Bld) [#/Vol] 0.48 10*3/uL Low 1.0-4.8 [facility] Comment on above: Performed By: #### C P, CDP, MG, #### [address] [address] Plant Mechanic: Jurgen Hernandez MD Lymphocytes/100 WBC (Bld) 5 % Low 24-44 [facility] Comment on above: Performed By: #### C P, CDP, MG, #### [address] [address] Plant Mechanic: Jurgen Hernandez MD Monocytes (Bld) [#/Vol] 0.38 10*3/uL Normal 0.1-0.8 [facility] Comment on above: Performed By: #### C P, CDP, MG, #### [address] [address] Plant Mechanic: Jurgen Hernandez MD Monocytes/100 WBC (Bld) 4 % Normal 1-7 [facility] Comment on above: Performed By: #### C P, CDP, MG, #### [address] [address] Plant Mechanic: Jurgen Hernandez MD Morphology Moises (Bld) [Interp] ANISOCYTOSIS PRESENT Normal [facility] Comment on above: Performed By: #### C P, CDP, MG, #### [address] [address] Plant Mechanic: Jurgen Hernandez MD Neutrophil (Seg) 91 % High 36-66 [facility] Comment on above: Performed By: #### C P, CDP, MG, #### [address] [address] Plant Mechanic: Jurgen Hernandez MD Erythrocyte distribution width (RBC) [Ratio] 14.5 % High 11.8-14.4 [facility] Comment on above: Performed By: #### C P, CDP, MG, #### [place] [address] Plant Mechanic: Jurgen Hernandez MD Hematocrit (Bld) [Volume fraction] 35.7 % Low 36.3-47.1 [facility] Comment on above: Performed By: #### C P, CDP, MG, #### [place] [address] Plant Mechanic: Jurgen Hernandez MD Hemoglobin (Bld) [Mass/Vol] 12.1 g/dL Normal 11.9-15.1 [facility] Comment on above: Performed By: #### C P, CDP, MG, #### [place] [address] Plant Mechanic: Jurgen Hernandez MD MCH (RBC) [Entitic mass] 30.0 pg Normal 25.2-33.5 [facility] Comment on above: Performed By: #### C P, CDP, MG, #### [place] [address] Plant Mechanic: Jurgen Hernandez MD MCHC (RBC) [Mass/Vol] 33.9 g/dL Normal 28.4-34.8 [facility] Comment on above: Performed By: #### C P, CDP, MG, #### [address] [address] Plant Mechanic: Jurgen Hernandez MD MCV (RBC) [Entitic vol] 88.4 fL Normal 82.6-102.9 [facility] Comment on above: Performed By: #### C P, CDP, MG, #### [address] [address] Plant Mechanic: Jurgen Hernandez MD NRBC Automated 0.0 per 100 WBC Normal 0.0 [facility] Comment on above: Performed By: #### C P, CDP, MG, #### [address] [address] Plant Mechanic: Jurgen Hernandez MD Platelet mean volume (Bld) [Entitic vol] 9.4 fL Normal 8.1-13.5 [facility] Comment on above: Performed By: #### C P, CDP, MG, #### [address] [address] Plant Mechanic: Jurgen Hernandez MD Platelets (Bld) [#/Vol] 231 10*3/uL Normal 138-453 [facility] Comment on above: Performed By: #### C P, CDP, MG, #### [address] [address] Plant Mechanic: Jurgen Hernandez MD RBC (Bld) [#/Vol] 4.04 10*6/uL Normal 3.95-5.11 [facility] Comment on above: Performed By: #### C P, CDP, MG, #### [address] [address] Plant Mechanic: Jurgen Hernandez MD WBC (Bld) [#/Vol] 9.5 10*3/uL Normal 3.5-11.3 [facility] Comment on above: Performed By: #### C P, CDP, MG, #### [address] [address] Plant Mechanic: Jurgen Hernandez MD Comp Metabolic Profon 2023 Potassium [Moles/Vol] 2.7 mmol/L Critically low 3.7-5.3 [facility] Comment on above: Performed By: #### C P #### [address] [address] Plant Mechanic: Jurgen Hernandez MD Albumin [Mass/Vol] 2.9 g/dL Low 3.5-5.2 [facility] Comment on above: Performed By: #### C P #### [address] [address] Plant Mechanic: Jurgen Hernandez MD Albumin/Glob Ratio 1.1 Normal 1.0-2.5 [facility] Comment on above: Performed By: #### C P #### [address] [address] Plant Mechanic: Jurgen Hernandez MD Alkaline Phos 73 U/L Normal 35-104 [facility] Comment on above: Performed By: #### C P #### [address] [address] Plant Mechanic: Jurgen Hernandez MD ALT [Catalytic activity/Vol] 8 U/L Normal 5-33 [facility] Comment on above: Performed By: #### C P #### [address] [address] Plant Mechanic: Jurgen Hernandez MD Anion gap [Moles/Vol] 12 mmol/L Normal 9-17 [facility] Comment on above: Performed By: #### C P #### [address] [address] Plant Mechanic: Jurgen Hernandez MD AST [Catalytic activity/Vol] 14 U/L Normal <32 [facility] Comment on above: Performed By: #### C P #### [address] [address] Plant Mechanic: Jurgen Hernandez MD Bilirubin [Mass/Vol] 1.3 mg/dL High 0.3-1.2 [facility] Comment on above: Performed By: #### C P #### [address] [address] Plant Mechanic: Jurgen Hernandez MD Calcium [Mass/Vol] 7.9 mg/dL Low 8.6-10.4 [facility] Comment on above: Performed By: #### C P #### [address] [address] Plant Mechanic: Jurgen Hernandez MD Chloride [Moles/Vol] 105 mmol/L Normal 98-107 [facility] Comment on above: Performed By: #### C P #### [address] [address] Plant Mechanic: Jurgen Hernandez MD CO2 [Moles/Vol] 21 mmol/L Normal 20-31 [facility] Comment on above: Performed By: #### C P #### [address] [address] Plant Mechanic: Jurgen Hernandez MD Creatinine [Mass/Vol] 0.4 mg/dL Low 0.5-0.9 [facility] Comment on above: Performed By: #### C P #### [address] [address] Plant Mechanic: Jurgen Hernandez MD GFR/1.73 sq M.predicted among non-blacks MDRD (S/P/Bld) [Vol rate/Area] mL/min/{1.73_m2} Normal >60 [facility] Comment on above: Result Comment: These [...] secretion. Performed By: #### C P #### [address] [address] Plant Mechanic: Jurgen Hernandez MD Glucose [Mass/Vol] 115 mg/dL High 70-99 [facility] Comment on above: Performed By: #### C P #### [address] [address] Plant Mechanic: Jurgen Hernandez MD Protein [Mass/Vol] 5.5 g/dL Low 6.4-8.3 [facility] Comment on above: Performed By: #### C P #### [address] [address] Plant Mechanic: Jurgen Hernandez MD Sodium [Moles/Vol] 138 mmol/L Normal 135-144 [facility] Comment on above: Performed By: #### C P #### [address] [address] Plant Mechanic: Jurgen Hernandez MD Urea nitrogen [Mass/Vol] 3 mg/dL Low 6-20 [facility] Comment on above: Performed By: #### C P #### [address] [address] Plant Mechanic: Jurgen Hernandez MD Potassium [Moles/Vol] 2.6 mmol/L Critically low 3.7-5.3 [facility] Comment on above: Performed By: #### C P, CDP, MG, BH #### [address] [address] Plant Mechanic: Jurgen Hernandez MD Albumin [Mass/Vol] 3.4 g/dL Low 3.5-5.2 [facility] Comment on above: Performed By: #### C P, CDP, MG, BH #### [address] [address] Plant Mechanic: Jurgen Hernandez MD Albumin/Glob Ratio 1.0 Normal 1.0-2.5 [facility] Comment on above: Performed By: #### C P, CDP, MG, #### [address] [address] Plant Mechanic: Jurgen Hernandez MD Alkaline Phos 80 U/L Normal 35-104 [facility] Comment on above: Performed By: #### C P, CDP, MG, #### [address] [address] Plant Mechanic: Jurgen Hernandez MD ALT [Catalytic activity/Vol] 9 U/L Normal 5-33 [facility] Comment on above: Performed By: #### C P, CDP, MG, #### [address] [address] Plant Mechanic: Jurgen Hernandez MD Anion gap [Moles/Vol] 15 mmol/L Normal 9-17 [facility] Comment on above: Performed By: #### C P, CDP, MG, #### [address] [address] Plant Mechanic: Jurgen Hernandez MD AST [Catalytic activity/Vol] 20 U/L Normal <32 [facility] Comment on above: Performed By: #### C P, CDP, MG, #### [address] [address] Plant Mechanic: Jurgen Hernandez MD Bilirubin [Mass/Vol] 1.6 mg/dL High 0.3-1.2 [facility] Comment on above: Performed By: #### C P, CDP, MG, #### [address] [address] Plant Mechanic: Jurgen Hernandez MD Calcium [Mass/Vol] 8.2 mg/dL Low 8.6-10.4 [facility] Comment on above: Performed By: #### C P, CDP, MG, #### [address] [address] Plant Mechanic: Jurgen Hernandez MD Chloride [Moles/Vol] 108 mmol/L High 98-107 [facility] Comment on above: Performed By: #### C P, CDP, MG, #### [address] [address] Plant Mechanic: Jurgen Hernandez MD CO2 [Moles/Vol] 19 mmol/L Low 20-31 [facility] Comment on above: Performed By: #### C P, CDP, MG, #### [address] [address] Plant Mechanic: Jurgen Hernandez MD Creatinine [Mass/Vol] 0.4 mg/dL Low 0.5-0.9 [facility] Comment on above: Performed By: #### C P, CDP, MG, #### [address] [address] Plant Mechanic: Jurgen Hernandez MD GFR/1.73 sq M.predicted among non-blacks MDRD (S/P/Bld) [Vol rate/Area] mL/min/{1.73_m2} Normal >60 [facility] Comment on above: Result Comment: These [...] By: #### C P, CDP, MG, #### [address] [address] Plant Mechanic: Jurgen Hernandez MD Glucose [Mass/Vol] 122 mg/dL High 70-99 [facility] Comment on above: Performed By: #### C P, CDP, MG, BH #### [facility] [place] [address] Plant Mechanic: Jurgen Hernandez MD Protein [Mass/Vol] 6.7 g/dL Normal 6.4-8.3 [facility] Comment on above: Performed By: #### C P, CDP, MG, BH #### [facility] [place] [address] Plant Mechanic: Jurgen Hernandez MD Sodium [Moles/Vol] 142 mmol/L Normal 135-144 [facility] Comment on above: Performed By: #### C P, CDP, MG, #### [facility] [address] [place] [id number] Plant Mechanic: Jurgen Hernandez MD Urea nitrogen [Mass/Vol] 6 mg/dL Normal 6-20 [facility] Comment on above: Performed By: #### C P, CDP, MG, #### [facility] [place] [address] Plant Mechanic: Jurgen Hernandez MD Comprehensive Metabolic Pane [facility] 03-26-2023 Albumin [Mass/Vol] 2.9 g/dL Low 3.5 - 5.2 g/dL [facility] Albumin/Globulin [Mass ratio] 1.1 {ratio} 1.0 - 2.5 [facility] ALP [Catalytic activity/Vol] 73 U/L 35 - 104 U/L [facility] ALT [Catalytic activity/Vol] 8 U/L 5 - 33 U/L [facility] Anion gap [Moles/Vol] 12 mmol/L 9 - 17 mmol/L [facility] AST [Catalytic activity/Vol] 14 U/L NINF - 32 U/L [facility] Bilirubin [Mass/Vol] 1.3 mg/dL High 0.3 - 1 .2 mg/dL [facility] Calcium [Mass/Vol] 7.9 mg/dL Low 8.6 - 10. 4 mg/dL [facility] Chloride [Moles/Vol] 105 mmol/L 98 - 10 7 mmol/L [facility] CO2 [Moles/Vol] 21 mmol/L 20 - 31 mmol/L [facility] Creatinine [Mass/Vol] 0.4 mg/dL Low 0.5 - 0.9 mg/dL [facility] GFR/1.73 sq M.predicted MDRD (S/P/Bld) [Vol rate/Area] - PINF [facility] Comment on above: These results are [...] 115 mg/dL High 70 - 99 mg/dL [facility] Interpretation and review of laboratory results Abnormal [facility] Potassium [Moles/Vol] 2.7 mmol/L Critically low 3.7 - 5.3 mmol/L [facility] Protein [Mass/Vol] 5.5 g/dL Low 6.4 - 8.3 g/dL [facility] Sodium [Moles/Vol] 138 mmol/L 135 - 144 mmol/L [facility] Urea nitrogen [Mass/Vol] 3 mg/dL Low 6 - 20 mg/dL [facility] Albumin [Mass/Vol] 3.4 g/dL Low 3.5 - 5.2 g/dL [facility] Albumin/Globulin [Mass ratio] 1.0 {ratio} 1.0 - 2.5 [facility] ALP [Catalytic activity/Vol] 80 U/L 35 - 104 U/L [facility] ALT [Catalytic activity/Vol] 9 U/L 5 - 33 U/L [facility] Anion gap [Moles/Vol] 15 mmol/L 9 - 17 mmol/L [facility] AST [Catalytic activity/Vol] 20 U/L NINF - 32 U/L [facility] Bilirubin [Mass/Vol] 1.6 mg/dL High 0.3 - 1 .2 mg/dL [facility] Calcium [Mass/Vol] 8.2 mg/dL Low 8.6 - 10. 4 mg/dL [facility] Chloride [Moles/Vol] 108 mmol/L High 98 - 10 7 mmol/L [facility] CO2 [Moles/Vol] 19 mmol/L Low 20 - 31 mmol/L [facility] Creatinine [Mass/Vol] 0.4 mg/dL Low 0.5 - 0.9 mg/dL [facility] GFR/1.73 sq M.predicted MDRD (S/P/Bld) [Vol rate/Area] - PINF [facility] Comment on above: These results are [...] 122 mg/dL High 70 - 99 mg/dL [facility] Interpretation and review of laboratory results Abnormal [facility] Potassium [Moles/Vol] 2.6 mmol/L Critically low 3.7 - 5.3 mmol/L [facility] Protein [Mass/Vol] 6.7 g/dL 6.4 - 8.3 g/dL [facility] Sodium [Moles/Vol] 142 mmol/L 135 - 144 mmol/L [facility] Urea nitrogen [Mass/Vol] 6 mg/dL 6 - 20 mg/dL [facility] Magnesiumon 03-26-2023 Magnesium [Mass/Vol] 1.6 mg/dL Normal 1.6-2.6 [facility] Comment on above: Performed By: #### C P, CDP, MG, BH #### [facility] [place], [place] [id number] Plant Mechanic: Jurgen Hernandez MD Magnesium [Mass/Vol] 1.6 mg/dL 1.6 - 2 .6 mg/dL [facility] Potassiumon 03-26-2023 Interpretation and review of laboratory results Abnormal [facility] Potassium [Moles/Vol] 2.5 mmol/L Critically low 3.7 - 5.3 mmol/L [facility] Protein / Creatinine Ratio, Urineon 03-26-2023 Creatinine (U) [Mass/Vol] 185.0 mg/dL 28.0 - 217.0 mg/dL [facility] Protein (U) [Mass/Vol] 44 mg/dL [facility] Comment on above: No normal range esta blished. Urine Total Protein Creatinine Ratio 0.24 [facility] Protein,Tot,[place] [facility]ron 2023 Creatinine [Mass/Vol] 185.0 mg/dL Normal 28.0-217.0 [facility] Comment on above: Performed By: #### K #### [facility] [address] [place] [id number] Plant Mechanic: Jurgen Hernandez MD Tot Prot. Conc. 44 mg/dL [facility] Comment on above: Result Comment: No n ormal range established. Performed By: #### K #### [facility] [address] [place] [phone] Plant Mechanic: Jurgen Hernandez MD TP/Cre Ratio 0.24 Normal [facility] Comment on above: Performed By: #### K #### [facility] [address] [place] [phone] Plant Mechanic: Jurgen Hernandez MD US PELVIS TRANSVAGon 023 [...] LUCIANA MENDOZA Date: 2022-04-12 16:28 Normal [facility] Vaginitis DNA Probeon 2022 Hiral Species, DNA Probe Negative NEGATIVE [facility] [employer] [facility] Comment on above: for Hiral sp. Method of testing is a DNA probe intended for detection and identification of Hiral species, Gardnerella vaginalis, and Trichomonas vaginalis nucleic acid in vaginal fluid specimens from patients with symptoms of vaginitis/vaginosis. Gardnerella Vaginalis, DNA Probe Positive Abnormal NEGATIVE [facility] [employer] [facility] Comment on above: for Gardnerella vagi nalis Interpretation and review of laboratory results Abnormal [facility] [employer] [facility] Source .VAGINAL SWAB [facility] [employer] [facility] Trichomonas Vaginalis DNA Negative NEGATIVE [facility] [employer] [facility] [facility] Comment on above: for Trichomonas Vagi nalis [facility] Vital Signs Date Time Vital Sign Value Performing Clinician Facility 03-29-2023 11:45-0500 Body mass index (BMI) [Ratio] 38.07 kg/m2 [employer] DO Work Phone: [facility] 03-29-2023 11:45-0500 Body weight 94.4 kg Renu Susie DO Work Phone: [facility] 03-29-2023 11:45-0500 Diastolic blood pressure 70 mm[Hg] Renu Susie DO Work Phone: [facility] 03-29-2023 11:45-0500 Systolic blood pressure 122 mm[Hg] Renu Susie DO Work Phone: [facility] 03-27-2023 14:27-0500 Body temperature 37.0 Pema [place] DO Work Phone: [employer] 03-27-2023 11:51-0500 Body temperature 98.2 [degF] Pema Amaury DO Work Phone: [employer] 03-27-2023 11:51-0500 Diastolic blood pressure 78 mm[Hg] Pema Rebolledo DO Work Phone: [employer] 03-27-2023 11:51-0500 Heart rate 91 /min Pema Amaury DO Work Phone: [employer] 03-27-2023 11:51-0500 Respiratory rate 16 /min Pema Rebolledo DO Work Phone: [employer] 03-27-2023 11:51-0500 SaO2% (BldA) [Mass fraction] 97 % Pema Rebolledo DO Work Phone: [employer] 03-27-2023 11:51-0500 Systolic blood pressure 123 mm[Hg] Pema Amaury DO Work Phone: [employer] 02-15-2023 17:00-0500 Body height 157.48 cm Rosalind Jeter Other [employer] Other 02-15-2023 17:00-0500 Body mass index (BMI) [Ratio] 37.45 kg/m2 Rosalind Jeter Other [employer] Other 02-15-2023 17:00-0500 Body temperature 98 [degF] Rosalind Jeter Other [employer] Other 02-15-2023 17:00-0500 Body weight 92.9 kg Rosalind Jeter Other [employer] Other 02-15-2023 17:00-0500 Diastolic blood pressure 71 mm[Hg] Rosalind Jeter Other [employer] Other 02-15-2023 17:00-0500 Respiratory rate 18 /min Rosalind Steffany Other [employer] Other 02-15-2023 17:00-0500 SaO2% (BldA) [Mass fraction] 99 % Rosalind Steffany Other [employer] Other 02-15-2023 17:00-0500 Systolic blood pressure 111 mm[Hg] Rosalind Jeter Other [employer] Other Encounters Encounter Date Encounter Type Care Provider Facility Start: 04-05-2023 End: 04-05-2023 ambulatory RENU SUSIE Not Available Start: 03-29-2023 End: 03-29-2023 ambulatory RENU SUSIE Not Available Start: 03-29-2023 End: 03-29-2023 flow sheet Renu Susie DO Work Phone: [facility] Comment on above: Third trimester preg mitchel; Hypokalemia Start: 03-26-2023 End: 03-27-2023 ambulatory PEMA REBOLLEDO [facility] Start: 03-26-2023 End: 03-26-2023 Emergency department patient visit ROSETTE MENDOZA [facility] Start: 03-26-2023 End: 03-27-2023 Subsequent hospital visit by physician Pema Rebolledo DO Work Phone: [id number] Comment on above: Hypokalemia (Primary Dx) Start: 2023 End: 2023 ambulatory RENU SUSIE Not Available Start: 02-22-2023 End: 02-22-2023 ambulatory RENU SUSIE Not Available Start: 02-15-2023 End: 02-15-2023 ambulatory Rosalind Jeter Other [employer] Other Start: 02-15-2023 Office outpatient ne w 10 minutes Rosalind Jeter [facility] Start: 02-08-2023 End: 02-08-2023 ambulatory RINA PATRICIO Not Available Start: 01-16-2023 End: 01-16-2023 ambulatory RENU RICHARDS Not Available Start: 04-11-2022 End: 04-12-2022 ambulatory NONE LISTED REQUEST Facility: Start: 03-30-2022 End: 03-30-2022 Patient encounter procedure Rosette Mendoza Other Phone: [facility] Start: 03-30-2022 End: 03-30-2022 Subsequent hospital visit by physician Rosette Mendoza Other Phone: [facility] Comment on above: Vaginal discharge; Malodorous urine; Well woman exam Procedures Date Procedure Procedure Detail Performing Clinician Start: 03-29-2023 Urnls dip stick/tabl et rgnt non-auto w/o micrscp Renu Choo DO Work Phone: Start: 03-27-2023 Blood gases [...] specie s direct probe tq Brittani Aguilar MANHOLE STRIPPER - CNM Work Phone: Start: 03-30-2022 Microscopic observat ion [Identifier] in Cervix by Cyto stain Pema Rebolledo DO Work Phone: Plan of Treatment Date Care Activity Detail Author Start: 03-30-2027 Screening for malign ant neoplasm of cervix [employer] Start: 03-30-2025 Screening for malign ant neoplasm of cervix Pap smear [employer] Start: 04-11-2023 End: 04-11-2023 Patient encounter procedure 04/11/2023 10:30 AM EST Routine [facility] [address] [facility] [address] [place] [address] Return in about 6 weeks (around 04/11/2023) for Repeat Anatomy, Growth/BPP. [facility] Comment on above: Return in about 6 we eks (around 04/11/2023) for Repeat Anatomy, Growth/BPP. Start: 04-05-2023 End: 04-05-2023 Patient encounter procedure 04/05/2023 11:30 AM EST Routine [facility] [address] [place] [id number] Renu Richards, DO [address] [place] [address] [facility] Start: 03-31-2023 End: 03-27-2024 Potassium [Moles/volume] in Serum or Plasma Potassium Lab Routine Hypokalemia Expected: 03/31/2023, Expires: 03/27/2024 [employer] Comment on above: Expected: 03/31/2023 , Expires: 03/27/2024 Start: 03-30-2023 Depression Screen Depression Screen [employer] Start: 03-29-2023 End: 03-29-2024 US biophysical profile w non stress test US biophysical profile w non stress test Imaging Routine Hypokalemia Expected: 03/29/2023 (Approximate), Expires: 03/29/2024 [facility] Work Phone: Comment on above: Expected: 03/29/2023 (Approximate), Expires: 03/29/2024 Start: 2023 Diabetes screen Diabetes screen [facility] [employer] Start: 09-13-2022 Influenza vaccination Flu vaccine (# 1) [facility] Start: 09-13-2021 Influenza vaccination Flu vaccine (# 1) [facility] Start: 2018 Screening for malign ant neoplasm of cervix [facility] [employer] Start: 2009 Screening for malign ant neoplasm of cervix Pap smear [facility] Start: 2007 DTaP/Tdap/Td vaccine (1 - Tdap) DTaP/Tdap/Td vaccine (1 - Tdap) [facility] Start: 2006 Hepatitis C screening Hepatitis C sc reen [facility] Start: 2003 HIV screening HIV screen [facility] [employer] Start: 1989 Varicella vaccine (1 of 2 - 2-dose childhood series) Varicella vaccine (1 of 2 - 2-dose childhood series) [facility] Start: 1988 COVID-19 Vaccine (#1) COVID-19 Vacci ne (#1) [facility] Start: 1988 Hepatitis B vaccine (1 of 3 - 3-dose series) Hepatitis B vaccine (1 of 3 - 3-dose series) [facility] End: 03-30-2022 C.trachomatis N.gonorrhoeae DNA, Thin Prep [facility] [employer] Work Phone: Comment on above: 1 Occurrences starti ng 03/30/2022 until 03/30/2022 End: 03-27-2023 Culture, Strep B Screen, Vaginal/Rectal [facility] [employer] Work Phone: Comment on above: One Time for 1 Occur rences starting 03/27/2023 until 03/27/2023 End: 03-30-2022 Culture, Urine [employer] Work Phone: Comment on above: 1 Occurrences starti ng 03/30/2022 until 03/30/2022 End: 03-27-2023 Electrolyte Panel w/ Reflex to MG Electrolyte Panel w/ Reflex to MG Lab Routine One Time for 1 Occurrences starting 03/27/2023 until 03/27/2023 [employer] Work Phone: Comment on above: One Time for 1 Occur rences starting 03/27/2023 until 03/27/2023 Nonrebreather mask oxygen Nonrebreather mask oxygen Respiratory Care Routine As Needed until discontinued starting 03/26/2023 [employer] Comment on above: As Needed until disc ontinued starting 03/26/2023 Payers Date Payer Category Payer Unknown BCBS BCBS xxxxxx [id number] 2022-Present [phone] [address] [place] [address] [id number] 1988 Unknown [id number] 1988 Unknown [id number] 1988 Unknown [id number] 1988 Unknown [id number] 1988 Unknown [id number] 1988 Unknown [id number] 1988 Unknown [id number] 1988 Unknown [id number] 1988 Unknown [id number] 1959 Unknown [id number] Social History Date Type Detail Facility Start: 03-30-2022 End: 10-10-2022 Tobacco smoking status NHIS Never smoked tobacco [employer] Phone: Start: 03-30-2022 End: 10-10-2022 Tobacco use and exposure Smokeless tobacco non-user [employer] Phone: Start: 03-30-2022 Alcohol intake Lifetime non-drinker (finding) [employer] Phone: Start: 1990 Sex Assigned At Not on file [employer] Phone: Start: 11-21-2022 End: 03-26-2023 Sex Assigned At [employer] Other Start: 03-26-2023 End: 03-29-2023 Alcohol intake Ex-drinker (finding) [employer] Start: 11-21-2022 End: 03-26-2023 History of Social function [employer] Patient Health Questionnaire 9 item (PHQ-9) total score [Reported] 0 [employer] Start: 08-08-2022 [employer] Start: 1990 Sex Assigned At Female [facility] Start: 09-21-2022 Gender identity Identifies as female gender (finding) [facility] History of Present illness Narrative 03-29-2023 Mimi [...] nursing note reviewed. Exam conducted with a environmental studies department chair present. Vitals: Estimated body mass index is [...] Renu Richards DO documented in this encounter [facility] Discharge instructions 03-27-2023 Discharge Instructions Note [...] on left side. documented in this encounter [facility] History of Present illness Narrative 03-27-2023 [...] the patient: POTASSIUM ER 20MG Additional Documentation: [facility] PROGRESS NOTE Niesha Fisher is a 33 [...] Will update Dr. Gonzalez. Joanna Pablo DO Food Cashier Resident 03/27/2023, 6:31 AM Attending Physician Statement [...] Gonzalez MD Date: 03/27/2023 Time: 11:48 AM [facility] RESIDENT INTERVAL NOTE Repeat CMP reviewed K [...] ms QTc Calculation (Bazett) 471 ms P [place] 54 degrees R [place] 35 degrees T [place] 38 degrees Comprehensive Metabolic Panel Collection Time: [...] AST 14 <32 U/L Joanna Pablo DO [facility] Resident [facility] 03/26/2023 8:12 PM documented in this encounter [facility] course Narrative 03-27-2023 Sun Gillis MD - 03/27/2023 3:37 PM EST Note Date & Type Note Facility 03-27-2023 Hospital course Narrative Obstetric Discharge Summary [facility] Patient Name: Niesha Fisher Patient : [...] Your Medications These medications were sent to [address] - [phone] - F [phone] [facility] [address] potassium chloride 20 MEQ extended release tablet Diet: regular Follow up: With primary Ob provider on 03/29/23 Condition on discharge: good Discharge date: 03/27/23 Sun Gillis MD Food Cashier Resident documented in this encounter [facility] Evaluation note 02-15-2023 Note Date & Type Note Facility 02-15-2023 Evaluation note Encounter Date Diagnosis Assessment Notes Feb, Right otitis media, unspecified otitis media type (ICD-10 - H66.91) Drink plenty fluids, get plenty of rest. Take the amoxicillin as prescribed until gone. Take Tylenol as needed for pain or fevers. Follow-up with your family physician or [facility] if no improvement in 2 to 3 days. [employer] Other Evaluation note Note Date & Type Note Facility Evaluation note Diagnosis Vaginal discharge Leukorrhea, not specified as infective Malodorous urine Other nonspecific finding on examination of urine Well woman exam Routine general medical examination at a health care facility documented in this encounter [employer] Work Phone: Evaluation note Note Date & Type Note Facility Evaluation note Diagnosis 34 weeks gestation of - Primary state, incidental Hypokalemia Hypopotassemia Acute gastroenteritis Other and unspecified noninfectious gastroenteritis and colitis Hypokalemia Hypopotassemia Hypomagnesemia Disorders of magnesium metabolism documented in this encounter [facility] [employer] Evaluation note Note Date & Type Note Facility Evaluation note Diagnosis Third trimester state, incidental Hypokalemia Hypopotassemia documented in this encounter [facility] History general Narrative - Reported Note Date & Type Note Facility History general Narrative - Reported Type Surgical History C section 2020 [employer] Other Summary Purpose Family History No Family History Records FoundNo Family History Records FoundNo Family History Records Found Advance Directives No Advanced Directives Records FoundLatest Code Status on File Code Status Date Activated Date Inactivated Comments Full Code 03/26/2023 9:19 AM Additional Source Comments Care Teams (unrecognized sec tion and content) [employer]erial Tram Operator Relationship Specialty Start Date End Date Rosette Mendoza [address] [facility] [address] [place] [address] PCP - General Internal Medicine 03/30/22 Aerial Tram Operator Relationship Specialty Start Date End Date Rosette Mendoza [address] [facility] [address] [place] [address] PCP - General Internal Medicine 03/30/22 INFORMATION SOURCE (unrecogn ized section and content) DATE CREATED AUTHOR 04/17/2022 [facility] DATE CREATED AUTHOR AUTHOR'S ORGANIZ ATION 04/02/2023 [facility] DATE CREATED AUTHOR AUTHOR'S ORGANIZ ATION 04/13/2023 [facility] EPIC REASON FOR VISIT (unrecogniz ed section and content) Reason Comments Nausea & Vomiting Diarrhea Specialty Diagnoses / Procedures Referred By Angela forte Referred To Contact Diagnoses 34 weeks gestation of Pema Rebolledo DO [facility] [place] [address] [facility] [address] [place] [address] Referral ID Status Reason Start Date Expiration Date Visits Re quested Visits Authorized [id number] 1 1 Reason Comments Routine Visit Ordered [...] Oral, EVERY 8 HOURS PRN, Starting on Mon03/26/23 at 0918, Until Discontinued, Nausea, Vomiting Or ondansetron (ZOFRAN) injection 4 mgJump to med 4 mg, IntraVENous, EVERY 6 HOURS PRN, Starting on Mon03/26/23 at 0918, Until Discontinued, Nausea, Vomiting
Administer [...] BE BASED ON THE PRIMARY CLINICAL RECORDS. [employer] provides no warranty or guarantee of the accuracy or completeness of information in this document.
--- NOTE | 2023-04-24 | DS_ITS ---
DISCHARGE DATE: 04/24/2023 PRIMARY DIAGNOSES: 1. Intrauterine at 37 weeks. 2. Gestational hypertension. 3. Previous . 4. Advanced maternal age. PROCEDURE: section. HOSPITAL COURSE: As expected. Please see chart for full details. LABORATORY DATA: Please see chart. COMPLICATIONS: None. DISCHARGE CONDITION: Stable. CONSULTATION: Anesthesia. DISCHARGE INSTRUCTIONS: 1. Diet: Regular. 2. Medications: a. Percocet 5/325 one to two p.o. every 4-6 hours p.r.n. pain. b. Motrin 800 one p.o. every 8 hours p.r.n. pain. 3. Followup in one week. Restrictions: Pelvic rest for 6 weeks. No heavy lifting. May drive when pain free and no longer on narcotics. MTDD
== END 2023-04-13 17:55 | disposition home or self-care (01) | DRG 788 ==
PROVIDERS: Admitting Provider Obstetrics & Gynecology; Visit Provider Midwife
PROC: 10D00Z1 Extraction of Products of Conception, Low, Open Approach (ICD-10-PCS; CPT 59514; principal; 2023-04-11 21:00)
DX: O34.211 Maternal care for low transverse scar from previous cesarean delivery (principal); O13.4 Gestational [pregnancy-induced] hypertension without significant proteinuria, complicating childbirth; Z3A.37 37 weeks gestation of pregnancy; Z37.0 Single live birth
CPT/HCPCS: 36415; 51702; 64488; 80307; 84132; 85025; 86850; 86900; 86901; 94667; 94668; 96372; 96374; 96375; 96376; J1094

== ENCOUNTER 2023-04-17 08:16 | Outpatient (OUT) | payer BC, SELFPAY ==
--- OUTSIDE RECORDS SUMMARY | 2023-04-17 08:21 | XMS_ITS | CCD ---
Author Name Unknown Address [address] [place] [address] Organization [facility] Care Team Providers Care Dress Designer Name Role Phone Rosette Mendoza Primary Care Provider REQUEST, DR EB LISTED Primary Care Unavaila chase MENDOZA, DR LUCIANA Pedro Consulting Unavailable SUSIE ., DR SEARS Attending Unavailable SUSIE ., DR SEARS Admitting Unavailable SUSIE ., DR SEARS Consulting Unavailable Rosalind Jeter Unavailable Rosette Mendoza Primary Care Provider Unavailable Primary Care Provider UnavailRINA Olivia Attending Unavailable SUSIE, RENU Attending Unavailable SUSIE, RENU Attending Unavailable SUSIE, RENU Attending Unavailable SUSIE, RENU Attending Unavailable SUSIE, RENU Attending Unavailable PEAM REBOLLEDO Attending Unavailable ROSETTE MENDOZA Primary Care Unavailable PEMA REBOLLEDO Admitting Unavailable ROSETTE MENDOZA Primary Care Unavailable Medications [...] B STREPTOCOCCI Report Status FINAL 03/31/2023 Normal [facility] Comment on above: Performed By: #### R OGBS #### [place] [address] Pickling Operator: Jurgen Hernandez MD Urinalysis macro (dipstick) panel (U)on 03-29-2023 Bilirubin, UA Negative Negative - 4(70) +++ mg/dL [facility] Blood, UA Negative Negative - 50 Dwight/mcL [facility] Clarity, UA Clear [facility] Healthca re Color, UA Yellow [facility] Healthcar [facility] Glucose, UA Negative Negative - 1999(110) ++++ mg/dL [facility] Interpretation and review of laboratory results Normal [facility] Ketones, UA Negative Negative - 160(16) ++++ mg/dL [facility] Leukocytes, UA Negative Negative - 500+++ Karlene/mcL [facility] Nitrite, UA Negative Negative - Positive [facility] pH, UA 7.0 5 - 9 [facility] Healthcar [facility] Protein, UA Negative Negative - 1999(20) ++++ mg/dL [facility] Spec Grav, UA 1.025 1 - 1.03 [facility] Urobilinogen, UA 0.2 0.2 - 12 mg/dL [facility] Health[facility] BLOOD GAS, VENOUSon 03-27-19 Carboxyhemoglobin (Bld) [Mass fraction] 1.0 % 0 - 5 % [facility] Comment on above: Reference Range: Non-Smokers 0-2% Average Smoker 2-4% Heavy Smoker <10% HCO3 (Bld) [Moles/Vol] 24.8 mmol/L 24 - 30 mmol /L [facility] Interpretation and review of laboratory results Abnormal [facility] Negative Base Excess, Pieter 0.3 mmol/L 0.0 - 2.0 mmol/L [facility] Oxygen saturation in Blood 35.8 % Low 60.0 - 85.0 % [facility] Oxygen/Inspired gas Respiratory system --on ventilator INFORMATION NOT PROVIDED [facility] pCO2, Pieter 45.1 [facility] pH, Pieter 7.359 7.320 - 7.420 [facility] pO2, Pieter 26.4 Low [facility] Comp Metabolic Profon 2023 Potassium [Moles/Vol] 2.9 mmol/L Critically low 3.7-5.3 [facility] Comment on above: Performed By: #### C P, OSMO, MG #### [employer] [facility] [place], [place] [id number] Pickling Operator: Jurgen Hernandez MD Albumin [Mass/Vol] 2.9 g/dL Low 3.5-5.2 [facility] Comment on above: Performed By: #### C P, OSMO, MG #### [employer] [address] [place] [address] Pickling Operator: Jurgen Hernandez MD Albumin/Glob Ratio 1.1 Normal 1.0-2.5 [facility] Comment on above: Performed By: #### C P, OSMO, MG #### [address] [address] Pickling Operator: Jurgen Hernandez MD Alkaline Phos 73 U/L Normal 35-104 [facility] Comment on above: Performed By: #### C P, OSMO, MG #### [facility] [address] [place] [phone] Pickling Operator: Jurgen Hernandez MD ALT [Catalytic activity/Vol] 7 U/L Normal 5-33 [facility] Comment on above: Performed By: #### C P, OSMO, MG #### [address] [address] Pickling Operator: Jurgen Hernandez MD Anion gap [Moles/Vol] 9 mmol/L Normal 9-17 [facility] Comment on above: Performed By: #### C P, OSMO, MG #### [address] [address] Pickling Operator: Jurgen Hernandez MD AST [Catalytic activity/Vol] 26 U/L Normal <32 [facility] Comment on above: Performed By: #### C P, OSMO, MG #### [facility] [employer] [address] [place] [address] Pickling Operator: Jurgen Hernandez MD Bilirubin [Mass/Vol] 1.3 mg/dL High 0.3-1.2 [facility] Comment on above: Performed By: #### C P, OSMO, MG #### [facility] [employer] [address] [place] [address] Pickling Operator: Jurgen Hernandez MD Calcium [Mass/Vol] 7.8 mg/dL Low 8.6-10.4 [facility] Comment on above: Performed By: #### C P, OSMO, MG #### [facility] [employer] [address] [place] [address] Pickling Operator: Jurgen Hernandez MD Chloride [Moles/Vol] 104 mmol/L Normal 98-107 [facility] Comment on above: Performed By: #### C P, OSMO, MG #### [facility] [place] [address] Pickling Operator: Jurgen Hernandez MD CO2 [Moles/Vol] 21 mmol/L Normal 20-31 [facility] Comment on above: Performed By: #### C P, OSMO, MG #### [facility] [address] [place] [address] Pickling Operator: Jurgen Hernandez MD Creatinine [Mass/Vol] 0.4 mg/dL Low 0.5-0.9 [facility] Comment on above: Performed By: #### C P, OSMO, MG #### [address] [address] Pickling Operator: Jurgen Hernandez MD GFR/1.73 sq M.predicted among non-blacks MDRD (S/P/Bld) [Vol rate/Area] mL/min/{1.73_m2} Normal >60 [facility] Comment on above: Result Comment: [...] By: #### C P, OSMO, MG #### [facility] [address] [place] [address] Pickling Operator: Jurgen Hernandez MD Glucose [Mass/Vol] 108 mg/dL High 70-99 [facility] Comment on above: Performed By: #### C P, OSMO, MG #### [facility] [employer] [address] [place] [address] Pickling Operator: Jurgen Hernandez MD Protein [Mass/Vol] 5.6 g/dL Low 6.4-8.3 [facility] Comment on above: Performed By: #### C P, OSMO, MG #### [facility] [address] [place] [address] Pickling Operator: Jurgen Hernandez MD Sodium [Moles/Vol] 134 mmol/L Low 135-144 [facility] Comment on above: Performed By: #### C P, OSMO, MG #### [facility] [address] [place], [place] [phone] Pickling Operator: Jurgen Hernandez MD Urea nitrogen [Mass/Vol] 2 mg/dL Low 6-20 [facility] Comment on above: Performed By: #### C P, OSMO, MG #### [facility] [address] [place], [place] [phone] Pickling Operator: Jurgen Hernandez MD Comprehensive Metabolic Pane [facility] 03-27-2023 Albumin [Mass/Vol] 2.9 g/dL Low 3.5 - 5.2 g/dL [facility] Albumin/Globulin [Mass ratio] 1.1 {ratio} 1.0 - 2.5 [facility] ALP [Catalytic activity/Vol] 73 U/L 35 - 104 U/L [facility] ALT [Catalytic activity/Vol] 7 U/L 5 - 33 U/L [facility] Anion gap [Moles/Vol] 9 mmol/L 9 - 17 mmol/L [facility] AST [Catalytic activity/Vol] 26 U/L NINF - 32 U/L [facility] Bilirubin [Mass/Vol] 1.3 mg/dL High 0.3 - 1 .2 mg/dL [facility] Calcium [Mass/Vol] 7.8 mg/dL Low 8.6 - 10. 4 mg/dL [facility] Chloride [Moles/Vol] 104 mmol/L 98 - 10 7 mmol/L [facility] CO2 [Moles/Vol] 21 mmol/L 20 - 31 mmol/L [facility] [employer] Creatinine [Mass/Vol] 0.4 mg/dL Low 0.5 - 0.9 mg/dL [facility] [employer] GFR/1.73 sq M.predicted MDRD (S/P/Bld) [Vol rate/Area] - [facility] Comment on above: These results [...] 108 mg/dL High 70 - 99 mg/dL [facility] Interpretation and review of laboratory results Abnormal [facility] [employer] Potassium [Moles/Vol] 2.9 mmol/L Critically low 3.7 - 5.3 mmol/L [facility] [employer] Protein [Mass/Vol] 5.6 g/dL Low 6.4 - 8.3 g/dL [facility] [employer] Sodium [Moles/Vol] 134 mmol/L Low 135 - 144 mmol/L [facility] [employer] Urea nitrogen [Mass/Vol] 2 mg/dL Low 6 - 20 mg/dL [facility] [employer] [facility] EKG 12 LeadOrdered By: Lillian Pruitt on 03-27-2023 Atrial Rate 101 BPM [facility] [employer] Work Phone: P [place] 54 degrees [employer] Work Phone: P-R Interval 178 ms [employer] Work Phone: Q-T Interval 364 ms [employer] Work Phone: QRS Duration 102 ms [employer] Work Phone: QTc Calculation (Bazett) 471 ms [employer] Work Phone: R [place] 35 degrees [employer] Work Phone: T [place] 38 degrees [employer] Work Phone: Ventricular Rate 101 BPM [facility] Work Phone: [facility] Work Phone: EKG 12 Leadon 03-27-2023 Sinus tachycardia Incomplete right bundle branch block Septal infarct , age undetermined Abnormal ECG No previous ECGs available [facility] STLillian Truong MD - 03/27/2023 Sinus tachycardia Incomplete right bundle branch block Septal infarct , age undetermined Abnormal ECG No previous ECGs available [facility] Atrial Rate 101 BPM [facility] P [place] 56 degrees [facility] P-R Interval 170 ms [facility] Q-T Interval 364 ms [facility] [employer] QRS Duration 96 ms [facility] [employer] QTc Calculation (Bazett) 471 ms [facility] R [place] 31 degrees [facility] T [place] 37 degrees [facility] Ventricular Rate 101 BPM [facility] [employer] Sinus tachycardia Nonspecific ST and T wave abnormality Abnormal ECG When compared with ECG of 26-MAR-2023 11:35, Incomplete right bundle branch block is no longer Present [facility] STLillian Truong MD - 03/27/[address] and T wave abnormality Abnormal ECG When compared with ECG of 26-MAR-2023 11:35, Incomplete right bundle branch block is no longer Present [facility] Electrolyte Panelon 03-27-19 24 Anion gap [Moles/Vol] 9 mmol/L 9 - 17 mmol/L [facility] Chloride [Moles/Vol] 103 mmol/L 98 - 10 7 mmol/L [facility] CO2 [Moles/Vol] 23 mmol/L 20 - 31 mmol/L [facility] Interpretation and review of laboratory results Abnormal [facility] Potassium [Moles/Vol] 3.1 mmol/L Low 3.7 - 5.3 mmol/L [facility] Sodium [Moles/Vol] 135 mmol/L 135 - 144 mmol/L [facility] Electrolyteson 03-27-2023 Anion gap [Moles/Vol] 9 mmol/L Normal 9-17 [facility] Comment on above: Performed By: #### R OGBS #### [id number] [place] [address] Pickling Operator: Jurgen Hernandez MD Chloride [Moles/Vol] 103 mmol/L Normal 98-107 [facility] Comment on above: Performed By: #### R OGBS #### [facility] [employer] [address] [place] [address] Pickling Operator: Jurgen Hernandez MD CO2 [Moles/Vol] 23 mmol/L Normal 20-31 [facility] Comment on above: Performed By: #### R OGBS #### [address] [address] Pickling Operator: Jurgen Hernandez MD Potassium [Moles/Vol] 3.1 mmol/L Low 3.7-5.3 [facility] Comment on above: Performed By: #### R OGBS #### [facility] [employer] [address] [place] [address] Pickling Operator: Jurgen Hernandez MD Sodium [Moles/Vol] 135 mmol/L Normal 135-144 [facility] Comment on above: Performed By: #### R OGBS #### [address] [address] Pickling Operator: Jurgen Hernandez MD K (Potassium)on 03-27-2023 Potassium [Moles/Vol] 2.7 mmol/L Critically low 3.7-5.3 [facility] Comment on above: Performed By: #### K #### [address] [address] Pickling Operator: Jurgen Hernandez MD Potassium [Moles/Vol] 2.5 mmol/L Critically low 3.7-5.3 [facility] Comment on above: Performed By: #### K #### [facility] [address] [place] [phone] Pickling Operator: Jurgen Hernandez MD Magnesiumon 03-27-2023 Magnesium [Mass/Vol] 1.9 mg/dL Normal 1.6-2.6 [facility] Comment on above: Performed By: #### C P, OSMO, MG #### [facility] [address] [place] [address] [phone] Pickling Operator: Jurgen Hernandez MD Magnesium [Mass/Vol] 1.9 mg/dL 1.6 - 2 .6 mg/dL [facility] OSMOLALITY, URINEon 03-27-19 24 Osmolality (U) [Osmolality] 365 mosm/kg [facility] Osmolalityon 03-27-2023 Osmolality [Osmolality] 285 mosm/kg Normal 275-295 [facility] Comment on above: Performed By: #### C P, OSMO, MG #### [facility] [address] [place] [address] [phone] Pickling Operator: Jurgen Hernandez MD Osmolality [Osmolality] 285 mosm/kg [facility] Osmolality, Urineon 03-27-19 24 Osmolality - Urine 365 mOsm/kg Normal 80-1300 [facility] Comment on above: Performed By: #### R OGBS #### [facility] [address] [place] [phone] Pickling Operator: Jurgen Hernandez MD POTASSIUM, URINE, RANDOMon 0 03-27-2023 Potassium, Ur 29.1 mmol/L [facility] Comment on above: No normal range esta blished. [facility] Potassiumon 03-27-2023 Interpretation and review of laboratory results Abnormal [facility] Potassium [Moles/Vol] 2.7 mmol/L Critically low 3.7 - 5.3 mmol/L [facility] Potassium,Random Uron 2023 Potassium [Moles/Vol] 29.1 mmol/L Normal [facility] Comment on above: Result Comment: No n ormal range established. Performed By: #### R OGBS #### [address] [address] Pickling Operator: Jurgen Hernandez MD Venous Blood Gaseson 024 Body Temp. 37.0 Normal [facility] Comment on above: Performed By: #### R OGBS #### [address] [address] Pickling Operator: Jurgen Hernandez MD Carboxy Hgb 1.0 % Normal 0-5 [facility] Comment on above: Result Comment: Reference Range: Non-Smokers 0-2% Average Smoker 2-4% Heavy Smoker <10% Performed By: #### R OGBS #### [address] [address] Pickling Operator: Jurgen Hernandez MD FIO2 INFORMATION NOT PROVIDED Normal [facility] Comment on above: Performed By: #### R OGBS #### [address] [address] Pickling Operator: Jurgen eHrnandez MD HCO3 (Bld) [Moles/Vol] 24.8 mmol/L Normal 24-30 [facility] Comment on above: Performed By: #### R OGBS #### [address] [address] Pickling Operator: Jurgen Hernandez MD Negative Base Excess 0.3 mmol/L Normal 0.0-2.0 [facility] Comment on above: Performed By: #### R OGBS #### [address] [address] Pickling Operator: Jurgen Hernandez MD Oxygen saturation in Blood 35.8 % Low 60.0-85.0 [facility] Comment on above: Performed By: #### R OGBS #### [facility] [place] [address] Pickling Operator: Jurgen Hernandez MD pCO2 45.1 mm Hg Normal 39-55 [facility] Comment on above: Performed By: #### R OGBS #### [facility] [address] [place] [address] Pickling Operator: Jurgen Hernandez MD pH (Bld) 7.359 [pH] Normal 7.320-7.420 [facility] Comment on above: Performed By: #### R OGBS #### [facility] [employer] [address] [place] [address] Pickling Operator: Jurgen Hernandez MD pO2 26.4 mm Hg Low 30-50 [facility] Comment on above: Performed By: #### R OGBS #### [address] [address] Pickling Operator: Jurgen Hernandez MD Beta Hydroxybutyrateon 03-26 Beta Hydroxybutyrate 1.24 mmol/L High 0.02-0.27 [facility] Comment on above: Performed By: #### C P, CDP, BH, MG #### [facility] [employer] [address] [place] [address] Pickling Operator: Jurgen Hernandez MD Beta-Hydroxybutyrateon 03-26 Beta hydroxybutyrate [Mass/Vol] 1.24 mmol/L High 0.02 - 0.27 mmol/L [facility] Interpretation and review of laboratory results Abnormal [facility] CBC with Auto Differentialon 03-26-2023 Basophils (Bld) [#/Vol] 0.00 10*3/uL [facility] Basophils/100 WBC (Bld) 0 % 0 - 2 % [facility] Eosinophils (Bld) [#/Vol] 0.00 10*3/uL [facility] Eosinophils/100 WBC (Bld) 0 % Low 1 - 4 % [facility] Erythrocyte distribution width (RBC) [Ratio] 14.5 % High 11.8 - 14.4 % [facility] Hematocrit (Bld) [Volume fraction] 35.7 % Low 36.3 - 47.1 % [facility] Hemoglobin (Bld) [Mass/Vol] 12.1 g/dL 11.9 - 15.1 g/dL [facility] Immature granulocytes (Bld) [#/Vol] 0.00 10*3/uL [facility] Immature granulocytes/100 WBC (Bld) 0 % 0 [facility] Interpretation and review of laboratory results Abnormal [facility] Lymphocytes/100 WBC (Bld) 5 % Low 24 - 44 % [facility] Lymphocytes/100 WBC (Bld) 0.48 % Low [facility] MCH (RBC) [Entitic mass] 30.0 pg 25.2 - 33.5 pg [facility] MCHC (RBC) [Mass/Vol] 33.9 g/dL 28.4 - 34.8 g/dL [facility] MCV (RBC) [Entitic vol] 88.4 fL 82.6 - 102.9 fL [facility] Monocytes/100 WBC (Bld) 4 % 1 - 7 % [facility] Monocytes/100 WBC (Bld) 0.38 % [facility] Morphology Moises (Bld) [Interp] ANISOCYTOSIS PRESENT [facility] Neutrophils/100 WBC (Bld) 91 % High 36 - 66 % [facility] Nucleated RBC/100 WBC (Bld) [Ratio] 0.0 % 0.0 per 100 WBC [facility] Platelet mean volume (Bld) [Entitic vol] 9.4 fL 8.1 - 13.5 fL [facility] Platelets (Bld) [#/Vol] 231 10*3/uL [facility] RBC (Bld) [#/Vol] 4.04 10*6/uL 3.95 - 5.1 1 m/uL [facility] Segmented neutrophils/100 WBC (Bld) 8.64 % High [facility] WBC other (Bld) [#/Vol] 9.5 [facility] CBC with Diffon 03-26-2023 Abs. Basophil 0.00 k/uL Normal 0.0-0.2 [facility] Comment on above: Performed By: #### C P, CDP, BH, MG #### [facility] [employer] [address] [place] [phone] Pickling Operator: Jurgen Hernandez MD Abs.Imm.Granulocyte 0.00 k/uL Normal 0.00-0.30 [facility] Comment on above: Performed By: #### C P, CDP, BH, MG #### [facility] [employer] [address] [place] [address] Pickling Operator: Jurgen Hernandez MD Abs.Neutrophil (Seg) 8.64 k/uL High 1.8-7.7 [facility] Comment on above: Performed By: #### C P, CDP, BH, MG #### [facility] [employer] [address] [place] [phone] Pickling Operator: Jurgen Hernandez MD Basophils/100 WBC (Bld) 0 % Normal 0-2 [facility] Comment on above: Performed By: #### C P, CDP, BH, MG #### [facility] [employer] [address] [place] [phone] Pickling Operator: Jurgen Hernandez MD Eosinophils (Bld) [#/Vol] 0.00 10*3/uL Normal 0.0-0.4 [facility] Comment on above: Performed By: #### C P, CDP, BH, MG #### [facility] [employer] [address] [place] [phone] Pickling Operator: Jurgen Hernandez MD Eosinophils/100 WBC (Bld) 0 % Low 1-4 [facility] Comment on above: Performed By: #### C P, CDP, BH, MG #### [facility] [address] [place] [address] Pickling Operator: Jurgen Hernandez MD Immature granulocytes/100 WBC (Bld) 0 % Normal 0 [facility] Comment on above: Performed By: #### C P, CDP, BH, MG #### [facility] [address] [place] [address] Pickling Operator: Jurgen Hernandez MD Lymphocytes (Bld) [#/Vol] 0.48 10*3/uL Low 1.0-4.8 [facility] Comment on above: Performed By: #### C P, CDP, BH, MG #### [address] [address] Pickling Operator: Jurgen Hernandez MD Lymphocytes/100 WBC (Bld) 5 % Low 24-44 [facility] Comment on above: Performed By: #### C P, CDP, BH, MG #### [address] [address] Pickling Operator: Jurgen Hernandez MD Monocytes (Bld) [#/Vol] 0.38 10*3/uL Normal 0.1-0.8 [facility] Comment on above: Performed By: #### C P, CDP, BH, MG #### [facility] [employer] [address] [place] [phone] Pickling Operator: Jurgen Hernandez MD Monocytes/100 WBC (Bld) 4 % Normal 1-7 [facility] Comment on above: Performed By: #### C P, CDP, BH, MG #### [facility] [address] [place] [phone] Pickling Operator: Jurgen Hernandez MD Morphology Moises (Bld) [Interp] ANISOCYTOSIS PRESENT Normal [facility] Comment on above: Performed By: #### C P, CDP, BH, MG #### [facility] [employer] [address] [place] [phone] Pickling Operator: Jurgen Hernandez MD Neutrophil (Seg) 91 % High 36-66 [facility] Comment on above: Performed By: #### C P, CDP, BH, MG #### [facility] [employer] [address] [place] [phone] Pickling Operator: Jurgen Hernandez MD Erythrocyte distribution width (RBC) [Ratio] 14.5 % High 11.8-14.4 [facility] Comment on above: Performed By: #### C P, CDP, BH, MG #### [facility] [employer] [address] [place] [phone] Pickling Operator: Jurgen Hernandez MD Hematocrit (Bld) [Volume fraction] 35.7 % Low 36.3-47.1 [facility] Comment on above: Performed By: #### C P, CDP, BH, MG #### [facility] [employer] [address] [place] [phone] Pickling Operator: Jurgen Hernandez MD Hemoglobin (Bld) [Mass/Vol] 12.1 g/dL Normal 11.9-15.1 [facility] Comment on above: Performed By: #### C P, CDP, BH, MG #### [facility] [address] [place] [address] Pickling Operator: Jurgne Hernandez MD MCH (RBC) [Entitic mass] 30.0 pg Normal 25.2-33.5 [facility] Comment on above: Performed By: #### C P, CDP, BH, MG #### [facility] [address] [place] [phone] Pickling Operator: Jurgen Hernandez MD MCHC (RBC) [Mass/Vol] 33.9 g/dL Normal 28.4-34.8 [facility] Comment on above: Performed By: #### C P, CDP, BH, MG #### [facility] [employer] [address] [place] [phone] Pickling Operator: Jurgen Hernandez MD MCV (RBC) [Entitic vol] 88.4 fL Normal 82.6-102.9 [facility] Comment on above: Performed By: #### C P, CDP, BH, MG #### [address] [address] Pickling Operator: Jurgen Hernandez MD NRBC Automated 0.0 per 100 WBC Normal 0.0 [facility] Comment on above: Performed By: #### C P, CDP, BH, MG #### [address] [address] Pickling Operator: Jurgen Hernandez MD Platelet mean volume (Bld) [Entitic vol] 9.4 fL Normal 8.1-13.5 [facility] Comment on above: Performed By: #### C P, CDP, BH, MG #### [address] [address] Pickling Operator: Jurgen Hernandez MD Platelets (Bld) [#/Vol] 231 10*3/uL Normal 138-453 [facility] Comment on above: Performed By: #### C P, CDP, BH, MG #### [address] [address] Pickling Operator: Jurgen Hernandez MD RBC (Bld) [#/Vol] 4.04 10*6/uL Normal 3.95-5.11 [facility] Comment on above: Performed By: #### C P, CDP, BH, MG #### [address] [address] Pickling Operator: Jurgen Hernandez MD WBC (Bld) [#/Vol] 9.5 10*3/uL Normal 3.5-11.3 [facility] Comment on above: Performed By: #### C P, CDP, BH, MG #### [address] [address] Pickling Operator: Jurgen Hernandez MD Comp Metabolic Profon 2023 Potassium [Moles/Vol] 2.7 mmol/L Critically low 3.7-5.3 [facility] Comment on above: Performed By: #### R OGBS #### [address] [address] Pickling Operator: Jurgen Hernandez MD Albumin [Mass/Vol] 2.9 g/dL Low 3.5-5.2 [facility] Comment on above: Performed By: #### R OGBS #### [address] [address] Pickling Operator: Jurgen Hernandez MD Albumin/Glob Ratio 1.1 Normal 1.0-2.5 [facility] Comment on above: Performed By: #### R OGBS #### [address] [address] Pickling Operator: Jurgen Hernandez MD Alkaline Phos 73 U/L Normal 35-104 [facility] Comment on above: Performed By: #### R OGBS #### [address] [address] Pickling Operator: Jurgen Hernandez MD ALT [Catalytic activity/Vol] 8 U/L Normal 5-33 [facility] Comment on above: Performed By: #### R OGBS #### [address] [address] Pickling Operator: Jurgen Hernandez MD Anion gap [Moles/Vol] 12 mmol/L Normal 9-17 [facility] Comment on above: Performed By: #### R OGBS #### [address] [address] Pickling Operator: Jurgen Hernandez MD AST [Catalytic activity/Vol] 14 U/L Normal <32 [facility] Comment on above: Performed By: #### R OGBS #### [facility] [employer] [address] [place] [address] Pickling Operator: Jurgen Hernandez MD Bilirubin [Mass/Vol] 1.3 mg/dL High 0.3-1.2 [facility] Comment on above: Performed By: #### R OGBS #### [address] [address] Pickling Operator: Jurgen Hernandez MD Calcium [Mass/Vol] 7.9 mg/dL Low 8.6-10.4 [facility] Comment on above: Performed By: #### R OGBS #### [address] [address] Pickling Operator: Jurgen Hernandez MD Chloride [Moles/Vol] 105 mmol/L Normal 98-107 [facility] Comment on above: Performed By: #### R OGBS #### [address] [address] Pickling Operator: Jurgen Hernandez MD CO2 [Moles/Vol] 21 mmol/L Normal 20-31 [facility] Comment on above: Performed By: #### R OGBS #### [address] [address] Pickling Operator: Jurgen Hernandez MD Creatinine [Mass/Vol] 0.4 mg/dL Low 0.5-0.9 [facility] Comment on above: Performed By: #### R OGBS #### [address] [address] Pickling Operator: Jurgen Hernandez MD GFR/1.73 sq M.predicted among non-blacks MDRD (S/P/Bld) [Vol rate/Area] mL/min/{1.73_m2} Normal >60 [facility] Comment on above: Result Comment: [...] affects renal tubular secretion. Performed By: #### R OGBS #### [facility] [employer] [address] [place] [address] Pickling Operator: Jurgen Hernandez MD Glucose [Mass/Vol] 115 mg/dL High 70-99 [facility] Comment on above: Performed By: #### R OGBS #### [address] [address] Pickling Operator: Jurgen Hernandez MD Protein [Mass/Vol] 5.5 g/dL Low 6.4-8.3 [facility] Comment on above: Performed By: #### R OGBS #### [facility] [employer] [address] [place] [address] Pickling Operator: Jurgen Hernandez MD Sodium [Moles/Vol] 138 mmol/L Normal 135-144 [facility] Comment on above: Performed By: #### R OGBS #### [facility] [employer] [address] [place] [address] Pickling Operator: Jurgen Hernandez MD Urea nitrogen [Mass/Vol] 3 mg/dL Low 6-20 [facility] Comment on above: Performed By: #### R OGBS #### [facility] [employer] [address] [place] [address] Pickling Operator: Jurgen Hernandez MD Potassium [Moles/Vol] 2.6 mmol/L Critically low 3.7-5.3 [facility] Comment on above: Performed By: #### C P, CDP, BH, MG #### [facility] [employer] [address] [place] [address] Pickling Operator: Jurgen Hernandez MD Albumin [Mass/Vol] 3.4 g/dL Low 3.5-5.2 [facility] Comment on above: Performed By: #### C P, CDP, BH, MG #### [facility] [employer] [address] [place] [address] Pickling Operator: Jurgen Hernandez MD Albumin/Glob Ratio 1.0 Normal 1.0-2.5 [facility] Comment on above: Performed By: #### C P, CDP, BH, MG #### [facility] [employer] [address] [place] [address] Pickling Operator: Jurgen Hernandez MD Alkaline Phos 80 U/L Normal 35-104 [facility] Comment on above: Performed By: #### C P, CDP, BH, MG #### [facility] [employer] [address] [place] [address] Pickling Operator: Jurgen Hernandez MD ALT [Catalytic activity/Vol] 9 U/L Normal 5-33 [facility] Comment on above: Performed By: #### C P, CDP, BH, MG #### [address] [address] Pickling Operator: Jurgen Hernandez MD Anion gap [Moles/Vol] 15 mmol/L Normal 9-17 [facility] Comment on above: Performed By: #### C P, CDP, BH, MG #### [facility] [employer] [address] [place] [address] Pickling Operator: Jurgen Hernandez MD AST [Catalytic activity/Vol] 20 U/L Normal <32 [facility] Comment on above: Performed By: #### C P, CDP, BH, MG #### [facility] [employer] [address] [place] [address] Pickling Operator: Jurgen Hernandez MD Bilirubin [Mass/Vol] 1.6 mg/dL High 0.3-1.2 [facility] Comment on above: Performed By: #### C P, CDP, BH, MG #### [address] [address] Pickling Operator: Jurgen Hernandez MD Calcium [Mass/Vol] 8.2 mg/dL Low 8.6-10.4 [facility] Comment on above: Performed By: #### C P, CDP, BH, MG #### [place] [address] Pickling Operator: Jurgen Hernandez MD Chloride [Moles/Vol] 108 mmol/L High 98-107 [facility] Comment on above: Performed By: #### C P, CDP, BH, MG #### [facility] [employer] [address] [place] [address] Pickling Operator: Jurgen Hernandez MD CO2 [Moles/Vol] 19 mmol/L Low 20-31 [facility] Comment on above: Performed By: #### C P, CDP, BH, MG #### [facility] [employer] [address] [place] [address] Pickling Operator: Jurgen Hernandez MD Creatinine [Mass/Vol] 0.4 mg/dL Low 0.5-0.9 [facility] Comment on above: Performed By: #### C P, CDP, BH, MG #### [place] [address] Pickling Operator: Jurgen Hernandez MD GFR/1.73 sq M.predicted among non-blacks MDRD (S/P/Bld) [Vol rate/Area] mL/min/{1.73_m2} Normal >60 [facility] Comment on above: Result Comment: [...] secretion. Performed By: #### C P, CDP, BH, MG #### [employer] [facility] [place] [address] Pickling Operator: Jurgen Hernandez MD Glucose [Mass/Vol] 122 mg/dL High 70-99 [facility] Comment on above: Performed By: #### C P, CDP, BH, MG #### [facility] [address] [place] [address] Pickling Operator: Jurgen Hernandez MD Protein [Mass/Vol] 6.7 g/dL Normal 6.4-8.3 [facility] Comment on above: Performed By: #### C P, CDP, BH, MG #### [employer] [address] [place] [address] Pickling Operator: Jurgen Hernandez MD Sodium [Moles/Vol] 142 mmol/L Normal 135-144 [facility] Comment on above: Performed By: #### C P, CDP, BH, MG #### [employer] [address] [place] [address] Pickling Operator: Jurgen Hernandez MD Urea nitrogen [Mass/Vol] 6 mg/dL Normal 6-20 [facility] Comment on above: Performed By: #### C P, CDP, BH, MG #### [employer] [address] [place] [phone] Pickling Operator: Jurgen Hernandez MD Comprehensive Metabolic Pane [facility] 03-26-2023 Albumin [Mass/Vol] 2.9 g/dL Low 3.5 - 5.2 g/dL [facility] Albumin/Globulin [Mass ratio] 1.1 {ratio} 1.0 - 2.5 [facility] ALP [Catalytic activity/Vol] 73 U/L 35 - 104 U/L [facility] ALT [Catalytic activity/Vol] 8 U/L 5 - 33 U/L [facility] Anion gap [Moles/Vol] 12 mmol/L 9 - 17 mmol/L [facility] AST [Catalytic activity/Vol] 14 U/L NINF - 32 U/L [facility] Bilirubin [Mass/Vol] 1.3 mg/dL High 0.3 - 1 .2 mg/dL [facility] Calcium [Mass/Vol] 7.9 mg/dL Low 8.6 - 10. 4 mg/dL [facility] Chloride [Moles/Vol] 105 mmol/L 98 - 10 7 mmol/L [facility] CO2 [Moles/Vol] 21 mmol/L 20 - 31 mmol/L [facility] Creatinine [Mass/Vol] 0.4 mg/dL Low 0.5 - 0.9 mg/dL [facility] GFR/1.73 sq M.predicted MDRD (S/P/Bld) [Vol rate/Area] - PINF [facility] Comment on above: These results are not [...] 115 mg/dL High 70 - 99 mg/dL [facility] Interpretation and review of laboratory results Abnormal [facility] Potassium [Moles/Vol] 2.7 mmol/L Critically low 3.7 - 5.3 mmol/L [facility] Protein [Mass/Vol] 5.5 g/dL Low 6.4 - 8.3 g/dL [facility] Sodium [Moles/Vol] 138 mmol/L 135 - 144 mmol/L [facility] Urea nitrogen [Mass/Vol] 3 mg/dL Low 6 - 20 mg/dL [facility] Albumin [Mass/Vol] 3.4 g/dL Low 3.5 - 5.2 g/dL [facility] Albumin/Globulin [Mass ratio] 1.0 {ratio} 1.0 - 2.5 [facility] ALP [Catalytic activity/Vol] 80 U/L 35 - 104 U/L [facility] ALT [Catalytic activity/Vol] 9 U/L 5 - 33 U/L [facility] Anion gap [Moles/Vol] 15 mmol/L 9 - 17 mmol/L [facility] AST [Catalytic activity/Vol] 20 U/L NINF - 32 U/L [facility] Bilirubin [Mass/Vol] 1.6 mg/dL High 0.3 - 1 .2 mg/dL [facility] Calcium [Mass/Vol] 8.2 mg/dL Low 8.6 - 10. 4 mg/dL [facility] Chloride [Moles/Vol] 108 mmol/L High 98 - 10 7 mmol/L [facility] CO2 [Moles/Vol] 19 mmol/L Low 20 - 31 mmol/L [facility] Creatinine [Mass/Vol] 0.4 mg/dL Low 0.5 - 0.9 mg/dL [facility] GFR/1.73 sq M.predicted MDRD (S/P/Bld) [Vol rate/Area] - PINF [facility] Comment on above: These results are not [...] 122 mg/dL High 70 - 99 mg/dL [facility] Interpretation and review of laboratory results Abnormal [facility] Potassium [Moles/Vol] 2.6 mmol/L Critically low 3.7 - 5.3 mmol/L [facility] Protein [Mass/Vol] 6.7 g/dL 6.4 - 8.3 g/dL [facility] Sodium [Moles/Vol] 142 mmol/L 135 - 144 mmol/L [facility] Urea nitrogen [Mass/Vol] 6 mg/dL 6 - 20 mg/dL [facility] [employer] 03-26-2023 Magnesium [Mass/Vol] 1.6 mg/dL Normal 1.6-2.6 [facility] Comment on above: Performed By: #### C P, CDP, BH, MG #### [facility] [address] [place] [address] [phone] Pickling Operator: Jurgen Hernandez MD Magnesium [Mass/Vol] 1.6 mg/dL 1.6 - 2 .6 mg/dL [facility] Potassiumon 03-26-2023 Interpretation and review of laboratory results Abnormal [facility] Potassium [Moles/Vol] 2.5 mmol/L Critically low 3.7 - 5.3 mmol/L [facility] Protein / Creatinine Ratio, Urineon 03-26-2023 Creatinine (U) [Mass/Vol] 185.0 mg/dL 28.0 - 217.0 mg/dL [facility] Protein (U) [Mass/Vol] 44 mg/dL [facility] Comment on above: No normal range esta blished. Urine Total Protein Creatinine Ratio 0.24 [facility] Protein,Tot,Phenix Uron 2023 Creatinine [Mass/Vol] 185.0 mg/dL Normal 28.0-217.0 [facility] Comment on above: Performed By: #### R OGBS #### [facility] [address] [place] [address] Pickling Operator: Jurgen Hernandez MD Tot Prot. Conc. 44 mg/dL Normal [facility] Comment on above: Result Comment: No n ormal range established. Performed By: #### R OGBS #### [facility] [address] [place] [address] [phone] Pickling Operator: Jurgen Hernandez MD TP/Cre Ratio 0.24 Normal [facility] Comment on above: Performed By: #### R OGBS #### [facility] [address] [place] [address] [phone] Pickling Operator: Jurgen Hernandez MD US PELVIS TRANSVAGon [...] LUCIANA MENDOZA Date: 2022-04-12 16:28 Normal [facility] Vaginitis DNA Probeon 2022 Hiral Species, DNA Probe Negative NEGATIVE [facility] Comment on above: for Hiral sp. Method of testing is a DNA probe intended for detection and identification of Hiral species, Gardnerella vaginalis, and Trichomonas vaginalis nucleic acid in vaginal fluid specimens from patients with symptoms of vaginitis/vaginosis. Gardnerella Vaginalis, DNA Probe Positive Abnormal NEGATIVE [facility] Comment on above: for Gardnerella vagi nalis Interpretation and review of laboratory results Abnormal [facility] Source .VAGINAL SWAB [facility] Trichomonas Vaginalis DNA Negative NEGATIVE [facility] Comment on above: for Trichomonas Vagi nalis [facility] Vital Signs Date Time Vital Sign Value Performing Clinician Facility 03-29-2023 11:45-0500 Body mass index (BMI) [Ratio] 38.07 kg/m2 [employer] DO Work Phone: [facility] 03-29-2023 11:45-0500 Body weight 94.4 kg [employer] Work Phone: [facility] 03-29-2023 11:45-0500 Diastolic blood pressure 70 mm[Hg] [employer] Work Phone: [facility] 03-29-2023 11:45-0500 Systolic blood pressure 122 mm[Hg] Renu Richards DO Work Phone: [facility] 03-27-2023 14:27-0500 Body temperature 37.0 Pema Rebolledo DO [facility] Phone[facility] 03-27-2023 11:51-0500 Body temperature 98.2 [degF] Pema Amaury DO Work Phone: [facility] 03-27-2023 11:51-0500 Diastolic blood pressure 78 mm[Hg] Pema Amaury DO Work Phone: [employer] 03-27-2023 11:51-0500 Heart rate 91 /min Pema Amaury DO Work Phone: [facility] 03-27-2023 11:51-0500 Respiratory rate 16 /min Pema Amaury DO Work Phone: [facility] 03-27-2023 11:51-0500 SaO2% (BldA) [Mass fraction] 97 % Pema Rebolledo DO Work Phone: [employer] 03-27-2023 11:51-0500 Systolic blood pressure 123 mm[Hg] Pema Amaury DO Work Phone: [facility] [employer] 02-15-2023 17:00-0500 Body height 157.48 cm Rosalind Jeter Other [employer] Other 02-15-2023 17:00-0500 Body mass index (BMI) [Ratio] 37.45 kg/m2 Rosalind Jeter Other [employer] Other 02-15-2023 17:00-0500 Body temperature 98 [degF] Rosalind Jeter Other [employer] Other 02-15-2023 17:00-0500 Body weight 92.9 kg Rosalind Jeter Other [employer] Other 02-15-2023 17:00-0500 Diastolic blood pressure 71 mm[Hg] Rosalind Riveramond Other [employer] Other 02-15-2023 17:00-0500 Respiratory rate 18 /min Rosalind Jeter Other [employer] Other 02-15-2023 17:00-0500 SaO2% (BldA) [Mass fraction] 99 % Rosalind Jeter Other [employer] Other 02-15-2023 17:00-0500 Systolic blood pressure 111 mm[Hg] Rosalind Jeter Other [employer] Other Encounters Encounter Date Encounter Type Care Provider Facility Start: 04-05-2023 End: 04-05-2023 ambulatory RENU SUSIE Not Available Start: 03-29-2023 End: 03-29-2023 ambulatory RENU SUSIE Not Available Start: 03-29-2023 End: 03-29-2023 flow sheet Renu Susie DO Work Phone: [facility] Comment on above: Third trimester preg mitchel; Hypokalemia Start: 03-26-2023 End: 03-27-2023 ambulatory PEMA REBOLLEDO [facility] Start: 03-26-2023 End: 03-26-2023 Emergency department patient visit ROSETTE MENDOZA [facility] Start: 03-26-2023 End: 03-27-2023 Subsequent hospital visit by physician Pema Rebolledo DO Work Phone: [id number] Comment on above: Hypokalemia (Primary Dx) Start: 2023 End: 2023 ambulatory RENU SUSIE Not Available Start: 02-22-2023 End: 02-22-2023 ambulatory RENU SUSIE Not Available Start: 02-15-2023 End: 02-15-2023 ambulatory Rosalind Jeter Other [facility] [employer] Other Start: 02-15-2023 Office outpatient ne w 10 minutes Rosalind Jeter [facility] Start: 02-08-2023 End: 02-08-2023 ambulatory RINA CURRY Not Available Start: 01-16-2023 End: 01-16-2023 ambulatory RENU SUSIE Not Available Start: 04-11-2022 End: 04-12-[address] NONE LISTED REQUEST Facility: Start: 03-30-2022 End: 03-30-2022 Patient encounter procedure Rosette Mendoza Other Phone: [facility] Start: 03-30-2022 End: 03-30-2022 Subsequent hospital visit by physician Rosette Mendoza Other Phone: [facility] Comment on above: Vaginal discharge; [...] specie s direct probe tq Brittani Aguilar [employer] - CNM Work Phone: Start: 03-30-2022 Microscopic observat ion [Identifier] in Cervix by Cyto stain Pema Rebolledo DO Work Phone: Plan of Treatment Date Care Activity Detail Author Start: 03-30-2027 Screening for malign ant neoplasm of cervix [facility] Start: 03-30-2025 Screening for malign ant neoplasm of cervix Pap smear [facility] Start: 04-11-2023 End: 04-11-2023 Patient encounter procedure 04/11/2023 10:[address] [facility] [address] [facility] [address] [place] [address] Return in about 6 weeks (around 04/11/2023) for Repeat Anatomy, Growth/BPP. [facility] Comment on above: Return in about 6 we eks (around 04/11/2023) for Repeat Anatomy, Growth/BPP. Start: 04-05-2023 End: 04-05-2023 Patient encounter procedure 04/05/2023 11:30 AM EST Routine [facility] [address] [place] [id number] Renu Richards, DO [address] [place] [address] [facility] Start: 03-31-2023 End: 03-27-2024 Potassium [Moles/volume] in Serum or Plasma Potassium Lab Routine Hypokalemia Expected: 03/31/2023, Expires: 03/27/2024 [facility] Comment on above: Expected: 03/31/2023 , Expires: 03/27/2024 Start: 03-30-2023 Depression Screen Depression Screen [facility] Start: 03-29-2023 End: 03-29-2024 US biophysical profile w non stress test US biophysical profile w non stress test Imaging Routine Hypokalemia Expected: 03/29/2023 (Approximate), Expires: 03/29/2024 [facility] Work Phone: Comment on above: Expected: 03/29/2023 (Approximate), Expires: 03/29/2024 Start: 2023 Diabetes screen Diabetes screen [facility] Start: 09-13-2022 Influenza vaccination Flu vaccine (# 1) [facility] Start: 09-13-2021 Influenza vaccination Flu vaccine (# 1) [facility] Start: 2018 Screening for malign ant neoplasm of cervix [facility] Start: 2009 Screening for malign ant neoplasm of cervix Pap smear [facility] Start: 2007 DTaP/Tdap/Td vaccine (1 - Tdap) DTaP/Tdap/Td vaccine (1 - Tdap) [facility] Start: 2006 Hepatitis C screening Hepatitis C sc reen [facility] Start: 2003 HIV screening HIV screen [facility] Start: 1989 Varicella vaccine (1 of 2 - 2-dose childhood series) Varicella vaccine (1 of 2 - 2-dose childhood series) [facility] Start: 1988 COVID-19 Vaccine (#1) COVID-19 Vacci ne (#1) [facility] Start: 1988 Hepatitis B vaccine (1 of 3 - 3-dose series) Hepatitis B vaccine (1 of 3 - 3-dose series) [facility] End: 03-30-2022 C.trachomatis N.gonorrhoeae DNA, Thin Prep [facility] Work Phone: Comment on above: 1 Occurrences starti ng 03/30/2022 until 03/30/2022 End: 03-27-2023 Culture, Strep B Screen, Vaginal/Rectal [employer] Phone: Comment on above: One Time for 1 Occur rences starting 03/27/2023 until 03/27/2023 End: 03-30-2022 Culture, Urine [employer] Phone: Comment on above: 1 Occurrences starti ng 03/30/2022 until 03/30/2022 End: 03-27-2023 Electrolyte Panel w/ Reflex to MG Electrolyte Panel w/ Reflex to MG Lab Routine One Time for 1 Occurrences starting 03/27/2023 until 03/27/2023 [employer] Phone: Comment on above: One Time for 1 Occur rences starting 03/27/2023 until 03/27/2023 Nonrebreather mask oxygen Nonrebreather mask oxygen Respiratory Care Routine As Needed until discontinued starting 03/26/2023 [employer] Comment on above: As Needed until disc ontinued starting 03/26/2023 Payers Date Payer Category Payer Unknown BCBS BCBS xxxxxx [id number] 2022-Present [phone] [address] [place] [address] [id number] 1988 Unknown [id number] 1988 Unknown [id number] 1988 Unknown [id number] 1988 Unknown [id number] 1988 Unknown [id number] 1988 Unknown [id number] 1988 Unknown [id number] 1988 Unknown [id number] 1988 Unknown [id number] 1959 Unknown [id number] Social History Date Type Detail Facility Start: 03-30-2022 End: 10-10-2022 Tobacco smoking status MIIS Never smoked tobacco [employer] Phone: Start: 03-30-2022 End: 10-10-2022 Tobacco use and exposure Smokeless tobacco non-user [employer] Phone: Start: 03-30-2022 Alcohol intake Lifetime non-drinker (finding) [employer] Phone: Start: 1990 Sex Assigned At Not on file [employer] Phone: Start: 11-21-2022 End: 03-26-2023 Sex Assigned At [employer] Other Start: 03-26-2023 End: 03-29-2023 Alcohol intake Ex-drinker (finding) [employer] Start: 11-21-2022 End: 03-26-2023 History of Social function [employer] Patient Health Questionnaire 9 item (PHQ-9) total score [Reported] 0 [employer] Start: 08-08-2022 [employer] Start: 1990 Sex Assigned At Female [facility] Start: 09-21-2022 Gender identity Identifies as female gender (finding) [facility] History of Present illness Narrative 03-29-2023 [...] nursing note reviewed. Exam conducted with a blending operator present. Vitals: Estimated body mass index is [...] Renu Richards DO documented in this encounter [facility] Discharge instructions 03-27-2023 Discharge Instructions [...] on left side. documented in this encounter [facility] History of Present illness Narrative 03-27-2023 Keiko [...] the patient: POTASSIUM ER 20MG Additional Documentation: MEDICAL RECORD ADMINISTRATOR PROGRESS NOTE Niesha Fisher is a 33 [...] Will update Dr. Gonzalez. Joanna Pablo DO [employer]person [employer] Resident 03/27/2023, 6:31 AM Attending Physician Statement [...] Gonzalez MD Date: 03/27/2023 Time: 11:48 AM MEDICAL RECORD ADMINISTRATOR RESIDENT INTERVAL NOTE Repeat CMP reviewed K [...] ms QTc Calculation (Bazett) 471 ms P [place] 54 degrees R [place] 35 degrees T [place] 38 degrees Comprehensive Metabolic Panel Collection Time: [...] AST 14 <32 U/L Joanna Pablo DO MEDICAL RECORD ADMINISTRATOR Resident [facility] 03/26/2023 8:12 PM documented in this encounter [facility] course Narrative 03-27-2023 Sun Gillis MD - 03/27/2023 3:37 PM EST Note Date & Type Note Facility 03-27-2023 Hospital course Narrative Obstetric Discharge Summary [facility] Patient Name: Niesha Fisher Patient [...] Your Medications These medications were sent to [address] - [phone] - F [phone] [place] [id number] potassium chloride 20 MEQ extended release tablet Diet: regular Follow up: With primary Ob provider on 03/29/23 Condition on discharge: good Discharge date: 03/27/23 Sun Gillis MD [employer]person [employer] Resident documented in this encounter [facility] Evaluation note 02-15-2023 Note Date & Type Note Facility 02-15-2023 Evaluation note Encounter Date Diagnosis Assessment Notes Feb, Right otitis media, unspecified otitis media type (ICD-10 - H66.91) Drink plenty fluids, get plenty of rest. Take the amoxicillin as prescribed until gone. Take Tylenol as needed for pain or fevers. Follow-up with your family physician or MEDICAL RECORD ADMINISTRATOR if no improvement in 2 to 3 days. [employer] Other Evaluation note Note Date & Type Note Facility Evaluation note Diagnosis Vaginal discharge Leukorrhea, not specified as infective Malodorous urine Other nonspecific finding on examination of urine Well woman exam Routine general medical examination at a health care facility documented in this encounter [facility] [employer] Work Phone: Evaluation note Note Date & Type Note Facility Evaluation note Diagnosis 34 weeks gestation of - Primary state, incidental Hypokalemia Hypopotassemia Acute gastroenteritis Other and unspecified noninfectious gastroenteritis and colitis Hypokalemia Hypopotassemia Hypomagnesemia Disorders of magnesium metabolism documented in this encounter [facility] [employer] Evaluation note Note Date & Type Note Facility Evaluation note Diagnosis Third trimester state, incidental Hypokalemia Hypopotassemia documented in this encounter [facility] History general Narrative - Reported Note Date & Type Note Facility History general Narrative - Reported Type Surgical History C section 2020 [facility] [employer] Other Summary Purpose Family History No Family History Records FoundNo Family History Records FoundNo Family History Records Found Advance Directives No Advanced Directives Records FoundLatest Code Status on File Code Status Date Activated Date Inactivated Comments Full Code 03/26/2023 9:19 AM Additional Source Comments Care Teams (unrecognized sec tion and content) Dress Designer Relationship Specialty Start Date End Date Rosette Mendoza [address] [facility] [address] [place] [address] PCP - General Internal Medicine 03/30/22 Dress Designer Relationship Specialty Start Date End Date Rosette Mendoza [address] [facility] [address] [place] [address] PCP - General Internal Medicine 03/30/22 INFORMATION SOURCE (unrecogn ized section and content) DATE CREATED AUTHOR 04/17/2022 [facility] DATE CREATED AUTHOR AUTHOR'S ORGANIZ ATION 04/13/2023 [facility] EPIC DATE CREATED AUTHOR AUTHOR'S ORGANIZ ATION 04/14/2023 [facility] REASON FOR VISIT (unrecogniz ed section and content) Reason Comments Nausea & Vomiting Diarrhea Specialty Diagnoses / Procedures Referred By Angela forte Referred To Contact Diagnoses 34 weeks gestation of Pema Rebolledo DO [address] [place] [address] [facility] [id number] [place] [address] Referral ID Status Reason Start Date Expiration Date Visits Re quested Visits Authorized [id number] 1 Reason Comments Routine Visit Ordered [...] 1 dose 0931 (New Bag - Provider: Sulelen Beavers RN)1028 (Rate/Dose Change - Provider: Jess [...] 2053 (New Bag - Provider: Sanjana Raines RN)2307 (Stopped - Provider: Sanjana Raines RN) magnesium sulfate 2000 mg in 50 mL IVPB premix (COMPLETED) 2,000 mg, IntraVENous, at 25 mL/hr, Administer over 2 Hours, ONCE, On Mon03/27/23 at 0945, For 1 dose, Recommended infusion rate not to exceed 1,000 mg (milligrams) per hour. 1057 (New Bag - Provider: Lou George, [employer])1300 (Stopped - Provider: Lou George RN) Continuous Medication Order 03/25/2023 03/26/202303/27/2023 0.9 % sodium chloride infusion (CANCELED) IntraVENous, [...] 2) 40 mEq, Oral, PRN, Starting on Mon03/27/23 [...] 0043 (Given - Provid er: Sanjana Raines RN)034 (Given - Provider: Sanjana Raines RN) potassium [...] Raines RN)0341 (See Alternative - Provider: Sanjana S Mahmoud, RN) Linked Groups Order Group 1: [email or web address] [...] BE BASED ON THE PRIMARY CLINICAL RECORDS. [facility]. provides no warranty or guarantee of the accuracy or completeness of information in this document.
--- NOTE | 2023-04-17 19:31 | PC.NURSE ---
Niesha and 6 day old Alexis arrive for follow up. Mom states going pretty well at home. Baby wakes to feed at regular intervals, feeds from both breasts for 20 /10 minutes usually. States active swallowing heard by mom. She reports has given infant 2 bottles of formula just in case, he wasn't getting enough States is using a formula from [place], Kindame[employer] (sp) goat milk formula. States had best reviews . Cautioned about using unapproved formula for [place]. States I did research it well and it is better quality than our [place] brands Encouraged to speak with PCP regarding use. Verbalized understanding. Niesha assessment WNL and VSS. has developed 1 hemorrhoid since delivery, using tucks and cream at this time. Will speak with Dr Richards at incision check. Incision clean, dry and approximated. Steri strips intact and minimal discomfort noted by pt. Alexis VSS, and assessment WNL. output appropriate for 6 day old NB and feeds regularly. Bili, transcutaneous 11.2. Feeds well at visit. assisted with positioning for deeper latch and improved nipple pain. Plan to return 04/24/2023 for support as needed. Leaves ambulatory with , nb, and 3 year old daughter.
[2023-04-17 19:35] VITALS: BP 123/84; PULSE 74; RESP 16; TEMP 36.7; O2SAT 96
== END 2023-04-17 14:20 | disposition home or self-care (01) ==
LOC: FBCO 08:17
PROVIDERS: Visit Provider Obstetrics & Gynecology
DX: Z39.2 Encounter for routine postpartum follow-up (principal)

== ENCOUNTER 2024-08-14 15:11 | Outpatient (REF) | payer BC, SELFPAY ==
[2024-08-19 16:08] LABS: Age Gdln ACOG Testing Note (.); IGP, Aptima HPV, rfx 16/18,45 Note (.)
== END 2024-08-14 15:12 | disposition home or self-care (01) ==
LOC: LAB 15:11
PROVIDERS: Visit Provider Physician Assistant
DX: Z01.419 Encounter for gynecological examination (general) (routine) without abnormal findings (principal)
CPT/HCPCS: 87624; 88175